=== PATIENT | male | born 1945 | race Caucasian/White ===

== ENCOUNTER 2019-11-14 11:35 | Day surgery (SDC) | payer MEDICARE, OTHER, SELFPAY ==
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
[2019-11-14 12:01] VITALS: BP 131/45; PULSE 91; RESP 16; TEMP 36.8; O2SAT 98; BMI 40.3
[2019-11-14] MEDS: Lactated Ringers 1,000 ML 75 ML IV (12:16)
[2019-11-14 12:26] LABS: Bedside Glucose 112 mg/dL (70-110)
--- NOTE | 2019-11-14 12:45 | COLBX_PTH ---
PATIENT: WILLIAM PLUMMER LOC: EN U#:[id number] AGE/SX: 73/M ROOM: RE11/14/[address]: Dr. Marylu Ferrer MD : 1945 BED: DIS: 11/14/2019 SPEC #: [id number] RECD: 11/14/19 14:53 STATUS: RA REQ #: [id number] HONORIO: 11/14/19 12:[address]: Marylu Ferrer DEPT: SURGICAL PATHOLOGY RECD BY: Serjio Elliott ENTERED: 11/15/19 07:51 SP TYPE: COLON BX OT DR: Dr. Gentry Frias MD Tissues: A - Right colon B - Right colon C - Rectum, NOS Procedures: Surgery Specimen Level IV HEADER OPERATION: Colonoscopy (MAC) PRE-OP DIAGNOSIS: Positive fecal occult blood test TISSUE SUBMITTED: A - Right colon polyp biopsy, B - Distal right colon polyp biopsy, C - Rectal polyp MICROSCOPIC DIAGNOSIS A. Right colon polyp, biopsy: Tubular adenoma. B. Distal right colon polyp, biopsy: Fragment of benign colonic mucosa. See comment. C. Rectal polyp, biopsy: Fecal debris. See comment. AM:santos 11/16/19 COMMENT B. Neither hyperplastic nor adenomatous change is identified. C. Mucosal epithelium is not identified. Clinical correlation is suggested. MICROSCOPIC DESCRIPTION Slides are reviewed. GROSS DESCRIPTION A - Received in fixative is one container labeled with the patient's name and designated right colon polyp biopsy. The specimen consists of one irregular fragment of light desai soft tissue that measures 0.5 x 0.5 x 0.1 cm. The specimen is totally submitted in one cassette. B - Received in fixative is one container labeled with the patient's name and designated distal right colon polyp. The specimen consists of one irregular fragment of light desai soft tissue that measures 0.3 x 0.3 x 0.1 cm. The specimen is totally submitted in one cassette. C - Received in fixative is one container labeled with the patient's name and designated rectal polyp. The specimen consists of multiple irregular fragments of light desai fecal debris that in aggregate measure 2.5 x 0.6 x 0.1 cm. The specimen is totally submitted in one cassette. / AM:santos 11/15/19 TC:5 CPT: 04936 x3
[2019-11-14 13:12] VITALS: BP 131/45; BP 89/74; PULSE 80; RESP 16; TEMP 36.5; O2SAT 97
--- NOTE | 2019-11-14 13:14 | OP.COLON_ITS ---
Patient Name: Patrick Perdomo Procedure Date: 11/14/2019 11:57 AM Date of : 1945 Age: 73 Procedure: Colonoscopy Indications: Heme positive stool Providers: Marylu Ferrer MD Referring MD: Gentry Frias Medicines: See the Anesthesia note for documentation of the administered medications Patient Profile: Refer to note in patient chart for documentation of history and physical. Last Colonoscopy: none. The patient's first colonoscopy is today. Complications: No immediate complications. Procedure: Pre-Anesthesia Assessment: - see anesthesia note After I obtained informed consent, the scope was passed under direct vision. Throughout the procedure, the patient's blood pressure, pulse, and oxygen saturations were monitored continuously. The pediatric colonoscope was introduced through the anus and advanced to the cecum, identified by the appendiceal orifice, IC valve and transillumination. The colonoscopy was performed without difficulty. The patient tolerated the procedure well. The quality of the bowel preparation was poor and poor, there was still retained fecal material. Therefore lavage and aspiration was done to clear the fecal material. This took some time. The deras were cleared adequately. Scope In: 12:33:18 PM Scope Withdrawal Time 0 hours 24 minutes 32 seconds Scope Out: 1:07:27 PM Total Procedure Duration Time 0 hours 34 minutes 9 seconds Findings: The perianal and digital rectal examinations were normal. Pertinent negatives include normal sphincter tone. A 3 to 8 mm polyp was found in the ascending colon. The polyp was sessile. The polyp was removed with a cold biopsy forceps. Resection and retrieval were complete. Verification of patient identification for the specimen was done by the nurse. Estimated blood loss was minimal. One 5 to 10 mm submucosal nodule was found in the ascending colon. Probably a small submucosal lipoma. Biopsies were taken with a cold forceps for histology. Verification of patient identification for the specimen was done by the nurse. Estimated blood loss was minimal. A 3 to 8 mm polyp was found in the rectum. The polyp was sessile. The polyp was removed with a hot snare. Resection and retrieval were complete. Verification of patient identification for the specimen was done by the nurse. Estimated blood loss was minimal. Non-bleeding internal hemorrhoids were found. Impression: - Preparation of the colon was poor. - One 3 to 8 mm polyp in the ascending colon, removed with a cold biopsy forceps. Resected and retrieved. - Submucosal nodule in the ascending colon, probable lipoma. Biopsied. - One 3 to 8 mm polyp in the rectum, removed with a hot snare. Resected and retrieved. - Non-bleeding internal hemorrhoids. Recommendation: - Repeat colonoscopy date to be determined after pending pathology results are reviewed for surveillance based on pathology results. - My office will telephone with pathology results in 1-2 weeks - Continue present medications. Procedure Code(s): --- Professional --- 56268, Colonoscopy, flexible; with removal of tumor(s), polyp(s), or other lesion(s) by snare technique 19319, 59, Colonoscopy, flexible; with biopsy, single or multiple Diagnosis Code(s): --- Professional --- K64.8, Other hemorrhoids D12.2, Benign neoplasm of ascending colon K62.1, Rectal polyp K63.89, Other specified diseases of intestine R19.5, Other fecal abnormalities CPT copyright 2017 [employer]. All rights reserved. The codes documented in this report are preliminary and upon ambulance mechanic review may be revised to meet current compliance requirements. MD Marylu Ang MD 11/14/2019 1:13:44 PM This report has been signed electronically. Number of Addenda: 0 Note Initiated On: 11/14/2019 11:57 AM
--- NOTE | 2019-11-14 13:14 | OP.CCLET_ITS ---
11/14/2019 Gentry Frias Re : Colonoscopy procedure for Patrick Banuelosr Rodriguez This procedure was performed on Thursday, November 14, 2019. My impressions and recommendations are as follows: Impressions : - Preparation of the colon was poor. - One 3 to 8 mm polyp in the ascending colon, removed with a cold biopsy forceps. Resected and retrieved. - Submucosal nodule in the ascending colon, probable lipoma. Biopsied. - One 3 to 8 mm polyp in the rectum, removed with a hot snare. Resected and retrieved. - Non-bleeding internal hemorrhoids. Recommendations : - Repeat colonoscopy date to be determined after pending pathology results are reviewed for surveillance based on pathology results. - My office will telephone with pathology results in 1-2 weeks - Continue present medications. My findings are described in the full procedure note, which is enclosed. If I can be of further assistance, please feel free to contact me at Doctor phone number(s): , Work: . Sincerely, MD Marylu Ang MD 11/14/2019 1:13:44 PM This report has been signed electronically.
[2019-11-14 13:17] VITALS: BP 131/45; BP 93/53; PULSE 80; RESP 16; O2SAT 98
[2019-11-14 13:22] VITALS: BP 131/45; BP 96/53; PULSE 80; RESP 16; O2SAT 97
[2019-11-14 13:27] VITALS: BP 105/52; BP 131/45; PULSE 78; RESP 16; TEMP 36.4; O2SAT 98
[2019-11-14 14:07] VITALS: BP 131/45
== END 2019-11-14 14:08 | disposition home or self-care (01) ==
LOC: EN 11:38 → AC 11:41
PROVIDERS: PCP Family Medicine; Referring Provider Family Medicine; Visit Provider Surgery
PROC: 0DJD8ZZ Inspection of Lower Intestinal Tract, Via Natural or Artificial Opening Endoscopic (ICD-10-PCS; CPT 45378; principal; 2019-11-14 12:40)
DX: D12.2 Benign neoplasm of ascending colon (principal); K62.1 Rectal polyp; K63.89 Other specified diseases of intestine; K64.8 Other hemorrhoids; R19.5 Other fecal abnormalities; I10 Essential (primary) hypertension; E78.00 Pure hypercholesterolemia, unspecified; E11.9 Type 2 diabetes mellitus without complications; H54.8 Legal blindness, as defined in USA; M19.90 Unspecified osteoarthritis, unspecified site; H35.52 Pigmentary retinal dystrophy; E66.01 Morbid (severe) obesity due to excess calories; Z68.41 Body mass index [BMI] 40.0-44.9, adult; Z79.84 Long term (current) use of oral hypoglycemic drugs; Z79.899 Other long term (current) drug therapy; Z87.891 Personal history of nicotine dependence
CPT/HCPCS: 45380; 45385; 82962; 88305; J7120; J2405

== ENCOUNTER 2020-11-06 15:58 | Outpatient (RCR) | payer MEDICARE, OTHER, SELFPAY ==
[2020-11-06] MEDS: COVID-19 VACC, MRNA(PFIZER)/PF 30 MCG/0.3 ML SYRINGE IM (16:36)
[2020-11-27] MEDS: COVID-19 VACC, MRNA(PFIZER)/PF 30 MCG/0.3 ML SYRINGE IM (15:22)
== END 2021-02-05 23:59 ==
LOC: IMMUN 15:58
PROVIDERS: PCP Family Medicine; Visit Provider Family Medicine
DX: Z23 Encounter for immunization (principal)
CPT/HCPCS: 0001A; 0002A; 91300

== ENCOUNTER → 2022-12-17 | Outpatient (CLI) | payer MEDICARE, OTHER, SELFPAY ==
--- NOTE | 2022-12-17 13:06 | ART_ITS ---
Reason For Study: PVD Procedure A bilateral lower extremity continuous wave Doppler with analog waveform analysis,segmental pressures,and ankle brachial indexes without exercise. Left Segmental Pressures Left brachial= 128mmHg. Left posterior tibial artery = 132mmHg. Left dorsalis pedis artery = 129mmHg. Left digit = 64 mmHg. The left posterior tibial artery waveforms are triphasic. The left dorsalis pedis waveforms are triphasic. Right Segmental Pressures Right brachial= 125mmHg. Right posterior tibial artery = 140mmHg. Right dorsalis pedis artery = 137mmHg. Right digit = 62 mmHg. The right posterior tibial artery waveforms are triphasic. The right dorsalis pedis waveforms are triphasic. Indices The right ankle brachial index by the posterior tibial artery is 1.09. The right ankle brachial index by the dorsalis pedis is 1.07. The right digital-brachial index is 0.48. The left ankle brachial index by the posterior tibial artery is 1.03. The left ankle brachial index by the dorsalis pedis is 1.01. The left digital-brachial index is 0.50. VL/Lower Ext Art Exam w/o Exercis Interpretation Summary Triphasic Doppler waveforms are noted at ankle level bilaterally. Pulse-volume recordings appear satisfactory at low thigh, calf, ankle, and digital levels bilaterally. Resting ankle-brachial indices are normal bilaterally. The right digital-brachial index is moderately diminished. The left digital-brachial index is mildly diminished. Arterial flow appears normal at ankle level bilaterally. 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 There is evidence of mild antionette rial occlusive disease at digital level on the left. Ordering Physician: Gentry Frias Referring Physician: MARI FRIAS MD Performed By: Pierce Acosta RVT
== END | disposition home or self-care (01) ==
LOC: CVS 13:03
PROVIDERS: PCP Family Medicine; Referring Provider Family Medicine; Visit Provider Family Medicine
DX: I73.9 Peripheral vascular disease, unspecified (principal)
CPT/HCPCS: 93923

== ENCOUNTER 2023-08-05 22:22 | Observation (INO) | payer MEDICARE, OTHER, SELFPAY ==
[2023-08-05 22:23] VITALS: PULSE 81; RESP 18; TEMP 36.6; O2SAT 100; BMI 35.2
[2023-08-05 22:28] VITALS: BP 125/60
--- NOTE | 2023-08-05 22:35 | EX.ED.DYSGE1 ---
HPI History of Present Illness Chief Complaint: Weakness Informant: patient Onset/Context/Timing Onset: Weeks Context: Gradual Onset Narrative Narrative: Patient presents secondary to weakness and falls. He states he has been having trouble picking his legs up when he walks and just shuffles. About a week and a half ago he fell going into his bathroom landing on his left hip. He was able to get himself up at that time. He states he had a similar episode tonight but was not able to get himself up. He again complains of injuring his left hip. He denies fever or chills. [facility] Medical History (Updated 08/05/23 @ 23:[address] Letty Hudson MD) Diabetes Enlarged prostate High cholesterol Legally blind Home Medications ascorbic acid (vitamin C) 1,000 mg tablet 1,000 mg PO DAILY supplement 11/09/19 [History Last Taken Unknown] cholecalciferol (vitamin D3) 25 mcg (1,000 unit) tablet 1,000 unit PO DAILY supplement 11/09/19 [History Last Taken Unknown] cyanocobalamin (vitamin B-12) 1,000 mcg capsule 1,000 mcg PO DAILY supplement 11/09/19 [History Last Taken Unknown] empagliflozin 10 mg tablet 10 mg PO DAILY diabetes 11/09/19 [History Last Taken Unknown] glipizide 10 mg tablet, extended release 24 hr 10 mg PO DAILY diabetes 11/09/19 [History Last Taken Unknown] hydrochlorothiazide 25 mg tablet 12.5 mg PO DAILY water pill 11/09/19 [History Last Taken Unknown] linagliptin 5 mg tablet 5 mg PO DAILY diabetes 11/09/19 [History Last Taken Unknown] lisinopril 10 mg tablet 10 mg PO DAILY 11/09/19 [History Last Taken 11/14/19 09:30] lovastatin 40 mg tablet 40 mg PO QHS cholesterol 11/09/19 [History Last Taken Unknown] metformin 500 mg tablet 1,000 mg PO BID diabetes 11/09/19 [History Last Taken Unknown] pioglitazone 45 mg tablet 45 mg PO DAILY diabetes 11/09/19 [History Last Taken Unknown] vitamin A 3,000 mcg (10,000 unit) capsule 15,000 unit PO DAILY supplement 11/09/19 [History Last Taken Unknown] Allergy/AdvReac Type Severity Reaction Status Date / Time No Known Allergies Allergy Verified 08/05/23 22:27 Social History Smoking Status: Former smoker ROS ROS ED Constitutional Constitutional ED: Denies chills or fever(s) Eyes Eyes: Reports other Details: Legally blind ENT ENT ED: Denies rhinorrhea or sore throat Cardiovascular Cardiovascular: Denies chest pain or palpitations Respiratory/Chest Respiratory/Chest: Denies cough or dyspnea Gastrointestinal Gastrointestinal: Denies abdominal pain, nausea or vomiting Genitourinary Genitourinary ED: Reports urinary frequency; Denies dysuria Musculoskeletal Musculoskeletal: Reports extremity pain; Denies back pain Integumentary Denies Abrasions or rash Neurologic Neurologic: Reports weakness; Denies headache(s) Psychiatric Psychiatric: Denies anxiety or depression Allergic/Immunologic Allergic/Immunologic ED: Denies lip swelling or urticaria EXAM Physical Exam Const Vital Signs: 08/05/23 22:23 08/05/23 22:28 08/05/23 23:26 Temperature 97.8 F Temperature Source Oral Pulse Rate 81 76 Respiratory Rate 18 18 Blood Pressure 125/60 H 131/57 H Blood Pressure Mean 81 81 Pulse Ox 100 97 Oxygen Delivery Method Room Air Room Air Positive well nourished and well developed General Appearance ED: well developed HEENT Reports moist mucous membranes Chest Wall inspection of chest normal and palpation of chest normal Resp normal respiratory effort and clear to auscultation bilaterally Cardio regular rate and regular rhythm GI non-tender Palpation: soft Extremity Extremity Narrative: Mild tonsil patient the lateral aspect of the left hip. Equal leg lengths noted. Good distal pulses. Elastic knee brace removed from his right leg. This is saturated with urine. No focal bony tenderness of the right knee. Neuro oriented x3 Neuro Narrative: Generalized weakness but no focal neurologic deficits. Moves all 4 extremities. Sensorium / Orientation: alert Skin no rashes or lesions noted MDM MDM MDM Narrative Medical decision making narrative: Patient placed on cardiac sonographer. EKG obtained to evaluate for cardiac arrhythmia/ischemia. Labwork obtained to evaluate for leukocytosis, anemia, and electrolyte derangement. Urinalysis obtained to evaluate for infection/hematuria. X-rays of the left hip and pelvis obtained to evaluate for fracture. History & Record Review Discussion w/independent historian: EMS personnel and Patient Lab Data Attestation: I reviewed the patient's lab results. Labs: Laboratory Results - last 24 hr 08/05/23 23:06 WBC 7.8 RBC 3.71 L Hgb 11.5 L Hct 36.3 L MCV 97.8 H MCH 31.0 MCHC 31.7 L RDW Std Deviation 49.7 H RDW Coeff of [place] 13.8 Plt Count 214 MPV 10.8 Immature Gran % (Auto) 0.600 Neut % (Auto) 76.4 H Lymph % (Auto) 12.7 L [place] % (Auto) 9.0 Eos % (Auto) 0.9 Baso % (Auto) 0.4 Absolute Neuts (auto) 6.0 Absolute Lymphs (auto) 0.99 Nucleated RBC % 0 Sodium 141 Potassium 3.6 Chloride 106 Carbon Dioxide 32.0 Anion Gap 3 L BUN 25 H Creatinine 1.11 Estim Creat Clear Calc 53.76 Est GFR (MDRD) Af Amer 83 Est GFR (MDRD) Non-Af 69 BUN/Creatinine Ratio 22.5 H Glucose 221 H Calcium 8.5 Urine Color Yellow Urine Clarity Clear Urine pH 6.5 Ur Specific [place] 1.010 Urine Protein 15 H Urine Glucose (UA) 1000 H Urine Ketones 5 H Urine Occult Blood Negative Urine Nitrite Negative Urine Bilirubin Negative Urine Urobilinogen Normal Ur Leukocyte Esterase Negative Urine RBC 0 SEEN Urine WBC 0 SEEN Ur Squamous Epith Cells 0 SEEN Urine Bacteria 0 SEEN Urine Mucus 0 SEEN Radiography Diagnostic Testing: Clinical Impression(s) from Imaging Studies Hip/Pelvis X-Ray 08/05/23 23:15 IMPRESSION: No fracture or dislocation. Electronically Signed: Marshall Alvarado DO at 23:33 EST Reading Location ID and State: [facility] / [place] Tel , Service support , EKG Initial EKG: Attestation: I personally reviewed and interpreted this EKG as follows: Interpretation: Sinus Rhythm (Sinus at 70 with no acute ischemia.) Treatment and Re-Evaluation :: CBC was normal white count at 7.8 with a hemoglobin 11.5. Differential reveals 76% neutrophils. Chemistry studies reveal a BUN of 25 with creatinine 1.11. Glucose is slightly elevated at 221. Urinalysis does reveal glucose but no evidence of acute infection. EKG is sinus rhythm with no acute ischemia. Pelvis and left hip x-rays per my interpretation reveal arthritic changes with no evidence of acute fracture. Radiology interpretation reviewed and agrees. On repeat evaluation patient resting comfortably. Test results are discussed with him. I see no definite cause of acute weakness, I do have concern that the patient is having more difficulty ambulating and is now fallen twice in the last 10 days. I do feel he would benefit from observation and work with physical therapy for his safety. Patient is in agreement with this plan. I will speak with the hospitalist. Discharge Plan Triage Chief Complaint: Weakness ED Provider: Letty Hudson Dx/Rx/DC Orders Clinical Impression: Weakness, Fall, Contusion of hip, left Prescriptions: No Action metformin 500 MG tablet 1,000 mg PO BID Patient Comments: take 1 tab with lunch glipizide 10 MG tablet extended release 24hr 10 mg PO DAILY lovastatin 40 MG tablet 40 mg PO QHS pioglitazone 45 MG tablet 45 mg PO DAILY lisinopril 10 MG tablet 10 mg PO DAILY hydrochlorothiazide 25 MG tablet 12.5 mg PO DAILY linagliptin 5 MG tablet 5 mg PO DAILY empagliflozin 10 MG tablet 10 mg PO DAILY ascorbic acid (vitamin C) 1,000 MG tablet 1,000 mg PO DAILY vitamin A 10,000 UNIT capsule 15,000 unit PO DAILY cholecalciferol (vitamin D3) 1,000 UNIT tablet 1,000 unit PO DAILY cyanocobalamin (vitamin B-12) 1,000 MCG capsule 1,000 mcg PO DAILY Primary Care Provider: Gentry Frias Referrals: Gentry Frias MD [Primary Care Provider] - Disposition Disposition: Acute Care Hospital [facility]
[2023-08-05 23:12] LABS: Bacteria 0 SEEN /hpf (None Seen); Mucous, Urine 0 SEEN /hpf (<or=2+); Red Blood Cells-Urine 0 SEEN /hpf (0-5); Squamous Epithelial Cells - UA 0 SEEN /hpf (0-5); White Blood Cells 0 SEEN /hpf (0-5)
[2023-08-05 23:14] LABS: Absolute Lymphocyte Count 0.99 X10^3/uL (0.83-4.51); Basophil# 0.03 X10^3/uL; Basophil% 0.4 % (0-1); Eosinophil# 0.07 X10^3/uL; Eosinophils% 0.9 % (0-5); Hematocrit 36.3 % (40-54); Hemoglobin 11.5 g/dL (13.0-16.5); Lymphocyte # 0.99 X10^3/ul (0.83-4.51); Lymphocyte % 12.7 % (19-41); Mean Corp Hgb Conc 31.7 g/dL (32-36); Mean Corpuscular Volume 97.8 fL (80-94); Mean Platelet Vol. 10.8 fl (6.2-12.0); NRBC Flagged by Analyzer 0 % (0-5); Neutrophil # 5.98 X10^3/uL (2.7-7.7); Neutrophil % 76.4 % (47-70); Platelet Count 214 K/mm3 (150-450); RBC Distribution Width CV 13.8 % (11.6-14.6); RBC Distribution Width SD 49.7 fl (35.1-43.9); Red Blood Count 3.71 M/mm3 (4.6-6.2); White Blood Count 7.8 K/mm3 (4.4-11.0)
--- NOTE | 2023-08-05 23:15 | RAD_ITS ---
INDICATION: injury EXAMINATION/TECHNIQUE: X-RAY - LEFT XR Hip Unilateral with Pelvis when performed; 2-3 Views COMPARISON: None. FINDINGS: SOFT TISSUES: Unremarkable. BONES/JOINTS: No fracture or dislocation. 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 No erosive changes. RAD/HIP, UNI W/ Pelvis 2-3 Views IMPRESSION: No fracture or dislocation. Electronically Signed: Marshall Alvarado DO at 23:33 EST ,
[2023-08-05 23:16] LABS: Color, Urine Yellow (Yellow); Glucose, Dipstick 1000 mg/dl (Normal); Ketone-Dipstick 5 mg/dl (Negative); Leukocyte Esterase-Dipstick Negative /ul (Negative); Nitrite-Dipstick Negative (Negative); Occult Blood-Urine Negative /ul (Negative); Protein-Dipstick 15 mg/dl (Negative); Urine Bilirubin Dipstick Negative (Negative); Urine Clarity Clear (Clear); Urine Urobilinogen Normal (Normal); Urine pH 6.5 (5.0 - 8.0)
[2023-08-05 23:26] VITALS: BP 131/57; PULSE 76; RESP 18; O2SAT 97
[2023-08-05 23:27] LABS: Anion Gap 3 (5-15); BUN 25 mg/dL (7-18); BUN/Creat Ratio 22.5 RATIO (10-20); Calcium,Total 8.5 mg/dL (8.5-10.1); Chloride 106 mmol/L (98-107); Creatinine, Serum 1.11 mg/dL (0.70-1.30); EST Glomerular Filtration Rate 69 mL/min (>60); Est Glom Filt Rate - Afr Amer 83 mL/min (>60); Estimated Creatinine Clearance 53.76 ml/min; Glucose 221 mg/dL (74-106); Potassium 3.6 mmol/L (3.5-5.1); Sodium Level 141 mmol/L (136-145)
[2023-08-06] VITALS (8 sets, daily range): BP systolic 119–149; BP diastolic 55–69; PULSE 68–76; RESP 16–20; TEMP 36.4–36.9; O2SAT 91–97; BMI 35.2
--- NOTE | 2023-08-06 01:02 | HP.PCM.HOS_ITS ---
[facility] - General General Date of Admission: 08/06/23 Date of Service: 08/06/23 Chief Complaint: Fall with left hip pain and progressive functional decline HPI Narrative WILLIAM PLUMMER, is a 77 M with a past medical history essential hypertension, hyperlipidemia, obesity; with a BMI of 35.2 this admission, diabetes mellitus type 2; of unknown control, previous history of tobacco abuse, legally blind, BPH, osteoarthritis and recent increase in falls due to loss of balance with subsequent aggressive functional decline of who presents to [facility] ER complaining of left hip pain and inability to ambulate. Mr. Perla reports his symptoms began approximately a week and a half ago when he noticed he was having trouble picking up his legs when he walks with a new and dysfunctional shuffling gait and generalized weakness causing him to fall while he was trying to go to the bathroom with the patient landing on his left hip. He had significant pain and was not able to get himself up so he was brought to the ER for further evaluation and treatment. He denies associated fever, chills, nausea, vomiting, slurred speech or unilateral weakness. He also denies significant head trauma or loss of consciousness with his falls. In the ER he was diagnosed with generalized weakness with ambulatory dysfunction and frequent falls resulting in progressive functional decline and he was then admitted to the general medical floor under observation status for stay that is expected to be less than 48 hours. [facility] Medical History Diabetes Enlarged prostate High cholesterol Legally blind Home Medications ascorbic acid (vitamin C) 1,000 mg tablet 1,000 mg PO DAILY supplement 11/09/19 [History Last Taken Unknown] cholecalciferol (vitamin D3) 25 mcg (1,000 unit) tablet 1,000 unit PO DAILY supplement 11/09/19 [History Last Taken Unknown] cyanocobalamin (vitamin B-12) 1,000 mcg capsule 1,000 mcg PO DAILY supplement 11/09/19 [History Last Taken Unknown] empagliflozin 10 mg tablet 10 mg PO DAILY diabetes 11/09/19 [History Last Taken Unknown] glipizide 10 mg tablet, extended release 24 hr 10 mg PO DAILY diabetes 11/09/19 [History Last Taken Unknown] hydrochlorothiazide 25 mg tablet 12.5 mg PO DAILY water pill 11/09/19 [History Last Taken Unknown] linagliptin 5 mg tablet 5 mg PO DAILY diabetes 11/09/19 [History Last Taken Unknown] lisinopril 10 mg tablet 10 mg PO DAILY 11/09/19 [History Last Taken 11/14/19 09:30] lovastatin 40 mg tablet 40 mg PO QHS cholesterol 11/09/19 [History Last Taken Unknown] metformin 500 mg tablet 1,000 mg PO BID diabetes 11/09/19 [History Last Taken Unknown] pioglitazone 45 mg tablet 45 mg PO DAILY diabetes 11/09/19 [History Last Taken Unknown] vitamin A 3,000 mcg (10,000 unit) capsule 15,000 unit PO DAILY supplement [History Last Taken Unknown] Allergy/AdvReac Type Severity Reaction Status Date / Time No Known Allergies Allergy Verified 08/05/23 22:27 Social History Smoking Status: Former smoker ROS ROS Narrative Review of systems: General: Patient denies fever or chills. HENT: Denies headache, denies stuffy nose, denies sore throat EYES: Legally blind at baseline. Resp: Denies cough, denies shortness of breath Cardiac: Denies chest pain GI: Denies abdominal pain, denies changes in bowel, had some nausea : Denies changes in urination Extremity: Denies swelling Musculoskeletal: Feels somewhat generally weak and unwell with fall onto his left hip and subsequent inability to ambulate normally Neuro: Denies any numbness/tingling Heme: Denies any bleeding or bruising Skin: Denies rashes Psychiatric: No complaints voiced Endocrine: No polyuria The rest of the 14 point ROS was negative except for positives in HPI. Vital Signs Vital Signs Vital Signs: 08/05/23 22:23 08/05/23 22:28 08/05/23 23:26 Temperature 97.8 F Temperature Source Oral Pulse Rate 81 76 Respiratory Rate 18 18 Blood Pressure 125/60 H 131/57 H Blood Pressure Mean 81 81 Pulse Ox 100 97 Oxygen Delivery Method Room Air Room Air Weight Weight: 224 lb 13.944 oz Body Mass Index (BMI) 35.2 Physical Exam Const alert, oriented x3, no apparent distress and average body habitus General Appearance: cooperative HEENT normocephalic, head/scalp atraumatic, hearing grossly normal bilaterally and moist oral mucous membranes Eyes conjunctivae normal Eyes Narrative: Patient is legally blind. Neck no lymphadenopathy and supple Resp normal respiratory effort, no retractions, no use of accessory muscles and clear to auscultation bilaterally Cardio regular rate and regular rhythm GI normal to inspection, nondistended, normoactive bowel sounds, soft to palpation, non-tender and non-distended Extremity Extremity Narrative: Patient appears to have mild bruising and tenderness over the lateral aspect of the left hip with good pulses and no signs of vascular compromise. There is also no deformity indicative of fracture. Skin Skin Narrative: Patient has no evidence of rash at this time. Neuro oriented x3, CN's II-XII intact bilaterally, moves all extremities and no focal motor deficits Sensorium / Orientation: awake, alert, oriented to person, oriented to place and oriented to time Speech: speech normal Psych affect normal Results Medical Records Data Attestation: I reviewed the patient's medical records Lab / Micro Data Attestation: I reviewed the patient's lab results. 08/05/23 23:06 08/05/23 23:06 Labs: Laboratory Results - last 24 hr 08/05/23 23:06: WBC 7.8, RBC 3.71 L, Hgb 11.5 L, Hct 36.3 L, MCV 97.8 H, MCH 31.0, MCHC 31.7 L, RDW Std Deviation 49.7 H, RDW Coeff of [place] 13.8, Plt Count 214, MPV 10.8, Immature Gran % (Auto) 0.600, Neut % (Auto) 76.4 H, Lymph % (Auto) 12.7 L, [place] % (Auto) 9.0, Eos % (Auto) 0.9, Baso % (Auto) 0.4, Absolute Neuts (auto) 6.0, Absolute Lymphs (auto) 0.99, Nucleated RBC % 0, Sodium 141, Potassium 3.6, Chloride 106, Carbon Dioxide 32.0, Anion Gap 3 L, BUN 25 H, Creatinine 1.11, Estim Creat Clear Calc 53.76, Est GFR (MDRD) Af Amer 83, Est GFR (MDRD) Non-Af 69, BUN/Creatinine Ratio 22.5 H, Glucose 221 H, Calcium 8.5, Urine Color Yellow, Urine Clarity Clear, Urine pH 6.5, Ur Specific [place] 1.010, Urine Protein 15 H, Urine Glucose (UA) 1000 H, Urine Ketones 5 H, Urine Occult Blood Negative, Urine Nitrite Negative, Urine Bilirubin Negative, Urine Urobilinogen Normal, Ur Leukocyte Esterase Negative, Urine RBC 0 SEEN, Urine WBC 0 SEEN, Ur Squamous Epith Cells 0 SEEN, Urine Bacteria 0 SEEN, Urine Mucus 0 SEEN Imagaing Radiology Impression Hip/Pelvis X-Ray 08/05/23 23:15 IMPRESSION: No fracture or dislocation. Electronically Signed: Marshall AlvaradoDO ro at 23:33 EST , Assessment & Plan Assessment/Plan (1) Fall: QUALIFIERS: Encounter type: initial encounter Qualified Code(s): W19.XXXA - Unspecified fall, initial encounter (2) Contusion of hip, left: QUALIFIERS: Encounter type: initial encounter Qualified Code(s): S70.02XA - Contusion of left hip, initial encounter (3) Weakness: PLAN: Plan 1. Mechanical fall at home onto left hip with left hip contusion - Admit to general medical floor under observation status. PT/OT and case management to consult and treat in the a.m. on rounds with help appreciated in advance. Give Tylenol as needed for mild to moderate level 1-5 out of 10 pain or fever. Give oxycodone as needed for severe level 6-10 out of 10 pain. 2. Generalized weakness with ambulatory dysfunction in a patient legally blind at baseline with progressive functional decline exacerbated by #1 - Continue supportive care and monitor for improvement. Patient may very well require ECF placement for subacute rehabilitation. 3. Essential hypertension - Continue home medications as previous plus give as needed IV hydralazine for systolic blood pressure greater than 160 mmHg. 4. Hyperlipidemia - Resume statin and check lipid profile. 5. Diabetes mellitus type 2; of unknown control - ADA diet. Fingerstick blood sugars before every meal and at bedtime plus sliding scale insulin on the lowest intensity. Check hemoglobin A1c to objectively evaluate quality of diabetic control. 6. Obesity; with BMI of 35.2 this admission - Weight loss will be recommended. Check TSH in light of #1 and 2. 7. DVT prophylaxis - Lovenox 40 mg subcu daily plus SCDs. Total time: Approximately 45 minutes. Charges/Coding Visit Charges OBSV E&M: 33417 Observ/hosp same date L1
[2023-08-06 02:23] LABS: CPK Total, Creatine Kinase 79 U/L (39-308)
[2023-08-06 02:30] LABS: Hemoglobin A1c 7.2 % (3.8-5.6)
[2023-08-06] MEDS: 0.9% Normal Saline (1000mL) 1,000 ML 100 ML IV ×2 (08:32→15:57)
[2023-08-06 08:34] LABS: Bedside Glucose 91 mg/dL (74-106)
[2023-08-06] MEDS: Cyanocobalamin 500 MCG Tablet 1000 MCG PO (09:31)
[2023-08-06] MEDS: Empagliflozin 10 MG Tablet PO (09:31)
[2023-08-06] MEDS: Ascorbic Acid 500 MG Tablet 1000 MG PO (09:31)
[2023-08-06] MEDS: Lisinopril 10 MG Tablet PO (09:32)
[2023-08-06] MEDS: Cholecalciferol (VIT D3) 25 MCG TABLET (1,000 UNITS) PO (09:32)
[2023-08-06] MEDS: hydroCHLOROthiazide 12.5mg 12.5 MG PO (09:32)
[2023-08-06] MEDS: Insulin Lispro 100 UNIT/ML INSULN.PEN SC ×2 (12:32→16:57)
[2023-08-06 12:53] LABS: Bedside Glucose 170 mg/dL (74-106)
--- NOTE | 2023-08-06 14:58 | CASEMGMT ---
Social Work SW?to room to meet with patient for initial transition planning/care coordination?assessment.?SW?introduced self and role at [facility].? Pt voices understanding and consents to?assessment.? Pt is A/Ox4 and answers all questions appropriately.?? Care providers, pharmacy, and demographics verified. PCP: Rodriguez Specialists: pt uncertain Preferred Pharmacy: [facility] [place] Insurance: Medicare Prescription Benefit:? yes Living Will/HPOA:?Pt states he has a living will and health care power of employment attorney naming his Henny Ward LNOK: Henny Ward, Juana Rodriguez, step daughter Camryn Lomeli, Friend Living Arrangements: Pt lives in a 3 story home with a ramp entrance. Pt's bedroom is on the second floor, however pt states he has a bed set up on the first floor and a full bathroom with a walk in shower. Pt has been independent with bathing and dressing. He does receive 14 meals from meals on wheels a week and has a medical alert. 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 Transportation:?pt's step daughter Juana Rodriguez or friend Camryn Lomeli assist with transportation. Pt and do not drive DME: ? Walker, cane, rollator, upright walker, walk in shower HHC/SNF: none previously PLAN: Pt denies need for SNF at this time. He feels he can return home with his and is agreeable to home health care. Therapy evaluations are pending. Home vs. SNF pending therapy evaluations. ORLANDO Beckham
[2023-08-06] MEDS: 0.9% Saline Lock 10 ML Syringe IV (15:57)
--- NOTE | 2023-08-06 16:34 | PCM.PN.HOSP ---
Reason for Visit Reason for Visit: Diagnoses Weakness (08/06/23) Contusion of left hip, initial encounter (08/06/23) Unspecified fall, initial encounter (08/06/23) Objective Data Objective Data Vital Signs: Vital Signs Temp Pulse Resp BP Pulse Ox O2 Del Method 97.7 F L 76 18 127/63 H 94 Room Air 08/06/23 15:30 08/06/23 15:30 08/06/23 15:30 08/06/23 15:30 08/06/23 15:30 08/06/23 15:30 Oxygen Delivery Method Room Air Weight: 224 lb 13.944 oz Body Mass Index (BMI) 35.2 Intake & Output: Intake and Output for Last 24 Hours 08/04/23 08/05/23 08/06/23 23:59 23:59 23:59 Intake Total 741.67 / 741.67 Output Total 400 / 400 Balance 341.67 / 341.67 Lab / Micro Data 08/05/23 23:06 08/05/23 23:06 Labs: Laboratory Results - last 24 hr 08/05/23 23:06: WBC 7.8, RBC 3.71 L, Hgb 11.5 L, Hct 36.3 L, MCV 97.8 H, MCH 31.0, MCHC 31.7 L, RDW Std Deviation 49.7 H, RDW Coeff of [place] 13.8, Plt Count 214, MPV 10.8, Immature Gran % (Auto) 0.600, Neut % (Auto) 76.4 H, Lymph % (Auto) 12.7 L, [place] % (Auto) 9.0, Eos % (Auto) 0.9, Baso % (Auto) 0.4, Absolute Neuts (auto) 6.0, Absolute Lymphs (auto) 0.99, Nucleated RBC % 0, Sodium 141, Potassium 3.6, Chloride 106, Carbon Dioxide 32.0, Anion Gap 3 L, BUN 25 H, Creatinine 1.11, Estim Creat Clear Calc 53.76, Est GFR (MDRD) Af Amer 83, Est GFR (MDRD) Non-Af 69, BUN/Creatinine Ratio 22.5 H, Glucose 221 H, Hemoglobin A1c 7.2 H, Calcium 8.5, Total Creatine Kinase 79, Urine Color Yellow, Urine Clarity Clear, Urine pH 6.5, Ur Specific [place] 1.010, Urine Protein 15 H, Urine Glucose (UA) 1000 H, Urine Ketones 5 H, Urine Occult Blood Negative, Urine Nitrite Negative, Urine Bilirubin Negative, Urine Urobilinogen Normal, Ur Leukocyte Esterase Negative, Urine RBC 0 SEEN, Urine WBC 0 SEEN, Ur Squamous Epith Cells 0 SEEN, Urine Bacteria 0 SEEN, Urine Mucus 0 SEEN 08/06/23 08:12: POC Glucose 91 08/06/23 12:30: POC Glucose 170 H Radiography Diagnostic Testing: Radiology Impression Hip/Pelvis X-Ray 08/05/23 23:15 IMPRESSION: No fracture or dislocation. Electronically Signed: Marshall Alvarado, DO at 23:33 EST , Physical Exam Narrative atient appears to have mild bruising and tenderness over the lateral aspect of the left hip with good pulses and no signs of vascular compromise. There is also no deformity indicative of fracture. Assessment & Plan Assessment/Plan (1) Fall: QUALIFIERS: Encounter type: initial encounter Qualified Code(s): W19.XXXA - Unspecified fall, initial encounter (2) Contusion of hip, left: QUALIFIERS: Encounter type: initial encounter Qualified Code(s): S70.02XA - Contusion of left hip, initial encounter (3) Weakness: PLAN: Plan 1. Mechanical fall at home onto left hip with left hip contusion - Admit to general medical floor under observation status. PT/OT and case management to consult and treat in the a.m. on rounds with help appreciated in advance. Give Tylenol as needed for mild to moderate level 1-5 out of 10 pain or fever. Give oxycodone as needed for severe level 6-10 out of 10 pain. 2. Generalized weakness with ambulatory dysfunction in a patient legally blind at baseline with progressive functional decline exacerbated by #1 - Continue supportive care and monitor for improvement. Patient may very well require ECF placement for subacute rehabilitation. 3. Essential hypertension - Continue home medications as previous plus give as needed IV hydralazine for systolic blood pressure greater than 160 mmHg. 4. Hyperlipidemia - Resume statin and check lipid profile. 5. Diabetes mellitus type 2; of unknown control - ADA diet. Fingerstick blood sugars before every meal and at bedtime plus sliding scale insulin on the lowest intensity. Check hemoglobin A1c to objectively evaluate quality of diabetic control. 6. Obesity; with BMI of 35.2 this admission - Weight loss will be recommended. Check TSH in light of #1 and 2. 7. DVT prophylaxis - Lovenox 40 mg subcu daily plus SCDs. Clinical Impression(s) from Imaging Studies Hip/Pelvis X-Ray 08/05/23 23:15 IMPRESSION: No fracture or dislocation. Laboratory Results 08/05/23 23:06: WBC 7.8, RBC 3.71 L, Hgb 11.5 L, Hct 36.3 L, MCV 97.8 H, MCH 31.0, MCHC 31.7 L, RDW Std Deviation 49.7 H, RDW Coeff of [place] 13.8, Plt Count 214, MPV 10.8, Immature Gran % (Auto) 0.600, Neut % (Auto) 76.4 H, Lymph % (Auto) 12.7 L, [place] % (Auto) 9.0, Eos % (Auto) 0.9, Baso % (Auto) 0.4, Absolute Neuts (auto) 6.0, Absolute Lymphs (auto) 0.99, Nucleated RBC % 0, Sodium 141, Potassium 3.6, Chloride 106, Carbon Dioxide 32.0, Anion Gap 3 L, BUN 25 H, Creatinine 1.11, Estim Creat Clear Calc 53.76, Est GFR (MDRD) Af Amer 83, Est GFR (MDRD) Non-Af 69, BUN/Creatinine Ratio 22.5 H, Glucose 221 H, Hemoglobin A1c 7.2 H, Calcium 8.5, Total Creatine Kinase 79, Urine Color Yellow, Urine Clarity Clear, Urine pH 6.5, Ur Specific [place] 1.010, Urine Protein 15 H, Urine Glucose (UA) 1000 H, Urine Ketones 5 H, Urine Occult Blood Negative, Urine Nitrite Negative, Urine Bilirubin Negative, Urine Urobilinogen Normal, Ur Leukocyte Esterase Negative, Urine RBC 0 SEEN, Urine WBC 0 SEEN, Ur Squamous Epith Cells 0 SEEN, Urine Bacteria 0 SEEN, Urine Mucus 0 SEEN 08/06/23 08:12: POC Glucose 91 08/06/23 12:30: POC Glucose 170 H
--- NOTE | 2023-08-06 16:42 | CASEMGMT ---
Met with patient to complete [employer]RI[employer]IANSON form. CH[employer]IAN[employer] form explained to patient who voiced understanding.. Original form placed in pt?s chart and copy provided to?patient. Kavitha Cabrera, Discharge Planning Asst
--- NOTE | 2023-08-06 18:10 | PN.HOSP_ITS ---
Hospitalist Note Patient was admitted early childhood today. H&P, vitals, labs and assessment plan reviewed. Patient admitted with fall with left hip pain and progressive functional decline. Vitals in normal limits. Discussed with the case management director regarding possible need of SNF. PT and OT is ordered.
--- NOTE | 2023-08-06 18:10 | PCM.HOSP.N ---
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 H&P, vitals, labs and assessment plan reviewed. Patient admitted with fall with left hip pain and progressive functional decline. Vitals in normal limits. Discussed with the case management associate regarding possible need of SNF. PT and OT is ordered.
[2023-08-06 18:30] LABS: Bedside Glucose 223 mg/dL (74-106)
[2023-08-06] MEDS: Atorvastatin Calcium 10 MG Tablet PO (21:43)
[2023-08-06 22:03] LABS: Bedside Glucose 150 mg/dL (74-106)
[2023-08-07] MEDS: 0.9% Normal Saline (1000mL) 1,000 ML 100 ML IV ×2 (01:09→11:21)
[2023-08-07] MEDS: Acetaminophen 325 MG Tablet 650 MG PO (01:10)
[2023-08-07 03:17] VITALS: BP 129/63; PULSE 72; RESP 16; TEMP 36.7; O2SAT 94
[2023-08-07 03:30] LABS: Bedside Glucose 124 mg/dL (74-106)
[2023-08-07 05:32] LABS: Absolute Lymphocyte Count 1.51 X10^3/uL (0.83-4.51); Absolute Neutrophil Count 4.2 X10^3/uL (2.0-7.7); Basophil# 0.03 X10^3/uL; Basophil% 0.5 % (0-1); Eosinophil# 0.15 X10^3/uL; Eosinophils% 2.3 % (0-5); Hematocrit 36.9 % (40-54); Hemoglobin 11.6 g/dL (13.0-16.5); Lymphocyte # 1.51 X10^3/ul (0.83-4.51); Mean Corp Hgb Conc 31.4 g/dL (32-36); Mean Corpuscular Hgb 30.5 pg (27.0-32.0); Mean Corpuscular Volume 97.1 fL (80-94); Mean Platelet Vol. 10.9 fl (6.2-12.0); Monocyte# 0.66 X10^3/uL; Monocyte% 10.1 % (0-10); NRBC Flagged by Analyzer 0 % (0-5); Neutrophil # 4.19 X10^3/uL (2.7-7.7); Neutrophil % 63.8 % (47-70); Platelet Count 209 K/mm3 (150-450); RBC Distribution Width CV 13.9 % (11.6-14.6); RBC Distribution Width SD 49.8 fl (35.1-43.9); White Blood Count 6.6 K/mm3 (4.4-11.0)
[2023-08-07 06:00] VITALS: BMI 35.2
[2023-08-07 06:20] LABS: ALB/GLOB Ratio 0.8 RATIO (0.9-2.4); AST(SGOT) 16 U/L (15-37); Alanine Aminotransfer ALT/SGPT 20 U/L (16-61); Albumin, Serum 2.7 g/dL (3.2-5.0); Alkaline Phosphatase 118 U/L (45-117); Anion Gap 5 (5-15); BUN 21 mg/dL (7-18); BUN/Creat Ratio 26.5 RATIO (10-20); Calcium,Total 7.7 mg/dL (8.5-10.1); Chloride 107 mmol/L (98-107); Creatinine, Serum 0.79 mg/dL (0.70-1.30); EST Glomerular Filtration Rate 101 mL/min (>60); Est Glom Filt Rate - Afr Amer 123 mL/min (>60); Globulin 3.2 g/dL (2.2-4.2); Glucose 109 mg/dL (74-106); Phosphorus 3.1 mg/dL (2.5-4.9); Potassium 3.5 mmol/L (3.5-5.1); Protein, Total 5.9 g/dL (6.4-8.2); Sodium Level 141 mmol/L (136-145); Thyroid Stim Hormone (TSH) 1.47 uIU/mL (0.358-3.74)
[2023-08-07 06:43] LABS: Bedside Glucose 117 mg/dL (74-106)
[2023-08-07 10:07] VITALS: BP 110/62; PULSE 87; RESP 16; TEMP 37.2; O2SAT 97
[2023-08-07 10:13] VITALS: O2SAT 98
[2023-08-07] MEDS: hydroCHLOROthiazide 12.5mg 12.5 MG PO (10:38)
[2023-08-07] MEDS: Lisinopril 10 MG Tablet PO (10:38)
[2023-08-07] MEDS: Cyanocobalamin 500 MCG Tablet 1000 MCG PO (10:38)
[2023-08-07] MEDS: Cholecalciferol (VIT D3) 25 MCG TABLET (1,000 UNITS) PO (10:38)
[2023-08-07] MEDS: Ascorbic Acid 500 MG Tablet 1000 MG PO (10:39)
--- NOTE | 2023-08-07 11:00 | PN.HOSP_ITS ---
Reason for Visit Reason for Visit: Diagnoses Weakness (08/06/23) Contusion of left hip, initial encounter (08/06/23) Unspecified fall, initial encounter (08/06/23) Objective Data Objective Data Vital Signs: Vital Signs Temp Pulse Resp BP Pulse Ox O2 Del Method 99.0 F 87 16 110/62 98 Room Air 08/07/23 10:07 08/07/23 10:07 08/07/23 10:07 08/07/23 10:07 08/07/23 10:13 08/07/23 10:13 Oxygen Delivery Method Room Air Weight: 224 lb 13.944 oz Body Mass Index (BMI) 35.2 Intake & Output: Intake and Output for Last 24 Hours 08/05/23 08/06/23 08/07/23 23:59 23:59 23:59 Intake Total 991.67 / 991.67 1170 / 1170 Output Total 1250 / 1250 1500 / 1500 Balance -258.33 / -258.33 -330 / -330 Lab / Micro Data 08/07/23 04:54 08/07/23 04:54 Labs: Laboratory Results - last 24 hr 08/06/23 12:30: POC Glucose 170 H 08/06/23 15:48: POC Glucose 223 H 08/06/23 21:40: POC Glucose 150 H 08/07/23 03:10: POC Glucose 124 H 08/07/23 04:54: WBC 6.6, RBC 3.80 L, Hgb 11.6 L, Hct 36.9 L, MCV 97.1 H, MCH 30.5, MCHC 31.4 L, RDW Std Deviation 49.8 H, RDW Coeff of [place] 13.9, Plt Count 209, MPV 10.9, Immature Gran % (Auto) 0.300, Neut % (Auto) 63.8, Lymph % (Auto) 23.0, [place] % (Auto) 10.1 H, Eos % (Auto) 2.3, Baso % (Auto) 0.5, Absolute Neuts (auto) 4.2, Absolute Lymphs (auto) 1.51, Nucleated RBC % 0, Sodium 141, Potassium 3.5, Chloride 107, Carbon Dioxide 29.0, Anion Gap 5, BUN 21 H, Creatinine 0.79, Estim Creat Clear Calc 57.60, Est GFR (MDRD) Af Amer 123, Est GFR (MDRD) Non-Af 101, BUN/Creatinine Ratio 26.5 H, Glucose 109 H, Calcium 7.7 L , Phosphorus 3.1, Total Bilirubin 0.50, AST 16, ALT 20, Alkaline Phosphatase 118 H, Total Protein 5.9 L, Albumin 2.7 L, Globulin 3.2, Albumin/Globulin Ratio 0.8 L, TSH 1.47 08/07/23 06:12: POC Glucose 117 H Physical Exam Narrative Seen and examined. Patient has acute on recurrent fall. Complain of crackling sound in the knees mainly in the right. Physical exam General: Alert, Oriented x3, Cooperative, morbid obesity BMI 35.3 kg/m? HEENT: Atraumatic, PERRLA, EOMI, Normocephalic Oral: Oral mucosa moist. No Gingival or Mucosal Lesions/ Ulcerations Neck: Supple, No JVD, Negative Carotid Bruits Lungs: Air entry diminished in bilateral lung bases. No crepitation/rhonchi Cardiovascular: Regular rate, Regular Rhythm, Normal S1, Normal S2, systolic murmur right second ICS with radiation to carotid. Abdomen: Bowel Sounds Present, Soft, Non Tender, Non-Distended : No renal angle tenderness. No suprapubic tenderness. Extremities: No edema, Capillary Refill Less than 3 Seconds Skin: No rashes, No breakdown Musculoskeletal: Mild tenderness over left hip pelvic area. ROM restricted. Bone enlargement, crepitus mainly right knee and decreased ROM at knees and hip joints. Neurological: Cranial nerves II-XII grossly intact, DTR 2+/4. No acute focal neurological deficit. Muscle strength 4/5 at knees and hip joints, shuffling gait. Psych/Mental Status: Normal Affect, Appropriate. Assessment & Plan Assessment/Plan (1) Fall: QUALIFIERS: Encounter type: initial encounter Qualified Code(s): W19.XXXA - Unspecified fall, initial encounter (2) Contusion of hip, left: QUALIFIERS: Encounter type: initial encounter Qualified Code(s): S70.02XA - Contusion of left hip, initial encounter (3) Weakness: PLAN: Plan 77-year-old gentleman was admitted with acute last on 08/05 and then 3 weeks ago with history of recurrent fall with severe pain in left hip and progressive functional decline. Patient complaining of left hip pain. He has poor balance with shuffling gait and generalized weakness. 1. Mechanical fall at home onto left hip with left hip contusion - Admit to general medical floor under observation status. Patient requires 2 people assist order physical therapy evaluation. Pain is controlled on Tylenol. Patient wants to go home but seems not realistic idea. CK is normal 79. 2. Generalized weakness with ambulatory dysfunction in a patient legally blind at baseline with progressive functional decline - Continue supportive care and monitor for improvement. 3. Essential hypertension -BP is 110s/60 to normal range. Continue home medications as previous plus give as needed IV hydralazine for systolic blood pressure greater than 180 mmHg. 4. Hyperlipidemia - Resume statin and 5. Diabetes mellitus type 2; [place] shows variable range from 1 50-223. A1c 7.2%. Continue Accu-Cheks before meals and at bedtime and cover with sliding scale. 6. Obesity; with BMI of 35.2 this admission - Weight loss will be recommended. TSH normal. 7. DVT prophylaxis - Lovenox 40 mg subcu daily plus SCDs. Laboratory Results 08/06/23 15:48: POC Glucose 223 H 08/06/23 21:40: POC Glucose 150 H 08/07/23 03:10: POC Glucose 124 H 08/07/23 04:54: WBC 6.6, RBC 3.80 L, Hgb 11.6 L, Hct 36.9 L, MCV 97.1 H, MCH 30.5, MCHC 31.4 L, RDW Std Deviation 49.8 H, RDW Coeff of [place] 13.9, Plt Count 209, MPV 10.9, Immature Gran % (Auto) 0.300, Neut % (Auto) 63.8, Lymph % (Auto) 23.0, [place] % (Auto) 10.1 H, Eos % (Auto) 2.3, Baso % (Auto) 0.5, Absolute Neuts (auto) 4.2, Absolute Lymphs (auto) 1.51, Nucleated RBC % 0, Sodium 141, Potassium 3.5, Chloride 107, Carbon Dioxide 29.0, Anion Gap 5, BUN 21 H, Creatinine 0.79, Estim Creat Clear Calc 57.60, Est GFR (MDRD) Af Amer 123, Est GFR (MDRD) Non-Af 101, BUN/Creatinine Ratio 26.5 H, Glucose 109 H, Calcium 7.7 L , Phosphorus 3.1, Total Bilirubin 0.50, AST 16, ALT 20, Alkaline Phosphatase 118 H, Total Protein 5.9 L, Albumin 2.7 L, Globulin 3.2, Albumin/Globulin Ratio 0.8 L, TSH 1.47 08/07/23 06:12: POC Glucose 117 H 08/07/23 11:24: POC Glucose 169 H Charges/Coding Visit Charges Inpatient E&M: 28916 Subs Hosp L2
--- NOTE | 2023-08-07 11:10 | DCINST_ITS ---
Discharge Instructions Diet Discharge Diet: Low fat / Low cholesterol, 1800 Calorie Control Diet and 2000 mg Sodium Diet Activity Discharge Activity: Return to Normal Activity Weight Bearing Status: Weight bearing as tolerated Dressing / Incision Call your doctor if you observe: Fever of 101 or Higher, Coldness, Increased Pain, Numbness or Tingling, Change in Color, Inability to urinate, Inability to have a bowel movement, Shortness of breath, Dizziness, Fainting spells, Swelling in the ankles, Chest pain, Prolonged hiccupping, Increased palpitations (irregular heartbeat) and Calf discomfort Follow Up Care When: IN 2 WEEKS Test Results: Test results from this visit will be discussed in further detail at your follow- up appointment, if applicable. Discharge Plan Admission Admit Date/Time: 08/06/23 01:22 Primary Reason for Your Visit: Fall with inability to stand or ambulate Attending Provider: Andrei Fuller Primary Care Provider: Gentry Frias Consulting Providers: Rafi Rivero Discharge Orders/Prescriptions Prescriptions: New insulin lispro [Humalog KwikPen Insulin] 100 unit/mL Insulin Pen See Protocol subcut TIDCM Qty: 0 0RF Protocol: 1. Sliding Scale Insulin Low Dosing Condition: 150-224 mg/dl = 1 unit Condition: 225-299 mg/dl = 2 units Condition: 300-374 mg/dl = 3 units Condition: 375-499 mg/dl = 4 units Condition: Greater than 449 call physician Protocol Text: - Use for Total Daily Dose of Insulin 15-27 units - Thin, elderly, renal patients LOW DOSING ALGORITHM acetaminophen 325 mg Tablet 650 mg PO Q6H PRN PRN (Reason: Pain 1-5 Or Fever >100.7) Qty: 0 0RF oxycodone 5 mg Tablet 2.5 - 5 mg PO Q4H PRN PRN (Reason: Pain Score 6-10) Qty: 0 0RF Rx Instructions: 2.5 mg for moderate pain and 5 mg for severe pain respectively. sennosides-docusate sodium [Senna-S] 8.6-50 mg tablet 2 tab-cap PO BID Qty: 30 0RF polyethylene glycol 3350 [Miralax] 17 gram powder in packet 17 g PO DAILY Qty: 30 0RF Continued metformin 500 MG tablet 1,000 mg PO BID Patient Comments: take 1 tab with lunch glipizide 10 MG tablet extended release 24hr 10 mg PO DAILY lovastatin 40 MG tablet 40 mg PO QHS pioglitazone 45 MG tablet 45 mg PO DAILY lisinopril 10 MG tablet 10 mg PO DAILY hydrochlorothiazide 25 MG tablet 12.5 mg PO DAILY linagliptin 5 MG tablet 5 mg PO DAILY empagliflozin 10 MG tablet 10 mg PO DAILY ascorbic acid (vitamin C) 1,000 MG tablet 1,000 mg PO DAILY vitamin A 10,000 UNIT capsule 15,000 unit PO DAILY cholecalciferol (vitamin D3) 1,000 UNIT tablet 1,000 unit PO DAILY cyanocobalamin (vitamin B-12) 1,000 MCG capsule 1,000 mcg PO DAILY Referrals / Follow Up: Gentry Frias MD [Primary Care Provider] - Within 2 Weeks Lukas Gonzalez MD [Med Staff - Active Staff] - Within 1 Month (For generative arthritis.) Disposition Disposition (needs filled in before D/C Order can be placed): Inpatient Rehab Unit/Facility
[2023-08-07] MEDS: Insulin Lispro 100 UNIT/ML INSULN.PEN SC (11:26)
[2023-08-07 11:46] LABS: Bedside Glucose 169 mg/dL (74-106)
[2023-08-07 14:00] VITALS: BP 126/58; PULSE 74; RESP 16; TEMP 37.1; O2SAT 94
[2023-08-07] MEDS: Empagliflozin 10 MG Tablet PO (14:05)
--- NOTE | 2023-08-07 14:44 | DS.PCM_ITS ---
Providers Date of Admission: 08/06/23 Date of Discharge: 08/07/23 Primary Care Physician: Dr. Gentry Frias MD Reason For Visit: MECHANICAL FALL WITH GENERALIZED WEAKNESS Diagnosis Discharge Diagnosis (1) Fall: Status: Acute Code(s): W19.XXXA - Unspecified fall, initial encounter Qualifiers: Encounter type: initial encounter Qualified Code(s): W19.XXXA - Unspecified fall, initial encounter (2) Contusion of hip, left: Status: Acute Code(s): S70.02XA - Contusion of left hip, initial encounter Qualifiers: Encounter type: initial encounter Qualified Code(s): S70.02XA - Contusion of left hip, initial encounter (3) Weakness: Status: Acute Code(s): R53.1 - Weakness Plan 77-year-old gentleman was admitted with acute last on 08/05 and then 3 weeks ago with history of recurrent fall with severe pain in left hip and progressive functional decline. Patient complaining of left hip pain. He has poor balance with shuffling gait and generalized weakness. 1. Mechanical fall at home onto left hip with left hip contusion - Admit to general medical floor under observation status. Patient requires 2 people assist order physical therapy evaluation. Pain is controlled on Tylenol. Patient wants to go home but seems not realistic idea. CK is normal 79. 2. Generalized weakness with ambulatory dysfunction in a patient legally blind at baseline with progressive functional decline - Continue supportive care and monitor for improvement. 3. Essential hypertension -BP is 110s/60 to normal range. Continue home medications as previous plus give as needed IV hydralazine for systolic blood pressure greater than 180 mmHg. 4. Hyperlipidemia - Resume statin and 5. Diabetes mellitus type 2; [place]uc[place] shows variable range from 1 50-223. A1c 7.2%. Continue Accu-Cheks before meals and at bedtime and cover with sliding scale. 6. Obesity; with BMI of 35.2 this admission - Weight loss will be recommended. TSH normal. 7. DVT prophylaxis - Lovenox 40 mg subcu daily plus SCDs. T Senna S2 tablet twice daily and MiraLAX prescribed as patient is on oxycodone for pain. Patient discharged to inpatient rehab. Discharge medication reconciliation done. Discharge follow-up instructions completed. Discharge process discussed with the patient and all questions were answered to patient's satisfaction. Follow with PCP in 1 to 2 weeks Total time spent, exact 35 minutes on discharge meds reconciliation, examination, coordination of care with nurses and ancillary staff, review of imaging and blood test and discussion with the patient on follow-up instructions. Laboratory Results 08/06/23 15:48: POC Glucose 223 H 08/06/23 21:40: POC Glucose 150 H 08/07/23 03:10: POC Glucose 124 H 08/07/23 04:54: WBC 6.6, RBC 3.80 L, Hgb 11.6 L, Hct 36.9 L, MCV 97.1 H, MCH 30.5, MCHC 31.4 L, RDW Std Deviation 49.8 H, RDW Coeff of [place] 13.9, Plt Count 209, MPV 10.9, Immature Gran % (Auto) 0.300, Neut % (Auto) 63.8, Lymph % (Auto) 23.0, [place] % (Auto) 10.1 H, Eos % (Auto) 2.3, Baso % (Auto) 0.5, Absolute Neuts (auto) 4.2, Absolute Lymphs (auto) 1.51, Nucleated RBC % 0, Sodium 141, Potassium 3.5, Chloride 107, Carbon Dioxide 29.0, Anion Gap 5, BUN 21 H, Creatinine 0.79, Estim Creat Clear Calc 57.60, Est GFR (MDRD) Af Amer 123, Est GFR (MDRD) Non-Af 101, BUN/Creatinine Ratio 26.5 H, Glucose 109 H, Calcium 7.7 L , Phosphorus 3.1, Total Bilirubin 0.50, AST 16, ALT 20, Alkaline Phosphatase 118 H, Total Protein 5.9 L, Albumin 2.7 L, Globulin 3.2, Albumin/Globulin Ratio 0.8 L, TSH 1.47 08/07/23 06:12: POC Glucose 117 H 08/07/23 11:24: POC Glucose 169 H Medications at Discharge Home Medications ascorbic acid (vitamin C) 1,000 mg tablet 1,000 mg PO DAILY supplement 11/09/19 cholecalciferol (vitamin D3) 25 mcg (1,000 unit) tablet 1,000 unit PO DAILY supplement 11/09/19 cyanocobalamin (vitamin B-12) 1,000 mcg capsule 1,000 mcg PO DAILY supplement 11/09/19 empagliflozin 10 mg tablet 10 mg PO DAILY diabetes 11/09/19 glipizide 10 mg tablet, extended release 24 hr 10 mg PO DAILY diabetes 11/09/19 hydrochlorothiazide 25 mg tablet 12.5 mg PO DAILY water pill 11/09/19 linagliptin 5 mg tablet 5 mg PO DAILY diabetes 11/09/19 lisinopril 10 mg tablet 10 mg PO DAILY 11/09/19 lovastatin 40 mg tablet 40 mg PO QHS cholesterol 11/09/19 metformin 500 mg tablet 1,000 mg PO BID diabetes 11/09/19 pioglitazone 45 mg tablet 45 mg PO DAILY diabetes 11/09/19 vitamin A 3,000 mcg (10,000 unit) capsule 15,000 unit PO DAILY supplement 11/09/19 acetaminophen 325 mg tablet 650 mg (2 x 325 mg) PO Q6H PRN PRN Pain 1-5 Or Fever >100.7 #0 tabs 08/07/23 insulin lispro 100 unit/mL subcutaneous pen (Humalog KwikPen (U-100) Insulin) See Protocol subcut TIDCM #0 mL 08/07/23 oxycodone 5 mg tablet 2.5 - 5 mg (0.5 - 1 x 5 mg) PO Q4H PRN PRN Pain Score 6-10 #0 tabs 08/07/23 polyethylene glycol 3350 17 gram oral powder packet (Miralax) 17 g PO DAILY #30 ea 08/07/23 sennosides 8.6 mg-docusate sodium 50 mg tablet (Senna-S) 2 tab-cap (2 x 8.6-50 mg) PO BID #30 tabs 08/07/23 Physical Exam Narrative Please see exam finding on the progress note of same date. Weight / BMI Weight Weight: 224 lb 13.944 oz Body Mass Index (BMI) 35.2 ABG / Lab / Microbiology Data 08/07/23 04:54 08/07/23 04:54 Laboratory: Laboratory Results - last 24 hr 08/06/23 15:48: POC Glucose 223 H 08/06/23 21:40: POC Glucose 150 H 08/07/23 03:10: POC Glucose 124 H 08/07/23 04:54: WBC 6.6, RBC 3.80 L, Hgb 11.6 L, Hct 36.9 L, MCV 97.1 H, MCH 30.5, MCHC 31.4 L, RDW Std Deviation 49.8 H, RDW Coeff of [place] 13.9, Plt Count 209, MPV 10.9, Immature Gran % (Auto) 0.300, Neut % (Auto) 63.8, Lymph % (Auto) 23.0, [place] % (Auto) 10.1 H, Eos % (Auto) 2.3, Baso % (Auto) 0.5, Absolute Neuts (auto) 4.2, Absolute Lymphs (auto) 1.51, Nucleated RBC % 0, Sodium 141, Potassium 3.5, Chloride 107, Carbon Dioxide 29.0, Anion Gap 5, BUN 21 H, Creatinine 0.79, Estim Creat Clear Calc 57.60, Est GFR (MDRD) Af Amer 123, Est GFR (MDRD) Non-Af 101, BUN/Creatinine Ratio 26.5 H, Glucose 109 H, Calcium 7.7 L , Phosphorus 3.1, Total Bilirubin 0.50, AST 16, ALT 20, Alkaline Phosphatase 118 H, Total Protein 5.9 L, Albumin 2.7 L, Globulin 3.2, Albumin/Globulin Ratio 0.8 L, TSH 1.47 08/07/23 06:12: POC Glucose 117 H 08/07/23 11:24: POC Glucose 169 H D/C Instructions Discharge Diet: Low fat / Low cholesterol, 1800 Calorie Control Diet and 2000 mg Sodium Diet Weight Bearing Status: Weight bearing as tolerated Call your doctor if you observe: Fever of 101 or Higher, Coldness, Increased Pain, Numbness or Tingling, Change in Color, Inability to urinate, Inability to have a bowel movement, Shortness of breath, Dizziness, Fainting spells, Swelling in the ankles, Chest pain, Prolonged hiccupping, Increased palpitations (irregular heartbeat) and Calf discomfort When: IN 2 WEEKS Meaningful Use Info Meaningful Use Diagnoses (Choose all that apply): None applicable Discharge Plan Admission Admit Date/Time: 08/06/23 01:22 Primary Reason for Your Visit: Fall with inability to stand or ambulate Attending Provider: Andrei Fuller Primary Care Provider: Gentry Frias Consulting Providers: Rafi Rivero Discharge Orders/Prescriptions Prescriptions: New insulin lispro [Humalog KwikPen Insulin] 100 unit/mL Insulin Pen See Protocol subcut TIDCM Qty: 0 0RF Protocol: 1. Sliding Scale Insulin Low Dosing Condition: 150-224 mg/dl = 1 unit Condition: 225-299 mg/dl = 2 units Condition: 300-374 mg/dl = 3 units Condition: 375-499 mg/dl = 4 units Condition: Greater than 449 call physician Protocol Text: - Use for Total Daily Dose of Insulin 15-27 units - Thin, elderly, renal patients LOW DOSING ALGORITHM acetaminophen 325 mg Tablet 650 mg PO Q6H PRN PRN (Reason: Pain 1-5 Or Fever >100.7) Qty: 0 0RF oxycodone 5 mg Tablet 2.5 - 5 mg PO Q4H PRN PRN (Reason: Pain Score 6-10) Qty: 0 0RF Rx Instructions: 2.5 mg for moderate pain and 5 mg for severe pain respectively. sennosides-docusate sodium [Senna-S] 8.6-50 mg tablet 2 tab-cap PO BID Qty: 30 0RF polyethylene glycol 3350 [Miralax] 17 gram powder in packet 17 g PO DAILY Qty: 30 0RF Continued metformin 500 MG tablet 1,000 mg PO BID Patient Comments: take 1 tab with lunch glipizide 10 MG tablet extended release 24hr 10 mg PO DAILY lovastatin 40 MG tablet 40 mg PO QHS pioglitazone 45 MG tablet 45 mg PO DAILY lisinopril 10 MG tablet 10 mg PO DAILY hydrochlorothiazide 25 MG tablet 12.5 mg PO DAILY linagliptin 5 MG tablet 5 mg PO DAILY empagliflozin 10 MG tablet 10 mg PO DAILY ascorbic acid (vitamin C) 1,000 MG tablet 1,000 mg PO DAILY vitamin A 10,000 UNIT capsule 15,000 unit PO DAILY cholecalciferol (vitamin D3) 1,000 UNIT tablet 1,000 unit PO DAILY cyanocobalamin (vitamin B-12) 1,000 MCG capsule 1,000 mcg PO DAILY Referrals / Follow Up: Gentry Frias MD [Primary Care Provider] - Within 2 Weeks Lukas Gonzalez MD [Med Staff - Active Staff] - Within 1 Month (For generative arthritis.) Disposition Disposition (needs filled in before D/C Order can be placed): Inpatient Rehab Unit/Facility Charges/Coding Addendum Addendum: Please cancel the billing charge of the progress note of today. Visit Charges Inpatient E&M: 66869 Disch Hosp >30min
--- NOTE | 2023-08-07 15:00 | CASEMGMT ---
Social Work SW met with pt and introduced self and role of SW. Pt able to recall this SW from visit yesterday. SW spoke with pt regarding discharge plan. Pt is concerned about returning home at this time as he is not moving well. SW spoke with pt regarding option of Inpatient Rehab for short term therapy prior to return home. SW explained rehab unit and therapy he would get. Pt is agreeable to this and requesting referral be sent to [facility] inpatient rehab. Referral to Mary in Inpatient Rehab and pt has been accepted and can admit today. Physician updated and pt is ready for dc. Pt notified of acceptance and discharge and pt is agreeable. Pt declines SW call pt's stating he will notify her once he moves to rehab. Nursing updated. Disposition: [facility] Inpatient Rehab [place] [facility]
== END 2023-08-07 15:51 ==
LOC: ED 23:48 → MS3 08-06 06:24
PROVIDERS: Admitting Provider Internal Medicine; Emergency Provider Emergency Medicine; PCP Family Medicine; Visit Provider Internal Medicine
DX: S70.02XA Contusion of left hip, initial encounter (principal); E11.9 Type 2 diabetes mellitus without complications; R26.0 Ataxic gait; Z79.84 Long term (current) use of oral hypoglycemic drugs; Z87.891 Personal history of nicotine dependence; I10 Essential (primary) hypertension; R53.1 Weakness; E78.00 Pure hypercholesterolemia, unspecified; W19.XXXA Unspecified fall, initial encounter; Z79.899 Other long term (current) drug therapy; E66.9 Obesity, unspecified; Z68.35 Body mass index [BMI] 35.0-35.9, adult; H54.8 Legal blindness, as defined in USA; N40.0 Benign prostatic hyperplasia without lower urinary tract symptoms; M19.90 Unspecified osteoarthritis, unspecified site
CPT/HCPCS: 96360; 96361 ×2; 99285; 36415; 73502; 80048; 80053; 81001; 82550; 82962; 83036; 84100; 84443; 85025; 93005; 94668; 97112; 97162; 97166; 97535; 99221; J7030; A4216; G0378

== ENCOUNTER 2023-08-07 16:00 | Inpatient (IN) | payer MEDICARE, OTHER, SELFPAY ==
[2023-08-07 16:10] VITALS: BP 158/64; PULSE 77; RESP 18; TEMP 36.8; O2SAT 93
[2023-08-07] MEDS: metFORMIN HCl 500 MG Tablet 1000 MG PO (17:07)
[2023-08-07] MEDS: Insulin Lispro 100 UNIT/ML INSULN.PEN SC (17:07)
[2023-08-07 17:35] LABS: Bedside Glucose 196 mg/dL (74-106)
[2023-08-07] MEDS: Menthol/Lanolin/Calamine/Znox 113 GM Tube 1 APPLIC TOPICAL (20:50)
[2023-08-07] MEDS: Nystatin Powder 15gm Bottle 1 APPLIC TOPICAL (20:50)
[2023-08-07] MEDS: Atorvastatin Calcium 10 MG Tablet PO (20:50)
[2023-08-07 21:57] LABS: Bedside Glucose 188 mg/dL (74-106)
[2023-08-07 22:30] VITALS: BP 131/64; PULSE 73; RESP 18; TEMP 36.4; O2SAT 97
[2023-08-08] MEDS: Enoxaparin 40 MG/0.4 ML Syringe SC (05:11)
[2023-08-08] MEDS: Nystatin Powder 15gm Bottle 1 APPLIC TOPICAL ×2 (05:11→20:45)
[2023-08-08] MEDS: Menthol/Lanolin/Calamine/Znox 113 GM Tube 1 APPLIC TOPICAL ×2 (05:12→20:44)
[2023-08-08 05:16] VITALS: BMI 34.0
[2023-08-08 07:36] VITALS: BP 140/47; PULSE 66; RESP 16; TEMP 36.6; O2SAT 99
[2023-08-08 07:42] LABS: Bedside Glucose 118 mg/dL (74-106)
[2023-08-08] MEDS: glipiZIDE XL 5 MG Tablet 10 MG PO (08:21)
[2023-08-08] MEDS: Empagliflozin 10 MG Tablet PO (08:22)
[2023-08-08] MEDS: Cyanocobalamin 500 MCG Tablet 1000 MCG PO (08:22)
[2023-08-08] MEDS: Ascorbic Acid 500 MG Tablet 1000 MG PO (08:22)
[2023-08-08] MEDS: hydroCHLOROthiazide 12.5mg 12.5 MG PO (08:22)
[2023-08-08] MEDS: LINAGLIPTIN 5 MG TABLET PO (08:22)
[2023-08-08] MEDS: metFORMIN HCl 500 MG Tablet 1000 MG PO ×2 (08:22→16:57)
[2023-08-08] MEDS: Pioglitazone Hydrochloride 45 MG Tablet PO (08:22)
[2023-08-08] MEDS: Cholecalciferol (VIT D3) 25 MCG TABLET (1,000 UNITS) PO (08:22)
[2023-08-08] MEDS: Lisinopril 10 MG Tablet PO (08:24)
[2023-08-08 09:04] LABS: Hematocrit 40.5 % (40-54); Mean Corp Hgb Conc 32.1 g/dL (32-36); Mean Corpuscular Hgb 30.5 pg (27.0-32.0); Mean Corpuscular Volume 95.1 fL (80-94); Mean Platelet Vol. 10.8 fl (6.2-12.0); Platelet Count 227 K/mm3 (150-450); RBC Distribution Width CV 13.8 % (11.6-14.6); RBC Distribution Width SD 48.4 fl (35.1-43.9); Red Blood Count 4.26 M/mm3 (4.6-6.2); White Blood Count 7.9 K/mm3 (4.4-11.0)
[2023-08-08 09:33] VITALS: BMI 34.6
[2023-08-08 09:34] LABS: ALB/GLOB Ratio 0.9 RATIO (0.9-2.4); AST(SGOT) 18 U/L (15-37); Alanine Aminotransfer ALT/SGPT 25 U/L (16-61); Albumin, Serum 2.9 g/dL (3.2-5.0); Alkaline Phosphatase 145 U/L (45-117); Anion Gap 6 (5-15); BUN 27 mg/dL (7-18); BUN/Creat Ratio 32.6 RATIO (10-20); Calcium,Total 8.2 mg/dL (8.5-10.1); Chloride 107 mmol/L (98-107); Creatinine, Serum 0.83 mg/dL (0.70-1.30); EST Glomerular Filtration Rate 96 mL/min (>60); Est Glom Filt Rate - Afr Amer 116 mL/min (>60); Globulin 3.2 g/dL (2.2-4.2); Glucose 175 mg/dL (74-106); Magnesium 2.1 mg/dL (1.6-2.6); Phosphorus 3.1 mg/dL (2.5-4.9); Potassium 3.6 mmol/L (3.5-5.1); Protein, Total 6.1 g/dL (6.4-8.2); Sodium Level 139 mmol/L (136-145)
[2023-08-08] MEDS: Insulin Lispro 100 UNIT/ML INSULN.PEN SC ×2 (11:44→16:57)
[2023-08-08 12:02] LABS: Bedside Glucose 168 mg/dL (74-106)
--- NOTE | 2023-08-08 14:21 | HP.PCM.HOS_ITS ---
HPI - General General Date of Admission: 08/07/23 Date of Service: 08/08/23 Chief Complaint: Requires acute rehab for increasing mobility, strength and function. HPI Narrative WILLIAM PLUMMER, is a 77 M was discharged from [facility] after he was admitted with history of recurrent fall, severe pain in left hip with progressive functional decline and cannot stand up or ambulate. Patient not able to take care of himself. Prior to that fall, patient had shuffling gait and generalized weakness. Patient complained of left hip pain, 4-5/10 intensity mainly with putting on weight or trying to stand up but he still requires 2 people assist. Patient is urinating well. Denies dysuria. Patient also has moved bowel. Patient has multiple comorbidities which include patient still hypertension, dyslipidemia, diabetes mellitus type 2 obesity with BMI 34.5 kg/m?. Patient is also legally blind. History of retinitis pigmentosa, reason for getting legally blind. Family history: His father also had retinitis pigmentosa and blindness. [facility] Medical History Diabetes Enlarged prostate High cholesterol Legally blind Home Medications ascorbic acid (vitamin C) 1,000 mg tablet 1,000 mg PO DAILY supplement 11/09/19 [History Last Taken Unknown] cholecalciferol (vitamin D3) 25 mcg (1,000 unit) tablet 1,000 unit PO DAILY supplement 11/09/19 [History Last Taken Unknown] cyanocobalamin (vitamin B-12) 1,000 mcg capsule 1,000 mcg PO DAILY supplement 11/09/19 [History Last Taken Unknown] empagliflozin 10 mg tablet 10 mg PO DAILY diabetes 11/09/19 [History Last Taken Unknown] glipizide 10 mg tablet, extended release 24 hr 10 mg PO DAILY diabetes 11/09/19 [History Last Taken Unknown] hydrochlorothiazide 25 mg tablet 12.5 mg PO DAILY water pill 11/09/19 [History Last Taken Unknown] linagliptin 5 mg tablet 5 mg PO DAILY diabetes 11/09/19 [History Last Taken Un known] lisinopril 10 mg tablet 10 mg PO DAILY bp 11/09/19 [History Last Taken 11/14/19 09:30] lovastatin 40 mg tablet 40 mg PO QHS cholesterol 11/09/19 [History Last Taken Unknown] metformin 500 mg tablet 1,000 mg PO BID diabetes 11/09/19 [History Last Taken Unknown] pioglitazone 45 mg tablet 45 mg PO DAILY diabetes 11/09/19 [History Last Taken Unknown] vitamin A 3,000 mcg (10,000 unit) capsule 15,000 unit PO DAILY supplement 11/09/19 [History Last Taken Unknown] acetaminophen 325 mg tablet 650 mg (2 x 325 mg) PO Q6H PRN PRN Pain 1-5 Or Fever >100.7 #0 tabs 08/07/23 [Rx Last Taken Unknown] insulin lispro 100 unit/mL subcutaneous pen (Humalog KwikPen (U-100) Insulin) See Protocol subcut TIDCM dm #0 mL 08/07/23 [Rx Last Taken Unknown] oxycodone 5 mg tablet 2.5 - 5 mg (0.5 - 1 x 5 mg) PO Q4H PRN PRN Pain Score 6-10 #0 tabs 08/07/23 [Rx Last Taken Unknown] polyethylene glycol 3350 17 gram oral powder packet (Miralax) 17 g PO DAILY constipation #30 ea 08/07/23 [Rx Last Taken Unknown] sennosides 8.6 mg-docusate sodium 50 mg tablet (Senna-S) 2 tab-cap (2 x 8.6-50 mg) PO BID #30 tabs 08/07/23 [Rx Last Taken Unknown] Allergy/AdvReac Type Severity Reaction Status Date / Time No Known Allergies Allergy Verified 08/05/23 22:27 Social History Smoking Status: Former smoker ROS ROS Narrative Constitutional: Reports severe fatigue and weakness. No fever. HEENT: Reports systems reviewed and no addt'l complaints, except as documented Respiratory/Chest: No acute shortness of breath or respiratory distress or wheezing. CVS: Denies chest pain pressure or tightness. Gastrointestinal: Denies coffee ground emesis, hematemesis or vomiting. Denies abdominal pain or melena. Genitourinary: Denies burning urination or new urinary tract symptoms Musculoskeletal: Denies acute joint pain or limited range of motion. No acute injury Neurologic: Denies seizure-like symptoms. No acute strokelike symptoms. Did not hit head or head injury. No LOC. skin: No ulcer. No rash Endocrinology: Reports systems reviewed and no addt'l complaints, except as documented Hematologic/Lymphatic: Reports systems reviewed and no addt'l complaints, except as documented Rest 14 ROS are negative except as mentioned in HPI Vital Signs Vital Signs Vital Signs: 08/07/23 16:10 08/07/23 22:30 08/08/23 07:36 Temperature 98.2 F 97.6 F L 97.9 F Temperature Source Temporal Temporal Temporal Pulse Rate 77 73 66 Respiratory Rate 18 18 16 Blood Pressure 158/64 H 131/64 H 140/47 H Blood Pressure Mean 95 86 78 Blood Pressure Source Monitor Monitor Monitor Blood Pressure Position Semi-Fowlers Semi-Fowlers Supine Blood Pressure Location Left Arm Left Arm Left Arm Pulse Ox 93 97 99 Oxygen Delivery Method Room Air Room Air Room Air Weight Weight: 220 lb 7.396 oz Body Mass Index (BMI) 34.6 Physical Exam Narrative Patient participated well in PT and OT today. Physical exam General: Alert, Oriented x3, Cooperative, morbid obesity BMI 35.3 kg/m? HEENT: Atraumatic, PERRLA, EOMI, Normocephalic Oral: Oral mucosa moist. No Gingival or Mucosal Lesions/ Ulcerations Neck: Supple, No JVD, Negative Carotid Bruits Lungs: Air entry diminished in bilateral lung bases. No crepitation/rhonchi Cardiovascular: Regular rate, Regular Rhythm, Normal S1, Normal S2, systolic murmur right second ICS with radiation to carotid. Abdomen: Bowel Sounds Present, Soft, Non Tender, Non-Distended : No renal angle tenderness. No suprapubic tenderness. Extremities: No edema, Capillary Refill Less than 3 Seconds Skin: No rashes, No breakdown Musculoskeletal: No acute tenderness at hip and pelvic joint. ROM restricted. Bone enlargement, crepitus mainly right knee and decreased ROM at knees and hip joints. Neurological: Cranial nerves II-XII grossly intact, DTR 2+/4. No acute focal neurological deficit. Muscle strength 4/5 at knees and hip joints, shuffling gait. Psych/Mental Status: flat affect Results Lab / Micro Data 08/08/23 08:33 08/08/23 08:33 Labs: Laboratory Results - last 24 hr 08/07/23 17:03: POC Glucose 196 H 08/07/23 20:54: POC Glucose 188 H 08/08/23 07:12: POC Glucose 118 H 08/08/23 08:33: WBC 7.9, RBC 4.26 L, Hgb 13.0, Hct 40.5, MCV 95.1 H, MCH 30.5, MCHC 32.1, RDW Std Deviation 48.4 H, RDW Coeff of [place] 13.8, Plt Count 227, MPV 10.8, Sodium 139, Potassium 3.6, Chloride 107, Carbon Dioxide 26.0, Anion Gap 6, BUN 27 H, Creatinine 0.83, Estim Creat Clear Calc 71.90, Est GFR (MDRD) Af Amer 116, Est GFR (MDRD) Non-Af 96, BUN/Creatinine Ratio 32.6 H, Glucose 175 H, Calcium 8.2 L, Phosphorus 3.1, Magnesium 2.1, Total Bilirubin 0.60, AST 18, ALT 25, Alkaline Phosphatase 145 H, Total Protein 6.1 L, Albumin 2.9 L, Globulin 3.2, Albumin/Globulin Ratio 0.9 08/08/23 11:43: POC Glucose 168 H Assessment & Plan Assessment/Plan (1) Debility: PLAN: Plan 77-year-old gentleman is being admitted in acute rehab after discharge from [facility] for rehab to regain and restore function after your recurrent fall, failure to thrive and decreased ADL. Patient has poor balance with shuffling gait and generalized weakness prior to fall. 1. Mechanical fall at home onto left hip with left hip contusion -PT OT and speech to restore function with goal to independence. CK is normal 79. 2. Generalized weakness with ambulatory dysfunction, failure to thrive in a patient legally blind at baseline with progressive functional decline -continue bowel and bladder care. Senna S and MiraLAX. Continue supportive care and monitor for improvement. 3. Essential hypertension -BP is in acceptable range, 140/47. Continue home medication. 4. Hyperlipidemia - Resume statin 5. Diabetes mellitus type 2; patient on multiple oral hypoglycemic agents including Actos, metformin, linagliptin. [place]uc[place] shows variable range from 118-196. A1c 7.2%. Continue Accu-Cheks before meals and at bedtime and cover with sliding scale. Lantus 5 units subcutaneous daily at dinner added. 6. Obesity; with BMI of 35.2 this admission - Weight loss will be recommended. TSH normal. 7. DVT prophylaxis - Lovenox 40 mg subcu daily plus SCDs. Charges/Coding Visit Charges Inpatient E&M: 85268 Init Hosp L2
[2023-08-08 16:34] LABS: Bedside Glucose 197 mg/dL (74-106)
[2023-08-08] MEDS: Insulin Glargine-YFGN 100 UNIT/ML Pen SC (16:58)
[2023-08-08] MEDS: Atorvastatin Calcium 10 MG Tablet PO (20:44)
[2023-08-08 22:00] VITALS: BP 118/57; PULSE 71; RESP 16; TEMP 36; O2SAT 96
[2023-08-08 22:40] LABS: Bedside Glucose 177 mg/dL (74-106)
[2023-08-09 07:00] VITALS: O2SAT 93
[2023-08-09] MEDS: Enoxaparin 40 MG/0.4 ML Syringe SC (07:03)
[2023-08-09] MEDS: Menthol/Lanolin/Calamine/Znox 113 GM Tube 1 APPLIC TOPICAL ×2 (07:04→20:37)
[2023-08-09] MEDS: Nystatin Powder 15gm Bottle 1 APPLIC TOPICAL (07:05)
[2023-08-09 07:36] LABS: Bedside Glucose 115 mg/dL (74-106)
[2023-08-09] MEDS: metFORMIN HCl 500 MG Tablet 1000 MG PO ×2 (09:20→17:37)
[2023-08-09] MEDS: glipiZIDE XL 5 MG Tablet 10 MG PO (09:20)
[2023-08-09] MEDS: hydroCHLOROthiazide 12.5mg 12.5 MG PO (09:21)
[2023-08-09] MEDS: Cholecalciferol (VIT D3) 25 MCG TABLET (1,000 UNITS) PO (09:21)
[2023-08-09] MEDS: Cyanocobalamin 500 MCG Tablet 1000 MCG PO (09:21)
[2023-08-09] MEDS: Ascorbic Acid 500 MG Tablet 1000 MG PO (09:21)
[2023-08-09] MEDS: Pioglitazone Hydrochloride 45 MG Tablet PO (09:21)
[2023-08-09] MEDS: Lisinopril 10 MG Tablet PO (09:21)
[2023-08-09] MEDS: Empagliflozin 10 MG Tablet PO (09:21)
[2023-08-09 09:36] VITALS: BP 145/65; PULSE 66; RESP 19; TEMP 36.6; O2SAT 96
[2023-08-09] MEDS: LINAGLIPTIN 5 MG TABLET PO (10:56)
[2023-08-09] MEDS: Miconazole Nitrate Cream 1 APPLIC TOPICAL ×2 (10:56→20:37)
[2023-08-09 12:04] LABS: Bedside Glucose 193 mg/dL (74-106)
[2023-08-09] MEDS: Insulin Lispro 100 UNIT/ML INSULN.PEN SC ×2 (12:41→17:38)
[2023-08-09] MEDS: Insulin Glargine-YFGN 100 UNIT/ML Pen SC (17:37)
[2023-08-09 18:00] LABS: Bedside Glucose 160 mg/dL (74-106)
[2023-08-09] MEDS: Atorvastatin Calcium 10 MG Tablet PO (20:38)
[2023-08-09 22:00] VITALS: BP 132/63; PULSE 71; RESP 17; TEMP 36.5; O2SAT 96
[2023-08-09 23:27] LABS: Bedside Glucose 137 mg/dL (74-106)
[2023-08-10 06:00] VITALS: BMI 34.0
[2023-08-10] MEDS: Menthol/Lanolin/Calamine/Znox 113 GM Tube 1 APPLIC TOPICAL ×2 (07:01→20:23)
[2023-08-10] MEDS: Enoxaparin 40 MG/0.4 ML Syringe SC (07:01)
[2023-08-10 07:39] VITALS: BP 115/58; PULSE 63; RESP 16; TEMP 37.1; O2SAT 94
[2023-08-10 07:52] LABS: Bedside Glucose 84 mg/dL (74-106)
[2023-08-10] MEDS: Cyanocobalamin 500 MCG Tablet 1000 MCG PO (09:13)
[2023-08-10] MEDS: Lisinopril 10 MG Tablet PO (09:14)
[2023-08-10] MEDS: LINAGLIPTIN 5 MG TABLET PO (09:14)
[2023-08-10] MEDS: hydroCHLOROthiazide 12.5mg 12.5 MG PO (09:14)
[2023-08-10] MEDS: glipiZIDE XL 5 MG Tablet 10 MG PO (09:14)
[2023-08-10] MEDS: metFORMIN HCl 500 MG Tablet 1000 MG PO ×2 (09:14→16:06)
[2023-08-10] MEDS: Empagliflozin 10 MG Tablet PO (09:14)
[2023-08-10] MEDS: Pioglitazone Hydrochloride 45 MG Tablet PO (09:14)
[2023-08-10] MEDS: Senna/Docusate Sodium 1 Tablet 2 TABLET PO (09:15)
[2023-08-10] MEDS: Ascorbic Acid 500 MG Tablet 1000 MG PO (09:15)
[2023-08-10] MEDS: Cholecalciferol (VIT D3) 25 MCG TABLET (1,000 UNITS) PO (09:15)
[2023-08-10] MEDS: Polyethylene Glycol 3350 17 GM PACKET PO (09:15)
[2023-08-10] MEDS: Miconazole Nitrate Cream 1 APPLIC TOPICAL ×2 (09:18→20:22)
[2023-08-10 10:05] VITALS: O2SAT 97
--- NOTE | 2023-08-10 11:36 | PCM.RU.PYE ---
Admission Information Primary Diagnosis:: Debility - Left hip contusion and generalized weakness Actual Problem List:: Falls, Diabetes, Hyperglycemia and BP, Hypertension Potential Problem List:: UTI, Falls, Skin Integrity and Depression Risk of Complications Infection: Clinical Staff to Monitor for S/S of infection: and S/S of infection include fever, redness, warmth, etc. Urinary Tract Infection: Monitor for frequency, burning, discomfort, or incontinence. and Nursing will obtain urine sample for urinalysis and C&S when ordered. Falls: Patient will be evaluated for Fall Precautions and Patient will be placed on Fall Precautions as indicated per protocol. Skin Breakdown: Nursing will assess skin daily using assessment tool. and Nursing will place on Skin Breakdown Precautions as indicated. Pain: Clinical staff will assess patient's pain level per protocol. and Medications will be given, if needed, and the pain level reassessed. Plan of Care Patient needs Physical Therapy: For a minimum of 1 hour and At least 5 out of 7 days Patient needs Physical Therapy to improve:: Mobility, Strengthening, Transfers, ROM, Gait and Balance Patient needs Occupational Therapy: For a minimum of 1 hour and At least 5 out of 7 days Patient needs Occupational Therapy to improve ADL's incl.: Grooming, Bathing, Dressing, Toileting and Household tasks Patient requires 24/ Rehabilitation Nursing for: Pain Issues, Identifying and preventing risk factors, Monitoring and reporting current medical conditions, Assisting with ambulation, transfer, and all ADL's, Providing safe environment and Medication Management Patient needs Overlock Sleeve Setter/ Case Management for: Discharge Planning, Arranging Home Equipment or Services and Family Interventions Patient needs Dietary and Nutrition Services for: Adequate Nutrition Goals Patient will remain: free from falls and or injury at time of discharge. Patient will perform bed mobility at: MOD I level of assist. Patient will complete transfers from bed to chair at: MOD I level of assist. Patient will ambulate: 50 feet (with stand by 1 assist) Patient will complete lower body dressing at: MOD I level of assist. Patient will complete toileting at: MOD I level of assist. Patient will perform bathing at: MOD I level of assist. Patient will complete grooming at: MOD I level of assist. Patient will complete home management skills at: MOD I level of assist. Patient's skin will: remain intact and free from infection. Patient will receive: adequate nutrition. Discharge Planning Pt Prognosis for Sig. Practical Improv. w/in Reasonable Time: Fair Estimated Length of stay (days): 14 Anticipated D/C Destination: Home with Home Health
[2023-08-10 11:42] LABS: Bedside Glucose 184 mg/dL (74-106)
[2023-08-10] MEDS: Insulin Lispro 100 UNIT/ML INSULN.PEN SC ×2 (12:19→16:07)
[2023-08-10] MEDS: Insulin Glargine-YFGN 100 UNIT/ML Pen SC (16:07)
[2023-08-10 17:06] LABS: Bedside Glucose 190 mg/dL (74-106)
[2023-08-10] MEDS: Atorvastatin Calcium 10 MG Tablet PO (20:24)
[2023-08-10 21:00] VITALS: BP 107/82; PULSE 78; RESP 16; TEMP 36.9; O2SAT 96
[2023-08-10 23:02] LABS: Bedside Glucose 179 mg/dL (74-106)
[2023-08-11] MEDS: Enoxaparin 40 MG/0.4 ML Syringe SC (05:07)
[2023-08-11] MEDS: Menthol/Lanolin/Calamine/Znox 113 GM Tube 1 APPLIC TOPICAL ×2 (05:09→20:30)
[2023-08-11 05:36] LABS: Bedside Glucose 99 mg/dL (74-106)
[2023-08-11 08:01] VITALS: BP 112/50; PULSE 67; RESP 17; TEMP 36.7; O2SAT 96
[2023-08-11] MEDS: Lisinopril 10 MG Tablet PO (08:01)
[2023-08-11] MEDS: Ascorbic Acid 500 MG Tablet 1000 MG PO (08:01)
[2023-08-11] MEDS: Pioglitazone Hydrochloride 45 MG Tablet PO (08:02)
[2023-08-11] MEDS: Empagliflozin 10 MG Tablet PO (08:02)
[2023-08-11] MEDS: Cholecalciferol (VIT D3) 25 MCG TABLET (1,000 UNITS) PO (08:02)
[2023-08-11] MEDS: LINAGLIPTIN 5 MG TABLET PO (08:02)
[2023-08-11] MEDS: glipiZIDE XL 5 MG Tablet 10 MG PO (08:02)
[2023-08-11] MEDS: metFORMIN HCl 500 MG Tablet 1000 MG PO ×2 (08:02→17:00)
[2023-08-11] MEDS: hydroCHLOROthiazide 12.5mg 12.5 MG PO (08:02)
[2023-08-11] MEDS: Polyethylene Glycol 3350 17 GM PACKET PO (08:03)
[2023-08-11] MEDS: Cyanocobalamin 500 MCG Tablet 1000 MCG PO (08:03)
[2023-08-11] MEDS: Miconazole Nitrate Cream 1 APPLIC TOPICAL ×2 (08:07→20:30)
--- NOTE | 2023-08-11 08:19 | EX.PCM.PN.RE ---
Subjective Subjective Patient was admitted for daily rehab following a hospital stay for a fall and hip contusion. No events overnight. The patient reports the noise and some lights have affected his ability to sleep, however, he does note that he slept well last night. He reports some discomfort in his left hip, which is about the same. He rates it 3/10 currently. He reports he wasn't aware that there were PRN pain medications ordered for him. He is eating well and moving his bowels. He has no other questions or concerns today. Objective Data Objective Data Vital Signs: Vital Signs Temp Pulse Resp BP Pulse Ox O2 Del Method 98.0 F 67 17 112/50 L 96 Room Air 08/11/23 08:01 08/11/23 08:01 08/11/23 08:01 08/11/23 08:01 08/11/23 08:01 08/11/23 08:01 Oxygen Delivery Method Room Air Weight: 217 lb 2.485 oz Body Mass Index (BMI) 34.0 Intake & Output: Intake and Output for Last 24 Hours 08/09/23 08/10/23 08/11/23 23:59 23:59 23:59 Intake Total 1300 / 1300 1560 / 1860 400 / 400 Output Total 1450 / 1450 600 / 1100 700 / 700 Balance -150 / -150 960 / 760 -300 / -300 Lab / Micro Data Attestation: I reviewed the patient's lab results. 08/08/23 08:33 08/08/23 08:33 Labs: Laboratory Results - last 24 hr 08/10/23 11:18: POC Glucose 184 H 08/10/23 16:06: POC Glucose 190 H 08/10/23 21:00: POC Glucose 179 H 08/11/23 05:06: POC Glucose 99 Indicators for Scoring Admitted with or Primary Diagnosis of CVA/Stroke: No Hx of CVA/Stroke: No Physical Exam Const alert, oriented x3, no apparent distress and well nourished Constitutional Narrative: Sitting up in the chair General Appearance: cooperative and comfortable; Negative for in distress, ill appearing or diaphoretic Orientation / Consciousness: awake, oriented to person, oriented to place and oriented to time Exam Limitations: Negative for altered mental status HEENT normocephalic and head/scalp atraumatic Head and Scalp: normocephalic and atraumatic Face and Sinus: normal facial exam Eyes General Eye: normal appearance of both eyes Chest inspection of chest normal Chest: symmetrical chest wall rise Resp normal respiratory effort, normal air movement, no use of accessory muscles and clear to auscultation bilaterally Effort and Inspection: able to speak in complete sentences and symmetric chest movement; Negative for respiratory distress or audible wheezes Auscultation: clear to auscultation bilaterally Cardio regular rate, regular rhythm and no murmurs Rate: regular rate Rhythm: regular rhythm Heart Sounds: Negative for murmur GI normal to inspection, nondistended, normoactive bowel sounds, soft to palpation, non-tender and non-distended Auscultation: normoactive bowel sounds Palpation: soft; Negative for tender or guarding Extremity normal to inspection General Extremity: Negative for edema Skin no rashes or lesions noted General Skin Exam: no breakdown Lesions: no lesions Rashes: no rashes Neuro oriented x3 Sensorium / Orientation: awake, alert, oriented to person, oriented to place and oriented to time Speech: speech normal Psych mental status grossly normal, cooperative, affect normal and speech normal Appearance: grossly normal Attitude: calm Assessment & Plan Assessment/Plan (1) Debility: PLAN: Will continue with PT/OT and follow up on findings and recommendations. Continue with PRN pain management, bowel regimen and fall precautions. Patient is currently on lovenox for DVT prophylaxis. Will discontinue with continued ambulation. (2) Contusion of hip, left: QUALIFIERS: Encounter type: initial encounter Qualified Code(s): S70.02XA - Contusion of left hip, initial encounter PLAN: Imaging did not show any fracture or dislocation. Will continue with PT/OT as above as well as pain control. (3) Recurrent falls: PLAN: As above. Will follow up on PT/OT recommendations. (4) Essential hypertension: PLAN: Blood pressure shows good control. Will continue current management and monitor. (5) Type 2 diabetes mellitus: QUALIFIERS: Diabetes mellitus complication status: without complication Diabetes mellitus local intermodal truck driver insulin use: without local intermodal truck driver use Qualified Code(s): E11.9 - Type 2 diabetes mellitus without complications PLAN: Continue home medications, glucose checks, diabetic diet. SSI ordered as needed. Glucose this morning was 99. (6) Legally blind: PLAN: Complicates care. (7) Mixed hyperlipidemia: PLAN: Will continue home statin and monitor. Charges/Coding Visit Charges Inpatient E&M: 48782 Subs Hosp L2
--- NOTE | 2023-08-11 10:55 | CASEMGMT ---
Social work SW spoke w/pt, he has LW but not able to bring in the document. Pt does not have POA for healthcare. CAREN Foss
--- NOTE | 2023-08-11 11:09 | CASEMGMT ---
Social Work SW completed initial assessment w/pt. His goal at discharge is to return home and is open to [facility]. SW will continue to follow. CAREN Fsos
[2023-08-11] MEDS: Insulin Lispro 100 UNIT/ML INSULN.PEN SC (11:45)
[2023-08-11 12:03] LABS: Bedside Glucose 161 mg/dL (74-106)
[2023-08-11 16:53] LABS: Bedside Glucose 144 mg/dL (74-106)
[2023-08-11] MEDS: Insulin Glargine-YFGN 100 UNIT/ML Pen SC (17:00)
[2023-08-11 19:32] VITALS: BP 100/66; PULSE 71; RESP 16; TEMP 36.6; O2SAT 98
[2023-08-11] MEDS: Atorvastatin Calcium 10 MG Tablet PO (20:30)
[2023-08-11 21:22] LABS: Bedside Glucose 204 mg/dL (74-106)
[2023-08-12] MEDS: Menthol/Lanolin/Calamine/Znox 113 GM Tube 1 APPLIC TOPICAL ×2 (04:40→20:49)
[2023-08-12] MEDS: Enoxaparin 40 MG/0.4 ML Syringe SC (04:40)
[2023-08-12 07:15] LABS: Bedside Glucose 78 mg/dL (74-106)
[2023-08-12 07:17] VITALS: BP 124/56; PULSE 71; RESP 16; TEMP 36.3; O2SAT 97
[2023-08-12] MEDS: Lisinopril 10 MG Tablet PO (08:03)
[2023-08-12] MEDS: Ascorbic Acid 500 MG Tablet 1000 MG PO (08:03)
[2023-08-12] MEDS: Cholecalciferol (VIT D3) 25 MCG TABLET (1,000 UNITS) PO (08:03)
[2023-08-12] MEDS: Cyanocobalamin 500 MCG Tablet 1000 MCG PO (08:04)
[2023-08-12] MEDS: Senna/Docusate Sodium 1 Tablet 2 TABLET PO (08:04)
[2023-08-12] MEDS: Pioglitazone Hydrochloride 45 MG Tablet PO (08:04)
[2023-08-12] MEDS: Empagliflozin 10 MG Tablet PO (08:04)
[2023-08-12] MEDS: glipiZIDE XL 5 MG Tablet 10 MG PO (08:04)
[2023-08-12] MEDS: LINAGLIPTIN 5 MG TABLET PO (08:04)
[2023-08-12] MEDS: metFORMIN HCl 500 MG Tablet 1000 MG PO ×2 (08:04→17:18)
[2023-08-12] MEDS: hydroCHLOROthiazide 12.5mg 12.5 MG PO (08:04)
[2023-08-12] MEDS: Miconazole Nitrate Cream 1 APPLIC TOPICAL ×2 (08:07→20:49)
--- NOTE | 2023-08-12 08:30 | EX.PCM.PN.RE ---
Subjective Subjective Patient was admitted for daily rehab following a hospital stay for a fall and hip contusion. No events overnight. He does think he slept better overnight, although still notes he woke up early needing to be repositioned in the bed. He continues to have some aching in his left hip, which he feels is unchanged. He does think his strength and balance is improving some. He is still eating well and moving his bowels. He reports he has been urinating frequently which he attributes to his BPH. He has no questions or concerns at this time. Objective Data Objective Data Vital Signs: Vital Signs Temp Pulse Resp BP Pulse Ox O2 Del Method 97.4 F L 71 16 124/56 H 97 Room Air 08/12/23 07:17 08/12/23 07:17 08/12/23 07:17 08/12/23 07:17 08/12/23 07:17 08/12/23 07:17 Oxygen Delivery Method Room Air Weight: 217 lb 2.485 oz Body Mass Index (BMI) 34.0 Intake & Output: Intake and Output for Last 24 Hours 08/10/23 08/11/23 08/12/23 23:59 23:59 23:59 Intake Total 1560 / 1860 760 / 760 610 / 610 Output Total 600 / 1100 700 / 700 1200 / 1200 Balance 960 / 760 60 / 60 -590 / -590 Lab / Micro Data Attestation: I reviewed the patient's lab results. 08/08/23 08:33 08/08/23 08:33 Labs: Laboratory Results - last 24 hr 08/11/23 11:34: POC Glucose 161 H 08/11/23 16:21: POC Glucose 144 H 08/11/23 20:29: POC Glucose 204 H 08/12/23 04:40: POC Glucose 78 Indicators for Scoring Admitted with or Primary Diagnosis of CVA/Stroke: No Hx of CVA/Stroke: No Physical Exam Const alert, oriented x3, no apparent distress and well nourished Constitutional Narrative: Sitting up at the edge of the bed General Appearance: cooperative and comfortable; Negative for in distress, ill appearing or diaphoretic Orientation / Consciousness: awake, oriented to person, oriented to place and oriented to time Exam Limitations: Negative for altered mental status HEENT normocephalic and head/scalp atraumatic Head and Scalp: normocephalic and atraumatic Face and Sinus: normal facial exam Eyes General Eye: normal appearance of both eyes Chest inspection of chest normal Chest: symmetrical chest wall rise Resp normal respiratory effort, normal air movement, no use of accessory muscles and clear to auscultation bilaterally Effort and Inspection: able to speak in complete sentences and symmetric chest movement; Negative for respiratory distress or audible wheezes Auscultation: clear to auscultation bilaterally Cardio regular rate, regular rhythm and no murmurs Rate: regular rate Rhythm: regular rhythm Heart Sounds: Negative for murmur GI normal to inspection, nondistended, normoactive bowel sounds, soft to palpation, non-tender and non-distended Auscultation: normoactive bowel sounds Palpation: soft; Negative for tender or guarding Extremity normal to inspection Extremity Narrative: No tenderness to palpation over lateral left hip General Extremity: Negative for edema Skin no rashes or lesions noted General Skin Exam: no breakdown Lesions: no lesions Rashes: no rashes Neuro oriented x3 Sensorium / Orientation: awake, alert, oriented to person, oriented to place and oriented to time Speech: speech normal Psych mental status grossly normal, cooperative, affect normal and speech normal Appearance: grossly normal Attitude: calm Assessment & Plan Assessment/Plan (1) Debility: PLAN: Will continue with PT/OT and follow up on findings and recommendations. Continue with PRN pain management, bowel regimen and fall precautions. Patient is currently on lovenox for DVT prophylaxis. Will discontinue with continued ambulation. (2) Contusion of hip, left: QUALIFIERS: Encounter type: initial encounter Qualified Code(s): S70.02XA - Contusion of left hip, initial encounter PLAN: Imaging did not show any fracture or dislocation. Will continue with PT/OT as above as well as pain control. (3) Recurrent falls: PLAN: As above. Will follow up on PT/OT recommendations. (4) Essential hypertension: PLAN: Blood pressure shows good control. Will continue current management and monitor. (5) Type 2 diabetes mellitus: QUALIFIERS: Diabetes mellitus complication status: without complication Diabetes mellitus half-way insulin use: without technician terminal and repeater use Qualified Code(s): E11.9 - Type 2 diabetes mellitus without complications PLAN: Continue home medications, glucose checks, diabetic diet. SSI ordered as needed. Glucose this morning was 78. (6) Legally blind: PLAN: Complicates care. (7) Mixed hyperlipidemia: PLAN: Will continue home statin and monitor. Charges/Coding Visit Charges Inpatient E&M: 12513 Subs Hosp L1
[2023-08-12 11:40] LABS: Bedside Glucose 124 mg/dL (74-106)
--- NOTE | 2023-08-12 15:26 | CHAPLAIN ---
Type of Pastoral Visit _x__ Initial Visit ___ Follow-up Visit ___ On-call Visit ___ General Patient Visit ___ Spiritual Assessment ___ Family Conference ___ Bereavement ___ Rapid Response ___ Code Blue ___ Other (describe below) Pastoral Care Referral From _x__ Patient ___ Family ___ Nurse ___ Physician ___ Solar Fabrication Technician ___ Skein Tier ___ Other (describe below) Sacrament/Intervention _x__ Active listening ___ Anointing ___ Yazidi ___ Bereavement ___ Communion ___ Cinthia exploration ___ _x__ Life review _x__ Prayer ___ Reconciliation ___ Sacrament of Sick _x__ Supportive presence ___ Wedding ___ Other (describe below) Pastoral Comments patient is very welcoming and very talkative; pt gives life review and his perspective on many things; 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
[2023-08-12 16:59] LABS: Bedside Glucose 97 mg/dL (74-106)
[2023-08-12] MEDS: Insulin Glargine-YFGN 100 UNIT/ML Pen SC (17:18)
[2023-08-12 20:00] VITALS: BP 98/43; PULSE 72; RESP 20; TEMP 36.6; O2SAT 95
[2023-08-12] MEDS: Atorvastatin Calcium 10 MG Tablet PO (20:52)
[2023-08-12 22:08] LABS: Bedside Glucose 163 mg/dL (74-106)
[2023-08-13] MEDS: Enoxaparin 40 MG/0.4 ML Syringe SC (05:22)
[2023-08-13] MEDS: Menthol/Lanolin/Calamine/Znox 113 GM Tube 1 APPLIC TOPICAL ×2 (05:23→21:27)
[2023-08-13] MEDS: Acetaminophen 325 MG Tablet 650 MG PO (05:23)
[2023-08-13 07:39] LABS: Bedside Glucose 90 mg/dL (74-106)
[2023-08-13 07:51] VITALS: BP 109/56; PULSE 69; RESP 16; TEMP 36.4; O2SAT 97
--- NOTE | 2023-08-13 08:17 | EX.PCM.PN.RE ---
Subjective Subjective Patient was admitted for daily rehab following a hospital stay for a fall and hip contusion. No events overnight. He was seen today on TEAM rounds. Per therapy, the patient has been able to bath himself and do upper body dressing at set up level. He does require some assistance with lower body dressing, however. He has been using the 3 in 1 commode and able to transfer himself with that. He is contact guard assist when getting out of bed and is able to walk 110 feet with his wheeled walker. He has continued to have trouble with urinary incontinence, which he relates to his BPH. He was on flomax at home, but doesn't want to take it at this time. He is eating well and moving his bowels. He reports he just took ibuprofen for his hip, so it isn't bothering him too badly. He has no questions or concerns at this time. Objective Data Objective Data Vital Signs: Vital Signs Temp Pulse Resp BP Pulse Ox O2 Del Method 97.5 F L 69 16 109/56 L 97 Room Air 08/13/23 07:51 08/13/23 07:51 08/13/23 07:51 08/13/23 07:51 08/13/23 07:51 08/13/23 07:51 Oxygen Delivery Method Room Air Weight: 217 lb 2.485 oz Body Mass Index (BMI) 34.0 Intake & Output: Intake and Output for Last 24 Hours 08/11/23 08/12/23 08/13/23 23:59 23:59 23:59 Intake Total 760 / 760 1120 / 1120 600 / 600 Output Total 700 / 700 1900 / 1900 1450 / 1450 Balance 60 / 60 -780 / -780 -850 / -850 Lab / Micro Data Attestation: I reviewed the patient's lab results. 08/08/23 08:33 08/08/23 08:33 Labs: Laboratory Results - last 24 hr 08/12/23 11:15: POC Glucose 124 H 08/12/23 16:33: POC Glucose 97 08/12/23 21:04: POC Glucose 163 H 08/13/23 06:36: POC Glucose 90 Indicators for Scoring Admitted with or Primary Diagnosis of CVA/Stroke: No Hx of CVA/Stroke: No Physical Exam Const alert, oriented x3, no apparent distress and well nourished Constitutional Narrative: Sitting up in the chair General Appearance: cooperative and comfortable; Negative for in distress, ill appearing or diaphoretic Orientation / Consciousness: awake, oriented to person, oriented to place and oriented to time Exam Limitations: Negative for altered mental status HEENT normocephalic and head/scalp atraumatic Head and Scalp: normocephalic and atraumatic Face and Sinus: normal facial exam Eyes General Eye: normal appearance of both eyes Chest inspection of chest normal Chest: symmetrical chest wall rise Resp normal respiratory effort, normal air movement, no use of accessory muscles and clear to auscultation bilaterally Effort and Inspection: able to speak in complete sentences and symmetric chest movement; Negative for respiratory distress or audible wheezes Auscultation: clear to auscultation bilaterally Cardio regular rate, regular rhythm and no murmurs Rate: regular rate Rhythm: regular rhythm Heart Sounds: Negative for murmur GI normal to inspection, nondistended, normoactive bowel sounds, soft to palpation, non-tender and non-distended Auscultation: normoactive bowel sounds Palpation: soft; Negative for tender or guarding Extremity normal to inspection General Extremity: Negative for edema Skin no rashes or lesions noted General Skin Exam: no breakdown Lesions: no lesions Rashes: no rashes Neuro oriented x3 Sensorium / Orientation: awake, alert, oriented to person, oriented to place and oriented to time Speech: speech normal Psych mental status grossly normal, cooperative, affect normal and speech normal Appearance: grossly normal Attitude: calm Assessment & Plan Assessment/Plan (1) Debility: PLAN: Will continue with PT/OT and follow up on findings and recommendations. Discharge planned for 08/20 with family and [facility]. Continue with PRN pain management, bowel regimen and fall precautions. (2) Contusion of hip, left: QUALIFIERS: Encounter type: initial encounter Qualified Code(s): S70.02XA - Contusion of left hip, initial encounter PLAN: Imaging did not show any fracture or dislocation. Will continue with PT/OT as above as well as pain control. (3) Recurrent falls: PLAN: As above. Will follow up on PT/OT recommendations. (4) Essential hypertension: PLAN: Blood pressure shows good control. Will continue current management and monitor. (5) Type 2 diabetes mellitus: QUALIFIERS: Diabetes mellitus complication status: without complication Diabetes mellitus intermediate frame tender insulin use: without usp use Qualified Code(s): E11.9 - Type 2 diabetes mellitus without complications PLAN: Continue home medications, glucose checks, diabetic diet. SSI ordered as needed. Glucose this morning was 90. (6) Legally blind: PLAN: Complicates care. (7) Mixed hyperlipidemia: PLAN: Will continue home statin and monitor. (8) BPH (benign prostatic hyperplasia): QUALIFIERS: Lower urinary tract symptom presence: symptoms present Lower urinary tract symptom detail: urinary frequency Qualified Code(s): N40.1 - Benign prostatic hyperplasia with lower urinary tract symptoms; R35.0 - Frequency of micturition PLAN: Patient has been having urinary incontinence and frequency which is chronic and unchanged. He will continue with pull ups and monitor. He reports that he was on high dose flomax at home, but doesn't want to take it currently. He feels it didn't help at all. Charges/Coding Visit Charges Inpatient E&M: 25238 Subs Hosp L2
[2023-08-13] MEDS: Pioglitazone Hydrochloride 45 MG Tablet PO (08:33)
[2023-08-13] MEDS: metFORMIN HCl 500 MG Tablet 1000 MG PO ×2 (08:33→18:44)
[2023-08-13] MEDS: Empagliflozin 10 MG Tablet PO (08:33)
[2023-08-13] MEDS: Lisinopril 10 MG Tablet PO (08:33)
[2023-08-13] MEDS: Cyanocobalamin 500 MCG Tablet 1000 MCG PO (08:33)
[2023-08-13] MEDS: glipiZIDE XL 5 MG Tablet 10 MG PO (08:33)
[2023-08-13] MEDS: hydroCHLOROthiazide 12.5mg 12.5 MG PO (08:33)
[2023-08-13] MEDS: LINAGLIPTIN 5 MG TABLET PO (08:33)
[2023-08-13] MEDS: Cholecalciferol (VIT D3) 25 MCG TABLET (1,000 UNITS) PO (08:33)
[2023-08-13] MEDS: Ascorbic Acid 500 MG Tablet 1000 MG PO (08:33)
[2023-08-13] MEDS: Senna/Docusate Sodium 1 Tablet 2 TABLET PO (08:34)
[2023-08-13] MEDS: Miconazole Nitrate Cream 1 APPLIC TOPICAL ×2 (08:35→21:28)
--- NOTE | 2023-08-13 09:17 | CASEMGMT ---
Social Work IDT met with patient and family, Camryn, via conference call for Team meeting. Discussed patient's progress in PT/OT/SN. Educated to Medicare approval of 13 days with DC 08/20. Pt lives home with his friend and Camryn is very supportive as well. However, staff have noted poor hygiene with self and clothing as pt did confirm chronic incontinence. Pt and family goal is for pt to return home. SW to follow for safe DC planning. Camryn stated there is another dtr and grandson that assist pt recently at home. Will continue to follow. Stefanie Richter, PETRA CHICKEN SEXER
[2023-08-13 09:35] VITALS: PULSE 74; RESP 18; O2SAT 96
[2023-08-13 12:01] LABS: Bedside Glucose 172 mg/dL (74-106)
[2023-08-13] MEDS: Insulin Lispro 100 UNIT/ML INSULN.PEN SC (13:35)
[2023-08-13 15:11] LABS: Bedside Glucose 142 mg/dL (74-106)
[2023-08-13 17:55] LABS: Bedside Glucose 59 mg/dL (74-106)
[2023-08-13] MEDS: Insulin Glargine-YFGN 100 UNIT/ML Pen SC (18:45)
[2023-08-13 19:06] LABS: Bedside Glucose 189 mg/dL (74-106)
[2023-08-13 19:54] VITALS: BP 101/50; PULSE 71; RESP 18; TEMP 36.9; O2SAT 98
[2023-08-13] MEDS: Atorvastatin Calcium 10 MG Tablet PO (21:27)
[2023-08-13 23:08] LABS: Bedside Glucose 186 mg/dL (74-106)
[2023-08-14] MEDS: Acetaminophen 325 MG Tablet 650 MG PO (01:31)
--- NOTE | 2023-08-14 06:35 | NURSING ---
Pt sitting up on side of bed, blood sugar checked before ADL is 69, pt denies symptoms, states he does not understand why his blood sugars are so up and down. Given orange juice, renetta crackers with peanut butter before getting in shower. Rechecked at 5 minutes, blood sugar is 122.
[2023-08-14 07:25] LABS: Bedside Glucose 122 mg/dL (74-106)
[2023-08-14 07:25] LABS: Bedside Glucose 69 mg/dL (74-106)
[2023-08-14 07:47] VITALS: BP 107/54; PULSE 75; RESP 16; TEMP 36.6; O2SAT 94
[2023-08-14] MEDS: metFORMIN HCl 500 MG Tablet 1000 MG PO ×2 (08:39→17:07)
[2023-08-14] MEDS: hydroCHLOROthiazide 12.5mg 12.5 MG PO (08:39)
[2023-08-14] MEDS: Lisinopril 10 MG Tablet PO (08:39)
[2023-08-14] MEDS: Cholecalciferol (VIT D3) 25 MCG TABLET (1,000 UNITS) PO (08:39)
[2023-08-14] MEDS: Ascorbic Acid 500 MG Tablet 1000 MG PO (08:39)
[2023-08-14] MEDS: Senna/Docusate Sodium 1 Tablet 2 TABLET PO (08:39)
[2023-08-14] MEDS: Cyanocobalamin 500 MCG Tablet 1000 MCG PO (08:39)
[2023-08-14] MEDS: glipiZIDE XL 5 MG Tablet 10 MG PO (08:39)
[2023-08-14] MEDS: Empagliflozin 10 MG Tablet PO (08:40)
[2023-08-14] MEDS: Pioglitazone Hydrochloride 45 MG Tablet PO (08:40)
[2023-08-14] MEDS: LINAGLIPTIN 5 MG TABLET PO (08:41)
[2023-08-14] MEDS: Menthol/Lanolin/Calamine/Znox 113 GM Tube 1 APPLIC TOPICAL ×2 (08:43→21:53)
[2023-08-14] MEDS: Miconazole Nitrate Cream 1 APPLIC TOPICAL ×2 (08:44→21:53)
[2023-08-14 10:00] VITALS: RESP 14; O2SAT 95
[2023-08-14 11:46] LABS: Bedside Glucose 176 mg/dL (74-106)
[2023-08-14] MEDS: Insulin Lispro 100 UNIT/ML INSULN.PEN SC (12:57)
[2023-08-14] MEDS: Insulin Glargine-YFGN 100 UNIT/ML Pen SC (17:08)
[2023-08-14 17:19] LABS: Bedside Glucose 118 mg/dL (74-106)
[2023-08-14 19:44] VITALS: BP 107/53; PULSE 68; RESP 20; TEMP 36.5; O2SAT 96
[2023-08-14] MEDS: Atorvastatin Calcium 10 MG Tablet PO (21:53)
[2023-08-14 22:31] LABS: Bedside Glucose 112 mg/dL (74-106)
[2023-08-15] MEDS: Acetaminophen 325 MG Tablet 650 MG PO ×2 (06:11→21:19)
[2023-08-15 07:00] VITALS: BP 114/51; PULSE 61; RESP 18; TEMP 36.2; O2SAT 95
[2023-08-15 07:06] LABS: Bedside Glucose 83 mg/dL (74-106)
[2023-08-15] MEDS: glipiZIDE XL 5 MG Tablet 10 MG PO (08:42)
[2023-08-15] MEDS: Lisinopril 10 MG Tablet PO (08:42)
[2023-08-15] MEDS: LINAGLIPTIN 5 MG TABLET PO (08:42)
[2023-08-15] MEDS: Cholecalciferol (VIT D3) 25 MCG TABLET (1,000 UNITS) PO (08:42)
[2023-08-15] MEDS: Ascorbic Acid 500 MG Tablet 1000 MG PO (08:42)
[2023-08-15] MEDS: Cyanocobalamin 500 MCG Tablet 1000 MCG PO (08:43)
[2023-08-15] MEDS: Empagliflozin 10 MG Tablet PO (08:43)
[2023-08-15] MEDS: hydroCHLOROthiazide 12.5mg 12.5 MG PO (08:43)
[2023-08-15] MEDS: Pioglitazone Hydrochloride 45 MG Tablet PO (08:43)
[2023-08-15] MEDS: metFORMIN HCl 500 MG Tablet 1000 MG PO ×2 (08:44→18:05)
[2023-08-15 10:00] VITALS: RESP 12; O2SAT 94
[2023-08-15] MEDS: Miconazole Nitrate Cream 1 APPLIC TOPICAL ×2 (10:22→21:22)
[2023-08-15 11:59] LABS: Bedside Glucose 145 mg/dL (74-106)
[2023-08-15 16:53] LABS: Bedside Glucose 140 mg/dL (74-106)
[2023-08-15] MEDS: Insulin Glargine-YFGN 100 UNIT/ML Pen SC (18:04)
[2023-08-15 20:30] VITALS: BP 120/43; PULSE 69; RESP 12; TEMP 36.5; O2SAT 99
[2023-08-15] MEDS: Atorvastatin Calcium 10 MG Tablet PO (21:19)
[2023-08-15] MEDS: Senna/Docusate Sodium 1 Tablet 2 TABLET PO (21:19)
[2023-08-15] MEDS: Menthol/Lanolin/Calamine/Znox 113 GM Tube 1 APPLIC TOPICAL (21:20)
[2023-08-15 22:06] LABS: Bedside Glucose 165 mg/dL (74-106)
--- NOTE | 2023-08-16 04:33 | NURSING ---
Reviewed and agree with Gladis BENNETT, documentation and assessment charting.
[2023-08-16] MEDS: Menthol/Lanolin/Calamine/Znox 113 GM Tube 1 APPLIC TOPICAL ×2 (04:51→21:32)
[2023-08-16] MEDS: Acetaminophen 325 MG Tablet 650 MG PO (06:54)
[2023-08-16 07:17] LABS: Bedside Glucose 77 mg/dL (74-106)
[2023-08-16 07:22] VITALS: BP 110/49; PULSE 63; RESP 16; TEMP 36.4; O2SAT 97
[2023-08-16] MEDS: metFORMIN HCl 500 MG Tablet 1000 MG PO ×2 (07:53→17:31)
[2023-08-16] MEDS: glipiZIDE XL 5 MG Tablet 10 MG PO (09:58)
[2023-08-16] MEDS: Pioglitazone Hydrochloride 45 MG Tablet PO (09:59)
[2023-08-16] MEDS: Empagliflozin 10 MG Tablet PO (09:59)
[2023-08-16] MEDS: hydroCHLOROthiazide 12.5mg 12.5 MG PO (10:00)
[2023-08-16] MEDS: Miconazole Nitrate Cream 1 APPLIC TOPICAL ×2 (10:01→21:31)
[2023-08-16] MEDS: Cyanocobalamin 500 MCG Tablet 1000 MCG PO (10:01)
[2023-08-16] MEDS: Senna/Docusate Sodium 1 Tablet 2 TABLET PO (10:01)
[2023-08-16] MEDS: LINAGLIPTIN 5 MG TABLET PO (10:01)
[2023-08-16] MEDS: Ascorbic Acid 500 MG Tablet 1000 MG PO (10:02)
[2023-08-16] MEDS: Lisinopril 10 MG Tablet PO (10:02)
[2023-08-16 11:52] LABS: Bedside Glucose 116 mg/dL (74-106)
[2023-08-16 16:50] LABS: Bedside Glucose 130 mg/dL (74-106)
[2023-08-16] MEDS: Insulin Glargine-YFGN 100 UNIT/ML Pen SC (17:30)
[2023-08-16 20:10] VITALS: BP 115/68; PULSE 82; RESP 16; TEMP 36.8; O2SAT 97
[2023-08-16] MEDS: Atorvastatin Calcium 10 MG Tablet PO (21:26)
[2023-08-16 21:29] LABS: Bedside Glucose 131 mg/dL (74-106)
[2023-08-16 22:00] VITALS: PULSE 72; O2SAT 96
[2023-08-17] MEDS: Menthol/Lanolin/Calamine/Znox 113 GM Tube 1 APPLIC TOPICAL ×2 (05:16→21:04)
[2023-08-17 06:00] VITALS: BMI 33.9
[2023-08-17 06:44] LABS: Bedside Glucose 83 mg/dL (74-106)
[2023-08-17] MEDS: Ascorbic Acid 500 MG Tablet 1000 MG PO (08:01)
[2023-08-17] MEDS: LINAGLIPTIN 5 MG TABLET PO (08:01)
[2023-08-17] MEDS: Cyanocobalamin 500 MCG Tablet 1000 MCG PO (08:01)
[2023-08-17] MEDS: hydroCHLOROthiazide 12.5mg 12.5 MG PO (08:01)
[2023-08-17] MEDS: metFORMIN HCl 500 MG Tablet 1000 MG PO ×2 (08:02→17:09)
[2023-08-17] MEDS: Pioglitazone Hydrochloride 45 MG Tablet PO (08:02)
[2023-08-17] MEDS: Empagliflozin 10 MG Tablet PO (08:02)
[2023-08-17] MEDS: glipiZIDE XL 5 MG Tablet 10 MG PO (08:02)
[2023-08-17] MEDS: Lisinopril 10 MG Tablet PO (08:04)
[2023-08-17] MEDS: Miconazole Nitrate Cream 1 APPLIC TOPICAL ×2 (08:05→21:04)
[2023-08-17 08:31] VITALS: BP 107/42; PULSE 66; RESP 16; TEMP 36.6; O2SAT 96
[2023-08-17] MEDS: Cholecalciferol (VIT D3) 25 MCG TABLET (1,000 UNITS) PO (09:00)
--- NOTE | 2023-08-17 11:06 | EX.PCM.PN.RE ---
Subjective Subjective Patient was admitted for daily rehab following a hospital stay for a fall and hip contusion. No events overnight. He has continued to have trouble with urinary incontinence, which he relates to his BPH. He was on flomax at home, but doesn't want to take it at this time. He is eating well and moving his bowels. He reports his hip isn't bothering him much today. He did take tylenol the last two nights which helped. He reports he slept well last night with laying on his right side. He has no questions or concerns at this time. Objective Data Objective Data Vital Signs: Vital Signs Temp Pulse Resp BP Pulse Ox O2 Del Method 97.8 F 66 16 107/42 L 96 Room Air 08/17/23 08:31 08/17/23 08:31 08/17/23 08:31 08/17/23 08:31 08/17/23 08:31 08/17/23 08:31 Oxygen Delivery Method Room Air Weight: 216 lb 11.43 oz Body Mass Index (BMI) 33.9 Intake & Output: Intake and Output for Last 24 Hours 08/15/23 08/16/23 08/17/23 23:59 23:59 23:59 Intake Total 2140 / 2140 1400 / 1500 740 / 740 Output Total 1500 / 1500 1700 / 1700 1100 / 1100 Balance 640 / 640 -300 / -200 -360 / -360 Lab / Micro Data Attestation: I reviewed the patient's lab results. 08/08/23 08:33 08/08/23 08:33 Labs: Laboratory Results - last 24 hr 08/16/23 11:32: POC Glucose 116 H 08/16/23 16:19: POC Glucose 130 H 08/16/23 20:49: POC Glucose 131 H 08/17/23 06:19: POC Glucose 83 Indicators for Scoring Admitted with or Primary Diagnosis of CVA/Stroke: No Hx of CVA/Stroke: No Physical Exam Const alert, oriented x3, no apparent distress and well nourished Constitutional Narrative: Sitting up in the chair General Appearance: cooperative and comfortable; Negative for in distress, ill appearing or diaphoretic Orientation / Consciousness: awake, oriented to person, oriented to place and oriented to time Exam Limitations: Negative for altered mental status HEENT normocephalic and head/scalp atraumatic Head and Scalp: normocephalic and atraumatic Face and Sinus: normal facial exam Eyes General Eye: normal appearance of both eyes Chest inspection of chest normal Chest: symmetrical chest wall rise Resp normal respiratory effort, normal air movement, no use of accessory muscles and clear to auscultation bilaterally Effort and Inspection: able to speak in complete sentences and symmetric chest movement; Negative for respiratory distress or audible wheezes Auscultation: clear to auscultation bilaterally Cardio regular rate, regular rhythm and no murmurs Rate: regular rate Rhythm: regular rhythm Heart Sounds: Negative for murmur GI normal to inspection, nondistended, normoactive bowel sounds, soft to palpation, non-tender and non-distended Auscultation: normoactive bowel sounds Palpation: soft; Negative for tender or guarding Extremity normal to inspection General Extremity: Negative for edema Skin no rashes or lesions noted General Skin Exam: no breakdown Lesions: no lesions Rashes: no rashes Neuro oriented x3 Sensorium / Orientation: awake, alert, oriented to person, oriented to place and oriented to time Speech: speech normal Psych mental status grossly normal, cooperative, affect normal and speech normal Appearance: grossly normal Attitude: calm Assessment & Plan Assessment/Plan (1) Debility: PLAN: Will continue with PT/OT and follow up on findings and recommendations. Discharge planned for 08/20 with family and C. Continue with PRN pain management, bowel regimen and fall precautions. (2) Contusion of hip, left: QUALIFIERS: Encounter type: initial encounter Qualified Code(s): S70.02XA - Contusion of left hip, initial encounter PLAN: Imaging did not show any fracture or dislocation. Will continue with PT/OT as above as well as pain control. (3) Recurrent falls: PLAN: As above. Will follow up on PT/OT recommendations. (4) Essential hypertension: PLAN: Blood pressure shows good control. Will continue current management and monitor. (5) Type 2 diabetes mellitus: QUALIFIERS: Diabetes mellitus watermaster insulin use: without watermaster use Diabetes mellitus complication status: without complication Qualified Code(s): E11.9 - Type 2 diabetes mellitus without complications PLAN: Continue home medications, glucose checks, diabetic diet. SSI ordered as needed. Glucose this morning was 83. (6) Legally blind: PLAN: Complicates care. (7) Mixed hyperlipidemia: PLAN: Will continue home statin and monitor. (8) BPH (benign prostatic hyperplasia): QUALIFIERS: Lower urinary tract symptom presence: symptoms present Lower urinary tract symptom detail: urinary frequency Qualified Code(s): N40.1 - Benign prostatic hyperplasia with lower urinary tract symptoms; R35.0 - Frequency of micturition PLAN: Patient has been having urinary incontinence and frequency which is chronic and unchanged. He will continue with pull ups and monitor. He reports that he was on high dose flomax at home, but doesn't want to take it currently. He feels it didn't help at all. Charges/Coding Visit Charges Inpatient E&M: 39209 Subs Hosp L1
[2023-08-17 11:37] LABS: Bedside Glucose 164 mg/dL (74-106)
[2023-08-17] MEDS: Insulin Lispro 100 UNIT/ML INSULN.PEN SC ×2 (11:58→17:08)
--- NOTE | 2023-08-17 14:12 | CASEMGMT ---
Social Work SW spoke with pt to follow up on DC plans. Pt states he would like to go home, as he needs to assist his . SW offered SNF for short term, but pt adamantly denied, and is agreeable to skilled HHC. SW offered printed list with quality and resource data for skilled HHC agencies but pt denied and agreeable to [facility]. Pt requesting 3-in-1 commode and it be delivered to pts home. Pt requested this worker contact, adopted dtrCamryn for transport and confirmation of DC plans. BENJIE phoned Camryn and she is in agreement to all services. Camryn denies any concerns with pt discharging home. Camryn can transport pt on 08/20. BENJIE phoned referral to [facility] for PT/OT/SN/SW. SW to follow for transition home and ensure home is in livable conditions. BENJIE [place] [facility] [place] [facility] [place]. 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
[2023-08-17 16:42] LABS: Bedside Glucose 150 mg/dL (74-106)
[2023-08-17] MEDS: Insulin Glargine-YFGN 100 UNIT/ML Pen SC (17:09)
[2023-08-17 19:35] VITALS: BP 90/50; PULSE 75; RESP 18; TEMP 36.6; O2SAT 95
[2023-08-17] MEDS: Atorvastatin Calcium 10 MG Tablet PO (21:04)
[2023-08-17 22:46] LABS: Bedside Glucose 134 mg/dL (74-106)
[2023-08-18] MEDS: Menthol/Lanolin/Calamine/Znox 113 GM Tube 1 APPLIC TOPICAL ×2 (05:19→20:22)
[2023-08-18 07:01] LABS: Bedside Glucose 77 mg/dL (74-106)
[2023-08-18] MEDS: metFORMIN HCl 500 MG Tablet 1000 MG PO ×2 (08:05→17:49)
[2023-08-18] MEDS: Empagliflozin 10 MG Tablet PO (08:05)
[2023-08-18] MEDS: glipiZIDE XL 5 MG Tablet 10 MG PO (08:05)
[2023-08-18] MEDS: Cholecalciferol (VIT D3) 25 MCG TABLET (1,000 UNITS) PO (08:05)
[2023-08-18] MEDS: Cyanocobalamin 500 MCG Tablet 1000 MCG PO (08:05)
[2023-08-18] MEDS: LINAGLIPTIN 5 MG TABLET PO (08:05)
[2023-08-18] MEDS: Ascorbic Acid 500 MG Tablet 1000 MG PO (08:05)
[2023-08-18] MEDS: Pioglitazone Hydrochloride 45 MG Tablet PO (08:05)
[2023-08-18] MEDS: Lisinopril 10 MG Tablet PO (08:05)
[2023-08-18] MEDS: hydroCHLOROthiazide 12.5mg 12.5 MG PO (08:05)
[2023-08-18 08:24] VITALS: BP 102/40; PULSE 62; RESP 16; TEMP 36.3; O2SAT 95
[2023-08-18 09:19] VITALS: O2SAT 97
--- NOTE | 2023-08-18 11:44 | EX.PCM.PN.RE ---
Subjective Subjective Patient was admitted for daily rehab following a hospital stay for a fall and hip contusion. No events overnight. He reports his hip is still aching, but not too bad. He didn't take any tylenol last night. He slept fair last night stating he woke up a few times. He is still eating well and moving his bowels. He continues to urinate frequently, but doesn't feel it is changed at all from his baseline. He has no questions or concerns at this time. Objective Data Objective Data Vital Signs: Vital Signs Temp Pulse Resp BP Pulse Ox O2 Del Method 97.4 F L 62 16 102/40 L 97 Room Air 08/18/23 08:24 08/18/23 08:24 08/18/23 08:24 08/18/23 08:24 08/18/23 09:19 08/18/23 09:19 Oxygen Delivery Method Room Air Weight: 216 lb 11.43 oz Body Mass Index (BMI) 33.9 Intake & Output: Intake and Output for Last 24 Hours 08/16/23 08/17/23 08/18/23 23:59 23:59 23:59 Intake Total 1400 / 1500 2360 / 2360 1180 / 1180 Output Total 1700 / 1700 1100 / 1100 1200 / 1200 Balance -300 / -200 1260 / 1260 -20 / -20 Lab / Micro Data Attestation: I reviewed the patient's lab results. 08/08/23 08:33 08/08/23 08:33 Labs: Laboratory Results - last 24 hr 08/17/23 16:05: POC Glucose 150 H 08/17/23 21:11: POC Glucose 134 H 08/18/23 06:30: POC Glucose 77 Indicators for Scoring Admitted with or Primary Diagnosis of CVA/Stroke: No Hx of CVA/Stroke: No Physical Exam Const alert, oriented x3, no apparent distress and well nourished Constitutional Narrative: Sitting up in the chair General Appearance: cooperative and comfortable; Negative for in distress, ill appearing or diaphoretic Orientation / Consciousness: awake, oriented to person, oriented to place and oriented to time Exam Limitations: Negative for altered mental status HEENT normocephalic and head/scalp atraumatic Head and Scalp: normocephalic and atraumatic Face and Sinus: normal facial exam Eyes General Eye: normal appearance of both eyes Chest inspection of chest normal Chest: symmetrical chest wall rise Resp normal respiratory effort, normal air movement, no use of accessory muscles and clear to auscultation bilaterally Effort and Inspection: able to speak in complete sentences and symmetric chest movement; Negative for respiratory distress or audible wheezes Auscultation: clear to auscultation bilaterally Cardio regular rate, regular rhythm and no murmurs Rate: regular rate Rhythm: regular rhythm Heart Sounds: Negative for murmur GI normal to inspection, nondistended, normoactive bowel sounds, soft to palpation, non-tender and non-distended Auscultation: normoactive bowel sounds Palpation: soft; Negative for tender or guarding Extremity normal to inspection General Extremity: Negative for edema Skin no rashes or lesions noted General Skin Exam: no breakdown Lesions: no lesions Rashes: no rashes Neuro oriented x3 Sensorium / Orientation: awake, alert, oriented to person, oriented to place and oriented to time Speech: speech normal Psych mental status grossly normal, cooperative, affect normal and speech normal Appearance: grossly normal Attitude: calm Assessment & Plan Assessment/Plan (1) Debility: PLAN: Will continue with PT/OT and follow up on findings and recommendations. Discharge planned for 08/20 with family and C. Continue with PRN pain management, bowel regimen and fall precautions. (2) Contusion of hip, left: QUALIFIERS: Encounter type: initial encounter Qualified Code(s): S70.02XA - Contusion of left hip, initial encounter PLAN: Imaging did not show any fracture or dislocation. Will continue with PT/OT as above as well as pain control. (3) Recurrent falls: PLAN: As above. Will follow up on PT/OT recommendations. (4) Essential hypertension: PLAN: Blood pressure shows good control. Will continue current management and monitor. (5) Type 2 diabetes mellitus: QUALIFIERS: Diabetes mellitus complication status: without complication Diabetes mellitus medical terminologist insulin use: without care home use Qualified Code(s): E11.9 - Type 2 diabetes mellitus without complications PLAN: Continue home medications, glucose checks, diabetic diet. SSI ordered as needed. Lantus discontinued. Glucose this morning was 77. (6) Legally blind: PLAN: Complicates care. (7) Mixed hyperlipidemia: PLAN: Will continue home statin and monitor. (8) BPH (benign prostatic hyperplasia): QUALIFIERS: Lower urinary tract symptom detail: urinary frequency Lower urinary tract symptom presence: symptoms present Qualified Code(s): N40.1 - Benign prostatic hyperplasia with lower urinary tract symptoms; R35.0 - Frequency of micturition PLAN: Patient has been having urinary incontinence and frequency which is chronic and unchanged. He will continue with pull ups and monitor. He reports that he was on high dose flomax at home, but doesn't want to take it currently. He feels it didn't help at all. Charges/Coding Visit Charges Inpatient E&M: 77750 Subs Hosp L1
[2023-08-18 12:03] LABS: Bedside Glucose 142 mg/dL (74-106)
[2023-08-18 17:23] VITALS: BP 101/53; PULSE 83; RESP 17; TEMP 36.5; O2SAT 95
[2023-08-18 17:30] LABS: Bedside Glucose 132 mg/dL (74-106)
[2023-08-18] MEDS: Acetaminophen 325 MG Tablet 650 MG PO (20:16)
[2023-08-18] MEDS: Miconazole Nitrate Cream 1 APPLIC TOPICAL (20:21)
[2023-08-18] MEDS: Atorvastatin Calcium 10 MG Tablet PO (20:21)
[2023-08-18 20:30] VITALS: BP 101/53; PULSE 83; RESP 17; TEMP 36.5; O2SAT 95
[2023-08-18 22:00] VITALS: PULSE 83; RESP 17; O2SAT 95
[2023-08-18 22:24] LABS: Bedside Glucose 162 mg/dL (74-106)
[2023-08-19] MEDS: Menthol/Lanolin/Calamine/Znox 113 GM Tube 1 APPLIC TOPICAL ×2 (05:13→22:11)
[2023-08-19] MEDS: Acetaminophen 325 MG Tablet 650 MG PO (06:13)
[2023-08-19 07:25] LABS: Bedside Glucose 69 mg/dL (74-106)
[2023-08-19 07:36] LABS: Bedside Glucose 117 mg/dL (74-106)
--- NOTE | 2023-08-19 07:36 | NURSING ---
PT BS THIS A.M. WAS 69. PT PROVIDED MILK AND PEGGY DOONE. PT DENIES SYMPTOMS. RECHECK BS LEVEL WAS 117.
[2023-08-19 07:50] VITALS: BP 125/58; PULSE 61; RESP 16; TEMP 36.2; O2SAT 97
--- NOTE | 2023-08-19 08:56 | EX.DISCHREH ---
Providers Date of Admission: 08/07/23 Date of Discharge: 08/20/23 Primary Care Physician: Dr. Gentry Frias MD Reason For Visit: DEBILITY Diagnosis Discharge Diagnosis (1) Debility: Status: Acute Code(s): R53.81 - Other malaise Plan: Will continue with PT/OT and follow up on findings and recommendations. Discharge planned for 08/20 with family and C. Continue with PRN pain management, bowel regimen and fall precautions. (2) Contusion of hip, left: Status: Inactive Code(s): S70.02XA - Contusion of left hip, initial encounter Qualifiers: Encounter type: initial encounter Qualified Code(s): S70.02XA - Contusion of left hip, initial encounter Plan: Imaging did not show any fracture or dislocation. Will continue with PT/OT as above as well as pain control. (3) Recurrent falls: Status: Acute Code(s): R29.6 - Repeated falls Plan: As above. Will follow up on PT/OT recommendations. (4) Essential hypertension: Status: Acute Code(s): I10 - Essential (primary) hypertension Plan: Blood pressure shows good control. Will continue current management and monitor. (5) Type 2 diabetes mellitus: Status: Acute Code(s): E11.9 - Type 2 diabetes mellitus without complications Qualifiers: Diabetes mellitus nursing home insulin use: without nursing home use Diabetes mellitus complication status: without complication Qualified Code(s): E11.9 - Type 2 diabetes mellitus without complications Plan: Continue home medications, glucose checks, diabetic diet. SSI ordered as needed. Glucose this morning was 117. (6) Legally blind: Status: Acute Code(s): H54.8 - Legal blindness, as defined in [place] Plan: Complicates care. (7) Mixed hyperlipidemia: Status: Acute Code(s): E78.2 - Mixed hyperlipidemia Plan: Will continue home statin and monitor. (8) BPH (benign prostatic hyperplasia): Status: Acute Code(s): N40.0 - Benign prostatic hyperplasia without lower urinary tract symptoms Qualifiers: Lower urinary tract symptom presence: symptoms present Lower urinary tract symptom detail: urinary frequency Qualified Code(s): N40.1 - Benign prostatic hyperplasia with lower urinary tract symptoms; R35.0 - Frequency of micturition Plan: Patient has been having urinary incontinence and frequency which is chronic and unchanged. He will continue with pull ups and monitor. He reports that he was on high dose flomax at home, but doesn't want to take it currently. He feels it didn't help at all. Medications at Discharge Home Medications ascorbic acid (vitamin C) 1,000 mg tablet 1,000 mg PO DAILY supplement 11/09/19 cholecalciferol (vitamin D3) 25 mcg (1,000 unit) tablet 1,000 unit PO DAILY supplement 11/09/19 cyanocobalamin (vitamin B-12) 1,000 mcg capsule 1,000 mcg PO DAILY supplement 11/09/19 empagliflozin 10 mg tablet 10 mg PO DAILY diabetes 11/09/19 glipizide 10 mg tablet, extended release 24 hr 10 mg PO DAILY diabetes 11/09/19 hydrochlorothiazide 25 mg tablet 12.5 mg PO DAILY water pill 11/09/19 linagliptin 5 mg tablet 5 mg PO DAILY diabetes 11/09/19 lisinopril 10 mg tablet 10 mg PO DAILY bp 11/09/19 lovastatin 40 mg tablet 40 mg PO QHS cholesterol 11/09/19 metformin 500 mg tablet 1,000 mg PO BID diabetes 11/09/19 pioglitazone 45 mg tablet 45 mg PO DAILY diabetes 11/09/19 vitamin A 3,000 mcg (10,000 unit) capsule 15,000 unit PO DAILY supplement 11/09/19 acetaminophen 325 mg tablet 650 mg (2 x 325 mg) PO Q6H PRN PRN Pain 1-5 Or Fever >100.7 #0 tabs 08/07/23 Hospital Course Summary of Care Provided Hospital Course: Patient came as a transfer from [facility] for physical and occupational therapy. He presented to the ED on 08/06 with complaints of weakness and recurrent falls, including pain in his left hip. He was admitted for observation. Work up did not show any significant findings. He remained stable. Therapy saw the patient who felt he would benefit from rehab and was transferred to inpatient rehab on 08/07. During his admission at rehab, he worked well with therapy. It was felt he could go home with [facility] and family assistance. In discharge planning, it was felt he would benefit from a 3 in 1 commode. The patient is unable to access the bathroom safely and requires the 3 in 1 commode for home use. Today, the patient reports he is doing well. He continues to eat well, move his bowels and do well with therapy. Tylenol continues to help with his hip pain. He is anxious to get home and has no questions or concerns at this time. Physical Exam Const alert, oriented x3, no apparent distress and well nourished Constitutional Narrative: Standing up, working with therapy General Appearance: cooperative and comfortable; Negative for in distress, ill appearing or diaphoretic Orientation / Consciousness: awake, oriented to person, oriented to place and oriented to time Exam Limitations: Negative for altered mental status HEENT normocephalic and head/scalp atraumatic Head and Scalp: normocephalic and atraumatic Face and Sinus: normal facial exam Eyes General Eye: normal appearance of both eyes Chest inspection of chest normal Chest: symmetrical chest wall rise Resp normal respiratory effort, normal air movement, no use of accessory muscles and clear to auscultation bilaterally Effort and Inspection: able to speak in complete sentences and symmetric chest movement; Negative for respiratory distress or audible wheezes Auscultation: clear to auscultation bilaterally Cardio regular rate, regular rhythm and no murmurs Rate: regular rate Rhythm: regular rhythm Heart Sounds: Negative for murmur GI normal to inspection, nondistended, normoactive bowel sounds, soft to palpation, non-tender and non-distended Auscultation: normoactive bowel sounds Palpation: soft; Negative for tender or guarding Extremity normal to inspection General Extremity: Negative for edema Skin no rashes or lesions noted General Skin Exam: no breakdown Lesions: no lesions Rashes: no rashes Neuro oriented x3 Sensorium / Orientation: awake, alert, oriented to person, oriented to place and oriented to time Speech: speech normal Psych mental status grossly normal, cooperative, affect normal and speech normal Appearance: grossly normal Attitude: calm Weight / BMI Weight Weight: 216 lb 11.43 oz Body Mass Index (BMI) 33.9 ABG / Lab / Microbiology Data Attestation: I reviewed the patient's lab results. 08/08/23 08:33 08/08/23 08:33 Laboratory: Laboratory Results - last 24 hr 08/18/23 11:29: POC Glucose 142 H 08/18/23 16:58: POC Glucose 132 H 08/18/23 20:20: POC Glucose 162 H 08/19/23 06:37: POC Glucose 69 L 08/19/23 07:13: POC Glucose 117 H Indicators for Scoring Admitted with or Primary Diagnosis of CVA/Stroke: No Hx of CVA/Stroke: No D/C Instructions Discharge Diet: Carb Control Diet Discharge Activity: Use Walker and - (Per therapy recommendations) Call your doctor if you observe: Fever of 101 or Higher, Numbness or Tingling, Inability to urinate, Inability to have a bowel movement, Shortness of breath, Dizziness, Fainting spells, Chest pain and Uncontrolled pain Please Follow Up With: Gentry Frias MD When: 09/02 as scheduled Meaningful Use Info Meaningful Use Diagnoses (Choose all that apply): None applicable Discharge Plan Admission Admit Date/Time: 08/07/23 16:00 Primary Reason for Your Visit: Debility - Recurrent falls Attending Provider: Beatrice Burdick Primary Care Provider: Gentry Frias Consulting Providers: Rafi Napoles Discharge Orders/Prescriptions Prescriptions: Continued metformin 500 MG tablet 1,000 mg PO BID Patient Comments: take 1 tab with lunch glipizide 10 MG tablet extended release 24hr 10 mg PO DAILY lovastatin 40 MG tablet 40 mg PO QHS pioglitazone 45 MG tablet 45 mg PO DAILY lisinopril 10 MG tablet 10 mg PO DAILY hydrochlorothiazide 25 MG tablet 12.5 mg PO DAILY linagliptin 5 MG tablet 5 mg PO DAILY empagliflozin 10 MG tablet 10 mg PO DAILY ascorbic acid (vitamin C) 1,000 MG tablet 1,000 mg PO DAILY vitamin A 10,000 UNIT capsule 15,000 unit PO DAILY cholecalciferol (vitamin D3) 1,000 UNIT tablet 1,000 unit PO DAILY cyanocobalamin (vitamin B-12) 1,000 MCG capsule 1,000 mcg PO DAILY acetaminophen 325 mg Tablet 650 mg PO Q6H PRN PRN (Reason: Pain 1-5 Or Fever >100.7) Qty: 0 0RF Discontinued insulin lispro [Humalog KwikPen Insulin] 100 unit/mL Insulin Pen See Protocol subcut TIDCM Qty: 0 0RF Protocol: 1. Sliding Scale Insulin Low Dosing Condition: 150-224 mg/dl = 1 unit Condition: 225-299 mg/dl = 2 units Condition: 300-374 mg/dl = 3 units Condition: 375-499 mg/dl = 4 units Condition: Greater than 449 call physician Protocol Text: - Use for Total Daily Dose of Insulin 15-27 units - Thin, elderly, renal patients LOW DOSING ALGORITHM oxycodone 5 mg Tablet 2.5 - 5 mg PO Q4H PRN PRN (Reason: Pain Score 6-10) Qty: 0 0RF Rx Instructions: 2.5 mg for moderate pain and 5 mg for severe pain respectively. sennosides-docusate sodium [Senna-S] 8.6-50 mg tablet 2 tab-cap PO BID Qty: 30 0RF polyethylene glycol 3350 [Miralax] 17 gram powder in packet 17 g PO DAILY Qty: 30 0RF Referrals / Follow Up: Gentry Frias MD [Primary Care Provider] - 09/02/23 2:20 pm Disposition Disposition (needs filled in before D/C Order can be placed): Home Health Service Charges/Coding Visit Charges Inpatient E&M: 60287 Disch Hosp >30min
[2023-08-19] MEDS: Cholecalciferol (VIT D3) 25 MCG TABLET (1,000 UNITS) PO (09:41)
[2023-08-19] MEDS: metFORMIN HCl 500 MG Tablet 1000 MG PO ×2 (09:41→17:44)
[2023-08-19] MEDS: hydroCHLOROthiazide 12.5mg 12.5 MG PO (09:41)
[2023-08-19] MEDS: Cyanocobalamin 500 MCG Tablet 1000 MCG PO (09:41)
[2023-08-19] MEDS: LINAGLIPTIN 5 MG TABLET PO (09:41)
[2023-08-19] MEDS: glipiZIDE XL 5 MG Tablet 10 MG PO (09:41)
[2023-08-19] MEDS: Empagliflozin 10 MG Tablet PO (09:41)
[2023-08-19] MEDS: Lisinopril 10 MG Tablet PO (09:41)
[2023-08-19] MEDS: Pioglitazone Hydrochloride 45 MG Tablet PO (09:41)
[2023-08-19] MEDS: Ascorbic Acid 500 MG Tablet 1000 MG PO (09:41)
[2023-08-19] MEDS: Insulin Lispro 100 UNIT/ML INSULN.PEN SC (12:19)
[2023-08-19 12:30] LABS: Bedside Glucose 158 mg/dL (74-106)
[2023-08-19 17:36] LABS: Bedside Glucose 133 mg/dL (74-106)
[2023-08-19 19:52] VITALS: BP 99/46; PULSE 63; RESP 12; TEMP 36.4; O2SAT 96
[2023-08-19] MEDS: Miconazole Nitrate Cream 1 APPLIC TOPICAL (22:10)
[2023-08-19] MEDS: Atorvastatin Calcium 10 MG Tablet PO (22:10)
[2023-08-19 23:03] LABS: Bedside Glucose 116 mg/dL (74-106)
[2023-08-20] MEDS: Menthol/Lanolin/Calamine/Znox 113 GM Tube 1 APPLIC TOPICAL (05:40)
[2023-08-20 07:12] LABS: Bedside Glucose 87 mg/dL (74-106)
[2023-08-20] MEDS: Lisinopril 10 MG Tablet PO (08:34)
[2023-08-20] MEDS: LINAGLIPTIN 5 MG TABLET PO (08:34)
[2023-08-20] MEDS: Pioglitazone Hydrochloride 45 MG Tablet PO (08:34)
[2023-08-20] MEDS: glipiZIDE XL 5 MG Tablet 10 MG PO (08:34)
[2023-08-20] MEDS: metFORMIN HCl 500 MG Tablet 1000 MG PO (08:34)
[2023-08-20] MEDS: Cyanocobalamin 500 MCG Tablet 1000 MCG PO (08:34)
[2023-08-20] MEDS: hydroCHLOROthiazide 12.5mg 12.5 MG PO (08:35)
[2023-08-20] MEDS: Cholecalciferol (VIT D3) 25 MCG TABLET (1,000 UNITS) PO (08:35)
[2023-08-20] MEDS: Ascorbic Acid 500 MG Tablet 1000 MG PO (08:35)
[2023-08-20] MEDS: Empagliflozin 10 MG Tablet PO (08:35)
[2023-08-20 10:00] VITALS: BP 100/49; PULSE 69; RESP 17; TEMP 36.9; O2SAT 96
[2023-08-20] MEDS: Insulin Lispro 100 UNIT/ML INSULN.PEN SC (11:21)
[2023-08-20 12:12] LABS: Bedside Glucose 166 mg/dL (74-106)
[2023-08-20 13:46] VITALS: BP 115/60; PULSE 71; RESP 18; TEMP 37; O2SAT 96
== END 2023-08-20 13:49 | disposition home health service (06) | DRG 950 ==
PROVIDERS: Internal Medicine; Admitting Provider Internal Medicine; PCP Family Medicine; Referring Provider Internal Medicine; Visit Provider Internal Medicine
DX: S70.02XD Contusion of left hip, subsequent encounter (principal); R62.7 Adult failure to thrive; E11.9 Type 2 diabetes mellitus without complications; Z79.4 Long term (current) use of insulin; I10 Essential (primary) hypertension; W19.XXXD Unspecified fall, subsequent encounter; E78.2 Mixed hyperlipidemia; E66.9 Obesity, unspecified; Z87.891 Personal history of nicotine dependence; Z79.899 Other long term (current) drug therapy; Z68.35 Body mass index [BMI] 35.0-35.9, adult; R29.6 Repeated falls; H54.8 Legal blindness, as defined in USA; R26.9 Unspecified abnormalities of gait and mobility; Z79.84 Long term (current) use of oral hypoglycemic drugs
CPT/HCPCS: 36415; 73502; 80048; 80053; 81001; 82550; 82962; 83036; 83735; 84100; 84443; 85025; 85027; 93005; 94668; 96360; 96361; 97110; 97112; 97116; 97162; 97166; 97530; 97535; 97802; 99221; 99285; J7030; A4216; G0378

== ENCOUNTER 2023-12-08 07:51 | Inpatient (IN) | payer MEDICARE, OTHER, SELFPAY ==
[2023-12-08] VITALS (25 sets, daily range): BP systolic 109–142; BP diastolic 38–101; PULSE 69–123; RESP 14–31; TEMP 36.1–37.3; O2SAT 88–99; BMI 37.2; BMI 36.6
--- NOTE | 2023-12-08 08:37 | RAD_ITS ---
STUDY: X-RAY - LEFT KNEE REASON FOR EXAM: Male, 77 years old. Injury/Pain TECHNIQUE: 4 view(s) of the knee. COMPARISON: None. FINDINGS: There are tiny hypodensities seen in the distal femur and proximal tibia. This may represent changes secondary to osteoporosis. . Normal proximal tibiofibular articulation. There is moderate degenerative arthrosis of the medial femorotibial compartment with moderate joint space narrowing. Normal lateral femorotibial compartment. There is moderate degenerative arthrosis of the patellofemoral articulation. There are atherosclerotic calcifications. Minimal joint effusion. RAD/Knee 4 or More Views IMPRESSION: Degenerative arthrosis. Electronically Signed: Beau Elizalde MD at 10:23 EDT ,
--- NOTE | 2023-12-08 08:37 | RAD_ITS ---
STUDY: X-RAY - PELVIS AND LEFT HIP REASON FOR EXAM: Male, 77 years old. Left hip pain following a fall. TECHNIQUE: 3 views of the pelvis and hip. COMPARISON: None. FINDINGS: Gas and fecal material seen in the colon. Normal visualized soft tissue structures. Normal bilateral iliac wings, sacroiliac joints and visualized sacrum. Normal bilateral superior and inferior pubic rami. Normal pubic symphysis. Normal bilateral ischial tuberosities. There is a marked degree of joint space narrowing and osteoarthritis of the both hips worse on the left side with the some chondral cystic changes. 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 No acute fracture is seen. RAD/HIP, UNI W/ Pelvis 2-3 Views IMPRESSION: Marked degree of the joint space narrowing and osteoarthritis of both hip joints worse on the left side with subchondral cystic changes worse on the left. 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 No fracture is seen. Electronically Signed: Beau Elizalde MD at 10:22 EDT ,
--- NOTE | 2023-12-08 08:38 | ED.VIS.LOWEX ---
HPI History of Present Illness HPI Narrative: Patient presents with pain in his left hip and left knee that began after a fall yesterday. Patient states he slipped and fell. Patient states he landed on his left side. Patient states he was having difficulty ambulating since the fall. Patient hit the right side of his head but denies any loss of consciousness. Patient states his hip and knee pain are worse with any attempts at weightbearing. Patient states nothing seems to help with it. Patient describes his pain as dull and aching. Patient denies any paresthesias or weakness. Chief Complaint: Lower Extremity Injury Occured/Mechanism Mechanism/Context: Yes fall and Yes same level fall Onset/Context/Timing Onset: Yesterday Context: Sudden Onset Timing: Continuous Quality of Pain: Dull and Aching Location: Left hip, left knee Worsened by: Weightbearing and ambulation Relieved by: Nothing Associated Symptoms Associated Symptoms: Negative for Parasthesia, Weakness or Loss of Funtion PFSH [facility] Medical History Contusion of hip, left Diabetes Enlarged prostate Fall High cholesterol Legally blind Home Medications ascorbic acid (vitamin C) 1,000 mg tablet 1,000 mg PO DAILY supplement 11/09/19 [History Last Taken 12/07/23] cholecalciferol (vitamin D3) 25 mcg (1,000 unit) tablet 1,000 unit PO DAILY supplement 11/09/19 [History Last Taken 12/07/23] cyanocobalamin (vitamin B-12) 1,000 mcg capsule 1,000 mcg PO DAILY supplement 11/09/19 [History Last Taken 12/07/23] empagliflozin 10 mg tablet 10 mg PO DAILY diabetes 11/09/19 [History Last Taken 12/07/23] linagliptin 5 mg tablet 5 mg PO DAILY diabetes 11/09/19 [History Last Taken 12/07/23] lisinopril 10 mg tablet 10 mg PO DAILY bp 11/09/19 [History Last Taken 12/07/23] lovastatin 40 mg tablet 40 mg PO QHS cholesterol 11/09/19 [History Last Taken 12/07/23] metformin 500 mg tablet 1,000 mg PO BID diabetes 11/09/19 [History Last Taken 12/07/23] pioglitazone 45 mg tablet 45 mg PO DAILY diabetes 11/09/19 [History Last Taken 12/07/23] acetaminophen 325 mg tablet 650 mg PO Q6H PRN Pain 1-5 Or Fever >100.7 12/08/23 [History Last Taken 12/07/23] empagliflozin 25 mg tablet (Jardiance) 25 mg PO DAILY 12/08/23 [History Last Taken Unknown] glipizide 5 mg tablet, extended release 24 hr 15 mg PO DAILY 12/08/23 [History Last Taken 12/07/23] hydrochlorothiazide 12.5 mg tablet 12.5 mg PO DAILY 12/08/23 [History Last Taken 12/07/23] metformin 500 mg tablet 500 mg PO LUNCH 12/08/23 [History Last Taken 12/07/23] tamsulosin 0.4 mg capsule 0.8 mg PO QHS 12/08/23 [History Last Taken 12/07/23] Allergy/AdvReac Type Severity Reaction Status Date / Time No Known Allergies Allergy Verified 12/08/23 07:58 Surgical History no surgical history no surgical history Social History Smoking Status: Former smoker ROS ROS ED Constitutional Constitutional ED: Denies chills or fever(s) Eyes Eyes: Denies blurry vision or change in vision ENT ENT ED: Denies rhinorrhea or sore throat Cardiovascular Cardiovascular: Denies chest pain or palpitations Respiratory/Chest Respiratory/Chest: Reports cough; Denies dyspnea Gastrointestinal Gastrointestinal: Reports nausea; Denies vomiting Genitourinary Genitourinary ED: Denies dysuria or hematuria Musculoskeletal Musculoskeletal: Reports back pain; Denies neck pain Integumentary Denies abscess or rash Neurologic Neurologic: Denies headache(s) or weakness Allergic/Immunologic Allergic/Immunologic ED: Denies mouth swelling or urticaria EXAM Physical Exam Const Vital Signs: 12/08/23 07:52 12/08/23 09:06 12/08/23 10:09 Temperature 99.1 F Temperature Source Oral Pulse Rate 99 98 116 H Respiratory Rate 18 28 H 27 H Blood Pressure 122/49 H 127/60 H 135/101 H Blood Pressure Mean 73 82 112 Pulse Ox 96 95 99 Oxygen Delivery Method Room Air Room Air Nasal Cannula Oxygen Flow Rate (L/min) 2 12/08/23 13:00 12/08/23 10:05 12/08/23 10:45 Temperature 98.3 F Temperature Source Oral Pulse Rate 93 123 H 97 Respiratory Rate 20 H 25 H 23 H Blood Pressure 136/64 H 129/55 H Blood Pressure Mean 88 75 Pulse Ox 93 98 95 Oxygen Delivery Method Room Air Oxygen Flow Rate (L/min) 12/08/23 11:00 12/08/23 11:30 12/08/23 12:00 Temperature Temperature Source Pulse Rate 111 H 101 H 94 Respiratory Rate 25 H 24 H 31 H Blood Pressure 109/38 L Blood Pressure Mean 57 Pulse Ox 98 90 89 Oxygen Delivery Method Oxygen Flow Rate (L/min) 12/08/23 12:15 12/08/23 13:00 12/08/23 13:45 Temperature Temperature Source Pulse Rate 102 H 96 89 Respiratory Rate 26 H 24 H 21 H Blood Pressure 133/69 H 136/64 H 141/58 H Blood Pressure Mean 86 83 82 Pulse Ox 95 88 90 Oxygen Delivery Method Oxygen Flow Rate (L/min) 12/08/23 14:00 12/08/23 15:00 Temperature Temperature Source Pulse Rate 96 90 Respiratory Rate 22 H 27 H Blood Pressure Blood Pressure Mean Pulse Ox 96 90 Oxygen Delivery Method Oxygen Flow Rate (L/min) Positive well nourished and well developed General Appearance ED: well developed and NAD HEENT Reports moist mucous membranes HEENT Narrative: There is a superficial curvilinear laceration over the right forehead, approximately 2.5 cm in length. There is no active bleeding noted. There is no gapping of the wound margins. There is no bony crepitance or step-off noted. Neck full ROM and supple Resp normal respiratory effort and clear to auscultation bilaterally Cardio regular rate and regular rhythm GI non-tender and non-distended Palpation: soft Extremity Extremity Narrative: There is tenderness over the left hip and left ankle there is no obvious deformity noted. Range of motion was limited in all motions of the left hip and left knee system secondary to pain. Pedal pulses are equal bilaterally. Sensation was intact to light touch in all digits. Capillary refill was less than 2 seconds in all digits. General Extremety ED: Yes weight-bearing difficulty General Extremity: weight-bearing difficulty Neuro oriented x3, CN's II-XII intact bilaterally, moves all extremities and no sensory deficits noted Sensorium / Orientation: alert Motor Exam: strength 5/5 throughout Psych mental status grossly normal MDM MDM MDM Narrative Medical decision making narrative: Differential diagnosis includes hip fracture, contusion, distal femur and proximal tibia fracture. X-rays of the left knee will be obtained to assess for fracture and dislocation. X-rays of the left hip will be obtained to assess for fracture. While in the emergency department, patient was on a air sampling and monitoring. Patient was noted to have runs of SVT. Because of this, we will assess for cardiac dysrhythmia and cardiac ischemia. EKG will be obtained to assess for cardiac dysrhythmia. CBC will be obtained to assess for leukocytosis and anemia. Basic metabolic profile will be obtained to assess for electrolyte abnormality and renal function. High-sensitivity troponin will be obtained to assess for cardiac ischemia. Lab Data Attestation: I reviewed the patient's lab results. Lab results narrative: CBC was reviewed. There is a mild anemia with a hemoglobin of 9.8 and hematocrit of 30.2. White blood cell count was mildly elevated at 15.3. Platelets were normal. Basic metabolic profile was reviewed. Potassium was low at 2.4. BUN was slightly elevated at 30. Creatinine was normal at 0.85. Glucose was slightly low at 63. High-sensitivity troponin was reviewed and was normal at 42. Labs: Laboratory Results - last 24 hr 12/08/23 09:00 WBC 15.3 H RBC 3.22 L Hgb 9.8 L Hct 30.2 L MCV 93.8 MCH 30.4 MCHC 32.5 RDW Std Deviation 48.9 H RDW Coeff of [place] 14.1 Plt Count 179 MPV 12.0 Immature Gran % (Auto) 1.100 H Neut % (Auto) 85.1 H Lymph % (Auto) 4.3 L [place] % (Auto) 8.7 Eos % (Auto) 0.5 Baso % (Auto) 0.3 Absolute Neuts (auto) 13.1 H Absolute Lymphs (auto) 0.66 L Nucleated RBC % 0 Sodium 135 L Potassium 2.4 L* Chloride 102 Carbon Dioxide 26.0 Anion Gap 7 BUN 30 H Creatinine 0.85 Estim Creat Clear Calc 87.92 Est GFR (MDRD) Af Amer 113 Est GFR (MDRD) Non-Af 93 BUN/Creatinine Ratio 35.4 H Glucose 63 L Calcium 8.0 L Phosphorus 2.8 Magnesium 2.0 Troponin I High Sens 42 Radiography Diagnostic Testing: Clinical Impression(s) from Imaging Studies Hip/Pelvis X-Ray 12/08/23 08:37 IMPRESSION: Marked degree of the joint space narrowing and osteoarthritis of both hip joints worse on the left side with subchondral cystic changes worse on the left. 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 No fracture is seen. Electronically Signed: Beau Elizalde MD at 10:22 EDT , Knee X-Ray 12/08/23 08:37 IMPRESSION: Degenerative arthrosis. Electronically Signed: Beau Elizalde MD at 10:23 EDT , Chest X-Ray 12/08/23 10:10 IMPRESSION: Prominence of the central pulmonary arteries. Electronically Signed: Beau Elizalde MD at 10:26 EDT , X-rays of the left hip were obtained. There are 3 views. On my independent interpretation, there is no acute fracture. There are severe degenerative changes, worse on the left. Radiologist also interpreted the x-rays and agrees. X-rays of the left knee were obtained. There are 4 views. On my independent interpretation, there is no acute fracture or dislocation. There are some degenerative changes noted. Radiologist also interpreted the x-ray and agrees. Portable 1 view chest x-ray was obtained. On my independent interpretation, lung mario are clear. There is some mild prominence of the central pulmonary arteries. There is normal cardiac silhouette. Bony thorax is normal. There is no acute process noted. Radiologist also interpreted the x-ray and agrees. EKG Initial EKG: Attestation: I personally reviewed and interpreted this EKG as follows: Interpretation: Sinus Rhythm (With occasional PVCs and PACs with a rate of 97), No Acute Injury Pattern and RBBB (Incomplete) Comments: EKG was obtained. On my independent interpretation, there is a normal sinus rhythm with occasional PVCs and PACs noted with a rate of 97. [place] interval was normal at 136 ms. QRS interval was normal at 94 ms. QTc interval was normal at 401 ms. [place] was normal. There are no acute ST or T wave changes noted. There is an incomplete right bundle branch block pattern noted. Prior EKG tracings: available for review Prior: Unchanged (08/05/2023) Treatment and Re-Evaluation Narrative: Patient was given oral and IV potassium here. Patient was given a regular diet tray. Patient was advised of his findings. Patient attempted ambulation here in the emergency department. Patient had unsteady gait with severe pain in his left hip and knee. Because of this, I will discuss the case with the hospitalist for admission. He recommended contacting orthopedics to discuss any imaging that he might want prior to consultation. Case will be discussed with Dr. Ro. He recommended obtaining a CT scan of the hip in the emergency department. This was ordered. Patient will be admitted to the hospital after this. Dr. Veronica will follow the patient in the hospital. Discharge Plan Dx/Rx/DC Orders Clinical Impression: Acute pain of left hip, Legally blind, Type 2 diabetes mellitus, Debility, Paroxysmal supraventricular tachycardia, Essential hypertension, Hypokalemia Disposition Disposition: Acute Care [facility]
--- NOTE | 2023-12-08 10:00 | EKG12_ITS ---
Test Reason : Blood Pressure : / mmHG Vent. Rate : 097 BPM Atrial Rate : 097 BPM P-R Int : 136 ms QRS Dur : 094 ms QT Int : 316 ms P-R-T Axes : 042 008 012 degrees QTc Int : 401 ms Sinus rhythm with marked sinus arrhythmia with occasional Premature ventricular complexes Incomplete right bundle branch block Borderline ECG Confirmed by Yasmani Madrid ([id number]), news video editor SIGRID RODRIGUEZ ([id number]) on 12/09/2023 10:32:36 AM Referred By: Confirmed By:Yasmani Madrid
[2023-12-08 10:10] LABS: Absolute Lymphocyte Count 0.66 X10^3/uL (0.83-4.51); Absolute Neutrophil Count 13.1 X10^3/uL (2.0-7.7); Basophil# 0.04 X10^3/uL; Basophil% 0.3 % (0-1); Eosinophil# 0.08 X10^3/uL; Eosinophils% 0.5 % (0-5); Hematocrit 30.2 % (40-54); Hemoglobin 9.8 g/dL (13.0-16.5); Lymphocyte # 0.66 X10^3/ul (0.83-4.51); Lymphocyte % 4.3 % (19-41); Mean Corp Hgb Conc 32.5 g/dL (32-36); Mean Corpuscular Hgb 30.4 pg (27.0-32.0); Mean Corpuscular Volume 93.8 fL (80-94); Monocyte# 1.33 X10^3/uL; Monocyte% 8.7 % (0-10); NRBC Flagged by Analyzer 0 % (0-5); Neutrophil # 13.05 X10^3/uL (2.7-7.7); Neutrophil % 85.1 % (47-70); Platelet Count 179 K/mm3 (150-450); RBC Distribution Width CV 14.1 % (11.6-14.6); RBC Distribution Width SD 48.9 fl (35.1-43.9); Red Blood Count 3.22 M/mm3 (4.6-6.2); White Blood Count 15.3 K/mm3 (4.4-11.0)
--- NOTE | 2023-12-08 10:10 | RAD_ITS ---
STUDY: X-RAY CHEST REASON FOR EXAM: Male, 77 years old. Palpitations TECHNIQUE: Single AP portable view of the chest. COMPARISON: None. FINDINGS: EKG electrodes are seen. There is elevation of the right hemidiaphragm. There is no demonstrated pleural abnormality. Normal size heart. Normal mediastinum and radha. There is prominence of the pulmonary hilar arteries without peripheral pulmonary vascular congestion, suggesting pulmonary hypertension. There is atherosclerotic calcification of the aortic arch with tortuosity. There are degenerative changes of the visualized thoracic spine. Normal visualized ribs, clavicles, and shoulders. There is no demonstrated abnormality of the visualized soft tissue structures of the upper abdomen. RAD/Chest 1 View (Portable) IMPRESSION: Prominence of the central pulmonary arteries. Electronically Signed: Beau Elizalde MD at 10:26 EDT ,
[2023-12-08] MEDS: 0.9% Normal Saline (500mL Bag) 500 ML 1000 ML IV (10:49)
[2023-12-08 12:26] LABS: Anion Gap 7 (5-15); BUN 30 mg/dL (7-18); BUN/Creat Ratio 35.4 RATIO (10-20); Chloride 102 mmol/L (98-107); Creatinine, Serum 0.85 mg/dL (0.70-1.30); EST Glomerular Filtration Rate 93 mL/min (>60); Est Glom Filt Rate - Afr Amer 113 mL/min (>60); Estimated Creatinine Clearance 87.92 ml/min; Glucose 63 mg/dL (74-106); Potassium 2.4 mmol/L (3.5-5.1); Sodium Level 135 mmol/L (136-145); Troponin-I HS 42 pg/mL (3.0-78.0)
[2023-12-08] MEDS: Potassium Chloride 10mEq/100mL 10 MEQ/100 ML IV.SOLN. 100 MEQ IV BOLUS ×2 (12:40→14:34)
[2023-12-08] MEDS: Potassium Chloride Oral Tablet 20 MEQ 40 MEQ PO (12:40)
[2023-12-08 15:21] LABS: Phosphorus 2.8 mg/dL (2.5-4.9)
--- NOTE | 2023-12-08 15:25 | CT_ITS ---
CT LEFT LOWER EXTREMITY WITH 3-D IMAGING CLINICAL INDICATION: Pain TECHNIQUE: Axial CT images of the LEFT lower extremity was performed IV contrast material. Coronal and sagittal reformats were provided. RADIATION DOSAGE (If Supplied By Facility): CTDIvol = ( 39.94 ) mGy, DLP = ( 1116.71 ) mGycm COMPARISON: FINDINGS: Bones: There is severe concentric narrowing of the left hip joint space with acetabular spurring and subchondral cystic changes consistent with severe osteoarthritis.. No evidence for acute fracture or dislocation.. Soft Tissues: The deep soft tissue structures are unremarkable. The superficial soft tissues are unremarkable without evidence of edema, hematoma, or foreign body. CT/Extremity Lower without Contra IMPRESSION: Severe degenerative osteoarthritic changes of the left hip.. No evidence for acute fracture of the left hip or visualized portion of the left hemipelvis Electronically Signed: Marshall Ledezma MD at 16:15 EDT ,
--- NOTE | 2023-12-08 15:44 | PCM.HP.STD ---
HPI - General General Date of Admission: 12/08/23 HPI Narrative WILLIAM PLUMMER, is a 77 M who presentsTo the hospital after mechanical fall at home. States he was on to get up from bed in the slipped and fell on the carpet. This occurred last evening and at the time he did not feel he had any significant pain but he did have to call the fire department to help get him back into bed. And then this morning when he woke up he was having significant pain in his left hip and back. No significant radiation of pain down his leg. He presented to the ER with a slight white count which could be due to reaction from trauma as he said that he has been having somewhat frequent falls over the last couple of months. In the ER he was found to have severe left hip joint space narrowing with concern for avascular necrosis. And they attempted to ambulate him in the ER and he was unable to put any weight on his left leg. At the time he was also found to have potassium of 2.4 which has been replaced but necessitated admission for correction. [facility] Medical History (Updated 12/08/23 @ 17:[address] Tarun Echevarria MD) Contusion of hip, left Diabetes Enlarged prostate Fall High cholesterol Legally blind Home Medications ascorbic acid (vitamin C) 1,000 mg tablet 1,000 mg PO DAILY supplement 11/09/19 [History Last Taken 12/07/23] cholecalciferol (vitamin D3) 25 mcg (1,000 unit) tablet 1,000 unit PO DAILY supplement 11/09/19 [History Last Taken 12/07/23] cyanocobalamin (vitamin B-12) 1,000 mcg capsule 1,000 mcg PO DAILY supplement 11/09/19 [History Last Taken 12/07/23] empagliflozin 10 mg tablet 10 mg PO DAILY diabetes 11/09/19 [History Last Taken 12/07/23] linagliptin 5 mg tablet 5 mg PO DAILY diabetes 11/09/19 [History Last Taken 12/07/23] lisinopril 10 mg tablet 10 mg PO DAILY bp 11/09/19 [History Last Taken 12/07/23] lovastatin 40 mg tablet 40 mg PO QHS cholesterol 11/09/19 [History Last Taken 12/07/23] metformin 500 mg tablet 1,000 mg PO BID diabetes 11/09/19 [History Last Taken 12/07/23] pioglitazone 45 mg tablet 45 mg PO DAILY diabetes 11/09/19 [History Last Taken 12/07/23] acetaminophen 325 mg tablet 650 mg PO Q6H PRN Pain 1-5 Or Fever >100.7 12/08/23 [History Last Taken 12/07/23] empagliflozin 25 mg tablet (Jardiance) 25 mg PO DAILY 12/08/23 [History Last Taken Unknown] glipizide 5 mg tablet, extended release 24 hr 15 mg PO DAILY 12/08/23 [History Last Taken 12/07/23] hydrochlorothiazide 12.5 mg tablet 12.5 mg PO DAILY 12/08/23 [History Last Taken 12/07/23] metformin 500 mg tablet 500 mg PO LUNCH 12/08/23 [History Last Taken 12/07/23] tamsulosin 0.4 mg capsule 0.8 mg PO QHS 12/08/23 [History Last Taken 12/07/23] Allergy/AdvReac Type Severity Reaction Status Date / Time No Known Allergies Allergy Verified 12/08/23 07:58 Family History (Updated 12/08/23 @ 15:[address] Celestine Leon MD) Other Cancer Heart disease Surgical History (Updated 12/08/23 @ 15:[address] Celestine Leon MD) Status post tonsillectomy Surgical History no surgical history Social History Smoking Status: Former smoker ROS Constitutional Constitutional: Reports weakness; Denies chills, fatigue, fever(s) or malaise Eyes Eyes: Denies blurry vision ENT HEENT: Denies headache(s) or nasal discharge Cardiovascular Cardiovascular: Denies chest pain, dyspnea on exertion or syncope Respiratory/Chest Respiratory/Chest: Denies cough, shortness of breath at rest or shortness of breath with exertion Gastrointestinal Gastrointestinal: Denies constipation, diarrhea, nausea or vomiting Genitourinary Genitourinary: Denies dysuria Musculoskeletal Musculoskeletal: Reports joint pain Neurologic Neurologic: Denies focal weakness, numbness or tremor(s) Psychiatric Psychiatric: Denies anxiety or depression Vital Signs Vital Signs Vital Signs: 12/08/23 07:52 12/08/23 09:06 12/08/23 10:09 Temperature 99.1 F Temperature Source Oral Pulse Rate 99 98 116 H Respiratory Rate 18 28 H 27 H Blood Pressure 122/49 H 127/60 H 135/101 H Blood Pressure Mean 73 82 112 Pulse Ox 96 95 99 Oxygen Delivery Method Room Air Room Air Nasal Cannula Oxygen Flow Rate (L/min) 2 12/08/23 13:00 12/08/23 10:05 12/08/23 10:45 Temperature 98.3 F Temperature Source Oral Pulse Rate 93 123 H 97 Respiratory Rate 20 H 25 H 23 H Blood Pressure 136/64 H 129/55 H Blood Pressure Mean 88 75 Pulse Ox 93 98 95 Oxygen Delivery Method Room Air Oxygen Flow Rate (L/min) 12/08/23 11:00 12/08/23 11:30 12/08/23 12:00 Temperature Temperature Source Pulse Rate 111 H 101 H 94 Respiratory Rate 25 H 24 H 31 H Blood Pressure 109/38 L Blood Pressure Mean 57 Pulse Ox 98 90 89 Oxygen Delivery Method Oxygen Flow Rate (L/min) 12/08/23 12:15 12/08/23 13:00 12/08/23 13:45 Temperature Temperature Source Pulse Rate 102 H 96 89 Respiratory Rate 26 H 24 H 21 H Blood Pressure 133/69 H 136/64 H 141/58 H Blood Pressure Mean 86 83 82 Pulse Ox 95 88 90 Oxygen Delivery Method Oxygen Flow Rate (L/min) 12/08/23 14:00 12/08/23 15:00 Temperature Temperature Source Pulse Rate 96 90 Respiratory Rate 22 H 27 H Blood Pressure Blood Pressure Mean Pulse Ox 96 90 Oxygen Delivery Method Oxygen Flow Rate (L/min) Weight Weight: 237 lb 10.533 oz Body Mass Index (BMI) 37.2 Physical Exam Narrative General: Alert, Oriented x3, Cooperative, No apparent distress HEENT: Atraumatic, PERRLA, EOMI, Normocephalic, legally blind Oral: Moist Mucosa Neck: Supple, No JVD Lungs: Diminished, Normal air movement, No rhonchi, No wheeze, No rales Cardiovascular: Regular rate, Regular Rhythm, Normal S1, Normal S2, No murmurs Abdomen: Soft, Non Tender, Non-Distended, No Hepato-splenomegaly Extremities: Trace edema, Capillary Refill Less than 3 Seconds Skin: Significant scrotal redness no obvious signs of crepitus with intertrigo Musculoskeletal: Tenderness to palpation of his left hip Neurological: No focal neurological deficits, Motor Exam 5/5 strength throughout?exam limited by pain, Sensory exam intact to light touch and pain Psych/Mental Status: Normal Affect, Appropriate Results Lab / Micro Data 12/08/23 09:00 12/08/23 09:00 Labs: Laboratory Results - last 24 hr 12/08/23 09:00: WBC 15.3 H, RBC 3.22 L, Hgb 9.8 L, Hct 30.2 L, MCV 93.8, MCH 30.4, MCHC 32.5, RDW Std Deviation 48.9 H, RDW Coeff of [place] 14.1, Plt Count 179, MPV 12.0, Immature Gran % (Auto) 1.100 H, Neut % (Auto) 85.1 H, Lymph % (Auto) 4.3 L, [place] % (Auto) 8.7, Eos % (Auto) 0.5, Baso % (Auto) 0.3, Absolute Neuts (auto) 13.1 H, Absolute Lymphs (auto) 0.66 L, Nucleated RBC % 0, Sodium 135 L, Potassium 2.4 L*, Chloride 102, Carbon Dioxide 26.0, Anion Gap 7, BUN 30 H, Creatinine 0.85, Estim Creat Clear Calc 87.92, Est GFR (MDRD) Af Amer 113, Est GFR (MDRD) Non-Af 93, BUN/Creatinine Ratio 35.4 H, Glucose 63 L, Calcium 8.0 L, Phosphorus 2.8, Magnesium 2.0, Troponin I High Sens 42 Imaging Radiology Impression Hip/Pelvis X-Ray 12/08/23 08:37 IMPRESSION: Marked degree of the joint space narrowing and osteoarthritis of both hip joints worse on the left side with subchondral cystic changes worse on the left. 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 No fracture is seen. Electronically Signed: Beau Elizalde MD at 10:22 EDT , Knee X-Ray 12/08/23 08:37 IMPRESSION: Degenerative arthrosis. Electronically Signed: Beau Elizalde MD at 10:23 EDT , Chest X-Ray 12/08/23 10:10 IMPRESSION: Prominence of the central pulmonary arteries. Electronically Signed: Beau Elizalde MD at 10:26 EDT , Assessment & Plan Assessment/Plan (1) Necrotizing fasciitis: (2) Acute pain of left hip: PLAN: Plan 1. Necrotizing fasciitis of the scrotum and perineum ? This was found on CT scan to evaluate the left hip as patient had was afebrile with only leukocytosis ? There is no sepsis ? There is no complaint of pain in his scrotum and there is no signs of crepitus ? He did receive a dose of cefepime and vancomycin in the ER ? General surgery was consulted and is planning for operative intervention this evening ? Will continue with cefepime and vancomycin and will consult infectious disease 2. Left hip pain after mechanical fall ? She does have significant osteoarthritic changes there is some concern for avascular necrosis however this was not evident on CT scan ? Given the above problems will discontinue the consult orthopedic surgery as his hip issue can be evaluated at a later date 3. Essential HTN/HLD ? Blood pressures are stable ? Will continue his home blood pressure medications and make adjustments as necessary ? Continue with his lovastatin 4. DM2 ? Will hold his home medications ? Will place on sliding scale insulin ? Accu-Cheks ACHS ? Will monitor make adjustments as necessary 5. BPH ? Stable ? Continue with Flomax DVT: SCDs 78 minutes was spent on direct patient care, including documentation as well as chart review and collaboration with colleagues Charges/Coding Visit Charges Inpatient E&M: 99848 Init Hosp L3
[2023-12-08] MEDS: Ondansetron 4 MG/2 ML Vial IV (16:07)
[2023-12-08] MEDS: Morphine 4 MG/ML Syringe IV (16:07)
--- NOTE | 2023-12-08 16:38 | CT_ITS ---
STUDY: CT ABDOMEN AND PELVIS WITH CONTRAST REASON FOR EXAM: Male, 77 years old. scrotal gangrene RADIATION DOSAGE (If Supplied By Facility): CTDIvol = ( 12.81 ) mGy, DLP = ( 1632.51 ) mGycm TECHNIQUE: Transaxial images were obtained from the dome of the diaphragm to the symphysis pubis without oral contrast. IV 100mL Isovue-370 was administered. Sagittal and coronal images were reconstructed. Individualized dose optimization techniques were used for this CT. COMPARISON: None. FINDINGS: There are tiny bilateral effusions with minor atelectasis at the lung bases. The visualized portions of the heart are within normal limits. Normal liver. Normal gallbladder and extrahepatic biliary system. Normal spleen. Normal pancreas. Normal bilateral adrenal glands. Mild bilateral pelvocaliectasis in association with extrarenal pelves but no gross hydronephrosis or ureteral dilatation or calculus. No definite renal mass identified given limited unenhanced nature of study . Normal visualized stomach. Mild nonspecific diffuse ileus. . The appendix is visualized and appears normal. Atherosclerotic change of the aorta without evidence for aneurysm. Normal inferior vena cava. Normal retroperitoneum. Normal urinary bladder. Mild nonspecific enlargement of prostate There are gas bubbles noted within the right perineal soft tissues extending posterior and dorsal to the scrotal sac as well as dissecting anteriorly and cephalad in the right groin anterior and medial to the inguinal canal Small fat-containing right local hernia. Lumbar spine demonstrates degenerative changes CT/Abdomen/Pelvis W IV Cont ONLY IMPRESSION: Phlegmonous changes in the soft tissues dorsal and posterior to the scrotal sac with gas bubbles in the right perineal soft tissues dissecting cephalad anterior and medial to the right inguinal canal.. Cannot exclude possibility of abscess within the soft tissues of the scrotal sac. Sonogram of the scrotum recommended for further evaluation Other findings as above Electronically Signed: Marshall Ledezma MD at 18:03 EDT ,
[2023-12-08] MEDS: Vancomycin HCl 2,000 MG in 0.9% Normal Saline (500mL Bag) 500 ML 250 MG IV (16:41)
[2023-12-08] MEDS: Cefepime HCl 2 GM in 0.9% Normal Saline (100mL MB+) 100 ML IV (17:13)
[2023-12-08 17:23] LABS: Color, Urine Yellow (Yellow); Glucose, Dipstick 1000 mg/dl (Normal); Ketone-Dipstick 50 mg/dl (Negative); Leukocyte Esterase-Dipstick Negative /ul (Negative); Mucous, Urine 0 SEEN /hpf (<or=2+); Nitrite-Dipstick Negative (Negative); Occult Blood-Urine 10 /ul (Negative); Protein-Dipstick 30 mg/dl (Negative); Red Blood Cells-Urine 0 SEEN /hpf (0-5); Squamous Epithelial Cells - UA 0 SEEN /hpf (0-5); Urine Bilirubin Dipstick Negative (Negative); Urine Clarity Clear (Clear); Urine Urobilinogen 1 mg/dl (Normal); White Blood Cells 0 SEEN /hpf (0-5)
[2023-12-08 17:30] LABS: Bacteria 1+ /hpf (None Seen)
--- NOTE | 2023-12-08 17:51 | EX.PCM.CON.S ---
Assessment & Plan Assessment/Plan (1) Necrotizing fasciitis: PLAN: The patient had a CT scan of his left hip which showed some air in the peritoneum. He had a repeat CT scan of the abdomen and pelvis with IV contrast which shows air in the perineum tracking up the right groin to the right pannus. I discussed the CT scan with him. I discussed taking him for incision and drainage. The patient is a diabetic and likely was not feeling the pain due to the diabetes. His white count was elevated. I will plan for incision and drainage of the perineal abscess with likely incision of the right inguinal region and lower pannus and debridement. I will place packing and he will be admitted to medicine as previously expected to be treated for his avascular necrosis as well. The patient was started on antibiotics. I discussed the risks of the surgery such as bleeding, injury to surrounding organs. Patient understands the risks. He also understands there will be extensive packing and dressing changes following surgery. Tarun Echevarria MD Pager: [facility] [address] [place] [address], [address] [place] [address] Office: HPI Consult Data Date of Consult: 12/08/23 HPI Narrative HPI Narrative: WILLIAM PLUMMER, is a 77 M who presents after a fall yesterday. The patient had CT scan which showed possible avascular necrosis of the left femoral head. And he was complaining of left pain as well. CT scan was obtained which showed gas in the perineum. The patient is complaining of some pain in his right groin. He is also having some pain in the scrotum. [facility] Medical History (Updated 12/08/23 @ 17:[address] Tarun Echevarria MD) Contusion of hip, left Diabetes Enlarged prostate Fall High cholesterol Legally blind Home Medications ascorbic acid (vitamin C) 1,000 mg tablet 1,000 mg PO DAILY supplement 11/09/19 [History Last Taken 12/07/23] cholecalciferol (vitamin D3) 25 mcg (1,000 unit) tablet 1,000 unit PO DAILY supplement 11/09/19 [History Last Taken 12/07/23] cyanocobalamin (vitamin B-12) 1,000 mcg capsule 1,000 mcg PO DAILY supplement 11/09/19 [History Last Taken 12/07/23] empagliflozin 10 mg tablet 10 mg PO DAILY diabetes 11/09/19 [History Last Taken 12/07/23] linagliptin 5 mg tablet 5 mg PO DAILY diabetes 11/09/19 [History Last Taken 12/07/23] lisinopril 10 mg tablet 10 mg PO DAILY bp 11/09/19 [History Last Taken 12/07/23] lovastatin 40 mg tablet 40 mg PO QHS cholesterol 11/09/19 [History Last Taken 12/07/23] metformin 500 mg tablet 1,000 mg PO BID diabetes 11/09/19 [History Last Taken 12/07/23] pioglitazone 45 mg tablet 45 mg PO DAILY diabetes 11/09/19 [History Last Taken 12/07/23] acetaminophen 325 mg tablet 650 mg PO Q6H PRN Pain 1-5 Or Fever >100.7 12/08/23 [History Last Taken 12/07/23] empagliflozin 25 mg tablet (Jardiance) 25 mg PO DAILY 12/08/23 [History Last Taken Unknown] glipizide 5 mg tablet, extended release 24 hr 15 mg PO DAILY 12/08/23 [History Last Taken 12/07/23] hydrochlorothiazide 12.5 mg tablet 12.5 mg PO DAILY 12/08/23 [History Last Taken 12/07/23] metformin 500 mg tablet 500 mg PO LUNCH 12/08/23 [History Last Taken 12/07/23] tamsulosin 0.4 mg capsule 0.8 mg PO QHS 12/08/23 [History Last Taken 12/07/23] Allergy/AdvReac Type Severity Reaction Status Date / Time No Known Allergies Allergy Verified 12/08/23 07:58 Family History (Updated 12/08/23 @ 15:[address] Celestine Leon MD) Other Cancer Heart disease Surgical History (Updated 12/08/23 @ 15:[address] Celestine Leon MD) Status post tonsillectomy Surgical History no surgical history Social History Smoking Status: Former smoker ROS Constitutional Constitutional: Denies chills, fatigue, fever(s) or malaise Eyes Eyes: Denies blurry vision ENT HEENT: Denies headache(s) or nasal discharge Cardiovascular Cardiovascular: Denies chest pain, dyspnea on exertion or syncope Respiratory/Chest Respiratory/Chest: Denies cough, shortness of breath at rest or shortness of breath with exertion Gastrointestinal Gastrointestinal: Denies constipation, diarrhea, nausea or vomiting Genitourinary Genitourinary: Denies dysuria Neurologic Neurologic: Denies focal weakness, numbness or tremor(s) Psychiatric Psychiatric: Denies anxiety or depression Physical Exam Const alert and oriented x3 HEENT normocephalic Eyes PERRL Chest inspection of chest normal Resp normal respiratory effort Cardio Rate: regular rate Rhythm: regular rhythm GI soft to palpation and non-tender Lab / Micro Data 12/08/23 09:00 12/08/23 09:00 Labs: Laboratory Results - last 24 hr 12/08/23 09:00: WBC 15.3 H, RBC 3.22 L, Hgb 9.8 L, Hct 30.2 L, MCV 93.8, MCH 30.4, MCHC 32.5, RDW Std Deviation 48.9 H, RDW Coeff of [place] 14.1, Plt Count 179, MPV 12.0, Immature Gran % (Auto) 1.100 H, Neut % (Auto) 85.1 H, Lymph % (Auto) 4.3 L, Lane % (Auto) 8.7, Eos % (Auto) 0.5, Baso % (Auto) 0.3, Absolute Neuts (auto) 13.1 H, Absolute Lymphs (auto) 0.66 L, Nucleated RBC % 0, Sodium 135 L, Potassium 2.4 L*, Chloride 102, Carbon Dioxide 26.0, Anion Gap 7, BUN 30 H, Creatinine 0.85, Estim Creat Clear Calc 87.92, Est GFR (MDRD) Af Amer 113, Est GFR (MDRD) Non-Af 93, BUN/Creatinine Ratio 35.4 H, Glucose 63 L, Calcium 8.0 L, Phosphorus 2.8, Magnesium 2.0, Troponin I High Sens 42 12/08/23 17:18: Urine Color Yellow, Urine Clarity Clear, Urine pH 6.0, Ur Specific [place] 1.020, Urine Protein 30 H, Urine Glucose (UA) 1000 H, Urine Ketones 50 H, Urine Occult Blood 10 H, Urine Nitrite Negative, Urine Bilirubin Negative, Urine Urobilinogen 1 H, Ur Leukocyte Esterase Negative, Urine RBC 0 SEEN, Urine WBC 0 SEEN, Ur Squamous Epith Cells 0 SEEN, Urine Bacteria 1+, Urine Mucus 0 SEEN Imaging Radiology Impression Hip/Pelvis X-Ray 12/08/23 08:37 IMPRESSION: Marked degree of the joint space narrowing and osteoarthritis of both hip joints worse on the left side with subchondral cystic changes worse on the left. 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 No fracture is seen. Electronically Signed: Beau Elizalde MD at 10:22 EDT , Knee X-Ray 12/08/23 08:37 IMPRESSION: Degenerative arthrosis. Electronically Signed: Beau Elizalde MD at 10:23 EDT , Chest X-Ray 12/08/23 10:10 IMPRESSION: Prominence of the central pulmonary arteries. Electronically Signed: Beau Elizalde MD at 10:26 EDT , Lower Extremity CT 12/08/23 15:25 IMPRESSION: Severe degenerative osteoarthritic changes of the left hip.. No evidence for acute fracture of the left hip or visualized portion of the left hemipelvis Electronically Signed: Marshall Ledezma MD at 16:15 EDT , ADDENDUM: 12/08/23 1700 IMPRESSION: undefined
--- NOTE | 2023-12-08 17:56 | ED.RN ---
CALLED AND LEFT A MESSAGE FOR TO CALL BACK AND THAT HER WAS GOING INTO SURGERY
--- NOTE | 2023-12-08 18:10 | ABS_PTH ---
PATIENT: WILLIAM PLUMMER LOC: [facility] U#:[id number] AGE/SX: 77/M ROOM: ICU03 RE12/08/[address]: Dr. Andrei Fuller MD : 1945 BED: 1 DIS: 12/14/2023 SPEC #: [id number] RECD: 12/09/23 11:24 STATUS: RA REBrennan #: [id number] HONORIO: 12/08/23 18:[address]: Tarun Echevarria DEPT: SURGICAL PATHOLOGY RECD BY: Lesly King ENTERED: 12/09/23 12:48 SP TYPE: Abscess OTHR DR: MD Dr. Gentry Gilbert MD Dr. Nicholas F Kotsonis, MD Dr. Prakash Chand, MD Dr. Robert Leininger, MD Dr. Steven Widmer, MD Tissues: Perianal tissue Procedures: Surgery Specimen Level IV Comments: @ Ordering doctor for SUEDILBERTO edited from to @ jeana CRAMER at 12/11/23901 @ Submitting doctor edited from to @ jeana CRAMER at 12/11/23901 HEADER OPERATION: Incision and drainage of perineal and right groin abscess PRE-OP DIAGNOSIS: Necrotizing fasciitis TISSUE SUBMITTED: Perineal abscess MICROSCOPIC DIAGNOSIS Perineal abscess, excision: Acute inflammation and abscess formation. / 12/10/23 MICROSCOPIC DESCRIPTION Slides are reviewed. GROSS DESCRIPTION Received in fixative is one container labeled with the patient's name and designated Perineal abscess. The specimen consists of a piece of skin with underlying tissue measuring 4.5 x 3.5 x 1.5cm. Also present in the container are multiple fragments of grayish yellow soft tissue measuring in aggregate 5.5 x 5.0 x 1.0cm. No mass lesion is identified. Wood Treating Inspector sections are submitted in two cassettes. / 12/09/23 TC:2 CPT: 27560
[2023-12-08 19:35] LABS: Potassium 3.3 mmol/L (3.5-5.1)
--- NOTE | 2023-12-08 19:53 | PCM.OPRPT ---
Report of Operation Date of Procedure: 12/08/23 Pre-Operative Diagnosis: Necrotizing fasciitis of the right groin and perineum Post-Operative Diagnosis: Same Surgery/Procedure Performed:: Incision and drainage of right groin and perineum with debridement and packing Description of Surgical Findings:: Necrotizing fasciitis extending from the right groin down into the perineum. Type of Anesthesia: General/Regional Specimen's removed: Specimens of skin and tissue as well as wound culture Estimated Blood Loss (mL): 20 Description of Procedure: Patient was brought back to the OR and general anesthesia was induced. Mcmahon catheter was placed into the bladder and clear urine return. Next the perineum and right groin were prepped and draped in usual sterile fashion and the scrotum was retracted. Scalpel was used to incise the perineum abscess and the area was cultured. There is open superiorly and toward the right groin and all necrotic tissue was dissected free and removed. Hemostasis was obtained using electrocautery. The infection was followed to the base of the scrotum and all the skin was opened. Some the skin was sent for tissue and culture. The necrotic tissue was resected back to healthy tissue. Next the suction was used to find the tunnel that it was tracking up toward the right groin. A small area in the right groin was then incised and the 2 incisions were connected. There was a lot of underlying tissue with gas and gangrene. Next the area between the 2 incisions was opened completely opening the right inguinal region. The spermatic cord seem to be spared. The area surrounding the inguinal canal was necrotic. Everything was debrided and then the area was packed with Betadine soaked gauze. The area was dressed and the patient was awoken and taken to PACU. Grafts/Implants Used: Betadine soaked Curlex was left in the right groin and perineum as packing Admit VTE Documentation VTE Mechan Device Prophylaxis: SCD's
[2023-12-08 20:30] LABS: Bedside Glucose 63 mg/dL (74-106)
[2023-12-08 22:05] LABS: Bedside Glucose 101 mg/dL (74-106)
--- NOTE | 2023-12-08 22:12 | PCM.RX.CS ---
Consult Antibiotic Management Pharmacy has been consulted to manage selected antibiotic: Vancomycin Type of Intervention Type of Consult: New start Labs Labs: Sodium 135 mmol/L (136-145) L 12/08/23 09:00 Potassium 3.3 mmol/L (3.5-5.1) L 12/08/23 18:45 Chloride 102 mmol/L (98-107) 12/08/23 09:00 Carbon Dioxide 26.0 mmol/L (21.0-32.0) 12/08/23 09:00 Anion Gap 7 (5-15) 12/08/23 09:00 BUN 30 mg/dL (7-18) H 12/08/23 09:00 Creatinine 0.85 mg/dL (0.70-1.30) 12/08/23 09:00 Est GFR (MDRD) Af Amer 113 mL/min (>60) 12/08/23 09:00 Est GFR (MDRD) Non-Af 93 mL/min (>60) 12/08/23 09:00 BUN/Creatinine Ratio 35.4 RATIO (10-20) H 12/08/23 09:00 Glucose 63 mg/dL (74-106) L 12/08/23 09:00 Dosing Weight Weight used for dosin.1 kg Estimated Creatinine Clearance Estimated Creatinine Clearance: 87.9 Goal Trough Goal Trough: 15-20 mcg/mL Pharmacy Plan for Drug Dosing Pharmacy Plan for Drug Dosing: Pharmacy Service will continue to monitor and adjust dosing as required. 2GM X1 AND 1750 Q12H TROUGH PRIOR TO 4TH DOSE Follow-Up Labs Follow-Up Labs: Trough: Vancomycin Date/Time Labs Ordered Labs to be done on [date and time ordered]: 12/09 @ 5259
[2023-12-08] MEDS: Tamsulosin HCl 0.4 MG Capsule 0.8 MG PO (23:08)
[2023-12-08] MEDS: Acetaminophen 325 MG Tablet 650 MG PO (23:08)
[2023-12-08] MEDS: Heparin Injection (Vial) 5,000 UNIT/ML VIAL 5000 UNIT SC (23:08)
[2023-12-08] MEDS: Atorvastatin Calcium 10 MG Tablet PO (23:08)
[2023-12-09] VITALS (11 sets, daily range): BP systolic 114–149; BP diastolic 46–64; PULSE 76–90; RESP 15–18; TEMP 36.8–37.1; O2SAT 92–98
[2023-12-09] MEDS: 0.9% Normal Saline (250mL Bag) 250 ML 15 ML IV ×2 (04:56→14:27)
[2023-12-09] MEDS: Heparin Injection (Vial) 5,000 UNIT/ML VIAL 5000 UNIT SC ×3 (04:56→23:09)
[2023-12-09] MEDS: Vancomycin HCl 1,750 MG in 0.9% Normal Saline (500mL Bag) 500 ML 250 MG IV ×2 (04:57→17:08)
[2023-12-09 07:10] LABS: Absolute Neutrophil Count 10.6 X10^3/uL (2.0-7.7); Basophil# 0.03 X10^3/uL; Basophil% 0.2 % (0-1); Eosinophil# 0.03 X10^3/uL; Eosinophils% 0.2 % (0-5); Hematocrit 29.3 % (40-54); Hemoglobin 9.7 g/dL (13.0-16.5); Lymphocyte % 4.1 % (19-41); Mean Corp Hgb Conc 33.1 g/dL (32-36); Mean Corpuscular Hgb 30.8 pg (27.0-32.0); Mean Platelet Vol. 11.4 fl (6.2-12.0); Monocyte# 0.89 X10^3/uL; Monocyte% 7.3 % (0-10); NRBC Flagged by Analyzer 0 % (0-5); Neutrophil # 10.59 X10^3/uL (2.7-7.7); Neutrophil % 86.9 % (47-70); POSITIVE DIFFERENTIAL YES; Platelet Count 189 K/mm3 (150-450); RBC Distribution Width CV 14.3 % (11.6-14.6); RBC Distribution Width SD 48.8 fl (35.1-43.9); Red Blood Count 3.15 M/mm3 (4.6-6.2); White Blood Count 12.2 K/mm3 (4.4-11.0)
[2023-12-09 07:13] LABS: Bedside Glucose 137 mg/dL (74-106)
[2023-12-09 07:45] LABS: Anion Gap 8 (5-15); BUN 32 mg/dL (7-18); BUN/Creat Ratio 43.4 RATIO (10-20); Calcium,Total 7.5 mg/dL (8.5-10.1); Chloride 104 mmol/L (98-107); Creatinine, Serum 0.74 mg/dL (0.70-1.30); EST Glomerular Filtration Rate 110 mL/min (>60); Est Glom Filt Rate - Afr Amer 133 mL/min (>60); Estimated Creatinine Clearance 92.65 ml/min; Glucose 121 mg/dL (74-106); Phosphorus 2.7 mg/dL (2.5-4.9); Potassium 3.1 mmol/L (3.5-5.1); Sodium Level 134 mmol/L (136-145)
--- NOTE | 2023-12-09 08:47 | PCM.PN.SRG ---
Subjective Subjective The patient does not have any complaints this morning and is tolerating regular diet. Objective Data Objective Data Vital Signs: Vital Signs Temp Pulse Resp BP Pulse Ox O2 Del Method O2 Flow Rate 98.7 F 85 15 114/50 L 97 Room Air 2 12/09/23 04:31 12/09/23 04:31 12/09/23 04:31 12/09/23 04:31 12/09/23 04:31 12/09/23 04:31 12/08/23 20:10 FiO2 2 12/08/23 20:05 Oxygen Flow Rate (L/min) 2 Oxygen Delivery Method Room Air Weight: 233 lb 14.567 oz Body Mass Index (BMI) 36.6 Intake & Output: Intake and Output for Last 24 Hours 12/07/23 12/08/23 12/09/23 23:59 23:59 23:59 Intake Total 2790 / 3190 1435 / 1435 Output Total 325 / 825 500 / 500 Balance 2465 / 2365 935 / 935 Lab / Micro Data 12/09/23 06:24 12/09/23 06:24 Labs: Laboratory Results - last 24 hr 12/08/23 09:00: WBC 15.3 H, RBC 3.22 L, Hgb 9.8 L, Hct 30.2 L, MCV 93.8, MCH 30.4, MCHC 32.5, RDW Std Deviation 48.9 H, RDW Coeff of [place] 14.1, Plt Count 179, MPV 12.0, Immature Gran % (Auto) 1.100 H, Neut % (Auto) 85.1 H, Lymph % (Auto) 4.3 L, [place] % (Auto) 8.7, Eos % (Auto) 0.5, Baso % (Auto) 0.3, Absolute Neuts (auto) 13.1 H, Absolute Lymphs (auto) 0.66 L, Nucleated RBC % 0, Sodium 135 L, Potassium 2.4 L*, Chloride 102, Carbon Dioxide 26.0, Anion Gap 7, BUN 30 H, Creatinine 0.85, Estim Creat Clear Calc 87.92, Est GFR (MDRD) Af Amer 113, Est GFR (MDRD) Non-Af 93, BUN/Creatinine Ratio 35.4 H, Glucose 63 L, Calcium 8.0 L, Phosphorus 2.8, Magnesium 2.0, Troponin I High Sens 42 12/08/23 17:18: Urine Color Yellow, Urine Clarity Clear, Urine pH 6.0, Ur Specific [place] 1.020, Urine Protein 30 H, Urine Glucose (UA) 1000 H, Urine Ketones 50 H, Urine Occult Blood 10 H, Urine Nitrite Negative, Urine Bilirubin Negative, Urine Urobilinogen 1 H, Ur Leukocyte Esterase Negative, Urine RBC 0 SEEN, Urine WBC 0 SEEN, Ur Squamous Epith Cells 0 SEEN, Urine Bacteria 1+, Urine Mucus 0 SEEN 12/08/23 18:45: Potassium 3.3 L 12/08/23 20:11: POC Glucose 63 L 12/08/23 21:48: POC Glucose 101 12/09/23 06:24: WBC 12.2 H, RBC 3.15 L, Hgb 9.7 L, Hct 29.3 L, MCV 93.0, MCH 30.8, MCHC 33.1, RDW Std Deviation 48.8 H, RDW Coeff of [place] 14.3, Plt Count 189, MPV 11.4, Immature Gran % (Auto) 1.300 H, Neut % (Auto) 86.9 H, Lymph % (Auto) 4.1 L, [place] % (Auto) 7.3, Eos % (Auto) 0.2, Baso % (Auto) 0.2, Absolute Neuts (auto) 10.6 H, Absolute Lymphs (auto) 0.50 L, Nucleated RBC % 0, Sodium 134 L, Potassium 3.1 L, Chloride 104, Carbon Dioxide 22.0, Anion Gap 8, BUN 32 H, Creatinine 0.74, Estim Creat Clear Calc 92.65, Est GFR (MDRD) Af Amer 133, Est GFR (MDRD) Non-Af 110, BUN/Creatinine Ratio 43.4 H, Glucose 121 H, Calcium 7.5 L, Phosphorus 2.7, Magnesium 2.0 12/09/23 06:55: POC Glucose 137 H Radiography Diagnostic Testing: Radiology Impression Hip/Pelvis X-Ray 12/08/23 08:37 IMPRESSION: Marked degree of the joint space narrowing and osteoarthritis of both hip joints worse on the left side with subchondral cystic changes worse on the left. 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 No fracture is seen. Electronically Signed: Beau Elizalde MD at 10:22 EDT , Knee X-Ray 12/08/23 08:37 IMPRESSION: Degenerative arthrosis. Electronically Signed: Beau Elizalde MD at 10:23 EDT , Chest X-Ray 12/08/23 10:10 IMPRESSION: Prominence of the central pulmonary arteries. Electronically Signed: Beau Elizalde MD at 10:26 EDT , Lower Extremity CT 12/08/23 15:25 IMPRESSION: Severe degenerative osteoarthritic changes of the left hip.. No evidence for acute fracture of the left hip or visualized portion of the left hemipelvis Electronically Signed: Marshall Ledezma MD at 16:15 EDT , ADDENDUM: 12/08/23 1700 IMPRESSION: undefined Abdomen/Pelvis CT 12/08/23 16:38 IMPRESSION: Phlegmonous changes in the soft tissues dorsal and posterior to the scrotal sac with gas bubbles in the right perineal soft tissues dissecting cephalad anterior and medial to the right inguinal canal.. Cannot exclude possibility of abscess within the soft tissues of the scrotal sac. Sonogram of the scrotum recommended for further evaluation Other findings as above Electronically Signed: Marshall Ledezma MD at 18:03 EDT , Physical Exam Const oriented x3 and no apparent distress Resp normal respiratory effort Cardio regular rate and regular rhythm GI soft to palpation and non-tender Assessment & Plan Assessment/Plan (1) Necrotizing fasciitis: PLAN: The patient had necrotizing fasciitis of the groin and perineum which was debrided last night. There is still a little area of necrosis on the lateral scrotum and there is some necrosis inferiorly near the end of the incision in the rectum. I discussed taking him back for repeat debridement tomorrow. The patient is agreeable. I will remove any other necrotic areas that have demarcated and once he is stable and there is no further necrosis I would recommend the patient be moved to an LTAC for dressing changes and care. Continue Mcmahon for urinary incontinence. Continue until at least after surgery tomorrow. N.p.o. after midnight. Tarun Echevarria MD Pager: [facility] [address] [place] [address], [address] [place] [address] Office:
--- NOTE | 2023-12-09 08:56 | WOUNDNOTE ---
wound photo: right groin/scrotum
--- NOTE | 2023-12-09 09:23 | PN.HOSP_ITS ---
Reason for Visit Reason for Visit: Diagnoses Pain in left hip (12/08/23) Necrotizing fasciitis (12/08/23) Objective Data Objective Data Vital Signs: Vital Signs Temp Pulse Resp BP Pulse Ox O2 Del Method O2 Flow Rate 98.5 F 76 16 132/61 H 92 Room Air 2 12/09/23 08:00 12/09/23 08:00 12/09/23 08:00 12/09/23 08:00 12/09/23 08:00 12/09/23 08:00 12/08/23 20:10 FiO2 2 12/08/23 20:05 Oxygen Flow Rate (L/min) 2 Oxygen Delivery Method Room Air Weight: 233 lb 14.567 oz Body Mass Index (BMI) 36.6 Intake & Output: Intake and Output for Last 24 Hours 12/07/23 12/08/23 12/09/23 23:59 23:59 23:59 Intake Total 2790 / 3190 1435 / 1435 Output Total 325 / 825 500 / 500 Balance 2465 / 2365 935 / 935 Lab / Micro Data 12/09/23 06:24 12/09/23 06:24 Labs: Laboratory Results - last 24 hr 12/08/23 09:00: WBC 15.3 H, RBC 3.22 L, Hgb 9.8 L, Hct 30.2 L, MCV 93.8, MCH 30.4, MCHC 32.5, RDW Std Deviation 48.9 H, RDW Coeff of [place] 14.1, Plt Count 179, MPV 12.0, Immature Gran % (Auto) 1.100 H, Neut % (Auto) 85.1 H, Lymph % (Auto) 4.3 L, [place] % (Auto) 8.7, Eos % (Auto) 0.5, Baso % (Auto) 0.3, Absolute Neuts (auto) 13.1 H, Absolute Lymphs (auto) 0.66 L, Nucleated RBC % 0, Sodium 135 L, Potassium 2.4 L*, Chloride 102, Carbon Dioxide 26.0, Anion Gap 7, BUN 30 H, Creatinine 0.85, Estim Creat Clear Calc 87.92, Est GFR (MDRD) Af Amer 113, Est GFR (MDRD) Non-Af 93, BUN/Creatinine Ratio 35.4 H, Glucose 63 L, Calcium 8.0 L, Phosphorus 2.8, Magnesium 2.0, Troponin I High Sens 42 12/08/23 17:18: Urine Color Yellow, Urine Clarity Clear, Urine pH 6.0, Ur Specific [place] 1.020, Urine Protein 30 H, Urine Glucose (UA) 1000 H, Urine Ketones 50 H, Urine Occult Blood 10 H, Urine Nitrite Negative, Urine Bilirubin Negative, Urine Urobilinogen 1 H, Ur Leukocyte Esterase Negative, Urine RBC 0 SEEN, Urine WBC 0 SEEN, Ur Squamous Epith Cells 0 SEEN, Urine Bacteria 1+, Urine Mucus 0 SEEN 12/08/23 18:45: Potassium 3.3 L 12/08/23 20:11: POC Glucose 63 L 12/08/23 21:48: POC Glucose 101 12/09/23 06:24: WBC 12.2 H, RBC 3.15 L, Hgb 9.7 L, Hct 29.3 L, MCV 93.0, MCH 30.8, MCHC 33.1, RDW Std Deviation 48.8 H, RDW Coeff of [place] 14.3, Plt Count 189, MPV 11.4, Immature Gran % (Auto) 1.300 H, Neut % (Auto) 86.9 H, Lymph % (Auto) 4.1 L, [place] % (Auto) 7.3, Eos % (Auto) 0.2, Baso % (Auto) 0.2, Absolute Neuts (auto) 10.6 H, Absolute Lymphs (auto) 0.50 L, Nucleated RBC % 0, Sodium 134 L, Potassium 3.1 L, Chloride 104, Carbon Dioxide 22.0, Anion Gap 8, BUN 32 H, Creatinine 0.74, Estim Creat Clear Calc 92.65, Est GFR (MDRD) Af Amer 133, Est GFR (MDRD) Non-Af 110, BUN/Creatinine Ratio 43.4 H, Glucose 121 H, Calcium 7.5 L , Phosphorus 2.7, Magnesium 2.0 12/09/23 06:55: POC Glucose 137 H Radiography Diagnostic Testing: Radiology Impression Hip/Pelvis X-Ray 12/08/23 08:37 IMPRESSION: Marked degree of the joint space narrowing and osteoarthritis of both hip joints worse on the left side with subchondral cystic changes worse on the left. 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 No fracture is seen. Electronically Signed: Beau Elizalde MD at 10:22 EDT , Knee X-Ray 12/08/23 08:37 IMPRESSION: Degenerative arthrosis. Electronically Signed: Beau Elizalde MD at 10:23 EDT , Chest X-Ray 12/08/23 10:10 IMPRESSION: Prominence of the central pulmonary arteries. Electronically Signed: Beau Elizalde MD at 10:26 EDT , Lower Extremity CT 12/08/23 15:25 IMPRESSION: Severe degenerative osteoarthritic changes of the left hip.. No evidence for acute fracture of the left hip or visualized portion of the left hemipelvis Electronically Signed: Marshall Ledezma MD at 16:15 EDT Reading Location ID and State: [facility] / [place] Tel [phone], Service support , ADDENDUM: 12/08/23 1700 IMPRESSION: undefined Abdomen/Pelvis CT 12/08/23 16:38 IMPRESSION: Phlegmonous changes in the soft tissues dorsal and posterior to the scrotal sac with gas bubbles in the right perineal soft tissues dissecting cephalad anterior and medial to the right inguinal canal.. Cannot exclude possibility of abscess within the soft tissues of the scrotal sac. Sonogram of the scrotum recommended for further evaluation Other findings as above Electronically Signed: Marshall Ledezma MD at 18:03 EDT , Assessment & Plan Assessment/Plan (1) Necrotizing fasciitis: (2) Acute pain of left hip: PLAN: Plan 1. Necrotizing fasciitis of the scrotum and perineum ? This was found on CT scan to evaluate the left hip as patient had was afebrile with only leukocytosis ? There is no sepsis ? There is no complaint of pain in his scrotum and there is no signs of crepitus ? He did receive a dose of cefepime and vancomycin in the ER ? General surgery was consulted and is planning for operative intervention this evening ? Will continue with cefepime and vancomycin and will consult infectious disease 2. Left hip pain after mechanical fall ? She does have significant osteoarthritic changes ?Severe degenerative osteoarthritic changes of the left hip. No evidence for acute fracture of the left hip or visualized portion of the left hemipelvis 3. Essential HTN/HLD ? Blood pressures are stable ? Will continue his home blood pressure medications and make adjustments as necessary ? Continue with his lovastatin 4. DM2 ? Will hold his home medications ? Will place on sliding scale insulin ? Accu-Cheks ACHS ? Will monitor make adjustments as necessary 5. BPH ? Stable ? Continue with Flomax DVT: SCDs
--- NOTE | 2023-12-09 09:23 | PCM.PN.HOSP ---
Reason for Visit Reason for Visit: Diagnoses Pain in left hip (12/08/23) Necrotizing fasciitis (12/08/23) Objective Data Objective Data Vital Signs: Vital Signs Temp Pulse Resp BP Pulse Ox O2 Del Method O2 Flow Rate 98.5 F 76 16 132/61 H 92 Room Air 2 12/09/23 08:00 12/09/23 08:00 12/09/23 08:00 12/09/23 08:00 12/09/23 08:00 12/09/23 08:00 12/08/23 20:10 FiO2 2 12/08/23 20:05 Oxygen Flow Rate (L/min) 2 Oxygen Delivery Method Room Air Weight: 233 lb 14.567 oz Body Mass Index (BMI) 36.6 Intake & Output: Intake and Output for Last 24 Hours 12/07/23 12/08/23 12/09/23 23:59 23:59 23:59 Intake Total 2790 / 3190 1435 / 1435 Output Total 325 / 825 500 / 500 Balance 2465 / 2365 935 / 935 Lab / Micro Data 12/09/23 06:24 12/09/23 06:24 Labs: Laboratory Results - last 24 hr 12/08/23 09:00: WBC 15.3 H, RBC 3.22 L, Hgb 9.8 L, Hct 30.2 L, MCV 93.8, MCH 30.4, MCHC 32.5, RDW Std Deviation 48.9 H, RDW Coeff of [place] 14.1, Plt Count 179, MPV 12.0, Immature Gran % (Auto) 1.100 H, Neut % (Auto) 85.1 H, Lymph % (Auto) 4.3 L, [place] % (Auto) 8.7, Eos % (Auto) 0.5, Baso % (Auto) 0.3, Absolute Neuts (auto) 13.1 H, Absolute Lymphs (auto) 0.66 L, Nucleated RBC % 0, Sodium 135 L, Potassium 2.4 L*, Chloride 102, Carbon Dioxide 26.0, Anion Gap 7, BUN 30 H, Creatinine 0.85, Estim Creat Clear Calc 87.92, Est GFR (MDRD) Af Amer 113, Est GFR (MDRD) Non-Af 93, BUN/Creatinine Ratio 35.4 H, Glucose 63 L, Calcium 8.0 L, Phosphorus 2.8, Magnesium 2.0, Troponin I High Sens 42 12/08/23 17:18: Urine Color Yellow, Urine Clarity Clear, Urine pH 6.0, Ur Specific [place] 1.020, Urine Protein 30 H, Urine Glucose (UA) 1000 H, Urine Ketones 50 H, Urine Occult Blood 10 H, Urine Nitrite Negative, Urine Bilirubin Negative, Urine Urobilinogen 1 H, Ur Leukocyte Esterase Negative, Urine RBC 0 SEEN, Urine WBC 0 SEEN, Ur Squamous Epith Cells 0 SEEN, Urine Bacteria 1+, Urine Mucus 0 SEEN 12/08/23 18:45: Potassium 3.3 L 12/08/23 20:11: POC Glucose 63 L 12/08/23 21:48: POC Glucose 101 12/09/23 06:24: WBC 12.2 H, RBC 3.15 L, Hgb 9.7 L, Hct 29.3 L, MCV 93.0, MCH 30.8, MCHC 33.1, RDW Std Deviation 48.8 H, RDW Coeff of [place] 14.3, Plt Count 189, MPV 11.4, Immature Gran % (Auto) 1.300 H, Neut % (Auto) 86.9 H, Lymph % (Auto) 4.1 L, [place] % (Auto) 7.3, Eos % (Auto) 0.2, Baso % (Auto) 0.2, Absolute Neuts (auto) 10.6 H, Absolute Lymphs (auto) 0.50 L, Nucleated RBC % 0, Sodium 134 L, Potassium 3.1 L, Chloride 104, Carbon Dioxide 22.0, Anion Gap 8, BUN 32 H, Creatinine 0.74, Estim Creat Clear Calc 92.65, Est GFR (MDRD) Af Amer 133, Est GFR (MDRD) Non-Af 110, BUN/Creatinine Ratio 43.4 H, Glucose 121 H, Calcium 7.5 L, Phosphorus 2.7, Magnesium 2.0 12/09/23 06:55: POC Glucose 137 H Radiography Diagnostic Testing: Radiology Impression Hip/Pelvis X-Ray 12/08/23 08:37 IMPRESSION: Marked degree of the joint space narrowing and osteoarthritis of both hip joints worse on the left side with subchondral cystic changes worse on the left. 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 No fracture is seen. Knee X-Ray 12/08/23 08:37 IMPRESSION: Degenerative arthrosis. Electronically Signed: Beau Elizalde MD at 10:23 EDT , Chest X-Ray 12/08/23 10:10 IMPRESSION: Prominence of the central pulmonary arteries. Electronically Signed: Beau Elizalde MD at 10:26 EDT , Lower Extremity CT 12/08/23 15:25 IMPRESSION: Severe degenerative osteoarthritic changes of the left hip.. No evidence for acute fracture of the left hip or visualized portion of the left hemipelvis Electronically Signed: Marshall Ledezma MD at 16:15 EDT , ADDENDUM: 12/08/23 1700 IMPRESSION: undefined Abdomen/Pelvis CT 12/08/23 16:38 IMPRESSION: Phlegmonous changes in the soft tissues dorsal and posterior to the scrotal sac with gas bubbles in the right perineal soft tissues dissecting cephalad anterior and medial to the right inguinal canal.. Cannot exclude possibility of abscess within the soft tissues of the scrotal sac. Sonogram of the scrotum recommended for further evaluation Other findings as above Electronically Signed: Marshall Ledezma MD at 18:03 EDT , Physical Exam Narrative Seen and examined. Patient is legally blind. Was walking on walker and then fell probably on the right side with abrasion on the right forehead about a day prior to admission. Patient does not have much help at home and is to call fire department to put him back on the bed. On the day of admission he woke up with severe pain in the left hip and back and was found to have leukocytosis, severe left leg pain. 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 Physical exam General: Alert, Oriented x3, Cooperative HEENT: Legally blind. Malignancy light. Atraumatic, PERRLA, EOMI, Normocephalic Oral: Oral mucosa dry. No Gingival or Mucosal Lesions/ Ulcerations Neck: Supple, No JVD, Negative Carotid Bruits Chest wall/Lungs: Air entry diminished in bilateral lung bases. No crepitation/rhonchi Cardiovascular: Regular rate, Regular Rhythm, Normal S1, Normal S2, No M/G/R Abdomen: Bowel Sounds Present, Soft, Non Tender, Non-Distended : Dressing is done. Operative debridement of perineal region. Mcmahon catheter. Penis buried. No dysuria. No renal angle tenderness. No suprapubic tenderness. Extremities: Mild edema, Capillary Refill Less than 3 Seconds Skin: Mild abrasion/bruise on the right side of the forehead. Musculoskeletal: No Tenderness to Palpation of Joints or Extremities. Mild to moderate tenderness over left hip, severe osteoarthritis. ROM severely restricted at left hip and mild restriction at right hip.. Neurological: Cranial nerves II-XII grossly intact, DTR 2+/4. No acute focal neurological deficit. Psych/Mental Status: Flat affect. Assessment & Plan Assessment/Plan (1) Necrotizing fasciitis: (2) Acute pain of left hip: PLAN: Plan This 77-year-old gentleman being admitted after fall with severe pain in the left hip with severe ROM restriction. 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 Necrotizing fasciitis of right groin and perineal region: Patient was taken to the OR and incision and drainage of right groin and perineal with packing. Prior to that, CT lower extremity was done for severe arthritis and was found to have gas within the right groin region extending to the right. No soft tissue therefore CT abdomen was done which showed phlegmonous changes in soft tissue in perineal region posterior to scrotal sac and right inguinal canal. No sepsis. Patient has leukocytosis. Patient was on vancomycin and cefepime. Cefepime changed to IV meropenem for broad coverage of gram-negative and anaerobes. Hypokalemia: IV potassium on replacement. Serum magnesium and phosphorus level in normal range. 2. Left hip pain after mechanical fall due to severe primary osteoarthritis of left: First x-ray and then CT of lower extremity shows severe osteoarthritis with mild joint space narrowing. There was suspicion of avascular necrosis but CT did not show dislocation or fracture. Orthopedic surgeon is further consulted for clinical evaluation to rule out avascular necrosis 3. Essential HTN/HLD ? Blood pressures are stable ? continue his home blood pressure medications and make adjustments as necessary ? Continue with his lovastatin 4. DM2 ? Hold oral hypoglycemic agents. Accu-Chek before meals and at bedtime insulin coverage Humalog sliding scale. ? Continue monitor make adjustments as necessary 5. BPH ? Continue with Flomax DVT: SCDs Charges/Coding Visit Charges Inpatient E&M: 22579 Subs Hosp L2
[2023-12-09] MEDS: Cefepime HCl 1 GM in 0.9% Normal Saline (50mL MB+) 50 ML IV (09:25)
[2023-12-09] MEDS: Potassium Chloride 10mEq/100mL 10 MEQ/100 ML IV.SOLN. 100 MEQ IV BOLUS ×4 (09:36→12:52)
[2023-12-09] MEDS: Lisinopril 10 MG Tablet PO (09:38)
--- NOTE | 2023-12-09 10:03 | NURSING ---
NS flush bag to diluate/KCL rider
--- NOTE | 2023-12-09 10:25 | CASEMGMT ---
RON BURCIAGA Assessment: Face to Face with pt for initial transition planning/care coordination assessment. RON BURCIAGA introduced self and role at [facility], pt voices understanding and consents to assessment. Pt is A&O x4 and answers all questions appropriately at this time. Pt lying in bed in no distress. Pt is legally blind. Care providers, pharmacy, and demographics verified/updated. Admitting Dx: gangrene of scrotum PCP:Rodriguez Specialists:gabo Mcgowan Pharmacy: [facility] [place] [facility] [employer] Pres[employer] Benefit: yes LNOK: Henny Ward, ; Camryn Lomeli, friend Living Arrangements: Pt lives with in a two story home with a ramp to enter. Pt reports typically he is I in ADL's and denies concerns at home. Pt reports falling 3x since July. Transportation: Pt does not drive and has not since July. Pt states his friend or family transports him. DME:BSC, walker, cane, shower chair, HH shower, BGM with sufficient strips and lancets- reads result to him; medic alert HHC/SNF: Pt has had [facility] HHC in the past, denies SNF stays. Pt states he has been made aware that [place]. Pt is agreeable to this. Provided a list of LTACH facilities including quality and resource use data and consistent with the patient?s preferred geographic region, medical needs, and insurance network were provided from the [facility] Guide. Pt agreeable to RN CM reading options to him. Pt has chosen [facility] in [place] as this is the closest. Pt to have OR tomorrow yet. Pt states his has dementia and he feels she is safe at home but there was a missing persons report filed last year as she left the home. Updated SW regarding this. Pt states no further concerns/needs. CM to follow. Advised pt to ask CM if any further question/concerns/needs arise, voices understanding. Pt Goal: LTACH Plan: Will begin LTACH referral Ramona VELASQUEZ CM
--- NOTE | 2023-12-09 11:07 | CASEMGMT ---
TC to Elzbieta Artis regarding LTACH referral, she requests information be sent to [facility] in [facility]. Referral sent at this time.
[2023-12-09] MEDS: Insulin Lispro 100 UNIT/ML INSULN.PEN SC ×3 (11:51→22:18)
[2023-12-09 12:07] LABS: Bedside Glucose 224 mg/dL (74-106)
--- NOTE | 2023-12-09 13:49 | CON.PCM.ID_ITS ---
Assessment & Plan Assessment/Plan (1) Necrotizing fasciitis: PLAN: Taken to OR 12/08/[address] Echevarria. Surg cx pending. On vanc/tyler, will add clinda for anti-toxin effect. Will follow, thank you (2) Legally blind: (3) Type 2 diabetes mellitus: QUALIFIERS: Diabetes mellitus skilled nursing insulin use: without watermelon inspector use Diabetes mellitus complication status: without complication Qualified Code(s): E11.9 - Type 2 diabetes mellitus without complications HPI Consult Data Date of Consult: 12/09/23 HPI Narrative Reason for Consultation: akin's HPI Narrative: WILLIAM PLUMMER, is a 77 M who presented with fall at home. Had been feeling ok prior to that. No fever no abd pain. In ED, CT done, showed akin's gangrene, taken to OR urgently by Dr. Echevarria for I&D 12/07. Feeling ok today. Full ROS performed and neg except as noted above. [facility] Medical History Contusion of hip, left Diabetes Enlarged prostate Fall High cholesterol Legally blind Home Medications ascorbic acid (vitamin C) 1,000 mg tablet 1,000 mg PO DAILY supplement 11/09/19 [History Last Taken 12/07/23] cholecalciferol (vitamin D3) 25 mcg (1,000 unit) tablet 1,000 unit PO DAILY supplement 11/09/19 [History Last Taken 12/07/23] cyanocobalamin (vitamin B-12) 1,000 mcg capsule 1,000 mcg PO DAILY supplement 11/09/19 [History Last Taken 12/07/23] empagliflozin 10 mg tablet 10 mg PO DAILY diabetes 11/09/19 [History Last Taken 12/07/23] linagliptin 5 mg tablet 5 mg PO DAILY diabetes 11/09/19 [History Last Taken 12/07/23] lisinopril 10 mg tablet 10 mg PO DAILY bp 11/09/19 [History Last Taken 12/07/23] lovastatin 40 mg tablet 40 mg PO QHS cholesterol 11/09/19 [History Last Taken 12/07/23] metformin 500 mg tablet 1,000 mg PO BID diabetes 11/09/19 [History Last Taken 12/07/23] pioglitazone 45 mg tablet 45 mg PO DAILY diabetes 11/09/19 [History Last Taken 12/07/23] acetaminophen 325 mg tablet 650 mg PO Q6H PRN Pain 1-5 Or Fever >100.7 12/08/23 [History Last Taken 12/07/23] empagliflozin 25 mg tablet (Jardiance) 25 mg PO DAILY 12/08/23 [History Last Taken Unknown] glipizide 5 mg tablet, extended release 24 hr 15 mg PO DAILY 12/08/23 [History Last Taken 12/07/23] hydrochlorothiazide 12.5 mg tablet 12.5 mg PO DAILY 12/08/23 [History Last Taken 12/07/23] metformin 500 mg tablet 500 mg PO LUNCH 12/08/23 [History Last Taken 12/07/23] tamsulosin 0.4 mg capsule 0.8 mg PO QHS 12/08/23 [History Last Taken 12/07/23] Allergy/AdvReac Type Severity Reaction Status Date / Time No Known Allergies Allergy Verified 12/08/23 07:58 Family History (Updated 12/08/23 @ 15:[address] Celestine Leon MD) Other Cancer Heart disease Surgical History Status post tonsillectomy Surgical History no surgical history Social History Smoking Status: Former smoker Physical Exam Const alert, oriented x3 and no apparent distress General Appearance: cooperative HEENT normocephalic and head/scalp atraumatic Eyes Eyes Narrative: legally blind Neck supple and No nodes Resp normal air movement and clear to auscultation bilaterally Cardio regular rate and regular rhythm GI soft to palpation, non-tender and non-distended Extremity General Extremity: Negative for edema Skin Skin Narrative: groin bandaged Neuro CN's II-XII intact bilaterally Lab / Micro Data Attestation: I reviewed the patient's lab results. 12/09/23 06:24 12/09/23 06:24 Labs: Laboratory Results - last 24 hr 12/08/23 09:00: Phosphorus 2.8, Magnesium 2.0 12/08/23 17:18: Urine Color Yellow, Urine Clarity Clear, Urine pH 6.0, Ur Specific [place] 1.020, Urine Protein 30 H, Urine Glucose (UA) 1000 H, Urine Ketones 50 H, Urine Occult Blood 10 H, Urine Nitrite Negative, Urine Bilirubin Negative, Urine Urobilinogen 1 H, Ur Leukocyte Esterase Negative, Urine RBC 0 SEEN, Urine WBC 0 SEEN, Ur Squamous Epith Cells 0 SEEN, Urine Bacteria 1+, Urine Mucus 0 SEEN 12/08/23 18:45: Potassium 3.3 L 12/08/23 20:11: POC Glucose 63 L 12/08/23 21:48: POC Glucose 101 12/09/23 06:24: WBC 12.2 H, RBC 3.15 L, Hgb 9.7 L, Hct 29.3 L, MCV 93.0, MCH 30.8, MCHC 33.1, RDW Std Deviation 48.8 H, RDW Coeff of [place] 14.3, Plt Count 189, MPV 11.4, Immature Gran % (Auto) 1.300 H, Neut % (Auto) 86.9 H, Lymph % (Auto) 4.1 L, [place] % (Auto) 7.3, Eos % (Auto) 0.2, Baso % (Auto) 0.2, Absolute Neuts (auto) 10.6 H, Absolute Lymphs (auto) 0.50 L, Nucleated RBC % 0, Sodium 134 L, Potassium 3.1 L, Chloride 104, Carbon Dioxide 22.0, Anion Gap 8, BUN 32 H, Creatinine 0.74, Estim Creat Clear Calc 92.65, Est GFR (MDRD) Af Amer 133, Est GFR (MDRD) Non-Af 110, BUN/Creatinine Ratio 43.4 H, Glucose 121 H, Calcium 7.5 L , Phosphorus 2.7, Magnesium 2.0 12/09/23 06:55: POC Glucose 137 H 12/09/23 11:47: POC Glucose 224 H Micro: Microbiology 12/08/23 Unknown Tissue - Aerobic & Anaerobic Swabs Gram Stain - Final 12/08/23 Unknown Tissue - Other Gram Stain - Final Imaging Radiology Impression Lower Extremity CT 12/08/23 15:25 IMPRESSION: Severe degenerative osteoarthritic changes of the left hip.. No evidence for acute fracture of the left hip or visualized portion of the left hemipelvis Electronically Signed: Marshall Ledezma MD at 16:15 EDT , ADDENDUM: 12/08/23 1700 IMPRESSION: undefined Abdomen/Pelvis CT 12/08/23 16:38 IMPRESSION: Phlegmonous changes in the soft tissues dorsal and posterior to the scrotal sac with gas bubbles in the right perineal soft tissues dissecting cephalad anterior and medial to the right inguinal canal.. Cannot exclude possibility of abscess within the soft tissues of the scrotal sac. Sonogram of the scrotum recommended for further evaluation Other findings as above Electronically Signed: Marshall Ledezma MD at 18:03 EDT ,
--- NOTE | 2023-12-09 14:10 | CASEMGMT ---
Social Work Patient's has dementia and during patient's last hospital stay, his left home in a car and became lost. This worker met with patient to discuss the current disposition of at home and to determine any safety concerns. Patient explained what happened previously and stated he currently is not concerned that will take off in car again. He feels was in a different state of mind at that time due to recent loss of a grandson at that time. He also stated she is taking medication for dementia and it has been helpful. stated is living at the house alone while he is in the hospital and she does have access to the car keys. Pt stated he doesn't think she will try to drive as she hasn't for quite awhile. stated 's grandson is visiting 3 times a day to let the dogs out and 's daughter is very involved and checking on her as well. Patient understands he will not be returning home in near future due to medical needs and plans to transfer to LTACH. SW encourage patient to let social service know if he does develop concerns and SW can assist with resources. This worker also telephoned Camryn, an emergency contact listed for patient to discuss any potential safety concerns for pt . Camryn stated she does not have any concerns and stated she has all kinds of family helping out and checking on her. Nelida PERRY
[2023-12-09] MEDS: Meropenem 1 GM in 0.9% Normal Saline (100mL MB+) 100 ML IV ×2 (14:22→23:10)
[2023-12-09] MEDS: Clindamycin 900 MG/50 ML BAG 75 MG IV ×2 (14:25→22:07)
--- NOTE | 2023-12-09 15:42 | CHAPLAIN ---
Type of Pastoral Visit _x__ Initial Visit ___ Follow-up Visit ___ On-call Visit ___ General Patient Visit ___ Spiritual Assessment ___ Family Conference ___ Bereavement ___ Rapid Response ___ Code Blue ___ Other (describe below) Pastoral Care Referral From _x__ Patient ___ Family ___ Nurse ___ Physician ___ Repairer [employer] Furniture ___ Apartment Maintenance Technician ___ Other (describe below) Sacrament/Intervention _x__ Active listening ___ Anointing ___ Mandaeism ___ Bereavement ___ Communion _x__ Cinthia exploration ___ _x__ Life review _x__ Prayer ___ Reconciliation ___ Sacrament of Sick _x__ Supportive presence ___ Wedding ___ Other (describe below) Pastoral Comments patient is welcoming and remembers this patient from a previous admission; pt is very talkative and gives details about his health, recent home situation, spouse, future admission to LTACH, life review, participation of 50 years in [employer] organization; pt welcomes prayer and presence for spiritual care support
--- NOTE | 2023-12-09 16:08 | CASEMGMT ---
Social Work SW met with pt to discuss advance directives.? Pt confirms he has completed a living will and health care POA naming his Henny Ward. Pt does not believe he listed a second person.? Pt notified that documents are not on file at [facility] and SW requested they be brought in for scanning into the EMR. Pt states he cannot bring in at this time but will once he is able to go home and come back to the hospital. ORLANDO Beckham
[2023-12-09 16:26] LABS: Bedside Glucose 347 mg/dL (74-106)
--- NOTE | 2023-12-09 16:35 | NURSING ---
All documentation by student development advisor, Kendall Fernandez, reviewed by economics instructor, Letty BARNEYN, RN.
--- NOTE | 2023-12-09 18:06 | CON.PCM.OR_ITS ---
HPI Consult Data Date of Consult: 12/09/23 HPI Narrative Reason for Consultation: Left hip pain HPI Narrative: WILLIAM PLUMMER, is a 77 M who presents today with left hip pain. Patient states has had multiple falls since last summer. He has pain in his left hip and groin. He presented today yesterday after a fall with left hip pain. 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 He is under the care of surgical team and the medicine team at this time. Patient did have x-ray findings and CT findings consistent with severe osteoarthritis. Patient reports using a walker over the last 6 months increasingly. He is legally blind. He notes his goes camping in the summer and leaves him at home. Currently there are plans to have him return to the operating room tomorrow for further debridement. Orthopedics was consulted for left hip pain possible avascular necrosis. [facility] Medical History Contusion of hip, left Diabetes Enlarged prostate Fall High cholesterol Legally blind Home Medications ascorbic acid (vitamin C) 1,000 mg tablet 1,000 mg PO DAILY supplement 11/09/19 [History Last Taken 12/07/23] cholecalciferol (vitamin D3) 25 mcg (1,000 unit) tablet 1,000 unit PO DAILY supplement 11/09/19 [History Last Taken 12/07/23] cyanocobalamin (vitamin B-12) 1,000 mcg capsule 1,000 mcg PO DAILY supplement 11/09/19 [History Last Taken 12/07/23] empagliflozin 10 mg tablet 10 mg PO DAILY diabetes 11/09/19 [History Last Taken 12/07/23] linagliptin 5 mg tablet 5 mg PO DAILY diabetes 11/09/19 [History Last Taken 12/07/23] lisinopril 10 mg tablet 10 mg PO DAILY bp 11/09/19 [History Last Taken 12/07/23] lovastatin 40 mg tablet 40 mg PO QHS cholesterol 11/09/19 [History Last Taken 12/07/23] metformin 500 mg tablet 1,000 mg PO BID diabetes 11/09/19 [History Last Taken 12/07/23] pioglitazone 45 mg tablet 45 mg PO DAILY diabetes 11/09/19 [History Last Taken 12/07/23] acetaminophen 325 mg tablet 650 mg PO Q6H PRN Pain 1-5 Or Fever >100.7 12/08/23 [History Last Taken 12/07/23] empagliflozin 25 mg tablet (Jardiance) 25 mg PO DAILY 12/08/23 [History Last Taken Unknown] glipizide 5 mg tablet, extended release 24 hr 15 mg PO DAILY 12/08/23 [History Last Taken 12/07/23] hydrochlorothiazide 12.5 mg tablet 12.5 mg PO DAILY 12/08/23 [History Last Taken 12/07/23] metformin 500 mg tablet 500 mg PO LUNCH 12/08/23 [History Last Taken 12/07/23] tamsulosin 0.4 mg capsule 0.8 mg PO QHS 12/08/23 [History Last Taken 12/07/23] Allergy/AdvReac Type Severity Reaction Status Date / Time No Known Allergies Allergy Verified 12/08/23 07:58 Family History Other Cancer Heart disease Surgical History Status post tonsillectomy Surgical History no surgical history Social History Smoking Status: Former smoker ROS ROS Narrative As noted in HPI Vital Signs Vital Signs Vital Signs: 12/08/23 19:51 12/08/23 19:55 12/08/23 20:00 Temperature 97 F L Temperature Source Temporal Pulse Rate 71 74 71 Respiratory Rate 16 16 16 Respiratory Effort Respiratory Depth Respiratory Pattern Normal Blood Pressure 137/56 H 123/75 H 127/52 H Blood Pressure Mean 83 91 77 Blood Pressure Source Manual Monitor Monitor Blood Pressure Position Semi-Fowlers Semi-Fowlers Blood Pressure Location Right Arm Right Arm Right Arm Baseline BP 135/58 135/58 135/58 Pulse Ox 96 96 97 Oxygen Delivery Method Nasal Cannula Nasal Cannula Nasal Cannula Oxygen Flow Rate (L/min) 2 2 2 Fraction of Inspired Oxygen (FIO2) 12/08/23 20:05 12/08/23 20:10 12/08/23 20:15 Temperature Temperature Source Pulse Rate 72 72 72 Respiratory Rate 16 16 16 Respiratory Effort Respiratory Depth Respiratory Pattern Blood Pressure 125/49 H 114/47 L 121/52 H Blood Pressure Mean 74 69 75 Blood Pressure Source Monitor Monitor Monitor Blood Pressure Position Semi-Fowlers Semi-Fowlers Semi-Fowlers Blood Pressure Location Right Arm Right Arm Baseline BP 135/58 135/58 135/58 Pulse Ox 97 97 96 Oxygen Delivery Method Nasal Cannula Nasal Cannula Room Air Oxygen Flow Rate (L/min) 2 Fraction of Inspired Oxygen (FIO2) 2 12/08/23 20:30 12/08/23 21:20 12/08/23 21:14 Temperature 96.9 F L 97.4 F L 97.4 F L Temperature Source Temporal Oral Oral Pulse Rate 69 74 74 Respiratory Rate 16 15 15 Respiratory Effort Respiratory Depth Respiratory Pattern Blood Pressure 121/58 H 134/53 H 134/53 H Blood Pressure Mean 79 80 80 Blood Pressure Source Monitor Monitor Monitor Blood Pressure Position Semi-Fowlers Semi-Fowlers Semi-Fowlers Blood Pressure Location Right Arm Right Arm Right Arm Baseline BP 135/58 Pulse Ox 99 94 94 Oxygen Delivery Method Room Air Room Air Room Air Oxygen Flow Rate (L/min) Fraction of Inspired Oxygen (FIO2) 12/08/23 21:14 12/08/23 23:29 12/09/23 00:00 Temperature 98.6 F 98.6 F Temperature Source Oral Oral Pulse Rate 79 79 Respiratory Rate 15 15 15 Respiratory Effort Normal Non-Labored Respiratory Depth Normal Respiratory Pattern Normal Blood Pressure 126/56 H 126/56 H Blood Pressure Mean 79 79 Blood Pressure Source Monitor Blood Pressure Position Semi-Fowlers Blood Pressure Location Right Arm Baseline BP Pulse Ox 94 95 95 Oxygen Delivery Method Room Air Room Air Room Air Oxygen Flow Rate (L/min) Fraction of Inspired Oxygen (FIO2) 12/09/23 01:29 12/09/23 02:00 12/09/23 04:31 Temperature 98.2 F 98.2 F 98.7 F Temperature Source Oral Oral Oral Pulse Rate 88 88 85 Respiratory Rate 15 15 15 Respiratory Effort Respiratory Depth Respiratory Pattern Blood Pressure 141/55 H 141/55 H 114/50 L Blood Pressure Mean 83 83 71 Blood Pressure Source Monitor Monitor Blood Pressure Position Semi-Fowlers Semi-Fowlers Blood Pressure Location Right Arm Right Arm Baseline BP Pulse Ox 97 97 97 Oxygen Delivery Method Room Air Room Air Room Air Oxygen Flow Rate (L/min) Fraction of Inspired Oxygen (FIO2) 12/09/23 03:14 12/09/23 08:00 12/09/23 08:00 Temperature 98.5 F Temperature Source Oral Pulse Rate 76 76 Respiratory Rate 15 16 16 Respiratory Effort Normal Normal Respiratory Depth Normal Normal Respiratory Pattern Normal Blood Pressure 132/61 H Blood Pressure Mean 84 Blood Pressure Source Monitor Blood Pressure Position Supine Blood Pressure Location Right Arm Baseline BP Pulse Ox 97 92 Oxygen Delivery Method Room Air Room Air Room Air Oxygen Flow Rate (L/min) Fraction of Inspired Oxygen (FIO2) 12/09/23 13:01 12/09/23 13:10 12/09/23 14:31 Temperature 98.5 F Temperature Source Oral Pulse Rate 90 Respiratory Rate 16 Respiratory Effort Respiratory Depth Respiratory Pattern Blood Pressure 138/56 H Blood Pressure Mean 83 Blood Pressure Source Monitor Blood Pressure Position Semi-Fowlers Blood Pressure Location Baseline BP Pulse Ox 96 96 94 Oxygen Delivery Method Room Air Room Air Oxygen Flow Rate (L/min) Fraction of Inspired Oxygen (FIO2) 12/09/23 16:49 Temperature 98.4 F Temperature Source Oral Pulse Rate 84 Respiratory Rate 18 Respiratory Effort Respiratory Depth Respiratory Pattern Blood Pressure 126/46 H Blood Pressure Mean 72 Blood Pressure Source Monitor Blood Pressure Position Semi-Fowlers Blood Pressure Location Right Arm Baseline BP Pulse Ox 94 Oxygen Delivery Method Room Air Oxygen Flow Rate (L/min) Fraction of Inspired Oxygen (FIO2) Weight Weight: 233 lb 14.567 oz Body Mass Index (BMI) 36.6 Physical Exam Const alert and oriented x3 HEENT normocephalic Eyes PERRL Neck supple Resp normal respiratory effort Cardio Cardio Narrative: Regular pulse rate GI GI Narrative: obese Extremity Extremity Narrative: Left lower extremity: Exam is limited secondary to patient's current medical condition. Pain with logroll. Neurovascular intact distally. Morbidly obese. Pannus overlaps leg. Neuro CN's II-XII intact bilaterally and moves all extremities Medical Records Data Attestation: I reviewed the patient's medical records Lab / Micro Data Attestation: I reviewed the patient's lab results. 12/09/23 06:24 12/09/23 06:24 Labs: Laboratory Results - last 24 hr 12/08/23 18:45: Potassium 3.3 L 12/08/23 20:11: POC Glucose 63 L 12/08/23 21:48: POC Glucose 101 12/09/23 06:24: WBC 12.2 H, RBC 3.15 L, Hgb 9.7 L, Hct 29.3 L, MCV 93.0, MCH 30.8, MCHC 33.1, RDW Std Deviation 48.8 H, RDW Coeff of [place] 14.3, Plt Count 189, MPV 11.4, Immature Gran % (Auto) 1.300 H, Neut % (Auto) 86.9 H, Lymph % (Auto) 4.1 L, [place] % (Auto) 7.3, Eos % (Auto) 0.2, Baso % (Auto) 0.2, Absolute Neuts (auto) 10.6 H, Absolute Lymphs (auto) 0.50 L, Nucleated RBC % 0, Sodium 134 L, Potassium 3.1 L, Chloride 104, Carbon Dioxide 22.0, Anion Gap 8, BUN 32 H, Creatinine 0.74, Estim Creat Clear Calc 92.65, Est GFR (MDRD) Af Amer 133, Est GFR (MDRD) Non-Af 110, BUN/Creatinine Ratio 43.4 H, Glucose 121 H, Calcium 7.5 L , Phosphorus 2.7, Magnesium 2.0 12/09/23 06:55: POC Glucose 137 H 12/09/23 11:47: POC Glucose 224 H 12/09/23 16:07: POC Glucose 347 H Micro: Microbiology 12/08/23 Unknown Tissue - Aerobic & Anaerobic Swabs Gram Stain - Final 12/08/23 Unknown Tissue - Other Gram Stain - Final Imaging X-rays and CT scan were reviewed. X-rays questioned avascular process. However I was able to review x-rays from July as well. Patient has severe stage IV osteoarthritis with femoral head erosion and cystic formation of the femoral head however I do not appreciate evidence of avascular process. Avascular porosis is also not appreciated on CT scan. This consistent with severe os teoarthritis. Assessment & Plan Assessment/Plan (1) Unilateral primary osteoarthritis, left hip: (2) Necrotizing fasciitis: (3) Hypokalemia: (4) Paroxysmal supraventricular tachycardia: (5) BPH (benign prostatic hyperplasia): QUALIFIERS: Lower urinary tract symptom presence: symptoms present Lower urinary tract symptom detail: urinary frequency Qualified Code(s): N40.1 - Benign prostatic hyperplasia with lower urinary tract symptoms; R35.0 - Frequency of micturition (6) Mixed hyperlipidemia: (7) Legally blind: (8) Recurrent falls: (9) Type 2 diabetes mellitus: QUALIFIERS: Diabetes mellitus long term care phlebotomist insulin use: without long term care phlebotomist use Diabetes mellitus complication status: without complication Qualified Code(s): E11.9 - Type 2 diabetes mellitus without complications (10) Essential hypertension: (11) Debility: (12) Weakness: (13) Morbid obesity: PLAN: Plan Patient's findings are consistent with chronic left hip osteoarthritis. Patient current medical condition precludes significant orthopedic intervention. I do recommend he continue with therapy to maintain strength and range of motion of the hip is much as possible. Additionally patient will need help with pain control will need to be managed by primary care provider or pain management provider as he is not currently a candidate for surgical intervention. I have concerns patient may never be an appropriate surgical candidate. Ultimately, patient has number of medical issues and need resolve prior to considering further orthopedic intervention. Patient should follow-up with me once his gangrene is resolved we can further discuss appropriateness of surgical intervention and treatment options. Unfortunately, patient is not a candidate for corticosteroid injections or other intra-articular injections due to the cyst I would worry that patient may have further femoral head collapse. The recommendation at this time is oral pain management likely with Tylenol and anti-inflammatories if appropriate consideration for pain management referral. Please contact orthopedics any further questions or concerns. Patient should follow-up as needed once his gangrene and any wound issues are resolved. [facility] Office:
[2023-12-09] MEDS: Acetaminophen 325 MG Tablet 650 MG PO (22:07)
[2023-12-09] MEDS: Tamsulosin HCl 0.4 MG Capsule 0.8 MG PO (22:10)
[2023-12-09] MEDS: Atorvastatin Calcium 10 MG Tablet PO (22:10)
[2023-12-09 22:38] LABS: Bedside Glucose 254 mg/dL (74-106)
[2023-12-09] MEDS: DAKIN'S SOL HALF STRENGTH (=0.25%) 1 APPLIC TOPICAL (23:09)
[2023-12-10] VITALS (12 sets, daily range): BP systolic 125–166; BP diastolic 49–77; PULSE 88–103; RESP 16–18; TEMP 36.6–37.3; O2SAT 92–96; BMI 36.6
[2023-12-10 04:46] LABS: Absolute Lymphocyte Count 0.64 X10^3/uL (0.83-4.51); Absolute Neutrophil Count 10.8 X10^3/uL (2.0-7.7); Basophil# 0.04 X10^3/uL; Basophil% 0.3 % (0-1); Eosinophil# 0.03 X10^3/uL; Eosinophils% 0.2 % (0-5); Hematocrit 29.8 % (40-54); Hemoglobin 9.7 g/dL (13.0-16.5); Lymphocyte # 0.64 X10^3/ul (0.83-4.51); Mean Corp Hgb Conc 32.6 g/dL (32-36); Mean Corpuscular Hgb 30.2 pg (27.0-32.0); Mean Corpuscular Volume 92.8 fL (80-94); Mean Platelet Vol. 10.2 fl (6.2-12.0); Monocyte# 0.97 X10^3/uL; Monocyte% 7.6 % (0-10); NRBC Flagged by Analyzer 0 % (0-5); Neutrophil # 10.78 X10^3/uL (2.7-7.7); Neutrophil % 84.9 % (47-70); Platelet Count 217 K/mm3 (150-450); RBC Distribution Width CV 14.2 % (11.6-14.6); RBC Distribution Width SD 48.7 fl (35.1-43.9); Red Blood Count 3.21 M/mm3 (4.6-6.2); White Blood Count 12.7 K/mm3 (4.4-11.0)
[2023-12-10 05:18] LABS: Anion Gap 5 (5-15); BUN 29 mg/dL (7-18); BUN/Creat Ratio 34.3 RATIO (10-20); Calcium,Total 7.7 mg/dL (8.5-10.1); Chloride 107 mmol/L (98-107); Creatinine, Serum 0.85 mg/dL (0.70-1.30); EST Glomerular Filtration Rate 94 mL/min (>60); Est Glom Filt Rate - Afr Amer 113 mL/min (>60); Glucose 217 mg/dL (74-106); Potassium 3.4 mmol/L (3.5-5.1); Sodium Level 136 mmol/L (136-145)
[2023-12-10 05:21] LABS: Vancomycin, Trough Level 23.9 ug/mL (5.0-15.0)
--- NOTE | 2023-12-10 05:25 | PCM.RX.CS ---
Consult Antibiotic Management Pharmacy has been consulted to manage selected antibiotic: Vancomycin Type of Intervention Type of Consult: Follow-up Labs Labs: Sodium 136 mmol/L (136-145) 12/10/23 04:35 Potassium 3.4 mmol/L (3.5-5.1) L 12/10/23 04:35 Chloride 107 mmol/L (98-107) 12/10/23 04:35 Carbon Dioxide 24.0 mmol/L (21.0-32.0) 12/10/23 04:35 Anion Gap 5 (5-15) 12/10/23 04:35 BUN 29 mg/dL (7-18) H 12/10/23 04:35 Creatinine 0.85 mg/dL (0.70-1.30) 12/10/23 04:35 Est GFR (MDRD) Af Amer 113 mL/min (>60) 12/10/23 04:35 Est GFR (MDRD) Non-Af 94 mL/min (>60) 12/10/23 04:35 BUN/Creatinine Ratio 34.3 RATIO (10-20) H 12/10/23 04:35 Glucose 217 mg/dL (74-106) H 12/10/23 04:35 Vancomycin Trough 23.9 ug/mL (5.0-15.0) H 12/10/23 04:35 Microbiology Microbiology: Microbiology 12/08/23 Unknown Tissue - Aerobic & Anaerobic Swabs Gram Stain - Final 12/08/23 Unknown Tissue - Other Gram Stain - Final Dosing Weight Weight used for dosin.1 kg Estimated Creatinine Clearance Estimated Creatinine Clearance: 87 Goal Trough Goal Trough: 15-20 mcg/mL Pharmacy Plan for Drug Dosing Pharmacy Plan for Drug Dosing: Vancomycin trough level of 23.9, drawn 11.5hrs post-dose, was above the target range of 15-20. Current dosing will be held, and a random vanco level will be drawn in 12 hours to determine further orders. Pharmacy Service will continue to monitor and adjust dosing as required. Follow-Up Labs Follow-Up Labs: Trough: Vancomycin (random) Date/Time Labs Ordered Labs to be done on [date and time ordered]: 12/10/23 @[id number]
[2023-12-10] MEDS: Clindamycin 900 MG/50 ML BAG 75 MG IV ×3 (05:28→20:36)
[2023-12-10] MEDS: Meropenem 1 GM in 0.9% Normal Saline (100mL MB+) 100 ML IV ×3 (05:53→20:37)
[2023-12-10 06:51] LABS: Bedside Glucose 173 mg/dL (74-106)
--- NOTE | 2023-12-10 07:17 | WOUNDNOTE ---
Pt is going to surgery for further debridement this am. will leave dressing in place.
[2023-12-10] MEDS: Lactated Ringers 1,000 ML 15 ML IV (09:14)
--- NOTE | 2023-12-10 11:54 | CASEMGMT ---
Addendum entered by Yareli Lucas 12/10/23 12:35: Received notification from [facility] that the earliest pt could admit would be Thursday. Updated and RN CM to update him as well tomorrow. Original Note: Spoke with surgeon, pt may be medically ready for dc tomorrow pending ID. Message in [facility] sent to [facility] to verify if pt accepted. Updates to be sent as well.
--- NOTE | 2023-12-10 12:48 | PCM.OPRPT ---
Report of Operation Date of Procedure: 12/10/23 Pre-Operative Diagnosis: Necrotizing fasciitis of the right groin and perineum Post-Operative Diagnosis: Necrotizing fasciitis of the right groin and perineum Surgery/Procedure Performed:: Repeat debridement of right groin and perineum Type of Anesthesia: General/Regional Specimen's removed: Segments of necrotic tissue Estimated Blood Loss (mL): 20 Description of Procedure: Patient was brought back to the operating room and general anesthesia was used. Patient was placed in lithotomy position. The old packing was removed and then the right groin and perineal area was prepped and draped with Betadine. Necrotic tissue was removed from all of the areas using electrocautery dissection and sharp dissection. The spermatic cord appeared in good position. There was healthy tissue all the way down to the testicle. The testicle appeared healthy. Some of the lateral scrotum was resected where the skin was necrotic. The area was then pulse lavaged with copious irrigation. Irrisept was also then instilled over the area. The area was inspected and hemostasis was obtained using electrocautery. There was no further necrotic tissue or purulence that we could identify. The area was repacked with Betadine soaked Curlex and the patient was awoken and taken to PACU in stable condition. Admit VTE Documentation VTE Mechan Device Prophylaxis: SCD's
[2023-12-10] MEDS: Acetaminophen 325 MG Tablet 650 MG PO ×2 (12:50→20:36)
[2023-12-10 13:00] LABS: Bedside Glucose 152 mg/dL (74-106)
--- NOTE | 2023-12-10 13:00 | PN.HOSP_ITS ---
Reason for Visit Reason for Visit: Diagnoses Type 2 diabetes mellitus without complications (12/08/23) Morbid (severe) obesity due to excess calories (12/08/23) Mixed hyperlipidemia (12/08/23) Hypokalemia (12/08/23) Legal blindness, as defined in [place] (12/08/23) Essential (primary) hypertension (12/08/23) Supraventricular tachycardia, unspecified (12/08/23) Unilateral primary osteoarthritis, left hip (12/08/23) Pain in left hip (12/08/23) Necrotizing fasciitis (12/08/23) Benign prostatic hyperplasia with lower urinary tract symptoms (12/08/23) Repeated falls (12/08/23) Frequency of micturition (12/08/23) Weakness (12/08/23) Other malaise (12/08/23) Objective Data Objective Data Vital Signs: Vital Signs Temp Pulse Resp BP Pulse Ox O2 Del Method O2 Flow Rate 98.6 F 90 18 166/77 H 92 Room Air 2 12/10/23 11:52 12/10/23 11:52 12/10/23 11:52 12/10/23 11:52 12/10/23 11:52 12/10/23 11:52 12/08/23 20:10 FiO2 2 12/08/23 20:05 Oxygen Flow Rate (L/min) 2 Oxygen Delivery Method Room Air Weight: 233 lb 14.567 oz Body Mass Index (BMI) 36.6 Intake & Output: Intake and Output for Last 24 Hours 12/08/23 12/09/23 12/10/23 23:59 23:59 23:59 Intake Total 2790 / 3190 2917.50 / 2917.50 568.75 / 568.75 Output Total 325 / 825 2200 / 2200 1100 / 1100 Balance 2465 / 2365 717.50 / 717.50 -531.25 / -531.25 Lab / Micro Data 12/10/23 04:35 12/10/23 04:35 Labs: Laboratory Results - last 24 hr 12/09/23 16:07: POC Glucose 347 H 12/09/23 22:17: POC Glucose 254 H 12/10/23 04:35: WBC 12.7 H, RBC 3.21 L, Hgb 9.7 L, Hct 29.8 L, MCV 92.8, MCH 30.2, MCHC 32.6, RDW Std Deviation 48.7 H, RDW Coeff of [place] 14.2, Plt Count 217, MPV 10.2, Immature Gran % (Auto) 2.000 H, Neut % (Auto) 84.9 H, Lymph % (Auto) 5.0 L, [place] % (Auto) 7.6, Eos % (Auto) 0.2, Baso % (Auto) 0.3, Absolute Neuts (auto) 10.8 H, Absolute Lymphs (auto) 0.64 L, Nucleated RBC % 0, Sodium 136, Potassium 3.4 L, Chloride 107, Carbon Dioxide 24.0, Anion Gap 5, BUN 29 H, Creatinine 0.85, Estim Creat Clear Calc 87.20, Est GFR (MDRD) Af Amer 113, Est GFR (MDRD) Non-Af 94, BUN/Creatinine Ratio 34.3 H, Glucose 217 H, Calcium 7.7 L, Vancomycin Trough 23.9 H 12/10/23 05:32: POC Glucose 173 H Micro: Microbiology 12/08/23 Unknown Tissue - Aerobic & Anaerobic Swabs Gram Stain - Final 12/08/23 Unknown Tissue - Aerobic & Anaerobic Swabs Wound Culture - Preliminary Mixed Gram Positive Organisms 12/08/23 Unknown Tissue - Other Gram Stain - Final 12/08/23 Unknown Tissue - Other Wound Culture - Preliminary Mixed Gram Positive Organisms Physical Exam Narrative Seen and examined. Patient is legally blind. Patient was taken for staged debridement of necrotizing fasciitis today. No fever. Physical exam General: Alert, Oriented x3, Cooperative HEENT: Legally blind. Only light perception. Atraumatic, PERRLA, EOMI, No rmocephalic Oral: Oral mucosa dry. No Gingival or Mucosal Lesions/ Ulcerations Neck: Supple, No JVD, Negative Carotid Bruits Chest wall/Lungs: Air entry diminished in bilateral lung bases. No crepi tation/rhonchi Cardiovascular: Regular rate, Regular Rhythm, Normal S1, Normal S2, No M/G/R Abdomen: Bowel Sounds Present, Soft, Non Tender, Non-Distended : Dressing is done. Operative debridement of perineal region. Mcmahon catheter. Penis buried. No dysuria. No renal angle tenderness. No suprapubic tenderness. Extremities: Mild edema, Capillary Refill Less than 3 Seconds Skin: Mild abrasion/bruise on the right side of the forehead. Musculoskeletal: No Tenderness to Palpation of Joints or Extremities. Mild to moderate tenderness over left hip, severe osteoarthritis. ROM severely restri cted at left hip and mild restriction at right hip.. Neurological: Cranial nerves II-XII grossly intact, DTR 2+/4. No acute focal neurological deficit. Psych/Mental Status: Flat affect. Assessment & Plan Assessment/Plan (1) Necrotizing fasciitis: (2) Acute pain of left hip: PLAN: Plan This 77-year-old gentleman being admitted after fall with severe pain in the left hip with severe ROM restriction. 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 Necrotizing fasciitis of right groin and perineal region: Patient was taken to the OR and incision and drainage of right groin and perineal with packing. Prior to that, CT lower extremity was done for severe arthritis and was found to have gas within the right groin region extending to the right. No soft tissue therefore CT abdomen was done which showed phlegmonous changes in soft tissue in perineal region posterior to scrotal sac and right inguinal canal. No sepsis. Patient has leukocytosis. Patient was on vancomycin and cefepime. Cefepime changed to IV meropenem for broad coverage of gram-negative and anaerobes. 12/09: Patient was evaluated by ID. On IV meropenem, vancomycin and clindamycin. Patient was taken for staged debridement today. Patient had severe pain after surgery but it is controlled. Does not want morphine or Dilaudid. Tylenol 1 g every 8 hourly. Anticipate plan for LTAC. Hypokalemia: IV potassium on replacement. Serum magnesium and phosphorus level in normal range. 12/09: Mild hypokalemia, potassium getting replaced 2. Left hip pain after mechanical fall due to severe primary osteoarthritis of left: First x-ray and then CT of lower extremity shows severe osteoarthritis with mild joint space narrowing. There was suspicion of avascular necrosis but CT did not show dislocation or fracture. Orthopedic surgeon is further consulted for clinical evaluation to rule out avascular necrosis 12/09: Patient was evaluated by orthopedic surgeon Dr. Ro and had discussion. For now conservative management with pain control and physical therapy. Follow-up in the office after necrotizing fasciitis taken care of for further discussion regarding surgical management. 3. Essential HTN/HLD ? Blood pressures are stable ? continue his home blood pressure medications and make adjustments as necessary ? Continue with his lovastatin 4. DM2 ? Hold oral hypoglycemic agents. Accu-Chek before meals and at bedtime insulin coverage Humalog sliding scale. ? Continue monitor make adjustments as necessary 5. BPH ? Continue with Flomax DVT: SCDs Charges/Coding Visit Charges Inpatient E&M: 42018 Subs Hosp L2
[2023-12-10 13:08] LABS: Hemoglobin A1c 6.9 % (3.8-5.6)
[2023-12-10] MEDS: Potassium Chloride Oral Tablet 20 MEQ 40 MEQ PO (14:01)
[2023-12-10] MEDS: Insulin Lispro 100 UNIT/ML INSULN.PEN SC ×3 (14:06→20:48)
[2023-12-10] MEDS: Ondansetron 4 MG/2 ML Vial IV ×2 (14:08→23:46)
[2023-12-10] MEDS: Heparin Injection (Vial) 5,000 UNIT/ML VIAL 5000 UNIT SC ×2 (14:08→20:37)
[2023-12-10] MEDS: 0.9% Saline Lock 10 ML Syringe IV (14:08)
--- NOTE | 2023-12-10 14:17 | PN.HOSP_ITS ---
Reason for Visit Reason for Visit: Diagnoses Type 2 diabetes mellitus without complications (12/08/23) Morbid (severe) obesity due to excess calories (12/08/23) Mixed hyperlipidemia (12/08/23) Hypokalemia (12/08/23) Legal blindness, as defined in [place] (12/08/23) Essential (primary) hypertension (12/08/23) Supraventricular tachycardia, unspecified (12/08/23) Unilateral primary osteoarthritis, left hip (12/08/23) Pain in left hip (12/08/23) Necrotizing fasciitis (12/08/23) Benign prostatic hyperplasia with lower urinary tract symptoms (12/08/23) Repeated falls (12/08/23) Frequency of micturition (12/08/23) Weakness (12/08/23) Other malaise (12/08/23) Objective Data Objective Data Vital Signs: Vital Signs Temp Pulse Resp BP Pulse Ox O2 Del Method O2 Flow Rate 97.8 F 103 H 18 149/49 H 94 Room Air 2 12/10/23 13:54 12/10/23 13:54 12/10/23 13:54 12/10/23 13:54 12/10/23 13:54 12/10/23 13:54 12/08/23 20:10 FiO2 2 12/08/23 20:05 Oxygen Flow Rate (L/min) 2 Oxygen Delivery Method Room Air Weight: 233 lb 14.567 oz Body Mass Index (BMI) 36.6 Intake & Output: Intake and Output for Last 24 Hours 12/08/23 12/09/23 12/10/23 23:59 23:59 23:59 Intake Total 2790 / 3190 2917.50 / 2917.50 568.75 / 568.75 Output Total 325 / 825 2200 / 2200 1300 / 1300 Balance 2465 / 2365 717.50 / 717.50 -731.25 / -731.25 Lab / Micro Data 12/10/23 04:35 12/10/23 04:35 Labs: Laboratory Results - last 24 hr 12/09/23 16:07: POC Glucose 347 H 12/09/23 22:17: POC Glucose 254 H 12/10/23 04:35: WBC 12.7 H, RBC 3.21 L, Hgb 9.7 L, Hct 29.8 L, MCV 92.8, MCH 30.2, MCHC 32.6, RDW Std Deviation 48.7 H, RDW Coeff of [place] 14.2, Plt Count 217, MPV 10.2, Immature Gran % (Auto) 2.000 H, Neut % (Auto) 84.9 H, Lymph % (Auto) 5.0 L, [place] % (Auto) 7.6, Eos % (Auto) 0.2, Baso % (Auto) 0.3, Absolute Neuts (auto) 10.8 H, Absolute Lymphs (auto) 0.64 L, Nucleated RBC % 0, Sodium 136, Potassium 3.4 L, Chloride 107, Carbon Dioxide 24.0, Anion Gap 5, BUN 29 H, Creatinine 0.85, Estim Creat Clear Calc 87.20, Est GFR (MDRD) Af Amer 113, Est GFR (MDRD) Non-Af 94, BUN/Creatinine Ratio 34.3 H, Glucose 217 H, Hemoglobin A1c 6.9 H, Calcium 7.7 L, Vancomycin Trough 23.9 H 12/10/23 05:32: POC Glucose 173 H 12/10/23 12:41: POC Glucose 152 H Micro: Microbiology 12/08/23 Unknown Tissue - Aerobic & Anaerobic Swabs Gram Stain - Final 12/08/23 Unknown Tissue - Aerobic & Anaerobic Swabs Wound Culture - Preliminary Mixed Gram Positive Organisms 12/08/23 Unknown Tissue - Other Gram Stain - Final 12/08/23 Unknown Tissue - Other Wound Culture - Preliminary Mixed Gram Positive Organisms Physical Exam Narrative Seen and examined. Patient is legally blind. Patient was taken for staged debridement of necrotizing fasciitis today. No fever. Physical exam General: Alert, Oriented x3, Cooperative HEENT: Legally blind. Only light perception. Atraumatic, PERRLA, EOMI, Normocephalic Oral: Oral mucosa dry. No Gingival or Mucosal Lesions/ Ulcerations Neck: Supple, No JVD, Negative Carotid Bruits Chest wall/Lungs: Air entry diminished in bilateral lung bases. No crepitation/rhonchi Cardiovascular: Regular rate, Regular Rhythm, Normal S1, Normal S2, No M/G/R Abdomen: Bowel Sounds Present, Soft, Non Tender, Non-Distended : Dressing is done. Operative debridement of perineal region. Mcmahon catheter. Penis buried. No dysuria. No renal angle tenderness. No suprapubic tenderness. Extremities: Mild edema, Capillary Refill Less than 3 Seconds Skin: Mild abrasion/bruise on the right side of the forehead. Musculoskeletal: No Tenderness to Palpation of Joints or Extremities. Mild to moderate tenderness over left hip, severe osteoarthritis. ROM severely restricted at left hip and mild restriction at right hip.. Neurological: Cranial nerves II-XII grossly intact, DTR 2+/4. No acute focal neurological deficit. Psych/Mental Status: Flat affect. Assessment & Plan Assessment/Plan (1) Necrotizing fasciitis: (2) Acute pain of left hip: PLAN: Plan This 77-year-old gentleman being admitted after fall with severe pain in the left hip with severe ROM restriction. 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 Necrotizing fasciitis of right groin and perineal region: Patient was taken to the OR and incision and drainage of right groin and perineal with packing. Prior to that, CT lower extremity was done for severe arthritis and was found to have gas within the right groin region extending to the right. No soft tissue therefore CT abdomen was done which showed phlegmonous changes in soft tissue in perineal region posterior to scrotal sac and right inguinal canal. No sepsis. Patient has leukocytosis. Patient was on vancomycin and cefepime. Cefepime changed to IV meropenem for broad coverage of gram-negative and anaerobes. 12/09: Patient was evaluated by ID. On IV meropenem, vancomycin and clindamycin. Patient was taken for staged debridement today. Patient had severe pain after surgery but it is controlled. Does not want morphine or Dilaudid. Tylenol 1 g every [address] Echevarria. Anticipate plan for LTAC. 2. Hypokalemia: IV potassium on replacement. Serum magnesium and phosphorus lev el in normal range. 12/09: Mild hypokalemia, potassium getting replaced 3. Left hip pain after mechanical fall due to severe primary osteoarthritis of left: First x-ray and then CT of lower extremity shows severe osteoarthritis with mild joint space narrowing. There was suspicion of avascular necrosis but CT did not show dislocation or fracture. Orthopedic surgeon is further consulted for clinical evaluation to rule out avascular necrosis 12/09: Patient was evaluated by orthopedic surgeon Dr. Ro and had discussion. For now conservative management with pain control and physical therapy. Follow-up in the office after necrotizing fasciitis taken care of for further discussion regarding surgical management. 4. Essential HTN/HLD ? Blood pressures are stable ? continue his home blood pressure medications and make adjustments as necessary ? Continue with his lovastatin 5. DM2 ? Hold oral hypoglycemic agents. Accu-Chek before meals and at bedtime insulin coverage Humalog sliding scale. ? Continue monitor make adjustments as necessary 6. BPH Continue with Flomax DVT: SCDs Charges/Coding Visit Charges Inpatient E&M: 79972 Subs Hosp L2
[2023-12-10] MEDS: 0.9% Normal Saline (250mL Bag) 250 ML 15 ML IV (15:08)
[2023-12-10 16:28] LABS: Bedside Glucose 240 mg/dL (74-106)
[2023-12-10 17:25] LABS: Vancomycin, Random Level 17.3 ug/mL (0.0-15.0)
--- NOTE | 2023-12-10 17:33 | PCM.RX.CS ---
Consult Antibiotic Management Pharmacy has been consulted to manage selected antibiotic: Vancomycin Type of Intervention Type of Consult: Follow-up Suspected Infection Suspected Infection: Skin/Soft tissue Prior Doses of Antibiotics Prior Doses of Antibiotics Received/Current Regimen: Vancomycin 1750 mg IV last given 12/08 @ 1708 Labs Labs: Sodium 136 mmol/L (136-145) 12/10/23 04:35 Potassium 3.4 mmol/L (3.5-5.1) L 12/10/23 04:35 Chloride 107 mmol/L (98-107) 12/10/23 04:35 Carbon Dioxide 24.0 mmol/L (21.0-32.0) 12/10/23 04:35 Anion Gap 5 (5-15) 12/10/23 04:35 BUN 29 mg/dL (7-18) H 12/10/23 04:35 Creatinine 0.85 mg/dL (0.70-1.30) 12/10/23 04:35 Est GFR (MDRD) Af Amer 113 mL/min (>60) 12/10/23 04:35 Est GFR (MDRD) Non-Af 94 mL/min (>60) 12/10/23 04:35 BUN/Creatinine Ratio 34.3 RATIO (10-20) H 12/10/23 04:35 Glucose 217 mg/dL (74-106) H 12/10/23 04:35 Vancomycin Trough 23.9 ug/mL (5.0-15.0) H 12/10/23 04:35 Random Vancomycin 17.3 ug/mL (0.0-15.0) H 12/10/23 16:45 Microbiology Microbiology: Microbiology 12/08/23 Unknown Tissue - Aerobic & Anaerobic Swabs Gram Stain - Final 12/08/23 Unknown Tissue - Aerobic & Anaerobic Swabs Wound Culture - Preliminary Mixed Gram Positive Organisms 12/08/23 Unknown Tissue - Other Gram Stain - Final 12/08/23 Unknown Tissue - Other Wound Culture - Preliminary Mixed Gram Positive Organisms Dosing Weight Weight used for dosin kg Estimated Creatinine Clearance Estimated Creatinine Clearance: 87 Goal Trough Goal Trough: 15-20 mcg/mL Pharmacy Plan for Drug Dosing Pharmacy Plan for Drug Dosing: Vancomycin random level = 17.3, will resume dosing with 1250 mg Q12H Pharmacy Service will continue to monitor and adjust dosing as required. Follow-Up Labs Follow-Up Labs: Trough: Vancomycin Date/Time Labs Ordered Labs to be done on [date and time ordered]: 12/12/23 @ 0332
[2023-12-10] MEDS: Vancomycin HCl 1,250 MG in 0.9% Normal Saline (250mL Bag) 250 ML 167 MG IV (18:09)
[2023-12-10] MEDS: Tamsulosin HCl 0.4 MG Capsule 0.8 MG PO (20:36)
[2023-12-10] MEDS: Atorvastatin Calcium 10 MG Tablet PO (20:37)
[2023-12-10] MEDS: DAKIN'S SOL HALF STRENGTH (=0.25%) 1 APPLIC TOPICAL (20:37)
[2023-12-10 21:07] LABS: Bedside Glucose 338 mg/dL (74-106)
[2023-12-11] VITALS (8 sets, daily range): BP systolic 126–162; BP diastolic 50–65; PULSE 94–120; RESP 16–20; TEMP 36.9–37.7; O2SAT 92–98
[2023-12-11] MEDS: Clindamycin 900 MG/50 ML BAG 75 MG IV ×3 (05:28→22:14)
[2023-12-11] MEDS: Heparin Injection (Vial) 5,000 UNIT/ML VIAL 5000 UNIT SC ×3 (05:56→22:17)
[2023-12-11] MEDS: Meropenem 1 GM in 0.9% Normal Saline (100mL MB+) 100 ML IV ×2 (05:57→14:22)
[2023-12-11] MEDS: Insulin Lispro 100 UNIT/ML INSULN.PEN SC ×4 (05:58→22:31)
[2023-12-11] MEDS: Vancomycin HCl 1,250 MG in 0.9% Normal Saline (250mL Bag) 250 ML 167 MG IV ×2 (06:01→18:20)
[2023-12-11 06:21] LABS: Bedside Glucose 213 mg/dL (74-106)
--- NOTE | 2023-12-11 07:18 | PN.SURG_ITS ---
Subjective Subjective No issues overnight Objective Data Objective Data Vital Signs: Vital Signs Temp Pulse Resp BP Pulse Ox O2 Del Method O2 Flow Rate 98.5 F 100 18 147/57 H 95 Room Air 2 12/11/23 03:49 12/11/23 03:49 12/11/23 03:49 12/11/23 03:49 12/11/23 07:04 12/11/23 07:04 12/08/23 20:10 FiO2 2 12/08/23 20:05 Oxygen Flow Rate (L/min) 2 Oxygen Delivery Method Room Air Weight: 233 lb 14.567 oz Body Mass Index (BMI) 36.6 Intake & Output: Intake and Output for Last 24 Hours 12/09/23 12/10/23 12/11/23 23:59 23:59 23:59 Intake Total 2917.50 / 2917.50 1063.75 / 1063.75 170 / 170 Output Total 2200 / 2200 1650 / 2450 1450 / 1450 Balance 717.50 / 717.50 -586.25 / -1386.25 -1280 / -1280 Lab / Micro Data 12/10/23 04:35 12/10/23 04:35 Labs: Laboratory Results - last 24 hr 12/10/23 04:35: Hemoglobin A1c 6.9 H 12/10/23 12:41: POC Glucose 152 H 12/10/23 15:57: POC Glucose 240 H 12/10/23 16:45: Random Vancomycin 17.3 H 12/10/23 20:48: POC Glucose 338 H 12/11/23 05:55: POC Glucose 213 H Micro: Microbiology 12/08/23 Unknown Tissue - Aerobic & Anaerobic Swabs Gram Stain - Final 12/08/23 Unknown Tissue - Aerobic & Anaerobic Swabs Wound Culture - Preliminary Mixed Gram Positive Organisms 12/08/23 Unknown Tissue - Other Gram Stain - Final 12/08/23 Unknown Tissue - Other Wound Culture - Preliminary Mixed Gram Positive Organisms Physical Exam Const oriented x3 and no apparent distress Resp normal respiratory effort GI soft to palpation and non-tender Assessment & Plan Assessment/Plan (1) Necrotizing fasciitis: PLAN: The patient was taken back yesterday for repeat debridement and the rest of the necrotic tissue was removed. The area was lavaged and irrigated and packed. Packing will continue today with Dakin solution. The patient should be ready for transfer to [facility] when bed is available. Antibiotics per ID. Regular diet. Tarun Echevarria MD Pager: [facility] [address] [place] [address], [address] [place] [address] Office:
[2023-12-11 07:56] LABS: Hematocrit 28.7 % (40-54); Hemoglobin 9.5 g/dL (13.0-16.5); Mean Corp Hgb Conc 33.1 g/dL (32-36); Mean Corpuscular Hgb 30.5 pg (27.0-32.0); Mean Corpuscular Volume 92.3 fL (80-94); Mean Platelet Vol. 10.7 fl (6.2-12.0); POSITIVE COUNT YES; POSITIVE MORPHOLOGY YES; Platelet Count 228 K/mm3 (150-450); RBC Distribution Width CV 14.4 % (11.6-14.6); RBC Distribution Width SD 48.7 fl (35.1-43.9); Red Blood Count 3.11 M/mm3 (4.6-6.2); White Blood Count 13.1 K/mm3 (4.4-11.0)
[2023-12-11 08:29] LABS: Anion Gap 6 (5-15); BUN 26 mg/dL (7-18); Calcium,Total 7.3 mg/dL (8.5-10.1); Chloride 105 mmol/L (98-107); EST Glomerular Filtration Rate 116 mL/min (>60); Est Glom Filt Rate - Afr Amer 141 mL/min (>60); Estimated Creatinine Clearance 92.65 ml/min; Glucose 222 mg/dL (74-106); Potassium 3.6 mmol/L (3.5-5.1); Sodium Level 133 mmol/L (136-145)
[2023-12-11 08:38] LABS: Differential Indicated MANUAL DIFF
[2023-12-11] MEDS: DAKIN'S SOL HALF STRENGTH (=0.25%) 1 APPLIC TOPICAL ×2 (08:47→22:32)
--- NOTE | 2023-12-11 09:00 | WOUNDNOTE ---
wound photo: right groin/perineum
[2023-12-11] MEDS: Potassium Chloride Oral Tablet 20 MEQ 40 MEQ PO (09:16)
[2023-12-11 09:26] LABS: Lymphocyte 3 % (19-41); Monocyte 4 % (0-10); Myelocyte 1 % (0-0); Neutrophil-Band 1 % (0-5); Neutrophil-Segmented 91 % (47-70); Platelet Estimate ADEQUATE (ADEQ); Red Cell Morphology NORM C+C NORMAL (NORM C&C); Total Cells Counted 100 (MANUAL DIFF)
[2023-12-11 09:28] LABS: Absolute Lymphocyte Count 0.39 X10^3/uL (0.83-4.51); Absolute Neutrophil Count 12.1 X10^3/uL (2.0-7.7)
[2023-12-11 11:26] LABS: Bedside Glucose 204 mg/dL (74-106)
[2023-12-11] MEDS: Lisinopril 10 MG Tablet PO (11:38)
--- NOTE | 2023-12-11 13:35 | PCM.PN.HOSP ---
Reason for Visit Reason for Visit: Diagnoses Type 2 diabetes mellitus without complications (12/08/23) Morbid (severe) obesity due to excess calories (12/08/23) Mixed hyperlipidemia (12/08/23) Hypokalemia (12/08/23) Legal blindness, as defined in [place] (12/08/23) Essential (primary) hypertension (12/08/23) Supraventricular tachycardia, unspecified (12/08/23) Unilateral primary osteoarthritis, left hip (12/08/23) Pain in left hip (12/08/23) Necrotizing fasciitis (12/08/23) Benign prostatic hyperplasia with lower urinary tract symptoms (12/08/23) Repeated falls (12/08/23) Frequency of micturition (12/08/23) Weakness (12/08/23) Other malaise (12/08/23) Objective Data Objective Data Vital Signs: Vital Signs Temp Pulse Resp BP Pulse Ox O2 Del Method O2 Flow Rate 98.9 F 120 H 20 H 149/52 H 93 Room Air 2 12/11/23 12:08 12/11/23 12:08 12/11/23 12:08 12/11/23 12:08 12/11/23 12:08 12/11/23 12:08 12/08/23 20:10 FiO2 2 12/08/23 20:05 Oxygen Flow Rate (L/min) 2 Oxygen Delivery Method Room Air Weight: 233 lb 14.567 oz Body Mass Index (BMI) 36.6 Intake & Output: Intake and Output for Last 24 Hours 12/09/23 12/10/23 12/11/23 23:59 23:59 23:59 Intake Total 2917.50 / 2917.50 1063.75 / 1063.75 445 / 445 Output Total 2200 / 2200 1650 / 2450 1450 / 1450 Balance 717.50 / 717.50 -586.25 / -1386.25 -1005 / -1005 Lab / Micro Data 12/11/23 06:20 12/11/23 06:20 Labs: Laboratory Results - last 24 hr 12/10/23 15:57: POC Glucose 240 H 12/10/23 16:45: Random Vancomycin 17.3 H 12/10/23 20:48: POC Glucose 338 H 12/11/23 05:55: POC Glucose 213 H 12/11/23 06:20: WBC 13.1 H, RBC 3.11 L, Hgb 9.5 L, Hct 28.7 L, MCV 92.3, MCH 30.5, MCHC 33.1, RDW Std Deviation 48.7 H, RDW Coeff of [place] 14.4, Plt Count 228, MPV 10.7, Neut % (Auto) Not Reportable, Absolute Neuts (auto) 12.1 H, Absolute Lymphs (auto) 0.39 L, Total Counted 100, Neutrophils % (Manual) 91 H, Band Neutrophils % 1, Lymphocytes % (Manual) 3 L, Monocytes % (Manual) 4, Myelocytes % 1 H, Diff Path Review December, Platelet Estimate ADEQUATE, RBC Morphology NORM C+C, Sodium 133 L, Potassium 3.6, Chloride 105, Carbon Dioxide 22.0, Anion Gap 6, BUN 26 H, Creatinine 0.70, Estim Creat Clear Calc 92.65, Est GFR (MDRD) Af Amer 141, Est GFR (MDRD) Non-Af 116, BUN/Creatinine Ratio 37.0 H, Glucose 222 H, Calcium 7.3 L 12/11/23 11:06: POC Glucose 204 H Micro: Microbiology 12/08/23 Unknown Tissue - Aerobic & Anaerobic Swabs Gram Stain - Final 12/08/23 Unknown Tissue - Aerobic & Anaerobic Swabs Wound Culture - Preliminary Coag Negative Staph Coag Negative Staph#2 Gram positive organism 12/08/23 Unknown Tissue - Aerobic & Anaerobic Swabs Anaerobic Culture - Preliminary Checking for anaerobes, further studies to follow. 12/08/23 Unknown Tissue - Other Gram Stain - Final 12/08/23 Unknown Tissue - Other Wound Culture - Preliminary Coag Negative Staph Coag Negative Staph#2 Gram positive edilson Coag Negative Staph#3 12/08/23 Unknown Tissue - Other Anaerobic Culture - Preliminary Checking for anaerobes, further studies to follow. Physical Exam Narrative Seen and examined. Patient is legally blind. Patient was taken for staged debridement of necrotizing fasciitis on to continue to give days on 12/08 and 12/09. Patient having , loose bowel movement 2 times. Physical exam General: Alert, Oriented x3, Cooperative HEENT: Legally blind. Only light perception. Atraumatic, PERRLA, EOMI, Normocephalic Oral: Oral mucosa dry. No Gingival or Mucosal Lesions/ Ulcerations Neck: Supple, No JVD, Negative Carotid Bruits Chest wall/Lungs: Air entry diminished in bilateral lung bases. No crepitation/rhonchi Cardiovascular: Regular rate, Regular Rhythm, Normal S1, Normal S2, No M/G/R Abdomen: Bowel Sounds Present, Soft, Non Tender, Non-Distended. No palpable mass : Dressing is done. Operative debridement of perineal region. Mcmahon catheter. Penis buried. No dysuria. No renal angle tenderness. No suprapubic tenderness. Extremities: Mild edema, Capillary Refill Less than 3 Seconds Skin: Mild abrasion/bruise on the right side of the forehead. Musculoskeletal: No Tenderness to Palpation of Joints or Extremities. Mild to moderate tenderness over left hip, severe osteoarthritis. ROM severely restricted at left hip and mild restriction at right hip.. Neurological: Cranial nerves II-XII grossly intact, DTR 2+/4. No acute focal neurological deficit. Psych/Mental Status: Flat affect. Assessment & Plan Assessment/Plan (1) Necrotizing fasciitis: (2) Acute pain of left hip: PLAN: Plan This 77-year-old gentleman being admitted after fall with severe pain in the left hip with severe ROM restriction. 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 Necrotizing fasciitis of right groin and perineal region: Patient was taken to the OR and incision and drainage of right groin and perineal with packing. Prior to that, CT lower extremity was done for severe arthritis and was found to have gas within the right groin region extending to the right. No soft tissue therefore CT abdomen was done which showed phlegmonous changes in soft tissue in perineal region posterior to scrotal sac and right inguinal canal. No sepsis. Patient has leukocytosis. Patient was on vancomycin and cefepime. Cefepime changed to IV meropenem for broad coverage of gram-negative and anaerobes. 12/09: Patient was evaluated by ID. On IV meropenem, vancomycin and clindamycin. Patient was taken for staged debridement today. Patient had severe pain after surgery but it is controlled. Does not want morphine or Dilaudid. Tylenol 1 g every [address] Echevarria. Anticipate plan for LTAC. 12/10: Dressing was changed. Recommended daily dressing with Dakin's. Prelim culture shows [employer], gram-positive organism. Discussed with the protective services case worker and plan for LTAC. 2. Hypokalemia: IV potassium on replacement. Serum magnesium and phosphorus level in normal range. 12/09: Mild hypokalemia, potassium getting replaced 12/10: Mild hypokalemia, potassium replaced. 3. Left hip pain after mechanical fall due to severe primary osteoarthritis of left: First x-ray and then CT of lower extremity shows severe osteoarthritis with mild joint space narrowing. There was suspicion of avascular necrosis but CT did not show dislocation or fracture. Orthopedic surgeon is further consulted for clinical evaluation to rule out avascular necrosis 12/09: Patient was evaluated by orthopedic surgeon Dr. Ro and had discussion. For now conservative management with pain control and physical therapy. Follow-up in the office after necrotizing fasciitis taken care of for further discussion regarding surgical management. 4. Essential HTN/HLD ? Blood pressures are stable ? continue his home blood pressure medications and make adjustments as necessary ? Continue with his lovastatin 5. DM2 ? Hold oral hypoglycemic agents. Accu-Chek before meals and at bedtime insulin coverage Humalog sliding scale. ? Continue monitor make adjustments as necessary 6. BPH Continue with Flomax DVT: SCDs Charges/Coding Visit Charges Inpatient E&M: 63885 Subs Hosp L2
--- NOTE | 2023-12-11 13:48 | PCM.PN.ID ---
Physical Exam Narrative N/v this afternoon, mild pain. No fever. Const alert and no apparent distress Resp normal air movement and clear to auscultation bilaterally Cardio regular rate and regular rhythm GI soft to palpation, non-tender and non-distended Skin Skin Narrative: groin bandaged ID ID: Route of nutrition/ use of supplements: [] Nutritional Intake: [] IV Site: [] Mcmahon Catheter: [] Assessment & Plan Assessment/Plan (1) Necrotizing fasciitis: PLAN: Taken to OR 12/08/[address] Echevarria. Surg cx with CoNS x3 and gram pos so far. On vanc/tyler/clinda. Taken back to OR 12/09 for further I&D. 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
[2023-12-11] MEDS: Ondansetron 4 MG/2 ML Vial IV (13:50)
[2023-12-11] MEDS: Lactobacillis Acidophilus 1 CAP PO ×2 (14:35→22:14)
--- NOTE | 2023-12-11 16:05 | NURSING ---
Fawn is A&Ox3. Patient was plesant with intermittent sarcasm. Patinent unable to be involved in plan of care. HARSH obtained vitals, emptied Mcmahon, assisted with wound dressing. Marimaredd had a rough day due to nausea and diarrhea. Walt PAL
--- NOTE | 2023-12-11 16:56 | CASEMGMT ---
RON BURCIAGA NOTE: Updated clinicals and bed code day # 2 sent to [facility] via [facility]. RON BURCIAGA spoke w/Elzbieta @ [facility]. She was made aware pt may be medically ready for discharge to LTACH this weekend. She states they may have a bed available this weekend and she will either call RON BURCIAGA, [facility], on Sat or [facility] unit if one does become available. CM to send bed code day # 3 (from 12/10) to [facility] via [facility] on Thursday. RON BURCIAGA to room. Introduced self and role. Pt resting in bed. He is aware of possible discharge to [facility] over the weekend. Questions answered. He voices understanding and denies having further questions. Plan: Discharge to [facility], pending bed availability and when pt medically ready. Green sheet placed on chart w/instructions. Pt would like his notified when he discharges. Elsa BARNEYN RON BURCIAGA
[2023-12-11 17:16] LABS: Bedside Glucose 294 mg/dL (74-106)
--- NOTE | 2023-12-11 17:54 | NURSING ---
This engineering instructor approves and cosigns all documentation from dean for student affairs Lizzie Rich
--- NOTE | 2023-12-11 17:56 | NURSING ---
This Rn nursing home admissions director approves and cosigns all nursing students documentation from Lizzie Rich
[2023-12-11] MEDS: Tamsulosin HCl 0.4 MG Capsule 0.8 MG PO (22:14)
[2023-12-11] MEDS: Atorvastatin Calcium 10 MG Tablet PO (22:14)
[2023-12-11 23:03] LABS: Bedside Glucose 270 mg/dL (74-106)
[2023-12-12] VITALS (15 sets, daily range): BP systolic 109–153; BP diastolic 52–80; PULSE 90–105; RESP 15–20; TEMP 36.6–37.2; O2SAT 88–100; BMI 36.6
[2023-12-12] MEDS: Meropenem 1 GM in 0.9% Normal Saline (100mL MB+) 100 ML IV ×4 (00:19→23:21)
[2023-12-12 05:51] LABS: Hematocrit 25.8 % (40-54); Hemoglobin 8.5 g/dL (13.0-16.5); Mean Corp Hgb Conc 32.9 g/dL (32-36); Mean Corpuscular Hgb 29.9 pg (27.0-32.0); Mean Corpuscular Volume 90.8 fL (80-94); Mean Platelet Vol. 10.1 fl (6.2-12.0); POSITIVE COUNT YES; POSITIVE MORPHOLOGY YES; Platelet Count 224 K/mm3 (150-450); RBC Distribution Width CV 14.5 % (11.6-14.6); RBC Distribution Width SD 47.8 fl (35.1-43.9); Red Blood Count 2.84 M/mm3 (4.6-6.2); White Blood Count 15.6 K/mm3 (4.4-11.0)
[2023-12-12 05:55] LABS: Differential Indicated MANUAL DIFF
[2023-12-12 06:13] LABS: Vancomycin, Trough Level 19.6 ug/mL (5.0-15.0)
--- NOTE | 2023-12-12 06:24 | PCM.RX.CS ---
Consult Antibiotic Management Pharmacy has been consulted to manage selected antibiotic: Vancomycin Type of Intervention Type of Consult: Follow-up Labs Labs: Vancomycin Trough 19.6 ug/mL (5.0-15.0) H 12/12/23 05:35 Random Vancomycin 17.3 ug/mL (0.0-15.0) H 12/10/23 16:45 Microbiology Microbiology: Microbiology 12/11/23 15:25 Stool Clostridioides difficile (PCR) - Final 12/08/23 Unknown Tissue - Aerobic & Anaerobic Swabs Gram Stain - Final 12/08/23 Unknown Tissue - Aerobic & Anaerobic Swabs Wound Culture - Preliminary Coag Negative Staph Coag Negative Staph#2 Gram positive organism 12/08/23 Unknown Tissue - Aerobic & Anaerobic Swabs Anaerobic Culture - Preliminary Checking for anaerobes, further studies to follow. 12/08/23 Unknown Tissue - Other Gram Stain - Final 12/08/23 Unknown Tissue - Other Wound Culture - Preliminary Coag Negative Staph Coag Negative Staph#2 Gram positive edilson Coag Negative Staph#3 12/08/23 Unknown Tissue - Other Anaerobic Culture - Preliminary Checking for anaerobes, further studies to follow. Dosing Weight Weight used for dosin kg Estimated Creatinine Clearance Estimated Creatinine Clearance: 87 Goal Trough Goal Trough: 15-20 mcg/mL Pharmacy Plan for Drug Dosing Pharmacy Plan for Drug Dosing: Vancomycin trough level of 19.6, drawn 11hrs post-dose, was within the target range of 15-20. Will continue dosing at 1250mg q12h, and will re-draw a trough level in two days. Pharmacy Service will continue to monitor and adjust dosing as required. Follow-Up Labs Follow-Up Labs: Trough: Vancomycin Date/Time Labs Ordered Labs to be done on [date and time ordered]: 12/14/23 @2737
[2023-12-12 06:27] LABS: Anion Gap 5 (5-15); BUN 24 mg/dL (7-18); BUN/Creat Ratio 32.9 RATIO (10-20); Chloride 104 mmol/L (98-107); Creatinine, Serum 0.73 mg/dL (0.70-1.30); EST Glomerular Filtration Rate 111 mL/min (>60); Est Glom Filt Rate - Afr Amer 135 mL/min (>60); Estimated Creatinine Clearance 92.65 ml/min; Glucose 200 mg/dL (74-106); Potassium 3.8 mmol/L (3.5-5.1); Sodium Level 132 mmol/L (136-145)
[2023-12-12 06:46] LABS: Neutrophil-Segmented 72 % (47-70); Total Cells Counted 100 (MANUAL DIFF)
[2023-12-12] MEDS: Clindamycin 900 MG/50 ML BAG 75 MG IV ×3 (06:46→23:21)
[2023-12-12 06:47] LABS: Differential Comment SCANNED; Lymphocyte 4 % (19-41); Monocyte 1 % (0-10); Myelocyte 2 % (0-0); Neutrophil-Band 20 % (0-5); Promyelocyte 1 % (0-0)
[2023-12-12 06:48] LABS: Absolute Neutrophil Count 14.3 X10^3/uL (2.0-7.7); Toxic Granulation 2+
[2023-12-12 06:49] LABS: Absolute Lymphocyte Count 0.62 X10^3/uL (0.83-4.51)
[2023-12-12] MEDS: Vancomycin HCl 1,250 MG in 0.9% Normal Saline (250mL Bag) 250 ML 167 MG IV ×2 (06:49→17:41)
[2023-12-12] MEDS: Lactobacillis Acidophilus 1 CAP PO ×3 (06:52→23:21)
[2023-12-12] MEDS: Heparin Injection (Vial) 5,000 UNIT/ML VIAL 5000 UNIT SC ×2 (07:02→23:22)
[2023-12-12] MEDS: Insulin Lispro 100 UNIT/ML INSULN.PEN SC ×2 (07:08→16:27)
--- NOTE | 2023-12-12 07:08 | CT_ITS ---
STUDY: CT ABDOMEN AND PELVIS WITH CONTRAST REASON FOR EXAM: Male, 77 years old. right groin necrotizing fasciitis RADIATION DOSAGE (If Supplied By Facility): CTDIvol = ( 19.44 ) mGy, DLP = ( 1946.64 ) mGycm TECHNIQUE: Transaxial images were obtained from the dome of the diaphragm to the symphysis pubis without oral contrast. IV 100mL Isovue-370 was administered. Sagittal and coronal images were reconstructed. Individualized dose optimization techniques were used for this CT. COMPARISON: 12/08/2023 FINDINGS: Small bilateral pleural effusions with bibasilar atelectasis. Small pericardial effusion. Normal liver. The gallbladder is contracted. Normal spleen. There is diffuse atrophy of the pancreas. Normal bilateral adrenal glands. Normal right kidney. Normal left kidney. Normal visualized stomach. Normal small intestine. Normal colon. There is non-visualization of the appendix. There is diffuse atherosclerotic calcification of the abdominal aorta, without a demonstrated aneurysm. Normal inferior vena cava. Normal retroperitoneum. Mcmahon catheter in the collapsed bladder. Again seen is fluid in the scrotum with gas within the base of the scrotum consistent with Hien''s gangrene. Postsurgical changes of the extending into the right inguinal area with a packed wound and decreased gas. No loculated fluid collection to suggest abscess. Edema of the subcutaneous fat of the abdominal wall consistent with anasarca. There are diffuse degenerative changes of the visualized lumbar spine. CT/Abdomen/Pelvis W IV Cont ONLY IMPRESSION: 1. 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 Some gas extends along the right spermatic cord towards the inferior anterior abdominal wall but has improved when compared with the prior study. Volume overload with small bilateral pleural effusions, small pericardial effusion, and anasarca. Mcmahon catheter. Electronically Signed: Shashi Estrada MD at 9:48 EDT ,
[2023-12-12 07:27] LABS: Bedside Glucose 208 mg/dL (74-106)
--- NOTE | 2023-12-12 08:01 | NURSING ---
@ approx 0740, pt to CT via bed after IVs' flushed and sl per Dr lal ok to pause antb running
[2023-12-12] MEDS: DAKIN'S SOL HALF STRENGTH (=0.25%) 1 APPLIC TOPICAL ×2 (08:28→23:35)
[2023-12-12] MEDS: Loperamide 2 MG Capsule PO (08:28)
--- NOTE | 2023-12-12 09:41 | PCM.PN.SRG ---
Subjective Subjective The patient was having copious diarrhea overnight. Unsure if this is due to the antibiotics. He denies abdominal pain. Objective Data Objective Data Vital Signs: Vital Signs Temp Pulse Resp BP Pulse Ox O2 Del Method O2 Flow Rate 98.9 F 90 18 144/55 H 97 Room Air 2 12/12/23 07:30 12/12/23 07:30 12/12/23 07:30 12/12/23 07:30 12/12/23 07:30 12/12/23 07:30 12/08/23 20:10 FiO2 2 12/08/23 20:05 Oxygen Flow Rate (L/min) 2 Oxygen Delivery Method Room Air Weight: 233 lb 14.567 oz Body Mass Index (BMI) 36.6 Intake & Output: Intake and Output for Last 24 Hours 12/10/23 12/11/23 12/12/23 23:59 23:59 23:59 Intake Total 1063.75 / 1063.75 2060 / 2160 220 / 220 Output Total 1650 / 2450 3550 / 4000 450 / 450 Balance -586.25 / -1386.25 -1490 / -1840 -230 / -230 Lab / Micro Data 12/12/23 05:35 12/12/23 05:35 Labs: Laboratory Results - last 24 hr 12/11/23 11:06: POC Glucose 204 H 12/11/23 16:54: POC Glucose 294 H 12/11/23 22:28: POC Glucose 270 H 12/12/23 05:35: WBC 15.6 H, RBC 2.84 L, Hgb 8.5 L, Hct 25.8 L, MCV 90.8, MCH 29.9, MCHC 32.9, RDW Std Deviation 47.8 H, RDW Coeff of Asia 14.5, Plt Count 224, MPV 10.1, Neut % (Auto) Not Reportable, Absolute Neuts (auto) 14.3 H, Absolute Lymphs (auto) 0.62 L, Total Counted 100, Neutrophils % (Manual) 72 H, Band Neutrophils % 20 H, Lymphocytes % (Manual) 4 L, Monocytes % (Manual) 1, Myelocytes % 2 H, Promyelocytes % 1 H, Differential Comment SCANNED, Diff Path Review May foll, Toxic Granulation 2+, Sodium 132 L, Potassium 3.8, Chloride 104, Carbon Dioxide 23.0, Anion Gap 5, BUN 24 H, Creatinine 0.73, Estim Creat Clear Calc 92.65, Est GFR (MDRD) Af Amer 135, Est GFR (MDRD) Non-Af 111, BUN/Creatinine Ratio 32.9 H, Glucose 200 H, Calcium 7.0 L, Vancomycin Trough 19.6 H 12/12/23 07:07: POC Glucose 208 H Micro: Microbiology 12/08/23 Unknown Tissue - Aerobic & Anaerobic Swabs Gram Stain - Final 12/08/23 Unknown Tissue - Aerobic & Anaerobic Swabs Wound Culture - Preliminary Staphylococcus lugdunensis Staphylococcus epidermidis Aerococcus urinae Nadia neuii 12/08/23 Unknown Tissue - Aerobic & Anaerobic Swabs Anaerobic Culture - Preliminary Checking for anaerobes, further studies to follow. 12/08/23 Unknown Tissue - Other Gram Stain - Final 12/08/23 Unknown Tissue - Other Wound Culture - Final Staphylococcus epidermidis#2 Staphylococcus lugdunensis Corynebacterium species Staphylococcus epidermidis 12/08/23 Unknown Tissue - Other Anaerobic Culture - Preliminary Checking for anaerobes, further studies to follow. 12/11/23 15:25 Stool Clostridioides difficile (PCR) - Final Physical Exam Const oriented x3 and no apparent distress Resp normal respiratory effort GI soft to palpation and non-tender Assessment & Plan Assessment/Plan (1) Necrotizing fasciitis: PLAN: The patient's white count elevated slightly today. After seeing that I ordered a repeat CT scan and there seems to be an undrained fluid collection superiorly in the area of the inguinal canal. I will bring him back to surgery this morning and I will drain that area superiorly and I will do a dressing change and wash everything out and I am going to also place a fecal management system for his diarrhea to manage his drainage so that does not saturate the dressing. I discussed this with him and I discussed the risks of bleeding and infection and the patient agrees to proceed. I am hoping once we drain this fluid collection his white count will come down he can go to LTAC early this week. Tarun Echevarria MD Pager: [facility] [address] [place] [address], [address] [place] [phone] Office:
--- NOTE | 2023-12-12 10:49 | CASEMGMT ---
Pt no longer DC ready today. Pt going to OR today. Rev codes sent to LTACH and LTACH notified pt is not DC ready today. Aurora Alfaro MSN, RN, CCM
--- NOTE | 2023-12-12 11:02 | PN.HOSP_ITS ---
Reason for Visit Reason for Visit: Diagnoses Type 2 diabetes mellitus without complications (12/08/23) Morbid (severe) obesity due to excess calories (12/08/23) Mixed hyperlipidemia (12/08/23) Hypokalemia (12/08/23) Legal blindness, as defined in [place] (12/08/23) Essential (primary) hypertension (12/08/23) Supraventricular tachycardia, unspecified (12/08/23) Unilateral primary osteoarthritis, left hip (12/08/23) Pain in left hip (12/08/23) Necrotizing fasciitis (12/08/23) Benign prostatic hyperplasia with lower urinary tract symptoms (12/08/23) Repeated falls (12/08/23) Frequency of micturition (12/08/23) Weakness (12/08/23) Other malaise (12/08/23) Objective Data Objective Data Vital Signs: Vital Signs Temp Pulse Resp BP Pulse Ox O2 Del Method O2 Flow Rate 98.8 F 90 18 153/75 H 95 Room Air 2 12/12/23 10:29 12/12/23 10:34 12/12/23 10:29 12/12/23 10:29 12/12/23 10:29 12/12/23 10:29 12/08/23 20:10 FiO2 2 12/08/23 20:05 Oxygen Flow Rate (L/min) 2 Oxygen Delivery Method Room Air Weight: 233 lb 14.567 oz Body Mass Index (BMI) 36.6 Intake & Output: Intake and Output for Last 24 Hours 12/10/23 12/11/23 12/12/23 23:59 23:59 23:59 Intake Total 1063.75 / 1063.75 2060 / 2160 270 / 270 Output Total 1650 / 2450 3550 / 4000 450 / 450 Balance -586.25 / -1386.25 -1490 / -1840 -180 / -180 Lab / Micro Data 12/12/23 05:35 12/12/23 05:35 Labs: Laboratory Results - last 24 hr 12/11/23 11:06: POC Glucose 204 H 12/11/23 16:54: POC Glucose 294 H 12/11/23 22:28: POC Glucose 270 H 12/12/23 05:35: WBC 15.6 H, RBC 2.84 L, Hgb 8.5 L, Hct 25.8 L, MCV 90.8, MCH 29.9, MCHC 32.9, RDW Std Deviation 47.8 H, RDW Coeff of [place] 14.5, Plt Count 224, MPV 10.1, Neut % (Auto) Not Reportable, Absolute Neuts (auto) 14.3 H, Absolute Lymphs (auto) 0.62 L, Total Counted 100, Neutrophils % (Manual) 72 H, Band Neutrophils % 20 H, Lymphocytes % (Manual) 4 L, Monocytes % (Manual) 1, Myelocytes % 2 H, Promyelocytes % 1 H, Differential Comment SCANNED, Diff Path Review December foll, Toxic Granulation 2+, Sodium 132 L, Potassium 3.8, Chloride 104, Carbon Dioxide 23.0, Anion Gap 5, BUN 24 H, Creatinine 0.73, Estim Creat Clear Calc 92.65, Est GFR (MDRD) Af Amer 135, Est GFR (MDRD) Non-Af 111, BUN/Creatinine Ratio 32.9 H, Glucose 200 H, Calcium 7.0 L, Vancomycin Trough 19.6 H 12/12/23 07:07: POC Glucose 208 H Micro: Microbiology 12/08/23 Unknown Tissue - Aerobic & Anaerobic Swabs Gram Stain - Final 12/08/23 Unknown Tissue - Aerobic & Anaerobic Swabs Wound Culture - Preliminary Staphylococcus lugdunensis Staphylococcus epidermidis Aerococcus urinae Nadia bunch 12/08/23 Unknown Tissue - Aerobic & Anaerobic Swabs Anaerobic Culture - Preliminary Checking for anaerobes, further studies to follow. 12/08/23 Unknown Tissue - Other Gram Stain - Final 12/08/23 Unknown Tissue - Other Wound Culture - Final Staphylococcus epidermidis#2 Staphylococcus lugdunensis Corynebacterium species Staphylococcus epidermidis 12/08/23 Unknown Tissue - Other Anaerobic Culture - Preliminary Checking for anaerobes, further studies to follow. 12/11/23 15:25 Stool Clostridioides difficile (PCR) - Final Radiography Diagnostic Testing: Radiology Impression Abdomen/Pelvis CT 12/12/23 07:08 IMPRESSION: 1. 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 Some gas extends along the right spermatic cord towards the inferior anterior abdominal wall but has improved when compared with the prior study. Volume overload with small bilateral pleural effusions, small pericardial effusion, and anasarca. Mcmahon catheter. Electronically Signed: Shashi Estrada MD at 9:48 EDT , Physical Exam Narrative Seen and examined. Patient is legally blind. Patient was taken for staged debridement of necrotizing fasciitis on 12/08 and 12/09. Patient has leukocytosis and repeat CT shows some air and and started on suspected collection/abscess therefore taken for surgery today Physical exam General: Alert, Oriented x3, Cooperative HEENT: Legally blind. Only light perception. Atraumatic, PERRLA, EOMI, Normocephalic Oral: Oral mucosa dry. No Gingival or Mucosal Lesions/ Ulcerations Neck: Supple, No JVD, Negative Carotid Bruits Chest wall/Lungs: Air entry diminished in bilateral lung bases. No crepitation/rhonchi Cardiovascular: Regular rate, Regular Rhythm, Normal S1, Normal S2, No M/G/R Abdomen: Bowel Sounds Present, Soft, Non Tender, Non-Distended. No palpable mass : Open debridement. Tenderness present in perineal region. Mcmahon catheter. Penis buried. No dysuria. No renal angle tenderness. No suprapubic tenderness. Extremities: Mild edema, Capillary Refill Less than 3 Seconds Skin: Mild abrasion/bruise on the right side of the forehead. Musculoskeletal: No Tenderness to Palpation of Joints or Extremities. Mild to moderate tenderness over left hip, severe osteoarthritis. ROM severely restricted at left hip and mild restriction at right hip.. Neurological: Cranial nerves II-XII grossly intact, DTR 2+/4. No acute focal neurological deficit. Psych/Mental Status: Flat affect. Assessment & Plan Assessment/Plan (1) Necrotizing fasciitis: (2) Acute pain of left hip: PLAN: Plan This 77-year-old gentleman being admitted after fall with severe pain in the left hip with severe ROM restriction. 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 Necrotizing fasciitis of right groin and perineal region: Patient was taken to the OR and incision and drainage of right groin and perineal with packing. Prior to that, CT lower extremity was done for severe arthritis and was found to have gas within the right groin region extending to the right. No soft tissue therefore CT abdomen was done which showed phlegmonous changes in soft tissue in perineal region posterior to scrotal sac and right inguinal canal. No sepsis. Patient has leukocytosis. Patient was on vancomycin and cefepime. Cefepime changed to IV meropenem for broad coverage of gram-negative and anaerobes. 12/09: Patient was evaluated by ID. On IV meropenem, vancomycin and clindamycin. Patient was taken for staged debridement today. Patient had severe pain after surgery but it is controlled. Does not want morphine or Dilaudid. Tylenol 1 g every [address] Echevarria. Anticipate plan for LTAC. 12/10: Dressing was changed. Recommended daily dressing with Dakin's. Prelim culture shows LOCOMOTIVE OPERATOR, gram-positive organism. Discussed with the adult protective caseworker and plan for LTAC. 12/11: Leukocytosis worsening. No fever. CT abdomen was done which shows some gas extension along the right spermatic cord towards inferior anterior abdominal wall has not improved compared to the previous study. Postsurgical changes foreign years gangrene of his scrotum and right inguinal area. Patient is being taken for surgery today. 2. Hypokalemia: IV potassium on replacement. Serum magnesium and phosphorus level in normal range. 12/09: Mild hypokalemia, potassium getting replaced 12/10: Mild hypokalemia, potassium replaced. 3. Left hip pain after mechanical fall due to severe primary osteoarthritis of left: First x-ray and then CT of lower extremity shows severe osteoarthritis with mild joint space narrowing. There was suspicion of avascular necrosis but CT did not show dislocation or fracture. Orthopedic surgeon is further consulted for clinical evaluation to rule out avascular necrosis 12/09: Patient was evaluated by orthopedic surgeon Dr. Ro and had discussion. For now conservative management with pain control and physical therapy. Follow-up in the office after necrotizing fasciitis taken care of for further discussion regarding surgical management. Chronic hyponatremia: Serum sodium 136 decreased to 132. Serum potassium normal. BUNs/creatinine normal, estimated creatinine clearance 92 mill per minute. 4. Essential HTN/HLD ? Blood pressures are stable ? continue his home blood pressure medications and make adjustments as necessary ? Continue with his lovastatin 5. DM2 ? Hold oral hypoglycemic agents. Accu-Chek before meals and at bedtime insulin coverage Humalog sliding scale. ? Continue monitor make adjustments as necessary 6. BPH Continue with Flomax DVT: SCDs Charges/Coding Visit Charges Inpatient E&M: 76872 Subs Hosp L2
[2023-12-12 11:03] LABS: Bedside Glucose 186 mg/dL (74-106)
--- NOTE | 2023-12-12 12:10 | OP.PCM_ITS ---
Report of Operation Date of Procedure: 12/12/23 Pre-Operative Diagnosis: Necrotizing fasciitis of the right groin, undrained fl uid collection Post-Operative Diagnosis: Same Surgery/Procedure Performed:: Incision and debridement of right inguinal region 2. Placement of fecal management system Type of Anesthesia: General/Regional Estimated Blood Loss (mL): 5 Description of Procedure: Patient was brought back to the operating room and moved to the operating table. General anesthesia was induced. FMS tube was lubricated and then placed into the rectum with digital palpation by myself. It was then inflated with 45 cc of air. The right groin and perineal area were prepped and draped in usual sterile fashion. The area superior to the inguinal canal was inspected. There was nothing in the inguinal canal that I can tell, there was purulence anterior to the inguinal ligament. This area was opened and there was a purulent fluid collection in this area. It was irrigated and suctioned dry. There was not any necrosis to resect. The inguinal ligament was left intact. Next the area was irrigated and then the wound was packed with Betadine soaked Kerlix and ABDs and dressings were applied. Patient was awoken and taken back to PACU in stable condition and tolerated the procedure well. Grafts/Implants Used: Betadine soaked Curlex in the right groin Admit VTE Documentation VTE Mechan Device Prophylaxis: SCD's
[2023-12-12 12:36] LABS: Bedside Glucose 195 mg/dL (74-106)
[2023-12-12] MEDS: Lisinopril 10 MG Tablet PO (13:04)
[2023-12-12] MEDS: Juven (unflavored) Packet 1 PACKET PO (16:27)
[2023-12-12 16:46] LABS: Bedside Glucose 207 mg/dL (74-106)
[2023-12-12] MEDS: Tamsulosin HCl 0.4 MG Capsule 0.8 MG PO (23:21)
[2023-12-12] MEDS: Atorvastatin Calcium 10 MG Tablet PO (23:22)
[2023-12-12] MEDS: 0.9% Saline Lock 10 ML Syringe IV (23:22)
[2023-12-12] MEDS: Acetaminophen 325 MG Tablet 650 MG PO (23:26)
[2023-12-12] MEDS: oxyCODONE 5 MG Tablet PO (23:34)
[2023-12-13] VITALS (52 sets, daily range): BP systolic 77–162; BP diastolic 46–122; PULSE 86–109; RESP 14–35; TEMP 36.3–37.2; O2SAT 86–100
[2023-12-13] MEDS: Insulin Lispro 100 UNIT/ML INSULN.PEN SC ×5 (00:23→21:07)
[2023-12-13 00:51] LABS: Bedside Glucose 237 mg/dL (74-106)
[2023-12-13] MEDS: 0.9% Normal Saline (500mL Bag) 500 ML 999 ML IV (04:22)
[2023-12-13 04:48] LABS: Allen Test Positive; Base Excess -4 mmol/L (-2 to +2); Blood Gas Specimen Type ART; Mode Not entered; O2 Delivery Device Cannula; PO2 80 mmHG (75-100); SITE R Radial; SO2 96 % (95-99); Total Carbon Dioxide 21 mmol/L; pCO2 29.8 mmHg (35-45); pH 7.44 (7.35-7.45)
[2023-12-13] MEDS: 0.9% Saline Lock 10 ML Syringe IV ×5 (05:18→18:15)
[2023-12-13] MEDS: Lactobacillis Acidophilus 1 CAP PO (05:18)
[2023-12-13] MEDS: Heparin Injection (Vial) 5,000 UNIT/ML VIAL 5000 UNIT SC (05:19)
[2023-12-13] MEDS: Acetaminophen 325 MG Tablet 650 MG PO (05:19)
[2023-12-13] MEDS: Clindamycin 900 MG/50 ML BAG 75 MG IV ×3 (05:26→20:56)
[2023-12-13] MEDS: Meropenem 1 GM in 0.9% Normal Saline (100mL MB+) 100 ML IV ×3 (05:28→20:55)
[2023-12-13] MEDS: Magnesium Sulfate 1 GM in Dextrose 5%-Water (100mL Bag) 100 ML IV (05:37)
[2023-12-13] MEDS: 0.9% Normal Saline (250mL Bag) 250 ML 15 ML IV (05:47)
[2023-12-13 06:12] LABS: Hematocrit 17.1 % (40-54); Mean Corp Hgb Conc 32.7 g/dL (32-36); Mean Corpuscular Hgb 29.9 pg (27.0-32.0); Mean Corpuscular Volume 91.4 fL (80-94); Mean Platelet Vol. 10.3 fl (6.2-12.0); POSITIVE COUNT YES; POSITIVE MORPHOLOGY YES; Platelet Count 160 K/mm3 (150-450); RBC Distribution Width CV 14.6 % (11.6-14.6); RBC Distribution Width SD 48.6 fl (35.1-43.9); Red Blood Count 1.87 M/mm3 (4.6-6.2)
[2023-12-13 06:18] LABS: Differential Indicated MANUAL DIFF; Hemoglobin 5.6 g/dL (13.0-16.5)
--- NOTE | 2023-12-13 06:39 | CT_ITS ---
EXAM: CT ABDOMEN AND PELVIS WITHOUT INTRAVENOUS CONTRAST CLINICAL INDICATION: anemia TECHNIQUE: Helically acquired images were obtained of the abdomen and pelvis without intravenous contrast. This CT exam was performed using one or more of the following dose reduction techniques: automated exposure control, adjustment of the mA and/or kV according to patient size, and/or use of iterative reconstruction technique. COMPARISON: CT Abdomen Pelvis dated 12/12/2023 and 12/08/2023 FINDINGS: LOWER THORAX: Persistent small bilateral pleural effusions with compression atelectasis of the lower lobes. Normal heart size. Small pericardial effusion. ABDOMEN: LIVER: Normal. Homogeneous. GALLBLADDER AND BILE DUCTS: Gallbladder has a normal appearance. PANCREAS: Scattered calcifications within the somewhat atrophic pancreas again noted. Previously noted pancreatic duct is not as apparent on this exam likely related to the lack of IV contrast. No focal cystic mass. SPLEEN: Normal. Normal size without focal cystic or solid mass. ADRENALS: Normal. No nodules. KIDNEYS AND URETERS: Normal. No hydronephrosis. STOMACH AND BOWEL: Persistent gas and fluid distention of the large and small bowel. PELVIS: APPENDIX: Surgical clips at the base of the cecum consistent with appendectomy. BLADDER: Mcmahon catheter in place within a decompressed urinary bladder. REPRODUCTIVE: Normal-appearing prostate gland. ABDOMEN and PELVIS: INTRAPERITONEAL SPACE: Normal. No ascites or other fluid collection. No free air. BONES/JOINTS: No suspicious lytic or blastic abnormality. 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 No residual abscess or soft tissue gas is present. Increasing edema of the subcutaneous tissues. Small bilateral fat-containing inguinal hernias.. VASCULATURE: Normal. Abdominal aorta is non-dilated. LYMPH NODES: Normal. No enlarged lymph nodes. TUBES, LINES AND DEVICES: Interval placement of a rectal tube. CT/Abdomen/Pelvis without Cont IMPRESSION: 1. Persistent large and small bowel ileus. 2. Increasing edema of the subcutaneous tissues. 3. Stable surgically treated soft tissue infection of the right side of the scrotum and perineum. Electronically Signed: Fernie Albarado MD at 8:45 EDT Reading Location ID and State: [facility] / [place] Tel , Service support ,
--- NOTE | 2023-12-13 06:40 | PCM.PN.BLA ---
Progress Note Pt anemic this morning. Discussed with RN. no blood on the dressing to explain the anemia. Pt has not had increasing pain but he does not feel this area well. I will order a CT to evaluate for a retroperitoneal hematoma that he may not feel. Surgery yesterday had minimal blood loss, also doesnt account for the change. Will order without contrast as he had IV contrast yesterday. RN discussing transfusion with primary team.
[2023-12-13 06:52] LABS: ALB/GLOB Ratio 0.6 RATIO (0.9-2.4); AST(SGOT) 41 U/L (15-37); Alanine Aminotransfer ALT/SGPT 53 U/L (16-61); Albumin, Serum 1.3 g/dL (3.2-5.0); Alkaline Phosphatase 201 U/L (45-117); Anion Gap 5 (5-15); BUN 35 mg/dL (7-18); BUN/Creat Ratio 54.2 RATIO (10-20); Calcium,Total 6.3 mg/dL (8.5-10.1); Chloride 102 mmol/L (98-107); Creatinine, Serum 0.65 mg/dL (0.70-1.30); EST Glomerular Filtration Rate 128 mL/min (>60); Est Glom Filt Rate - Afr Amer 155 mL/min (>60); Estimated Creatinine Clearance 92.65 ml/min; Globulin 2.3 g/dL (2.2-4.2); Glucose 234 mg/dL (74-106); Magnesium 1.8 mg/dL (1.6-2.6); Phosphorus 2.5 mg/dL (2.5-4.9); Potassium 4.3 mmol/L (3.5-5.1); Protein, Total 3.6 g/dL (6.4-8.2); Sodium Level 130 mmol/L (136-145)
[2023-12-13 06:56] LABS: Lactic Acid 0.8 mmol/L (0.4-1.9)
[2023-12-13] MEDS: Vancomycin HCl 1,250 MG in 0.9% Normal Saline (250mL Bag) 250 ML 167 MG IV ×2 (07:08→18:46)
[2023-12-13 07:19] LABS: Differential Comment SCANNED; Lymphocyte 6 % (19-41); Metamyelocyte 1 % (0-1); Monocyte 2 % (0-10); Myelocyte 2 % (0-0); Neutrophil-Band 34 % (0-5); Neutrophil-Segmented 55 % (47-70); Total Cells Counted 100 (MANUAL DIFF)
[2023-12-13 07:20] LABS: Absolute Neutrophil Count 13.4 X10^3/uL (2.0-7.7)
--- NOTE | 2023-12-13 07:56 | PCM.PN.SRG ---
Subjective Subjective The patient reports some increasing pain in his left hip. No other issues overnight subjectively. Objective Data Objective Data Vital Signs: Vital Signs Temp Pulse Resp BP Pulse Ox O2 Del Method O2 Flow Rate 98.2 F 101 H 20 H 121/51 H 95 Nasal Cannula 2 12/13/23 05:01 12/13/23 05:01 12/13/23 05:01 12/13/23 05:01 12/13/23 05:01 12/13/23 05:01 12/13/23 05:01 FiO2 2 12/08/23 20:05 Oxygen Flow Rate (L/min) 2 Oxygen Delivery Method Nasal Cannula Weight: 233 lb 14.567 oz Body Mass Index (BMI) 36.6 Intake & Output: Intake and Output for Last 24 Hours 12/11/23 12/12/23 12/13/23 23:59 23:59 23:59 Intake Total 2060 / 2160 2254 / 2254 720 / 720 Output Total 3550 / 4000 1650 / 1650 Balance -1490 / -1840 604 / 604 720 / 720 Lab / Micro Data 12/13/23 05:15 12/13/23 06:05 Labs: Laboratory Results - last 24 hr 12/12/23 10:45: POC Glucose 186 H 12/12/23 12:19: POC Glucose 195 H 12/12/23 16:25: POC Glucose 207 H 12/13/23 00:17: POC Glucose 237 H 12/13/23 05:15: WBC 15.0 H, RBC 1.87 L, Hgb 5.6 L*, Hct 17.1 L, MCV 91.4, MCH 29.9, MCHC 32.7, RDW Std Deviation 48.6 H, RDW Coeff of [place] 14.6, Plt Count 160, MPV 10.3, Neut % (Auto) Not Reportable, Absolute Neuts (auto) 13.4 H, Absolute Lymphs (auto) 0.90, Total Counted 100, Neutrophils % (Manual) 55, Band Neutrophils % 34 H, Lymphocytes % (Manual) 6 L, Monocytes % (Manual) 2, Metamyelocytes % 1, Myelocytes % 2 H, Differential Comment SCANNED, Diff Path Review May foll, Sodium Cancelled, Potassium Cancelled, Chloride Cancelled, Carbon Dioxide Cancelled, Anion Gap Cancelled, BUN Cancelled, Creatinine Cancelled, Estim Creat Clear Calc Cancelled, Est GFR (MDRD) Af Amer Cancelled, Est GFR (MDRD) Non-Af Cancelled, BUN/Creatinine Ratio Cancelled, Glucose Cancelled, Lactic Acid Cancelled, Calcium Cancelled, Phosphorus Cancelled 12/13/23 05:15: Phosphorus Cancelled, Magnesium Cancelled, Total Bilirubin Cancelled, AST Cancelled, ALT Cancelled, Alkaline Phosphatase Cancelled, Total Protein Cancelled, Albumin Cancelled, Globulin Cancelled, Albumin/Globulin Ratio Cancelled 12/13/23 06:05: Sodium 130 L, Potassium 4.3, Chloride 102, Carbon Dioxide 23.0, Anion Gap 5, BUN 35 H, Creatinine 0.65 L, Estim Creat Clear Calc 92.65, Est GFR (MDRD) Af Amer 155, Est GFR (MDRD) Non-Af 128, BUN/Creatinine Ratio 54.2 H, Glucose 234 H, Lactic Acid 0.8, Calcium 6.3 L*, Phosphorus 2.5, Magnesium 1.8, Total Bilirubin 0.30, AST 41 H, ALT 53, Alkaline Phosphatase 201 H, Total Protein 3.6 L, Albumin 1.3 L, Globulin 2.3, Albumin/Globulin Ratio 0.6 L Micro: Microbiology 12/08/23 Unknown Tissue - Aerobic & Anaerobic Swabs Gram Stain - Final 12/08/23 Unknown Tissue - Aerobic & Anaerobic Swabs Wound Culture - Preliminary Staphylococcus lugdunensis Staphylococcus epidermidis Aerococcus urinae Yonigregkathi jolieii 12/08/23 Unknown Tissue - Aerobic & Anaerobic Swabs Anaerobic Culture - Preliminary Checking for anaerobes, further studies to follow. 12/08/23 Unknown Tissue - Other Gram Stain - Final 12/08/23 Unknown Tissue - Other Wound Culture - Final Staphylococcus epidermidis#2 Staphylococcus lugdunensis Corynebacterium species Staphylococcus epidermidis 12/08/23 Unknown Tissue - Other Anaerobic Culture - Preliminary Checking for anaerobes, further studies to follow. 12/11/23 15:25 Stool Clostridioides difficile (PCR) - Final ABG Data ABG results: ABG 12/13/23 04:44 Specimen Type ART Sample Site R Radial pH 7.44 Bicarbonate Actual 20.0 L Total CO2 21 Base Excess -4 L O2 Saturation 96 O2 % 2.0 ABG pCO2 29.8 L ABG pO2 80 Stew Test Positive O2 Delivery Device Cannula Vent Mode Not entered Radiography Diagnostic Testing: Radiology Impression Abdomen/Pelvis CT 12/12/23 07:08 IMPRESSION: 1. 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 Some gas extends along the right spermatic cord towards the inferior anterior abdominal wall but has improved when compared with the prior study. Volume overload with small bilateral pleural effusions, small pericardial effusion, and anasarca. Mcmahon catheter. Electronically Signed: Shashi Estrada MD at 9:48 EDT , Physical Exam Const oriented x3 and no apparent distress Resp normal respiratory effort GI soft to palpation and non-tender Assessment & Plan Assessment/Plan (1) Necrotizing fasciitis: PLAN: The patient has necrotizing fasciitis I took him yesterday for a last debridement and washout with packing. Overnight the patient had some hypotension and tachycardia. Morning labs show elevated white count and significant anemia. I sent him for a stat CT scan of his abdomen pelvis and there are no fluid collections that I can appreciate that would look like hematoma or signs of appreciable blood loss. Sepsis may be to blame for the sudden anemia. I will order 2 units of packed red blood cells for transfusion. Continue packing changes and antibiotics. Tarun Echevarria MD Pager: [facility] [address] [place] [address], [address] [place] [address] Office:
[2023-12-13 08:47] LABS: Hematocrit 15.8 % (40-54); POSITIVE COUNT YES
[2023-12-13 08:53] LABS: Hemoglobin 5.3 g/dL (13.0-16.5)
--- NOTE | 2023-12-13 09:03 | NURSING ---
This nurse called and gave a report letting her know that has been moved to ICU and his hgb was 5.6 and would be given 2u PRBC. I gave the room number that the patient would be in.
[2023-12-13] MEDS: Calcium Gluconate IV 2 GM in 0.9% Normal Saline (100mL Bag) 100 ML IV (09:31)
[2023-12-13] MEDS: Morphine 2 MG/ML Syringe IV (09:54)
[2023-12-13] MEDS: DAKIN'S SOL HALF STRENGTH (=0.25%) 1 APPLIC TOPICAL (10:25)
[2023-12-13] MEDS: Juven (unflavored) Packet 1 PACKET PO (10:25)
[2023-12-13] MEDS: oxyCODONE 5 MG Tablet PO (11:58)
--- NOTE | 2023-12-13 12:54 | PN.HOSP_ITS ---
Reason for Visit Reason for Visit: Diagnoses Type 2 diabetes mellitus without complications (12/08/23) Morbid (severe) obesity due to excess calories (12/08/23) Mixed hyperlipidemia (12/08/23) Hypokalemia (12/08/23) Legal blindness, as defined in [place] (12/08/23) Essential (primary) hypertension (12/08/23) Supraventricular tachycardia, unspecified (12/08/23) Unilateral primary osteoarthritis, left hip (12/08/23) Pain in left hip (12/08/23) Necrotizing fasciitis (12/08/23) Benign prostatic hyperplasia with lower urinary tract symptoms (12/08/23) Repeated falls (12/08/23) Frequency of micturition (12/08/23) Weakness (12/08/23) Other malaise (12/08/23) Objective Data Objective Data Vital Signs: Vital Signs Temp Pulse Resp BP Pulse Ox O2 Del Method O2 Flow Rate 97.6 F L 92 23 H 109/48 L 99 Room Air 2 12/13/23 09:45 12/13/23 10:30 12/13/23 10:30 12/13/23 10:30 12/13/23 10:30 12/13/23 10:30 12/13/23 10:26 FiO2 95 12/13/23 10:26 Oxygen Flow Rate (L/min) 2 Oxygen Delivery Method Room Air Weight: 233 lb 14.567 oz Body Mass Index (BMI) 36.6 Intake & Output: Intake and Output for Last 24 Hours 12/11/23 12/12/23 12/13/23 23:59 23:59 23:59 Intake Total 2060 / 2160 2254 / 2254 1567 / 1567 Output Total 3550 / 4000 1650 / 1650 380 / 380 Balance -1490 / -1840 604 / 604 1187 / 1187 Lab / Micro Data 12/13/23 08:40 12/13/23 06:05 Labs: Laboratory Results - last 24 hr 12/12/23 16:25: POC Glucose 207 H 12/13/23 00:17: POC Glucose 237 H 12/13/23 05:15: WBC 15.0 H, RBC 1.87 L, Hgb 5.6 L*, Hct 17.1 L, MCV 91.4, MCH 29.9, MCHC 32.7, RDW Std Deviation 48.6 H, RDW Coeff of [place] 14.6, Plt Count 160, MPV 10.3, Neut % (Auto) Not Reportable, Absolute Neuts (auto) 13.4 H, Absolute Lymphs (auto) 0.90, Total Counted 100, Neutrophils % (Manual) 55, Band Neutrophils % 34 H, Lymphocytes % (Manual) 6 L, Monocytes % (Manual) 2, [place] myelocytes % 1, Myelocytes % 2 H, Differential Comment SCANNED, Diff Path Review December foll, Sodium Cancelled, Potassium Cancelled, Chloride Cancelled, Carbon Dioxide Cancelled, Anion Gap Cancelled, BUN Cancelled, Creatinine Cancelled, Estim Creat Clear Calc Cancelled, Est GFR (MDRD) Af Amer Cancelled, Est GFR (MDRD) Non-Af Cancelled, BUN/Creatinine Ratio Cancelled, Glucose Cancelled, Lactic Acid Cancelled, Calcium Cancelled, Phosphorus Cancelled 12/13/23 05:15: Phosphorus Cancelled, Magnesium Cancelled, Total Bilirubin Cancelled, AST Cancelled, ALT Cancelled, Alkaline Phosphatase Cancelled, Total Protein Cancelled, Albumin Cancelled, Globulin Cancelled, Albumin/Globulin Ratio Cancelled 12/13/23 06:05: Sodium 130 L, Potassium 4.3, Chloride 102, Carbon Dioxide 23.0, Anion Gap 5, BUN 35 H, Creatinine 0.65 L, Estim Creat Clear Calc 92.65, Est GFR (MDRD) Af Amer 155, Est GFR (MDRD) Non-Af 128, BUN/Creatinine Ratio 54.2 H, Glucose 234 H, Lactic Acid 0.8, Calcium 6.3 L*, Phosphorus 2.5, Magnesium 1.8, Total Bilirubin 0.30, AST 41 H, ALT 53, Alkaline Phosphatase 201 H, Total Protein 3.6 L, Albumin 1.3 L, Globulin 2.3, Albumin/Globulin Ratio 0.6 L 12/13/23 07:55: Blood Type O NEGATIVE, Antibody Screen NEGATIVE, Crossmatch See Detail 12/13/23 07:55: Crossmatch See Detail 12/13/23 08:40: Hgb 5.3 L*, Hct 15.8 L Micro: Microbiology 12/08/23 Unknown Tissue - Aerobic & Anaerobic Swabs Gram Stain - Final 12/08/23 Unknown Tissue - Aerobic & Anaerobic Swabs Wound Culture - Final Staphylococcus lugdunensis Staphylococcus epidermidis Aerococcus urinae Nadia bunch 12/08/23 Unknown Tissue - Aerobic & Anaerobic Swabs Anaerobic Culture - Preliminary Checking for anaerobes, further studies to follow. 12/08/23 Unknown Tissue - Other Gram Stain - Final 12/08/23 Unknown Tissue - Other Wound Culture - Final Staphylococcus epidermidis#2 Staphylococcus lugdunensis Corynebacterium species Staphylococcus epidermidis 12/08/23 Unknown Tissue - Other Anaerobic Culture - Preliminary Checking for anaerobes, further studies to follow. 12/11/23 15:25 Stool Clostridioides difficile (PCR) - Final ABG Data ABG results: ABG 12/13/23 04:44 Specimen Type ART Sample Site R Radial pH 7.44 Bicarbonate Actual 20.0 L Total CO2 21 Base Excess -4 L O2 Saturation 96 O2 % 2.0 ABG pCO2 29.8 L ABG pO2 80 Stew Test Positive O2 Delivery Device Cannula Vent Mode Not entered Radiography Diagnostic Testing: Radiology Impression Abdomen/Pelvis CT 12/13/23 06:39 IMPRESSION: 1. Persistent large and small bowel ileus. 2. Increasing edema of the subcutaneous tissues. 3. Stable surgically treated soft tissue infection of the right side of the scrotum and perineum. Electronically Signed: Fernie Albarado MD at 8:45 EDT , Physical Exam Narrative Seen and examined. Patient is legally blind. Patient was taken for staged debridement of n ecrotizing fasciitis on 12/08 and 12/09 and 12/11. 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 Patient also has severe anemia hemoglobin 4.6 and hypocalcemia severe. Patient transferred to ICU. CT abdomen was ordered. No retroperitoneal hematoma. GI bleed. Physical exam General: Alert, Oriented x3, Cooperative HEENT: Legally blind. Only light perception. Atraumatic, PERRLA, EOMI, Normocephalic Oral: Oral mucosa dry. No Gingival or Mucosal Lesions/ Ulcerations Neck: Supple, No JVD, Negative Carotid Bruits Chest wall/Lungs: Air entry diminished in bilateral lung bases. No crepitation/rhonchi Cardiovascular: Regular rate, Regular Rhythm, Normal S1, Normal S2, No M/G/R Abdomen: Bowel Sounds sluggish, rectal tube present. Ileus. Black stool/ melena. Soft, Non Tender, Non-Distended. No palpable mass : Open debridement. Tenderness present in perineal region. Mcmahon catheter. Penis buried. No dysuria. No renal angle tenderness. No suprapubic tenderness. Extremities: Mild edema, Capillary Refill Less than 3 Seconds Skin: Mild abrasion/bruise on the right side of the forehead. Musculoskeletal: No Tenderness to Palpation of Joints or Extremities. Mild to moderate tenderness over left hip, severe osteoarthritis. ROM severely rest ricted at left hip and mild restriction at right hip.. Neurological: Cranial nerves II-XII grossly intact, DTR 2+/4. No acute focal neurological deficit. Psych/Mental Status: Flat affect. Assessment & Plan Assessment/Plan (1) Necrotizing fasciitis: (2) Acute pain of left hip: PLAN: Plan This 77-year-old gentleman being admitted after fall with severe pain in the left hip with severe ROM restriction. 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 Necrotizing fasciitis of right groin and perineal region: Patient was taken to the OR and incision and drainage of right groin and perineal with packing. Prior to that, CT lower extremity was done for severe arthritis and was found to have gas within the right groin region extending to the right. No soft tissue therefore CT abdomen was done which showed phlegmonous changes in soft tissue in perineal region posterior to scrotal sac and right inguinal canal. No sepsis. Patient has leukocytosis. Patient was on vancomycin and cefepime. Cefepime changed to IV meropenem for broad coverage of gram-negative and anaerobes. 12/09: Patient was evaluated by ID. On IV meropenem, vancomycin and clindamycin. Patient was taken for staged debridement today. Patient had severe pain after surgery but it is controlled. Does not want morphine or Dilaudid. Tylenol 1 g every [address] Echevarria. Anticipate plan for LTAC. 12/10: Dressing was changed. Recommended daily dressing with Dakin's. 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 Discussed with the case briefer and plan for LTAC. 12/11: Leukocytosis worsening. No fever. CT abdomen was done which shows some gas extension along the right spermatic cord towards inferior anterior abdominal wall has not improved compared to the previous study. Postsurgical changes foreign years gangrene of his scrotum and right inguinal area. Patient is being taken for surgery today. 12/12: Patient had low blood pressure and sinus tachycardia but blood pressure systolic 120 but patient looks worse than yesterday with severe anemia and hypocalcemia. Drop in platelet count from 224,000 260,000. Patient transferred to ICU. [facility] Nurse consulted and called.Patient has leukocytosis, bands 34% and immature granulocytes 2% ABG 7.44/30/80 on 2 L of oxygen. Overall clinic ally patient seems getting worse although does not meet the criteria for sepsis yet with normal lactic acid. Patient had repeat CT with IV contrast to look for the source of bleeding. No retroperitoneal hematoma but persistent large and small bowel ileus with increasing edema of subcutaneous tissue and surgical changes of peritoneal and right side of scrotal and inguinal region. 3. Stable surgically treated soft tissue infection of the right side of the scrotum and perineum. 2. Severe anemia most likely from upper GI bleed: Patient had drop in H&H and platelet count. Hemoglobin dropped to 5.3 g%. Patient had black stool/melena as per nursing staff. PPI every 12 hourly. Surgery on board. 2 units of PRBC transfusion ongoing. Lasix 20 mg IV in between. Hypokalemia: IV potassium on replacement. Serum magnesium and phosphorus level in normal range. 12/09: Mild hypokalemia, potassium getting replaced 12/10: Mild hypokalemia, potassium replaced. 12/12: Hypokalemia is corrected. But severe hypocalcemia: Calcium replacement ordered. 3. Left hip pain after mechanical fall due to severe primary osteoarthritis of left: First x-ray and then CT of lower extremity shows severe osteoarthritis with mild joint space narrowing. There was suspicion of avascular necrosis but CT did not show dislocation or fracture. Orthopedic surgeon is further consulted for clinical evaluation to rule out avascular necrosis 12/09: Patient was evaluated by orthopedic surgeon Dr. Ro and had discussion. For now conservative management with pain control and physical therapy. Follow-up in the office after necrotizing fasciitis taken care of for further discussion regarding surgical management. Chronic hyponatremia: Serum sodium 136 decreased to 132. Serum potassium normal. BUNs/creatinine normal, estimated creatinine clearance 92 mill per minute. 12/12: Persistent hyponatremia. Sodium is still low 130. 4. Essential HTN/HLD ? Blood pressures are stable ? continue his home blood pressure medications and make adjustments as necessary ? Continue with his lovastatin 5. DM2 ? Hold oral hypoglycemic agents. Accu-Chek before meals and at bedtime insulin coverage Humalog sliding scale. ? Continue monitor make adjustments as necessary 6. BPH Continue with Flomax DVT: SCDs Clinical Impression(s) from Imaging Studies Hip/Pelvis X-Ray 12/08/23 08:37 IMPRESSION: Marked degree of the joint space narrowing and osteoarthritis of both hip joints worse on the left side with subchondral cystic changes worse on the left. 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 No fracture is seen. Electronically Signed: Beau Elizalde MD at 10:22 EDT , Knee X-Ray 12/08/23 08:37 IMPRESSION: Degenerative arthrosis. Electronically Signed: Beau Elizalde MD at 10:23 EDT , Chest X-Ray 12/08/23 10:10 IMPRESSION: Prominence of the central pulmonary arteries. Electronically Signed: Beau Elizalde MD at 10:26 EDT , Lower Extremity CT 12/08/23 15:25 IMPRESSION: Severe degenerative osteoarthritic changes of the left hip.. No evidence for acute fracture of the left hip or visualized portion of the left hemipelvis Electronically Signed: Marshall Ledezma MD at 16:15 EDT Reading Location ID and State: [facility] / [place] Tel , Service support , ADDENDUM: 12/08/23 1700 IMPRESSION: undefined Abdomen/Pelvis CT 12/08/23 16:38 IMPRESSION: Phlegmonous changes in the soft tissues dorsal and posterior to the scrotal sac with gas bubbles in the right perineal soft tissues dissecting cephalad anterior and medial to the right inguinal canal.. Cannot exclude possibility of abscess within the soft tissues of the scrotal sac. Sonogram of the scrotum recommended for further evaluation Other findings as above Electronically Signed: Marshall Ledezma MD at 18:03 EDT , Abdomen/Pelvis CT 12/12/23 07:08 IMPRESSION: 1. 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 Some gas extends along the right spermatic cord towards the inferior anterior abdominal wall but has improved when compared with the prior study. Volume overload with small bilateral pleural effusions, small pericardial effusion, and anasarca. Mcmahon catheter. Abdomen/Pelvis CT 12/13/23 06:39 IMPRESSION: 1. Persistent large and small bowel ileus. 2. Increasing edema of the subcutaneous tissues. 3. Stable surgically treated soft tissue infection of the right side of the scrotum and perineum. Electronically Signed: Fernie Albarado MD at 8:45 EDT , Charges/Coding Addendum Addendum: Total time of the visit including total time spent in counseling or coordination of care, (more than 50% of the total time, spent in obtaining medical information from nurses and other ancillary care providers,explaining to the patient about labs, imaging, diagnosis and management of active complex medical conditions), discussion with the surgeon and pyrometer temperature regulator and nursing staff, review of labs and imaging is 50 minutes. Visit Charges Inpatient E&M: [id number] [place] [id number]
[2023-12-13 12:57] LABS: Bedside Glucose 200 mg/dL (74-106)
--- NOTE | 2023-12-13 13:27 | PCMCONS.TICU ---
HPI Consult Data Date of Consult: 12/13/23 HPI Narrative HPI Narrative: WILLIAM PLUMMER, is a 77 M who [facility] Medical History Contusion of hip, left Diabetes Enlarged prostate Fall High cholesterol Legally blind Home Medications ascorbic acid (vitamin C) 1,000 mg tablet 1,000 mg PO DAILY supplement 11/09/19 [History Last Taken 12/07/23] cholecalciferol (vitamin D3) 25 mcg (1,000 unit) tablet 1,000 unit PO DAILY supplement 11/09/19 [History Last Taken 12/07/23] cyanocobalamin (vitamin B-12) 1,000 mcg capsule 1,000 mcg PO DAILY supplement 11/09/19 [History Last Taken 12/07/23] empagliflozin 10 mg tablet 10 mg PO DAILY diabetes 11/09/19 [History Last Taken 12/07/23] linagliptin 5 mg tablet 5 mg PO DAILY diabetes 11/09/19 [History Last Taken 12/07/23] lisinopril 10 mg tablet 10 mg PO DAILY bp 11/09/19 [History Last Taken 12/07/23] lovastatin 40 mg tablet 40 mg PO QHS cholesterol 11/09/19 [History Last Taken 12/07/23] metformin 500 mg tablet 1,000 mg PO BID diabetes 11/09/19 [History Last Taken 12/07/23] pioglitazone 45 mg tablet 45 mg PO DAILY diabetes 11/09/19 [History Last Taken 12/07/23] acetaminophen 325 mg tablet 650 mg PO Q6H PRN Pain 1-5 Or Fever >100.7 12/08/23 [History Last Taken 12/07/23] empagliflozin 25 mg tablet (Jardiance) 25 mg PO DAILY 12/08/23 [History Last Taken Unknown] glipizide 5 mg tablet, extended release 24 hr 15 mg PO DAILY 12/08/23 [History Last Taken 12/07/23] hydrochlorothiazide 12.5 mg tablet 12.5 mg PO DAILY 12/08/23 [History Last Taken 12/07/23] metformin 500 mg tablet 500 mg PO LUNCH 12/08/23 [History Last Taken 12/07/23] tamsulosin 0.4 mg capsule 0.8 mg PO QHS 12/08/23 [History Last Taken 12/07/23] Allergy/AdvReac Type Severity Reaction Status Date / Time No Known Allergies Allergy Verified 12/08/23 07:58 Family History Other Cancer Heart disease Surgical History Status post tonsillectomy Surgical History no surgical history Social History Smoking Status: Former smoker Objective Data Objective Data Vital Signs: Vital Signs Last response Temperature 36.4 C L 12/13/23 09:45 Temperature Source Temporal 12/13/23 09:45 Pulse Rate 92 12/13/23 10:30 Pulse Strength Normal (2+) 12/12/23 22:00 Respiratory Rate 23 H 12/13/23 10:30 Respiratory Effort Normal 12/13/23 12:00 Respiratory Depth Shallow 12/13/23 12:00 Respiratory Pattern Tachypnea 12/13/23 12:00 Blood Pressure 109/48 L 12/13/23 10:30 Blood Pressure Mean 68 12/13/23 10:30 Blood Pressure Source Monitor 12/13/23 10:30 Blood Pressure Position Semi-Fowlers 12/13/23 10:30 Blood Pressure Location Right Arm 12/13/23 10:30 Baseline BP 135/58 12/12/23 12:25 Pulse Ox 99 12/13/23 10:30 Oxygen Delivery Method Room Air 12/13/23 12:00 Oxygen Flow Rate (L/min) 2 12/13/23 10:26 Fraction of Inspired Oxygen (FIO2) 95 12/13/23 10:26 I&O: I&O Last 24 Hours 12/12/23 12/13/23 12/13/23 23:59 11:59 23:59 Intake Total 1589 / 2254 822 / 1897 1075 / 1897 Output Total 1200 / 1650 255 / 380 125 / 380 Balance 389 / 604 567 / 1517 950 / 1517 I&O: Total Stay 12/08/23 07:51 thru 12/13/23 13:16 Intake Total 41040.25 Output Total 9755 Balance 3227.25 Current Meds Ordered / Administered: Current meds ordered / Administered Generic Name Dose Route Start Last Admin Trade Name Freq PRN Reason Stop Dose Admin Acetaminophen 650 mg 12/08/23 21:15 12/13/23 05:19 Acetaminophen 325 Mg Tablet PO 650 mg Q6H PRN Administration Pain 1-5 Or Fever >100.7 Atorvastatin Calcium 10 mg 12/08/23 22:00 12/12/23 23:22 Atorvastatin Calcium 10 Mg Tablet PO 10 mg QHS JAD Administration Dextrose 0 gm 12/08/23 21:15 Dextrose 50%-Water 25 Gm/50 Ml Disp.Syrin IV X1 PRN HYPOGLYCEMIA Protocol Furosemide 20 mg 12/13/23 13:30 Furosemide 20 Mg/2 Ml Vial IV 12/13/23 13:31 X1 ONE Protocol Glucagon 1 mg 12/08/23 21:15 Glucagon 1 Mg/Ml Syringe IM X1 PRN HYPOGLYCEMIA Heparin Sodium (Porcine) 5,000 unit 12/08/23 22:00 12/13/23 05:19 Heparin Injection (Vial) 5,000 Unit/Ml Vial SC 5,000 unit Q8 JAD Administration Vancomycin IV-PHARMACY TO DOSE 500 mls @ 250 mls/hr 12/08/23 21:15 12/09/23 07:28 1 each/ Sodium Chloride IV Infused X1 PRN Infusion Rx to Dose Protocol Sodium Chloride 250 mls @ 15 mls/hr 12/08/23 21:16 12/13/23 05:47 IV 15 mls/hr .[id number] PRN Administration Additional IVPB Infusion Sodium Chloride 250 mls @ 15 mls/hr 12/08/23 21:16 IV .[id number] PRN Saline Flush Meropenem 1 gm/ Sodium 120 mls @ 33 mls/hr 12/09/23 12:30 12/13/23 12:01 Chloride IV Infused Q8 JAD Infusion Clindamycin Phosphate 900 mg in 50 mls @ 75 mls/hr 12/09/23 14:00 12/13/23 06:07 Cleocin IV Infused Q8 JAD Infusion Vancomycin HCl 1,250 mg/ 275 mls @ 167 mls/hr 12/10/23 18:00 12/13/23 12:01 Sodium Chloride IV Infused Q12H JAD Infusion Sodium Chloride 500 mls @ 999 mls/hr 12/13/23 04:31 12/13/23 05:49 IV Infused Q30M PRN Infusion ivf Pantoprazole Sodium 40 mg/ 110 mls @ 330 mls/hr 12/13/23 12:55 Sodium Chloride IV Q12 [facility] Insulin Human Lispro 0 unit 12/08/23 21:15 12/13/23 11:59 Insulin Lispro 100 Unit/Ml Insuln.Pen SC 2 units ACHS JAD Administration Protocol L-Arginine/L-Glutamine/Calcium HMB 1 packet 12/11/23 17:00 12/13/23 10:25 Bimal (Unflavored) Packet PO 1 packet BIDCM [facility] Administration Lisinopril 10 mg 12/09/23 10:00 12/13/23 09:31 Lisinopril 10 Mg Tablet PO Not Given DAILY [facility] Protocol Loperamide HCl 2 mg 12/11/23 19:18 12/12/23 08:28 Loperamide 2 Mg Capsule PO 2 mg Q4H PRN PRN Administration DIARRHEA/LOOSE STOOLS Metoclopramide HCl 5 mg 12/11/23 13:46 Metoclopramide 10 Mg/2 Ml Vial IV Q6H PRN PRN NAUSEA/VOMITING Morphine Sulfate 2 - 4 mg 12/08/23 21:15 12/13/23 09:54 Morphine 2 Mg/Ml Syringe IV 4 mg Q2H PRN PRN Administration Pain Score 4-10 Ondansetron HCl 4 mg 12/11/23 13:47 Ondansetron 4 Mg/2 Ml Vial IV Q6H PRN PRN NAUSEA/VOMITING Oxycodone HCl 2.5 - 5 mg 12/08/23 21:15 12/13/23 11:58 Oxycodone 5 Mg Tablet PO 5 mg Q4H PRN PRN Administration Pain Score 4-10 Sodium Chloride 10 - 40 ml 12/08/23 21:16 12/13/23 10:25 0.9% Saline Lock 10 Ml Syringe IV 10 ml UD PRN Administration SALINE FLUSH Sodium Hypochlorite 1 applic 12/09/23 10:00 12/13/23 10:25 Dakin's Ramila Half Strength (=0.25%) TOPICAL 1 applic BID [facility] Administration Protocol Tamsulosin HCl 0.8 mg 12/08/23 22:00 12/12/23 23:21 Tamsulosin Hcl 0.4 Mg Capsule PO 0.8 mg QHS JAD Administration Vancomycin Protocol 1 lab 12/14/23 03:30 Vancomycin Trough/Random Due MC 12/14/23 07:30 DAILY [facility] Lab / Micro Data 12/13/23 15:55 12/13/23 06:05 Labs: Laboratory Results - last 24 hr 12/12/23 16:25: POC Glucose 207 H 12/13/23 00:17: POC Glucose 237 H 12/13/23 05:15: WBC 15.0 H, RBC 1.87 L, Hgb 5.6 L*, Hct 17.1 L, MCV 91.4, MCH 29.9, MCHC 32.7, RDW Std Deviation 48.6 H, RDW Coeff of [place] 14.6, Plt Count 160, MPV 10.3, Neut % (Auto) Not Reportable, Absolute Neuts (auto) 13.4 H, Absolute Lymphs (auto) 0.90, Total Counted 100, Neutrophils % (Manual) 55, Band Neutrophils % 34 H, Lymphocytes % (Manual) 6 L, Monocytes % (Manual) 2, Metamyelocytes % 1, Myelocytes % 2 H, Differential Comment SCANNED, Diff Path Review December, Sodium Cancelled, Potassium Cancelled, Chloride Cancelled, Carbon Dioxide Cancelled, Anion Gap Cancelled, BUN Cancelled, Creatinine Cancelled, Estim Creat Clear Calc Cancelled, Est GFR (MDRD) Af Amer Cancelled, Est GFR (MDRD) Non-Af Cancelled, BUN/Creatinine Ratio Cancelled, Glucose Cancelled, Lactic Acid Cancelled, Calcium Cancelled, Phosphorus Cancelled 12/13/23 05:15: Phosphorus Cancelled, Magnesium Cancelled, Total Bilirubin Cancelled, AST Cancelled, ALT Cancelled, Alkaline Phosphatase Cancelled, Total Protein Cancelled, Albumin Cancelled, Globulin Cancelled, Albumin/Globulin Ratio Cancelled 12/13/23 06:05: Sodium 130 L, Potassium 4.3, Chloride 102, Carbon Dioxide 23.0, Anion Gap 5, BUN 35 H, Creatinine 0.65 L, Estim Creat Clear Calc 92.65, Est GFR (MDRD) Af Amer 155, Est GFR (MDRD) Non-Af 128, BUN/Creatinine Ratio 54.2 H, Glucose 234 H, Lactic Acid 0.8, Calcium 6.3 L*, Phosphorus 2.5, Magnesium 1.8, Total Bilirubin 0.30, AST 41 H, ALT 53, Alkaline Phosphatase 201 H, Total Protein 3.6 L, Albumin 1.3 L, Globulin 2.3, Albumin/Globulin Ratio 0.6 L 12/13/23 07:55: Blood Type O NEGATIVE, Antibody Screen NEGATIVE, Crossmatch See Detail 12/13/23 07:55: Crossmatch See Detail 12/13/23 08:40: Hgb 5.3 L*, Hct 15.8 L 12/13/23 11:50: POC Glucose 200 H Micro: Microbiology 12/08/23 Unknown Tissue - Aerobic & Anaerobic Swabs Gram Stain - Final 12/08/23 Unknown Tissue - Aerobic & Anaerobic Swabs Wound Culture - Final Staphylococcus lugdunensis Staphylococcus epidermidis Aerococcus urinae Nadia neuii 12/08/23 Unknown Tissue - Aerobic & Anaerobic Swabs Anaerobic Culture - Preliminary Checking for anaerobes, further studies to follow. ABG Data ABG results: ABG 12/13/23 04:44 Specimen Type ART Sample Site R Radial pH 7.44 Bicarbonate Actual 20.0 L Total CO2 21 Base Excess -4 L O2 Saturation 96 O2 % 2.0 ABG pCO2 29.8 L ABG pO2 80 Stew Test Positive O2 Delivery Device Cannula Vent Mode Not entered Imaging Radiology Impression Abdomen/Pelvis CT 12/13/23 06:39 IMPRESSION: 1. Persistent large and small bowel ileus. 2. Increasing edema of the subcutaneous tissues. 3. Stable surgically treated soft tissue infection of the right side of the scrotum and perineum. Electronically Signed: Fernie Albarado MD at 8:45 EDT , Assessment and Plan . Assessment and plan: 77 yo diabetic and obese former smoker admitted 12/08/23 after a fall at home. In the ED, he was unable to bear weight and subsequently was admitted for further evaluation and treatment. No obvious bony injuries noted. However, pelvic CT did reveal e/o a gas-forming ST infection involving the inguinal and perineal areas. He has required multiple trips to the OR for operative debridement of necrotic and grossly infected tissue, most recently on 12/12/23. He has received multiple anti-bacterials as well. On 12/13/23, noted marginal BP as well as significant anemia. At that point, no gross bleeding noted. He was transferred to the ICU and RBC transfusion initiated. After ICU arrival, he has developed multiple episodes of dark bloody stool, HR is currently 105, BP 91/64. RBC and saline are infusing. Lab significant for HGB 5 g/dL, normal PLT, LA 0.8, Albumin 1.3 Surgery is evaluating the patient for urgent endoscopy. PHYSICAL EXAM GEN NAD, appears ill VS as above HEENT pale conjunctiva NECK obese COR RRR CHEST CTA ABD obese, soft EXT pitting edema SKIN w/d SAIGE NF ASSESSMENT 1. Acute GI bleeding 2. Hypotension / shock 3. Extensive necrotizing ST infection of perineum, requiring operative debridement 4. Severe hypoalbuminemia 5. DM / Obesity 6. Former tobacco use 7. Hyponatremia / hypervolemia TREATMENT PLAN -volume expansion w/ albumin -blood products -PPI -hold all A/C and anti-HTN -possible endoscopy today -prognosis very guarded Critical Care Time: 60 min The entirety of this encounter was done via Telemedicine
[2023-12-13] MEDS: Pantoprazole Sodium 40 MG in 0.9% Normal Saline (100mL MB+) 100 ML 330 MG IV ×2 (14:20→20:55)
[2023-12-13] MEDS: Furosemide 20 MG/2 ML VIAL IV (14:21)
--- NOTE | 2023-12-13 14:56 | PCM.PN.SRG ---
Subjective Subjective Called to bedside as the patient had a large liquid bowel movement containing about 500 cc of dark red blood clots. Pt does not report any pain Objective Data Objective Data Vital Signs: Vital Signs Temp Pulse Resp BP Pulse Ox O2 Del Method O2 Flow Rate 97.6 F L 92 23 H 109/48 L 99 Room Air 2 12/13/23 09:45 12/13/23 10:30 12/13/23 10:30 12/13/23 10:30 12/13/23 10:30 12/13/23 12:00 12/13/23 10:26 FiO2 95 12/13/23 10:26 Oxygen Flow Rate (L/min) 2 Oxygen Delivery Method Room Air Weight: 233 lb 14.567 oz Body Mass Index (BMI) 36.6 Intake & Output: Intake and Output for Last 24 Hours 12/11/23 12/12/23 12/13/23 23:59 23:59 23:59 Intake Total 2060 / 2160 2254 / 2254 1897 / 1897 Output Total 3550 / 4000 1650 / 1650 380 / 380 Balance -1490 / -1840 604 / 604 1517 / 1517 Lab / Micro Data 12/13/23 08:40 12/13/23 06:05 Labs: Laboratory Results - last 24 hr 12/12/23 16:25: POC Glucose 207 H 12/13/23 00:17: POC Glucose 237 H 12/13/23 05:15: WBC 15.0 H, RBC 1.87 L, Hgb 5.6 L*, Hct 17.1 L, MCV 91.4, MCH 29.9, MCHC 32.7, RDW Std Deviation 48.6 H, RDW Coeff of [place] 14.6, Plt Count 160, MPV 10.3, Neut % (Auto) Not Reportable, Absolute Neuts (auto) 13.4 H, Absolute Lymphs (auto) 0.90, Total Counted 100, Neutrophils % (Manual) 55, Band Neutrophils % 34 H, Lymphocytes % (Manual) 6 L, Monocytes % (Manual) 2, Metamyelocytes % 1, Myelocytes % 2 H, Differential Comment SCANNED, Diff Path Review May foll, Sodium Cancelled, Potassium Cancelled, Chloride Cancelled, Carbon Dioxide Cancelled, Anion Gap Cancelled, BUN Cancelled, Creatinine Cancelled, Estim Creat Clear Calc Cancelled, Est GFR (MDRD) Af Amer Cancelled, Est GFR (MDRD) Non-Af Cancelled, BUN/Creatinine Ratio Cancelled, Glucose Cancelled, Lactic Acid Cancelled, Calcium Cancelled, Phosphorus Cancelled 12/13/23 05:15: Phosphorus Cancelled, Magnesium Cancelled, Total Bilirubin Cancelled, AST Cancelled, ALT Cancelled, Alkaline Phosphatase Cancelled, Total Protein Cancelled, Albumin Cancelled, Globulin Cancelled, Albumin/Globulin Ratio Cancelled 12/13/23 06:05: Sodium 130 L, Potassium 4.3, Chloride 102, Carbon Dioxide 23.0, Anion Gap 5, BUN 35 H, Creatinine 0.65 L, Estim Creat Clear Calc 92.65, Est GFR (MDRD) Af Amer 155, Est GFR (MDRD) Non-Af 128, BUN/Creatinine Ratio 54.2 H, Glucose 234 H, Lactic Acid 0.8, Calcium 6.3 L*, Phosphorus 2.5, Magnesium 1.8, Total Bilirubin 0.30, AST 41 H, ALT 53, Alkaline Phosphatase 201 H, Total Protein 3.6 L, Albumin 1.3 L, Globulin 2.3, Albumin/Globulin Ratio 0.6 L 12/13/23 07:55: Blood Type O NEGATIVE, Antibody Screen NEGATIVE, Crossmatch See Detail 12/13/23 07:55: Crossmatch See Detail 12/13/23 08:40: Hgb 5.3 L*, Hct 15.8 L 12/13/23 11:50: POC Glucose 200 H Micro: Microbiology 12/13/23 12:45 Stool Stool Occult Blood (RAÚL) - Final Occult Blood Positive 12/08/23 Unknown Tissue - Aerobic & Anaerobic Swabs Gram Stain - Final 12/08/23 Unknown Tissue - Aerobic & Anaerobic Swabs Wound Culture - Final Staphylococcus lugdunensis Staphylococcus epidermidis Aerococcus urinae [place]on[place]ia neuii 12/08/23 Unknown Tissue - Aerobic & Anaerobic Swabs Anaerobic Culture - Preliminary Checking for anaerobes, further studies to follow. 12/08/23 Unknown Tissue - Other Gram Stain - Final 12/08/23 Unknown Tissue - Other Wound Culture - Final Staphylococcus epidermidis#2 Staphylococcus lugdunensis Corynebacterium species Staphylococcus epidermidis 12/08/23 Unknown Tissue - Other Anaerobic Culture - Preliminary Checking for anaerobes, further studies to follow. 12/11/23 15:25 Stool Clostridioides difficile (PCR) - Final ABG Data ABG results: ABG 12/13/23 04:44 Specimen Type ART Sample Site R Radial pH 7.44 Bicarbonate Actual 20.0 L Total CO2 21 Base Excess -4 L O2 Saturation 96 O2 % 2.0 ABG pCO2 29.8 L ABG pO2 80 Stew Test Positive O2 Delivery Device Cannula Vent Mode Not entered Radiography Diagnostic Testing: Radiology Impression Abdomen/Pelvis CT 12/13/23 06:39 IMPRESSION: 1. Persistent large and small bowel ileus. 2. Increasing edema of the subcutaneous tissues. 3. Stable surgically treated soft tissue infection of the right side of the scrotum and perineum. Electronically Signed: Fernie Albarado MD at 8:45 EDT , Physical Exam Const oriented x3 and no apparent distress Resp normal respiratory effort GI soft to palpation and non-tender Assessment & Plan Assessment/Plan (1) Necrotizing fasciitis: PLAN: Pt was anemic this morning and CT did not show any hematoma and there was minimal blood loss from yesterdays surgery. He has now had a large gelatinous bowel movement with dark red blood that was backed up behind the FMS system. The FMS has been removed. He has not had another BM yet. Pt is almost done with his second unit of blood. Repeat Hb will be checked in 1 hour. If he has ongoing bleeding or if the repeat check does not show adequate response then he might need more emergent endoscopy. Otherwise I will keep him to clear liquid diet and plan for double scope tomorrow to evaluate. I would like to avoid prep if possible as the wound is very close to his anus. Biggest concern would be ischemia of the colon. BP is currently stable and the patient is not tachycardic. Continue ICU monitoring
[2023-12-13] MEDS: Albumin Human 25% (100 mL) 25 GM/100 ML BAG IV (15:00)
[2023-12-13] MEDS: Ondansetron 4 MG/2 ML Vial IV (15:55)
[2023-12-13 16:04] LABS: Hematocrit 20.6 % (40-54); Hemoglobin 7.1 g/dL (13.0-16.5)
--- NOTE | 2023-12-13 17:12 | PN_ITS ---
Progress Note Patient had another gelatinous bloody bowel movement and he did vomit some brown liquid as well. The patient did respond appropriately to transfusion his hemoglobin is now 7.1. Given the fact that his bleeding seems to be ongoing I discussed performing an EGD to evaluate for upper GI bleed as this blood is very dark. More importantly I would like to perform unprepped flexible sigmoidoscopy to evaluate the rectum for ischemia. If there is any ischemia of the rectal tissue I would likely transfer him to tertiary center for APR. I discussed EGD and colonoscopy with the patient in detail. I also discussed the possibility that he would have to be intubated for the procedure or intubated after the procedure depending on how it went. The patient understands and is agreeable. I discussed EGD and colonoscopy and possible biopsies as well as cauterization or attempt to stop bleeding. I explained endoscopy in detail to the patient. I explained the risks including but not limited to stroke or heart attack with anesthesia, perforation of the GI tract, bleeding, infection. I explained that any of these could necessitate further emergency surgery. The patient understands and all questions were answered sufficiently. The patient wishes to proceed with procedure. Tarun Echevarria MD Pager: [facility] [address] [place] [address], [address] [place] [address] Office:
[2023-12-13 17:35] LABS: Bedside Glucose 228 mg/dL (74-106)
[2023-12-13] MEDS: Lidocaine Jelly 2% 20 ML Syringe (URO-JET) 1 APPLIC TOPICAL (17:48)
--- NOTE | 2023-12-13 18:08 | NURSING ---
education re chronic illness deferred till acute illness resolving
--- NOTE | 2023-12-13 18:35 | OP.CCLET_ITS ---
12/14/2023 Gentyr Frias Re : Upper GI endoscopy procedure for Patrick Flynn Dear Rodriguez This procedure was performed on Wednesday, December 13, 2023. My impressions and recommendations are as follows: Impressions : - Esophagitis with no bleeding. - Normal stomach. - Normal examined duodenum. - No specimens collected. Recommendations : - [facility]. - Continue present medications. My findings are described in the full procedure note, which is enclosed. If I can be of further assistance, please feel free to contact me at Doctor phone number(s): , Work: . Sincerely, Tarun Echevarria MD 12/13/2023 6:34:31 PM This report has been signed electronically.
--- NOTE | 2023-12-13 18:35 | OP.EGD_ITS ---
Patient Name: Patrick Flynn Procedure Date: 12/13/2023 5:36 PM Date of : 1945 Age: 77 Procedure: Upper GI endoscopy Indications: Hematochezia Providers: Tarun Echevarria MD Medicines: Propofol per Anesthesia Patient Profile: This is a 77 year old male. Refer to note in patient chart for documentation of history and physical. Complications: No immediate complications. Estimated blood loss: Minimal. Procedure: Pre-Anesthesia Assessment: - Prior to the procedure, a History and Physical was performed, and patient medications and allergies were reviewed. The patient's tolerance of previous anesthesia was also reviewed. The risks and benefits of the procedure and the sedation options and risks were discussed with the patient. All questions were answered, and informed consent was obtained. Prior Anticoagulants: The patient has taken no anticoagulant or antiplatelet agents. After reviewing the risks and benefits, the patient was deemed in satisfactory condition to undergo the procedure. After obtaining informed consent, the endoscope was passed under direct vision. Throughout the procedure, the patient's blood pressure, pulse, and oxygen saturations were monitored continuously. The Endoscope was introduced through the mouth, and advanced to the third part of duodenum. The upper GI endoscopy was performed with moderate difficulty due to presence of food. The patient tolerated the procedure fairly well. Scope In: 5:40:57 PM Scope Out: 6:06:10 PM Total Procedure Duration Time 0 hours 25 minutes 13 seconds Findings: Esophagitis with no bleeding was found in the lower third of the esophagus. The stomach was normal. The examined duodenum was normal. Impression: - Esophagitis with no bleeding. - Normal stomach. - Normal examined duodenum. - No specimens collected. Recommendation: - Return [facility] to [facility] for [facility] care. - Continue present medications. Procedure Code(s): --- Professional --- 85942, Esophagogastroduodenoscopy, flexible, transoral; diagnostic, including collection of specimen(s) by brushing or washing, when performed (separate procedure) Diagnosis Code(s): --- Professional --- K20.90, Esophagitis, unspecified without bleeding K92.1, Melena (includes Hematochezia) CPT copyright 2021 [employer]. All rights reserved. The codes documented in this report are preliminary and upon hearing aid repairer review may be revised to meet current compliance requirements. Tarun Echevarria MD 12/13/2023 6:34:31 PM This report has been signed electronically. Number of Addenda: 0 Note Initiated On: 12/13/2023 5:36 PM
--- NOTE | 2023-12-13 18:37 | PCM.PN.BLA ---
Progress Note I attempted EGD and colonoscopy. On EGD there was a lot of fluid and food in his stomach. NG was connected to suction and flushed multiple times and the liquid is able to be removed. I was not able to see a source of bleeding or old blood in the stomach or duodenum. On colonoscopy the patient had copious amounts of black tarry stool in the rectal vault all the way up the descending colon. I was not able to advance any further than that but it seems that the bleeding is coming from somewhere in the right side of the colon. There is no source of bleeding identified in the descending colon and sigmoid or rectum. The rectum and sigmoid area were irrigated and the wall of the rectum appears pink and viable with no signs of ischemia. Given the fact that I cannot find his GI bleed and he is severely bleeding and he is having complications of the necrotizing fasciitis and we do not have plastic coverage here and I do not have an it administrative assistant this week to help me if he has any rectal issues I would like to transfer the patient to tertiary center for ongoing care and elevation of acuity of care. Tarun Echevarria MD Pager: [facility] [address] [place] [address], [address] [place] [address] Office:
--- NOTE | 2023-12-13 19:13 | OP.COLON_ITS ---
Patient Name: Patrick Flynn Procedure Date: 12/13/2023 6:43 PM Date of : 1945 Age: 77 Procedure: Colonoscopy Indications: Hematochezia Providers: Tarun Echevarria MD Medicines: Propofol per Anesthesia Patient Profile: Last Colonoscopy: several years ago. This is a 77 year old male. Refer to note in patient chart for documentation of history and physical. Complications: No immediate complications. Procedure: Pre-Anesthesia Assessment: - Prior to the procedure, a History and Physical was performed, and patient medications and allergies were reviewed. The patient's tolerance of previous anesthesia was also reviewed. The risks and benefits of the procedure and the sedation options and risks were discussed with the patient. All questions were answered, and informed consent was obtained. Prior Anticoagulants: The patient has taken no anticoagulant or antiplatelet agents. After reviewing the risks and benefits, the patient was deemed in satisfactory condition to undergo the procedure. After I obtained informed consent, the scope was passed under direct vision. Throughout the procedure, the patient's blood pressure, pulse, and oxygen saturations were monitored continuously. The colonoscopy was performed with difficulty due to poor endoscopic visualization. The patient tolerated the procedure well. No bowel preparation was given prior to the procedure. The was introduced through the anus and advanced to the descending colon. Scope In: 5:40:53 PM Scope Out: 6:18:16 PM Total Procedure Duration Time 0 hours 37 minutes 23 seconds Findings: Clotted blood was found in the descending colon, and sigmoid and rectum. Unable to get past the descending colon due to contents. no source of bleeding on the left side of the colon. Rectum and sigmoid were irrigated and the mucosa appeared healthy with no sign of ischemia. Impression: - Blood in the descending colon. - No specimens collected. Recommendation: - Transfer patient to another hospital. - No recommendation at this time regarding repeat colonoscopy. - Continue present medications. Procedure Code(s): --- Professional --- 45798, 53, Colonoscopy, flexible; diagnostic, including collection of specimen(s) by brushing or washing, when performed (separate procedure) Diagnosis Code(s): --- Professional --- K92.2, Gastrointestinal hemorrhage, unspecified K92.1, Melena (includes Hematochezia) CPT copyright 2021 [employer]. All rights reserved. The codes documented in this report are preliminary and upon washhouse hand review may be revised to meet current compliance requirements. Tarun Echevarria MD 12/13/2023 7:12:59 PM This report has been signed electronically. Number of Addenda: 0 Note Initiated On: 12/13/2023 6:43 PM
--- NOTE | 2023-12-13 19:13 | OP.CCLET_ITS ---
12/14/2023 Gentry Frias Re : Colonoscopy procedure for Patrick Flynn Dear Rodriguez This procedure was performed on Wednesday, December 13, 2023. My impressions and recommendations are as follows: Impressions : - Blood in the descending colon. - No specimens collected. Recommendations : - Transfer patient to another hospital. - No recommendation at this time regarding repeat colonoscopy. - Continue present medications. My findings are described in the full procedure note, which is enclosed. If I can be of further assistance, please feel free to contact me at Doctor phone number(s): , Work: . Sincerely, Traun Echevarria MD 12/13/2023 7:12:59 PM This report has been signed electronically.
[2023-12-13 21:03] LABS: Hemoglobin 5.7 g/dL (13.0-16.5)
[2023-12-13 21:39] LABS: Bedside Glucose 209 mg/dL (74-106)
[2023-12-13 21:39] LABS: Absolute Lymphocyte Count 0.84 X10^3/uL (0.83-4.51); Absolute Neutrophil Count 12.3 X10^3/uL (2.0-7.7); Basophil# 0.01 X10^3/uL; Basophil% 0.1 % (0-1); Eosinophil# 0.04 X10^3/uL; Eosinophils% 0.3 % (0-5); Hematocrit 16.3 % (40-54); Lymphocyte # 0.84 X10^3/ul (0.83-4.51); Lymphocyte % 5.7 % (19-41); Mean Corpuscular Hgb 30.6 pg (27.0-32.0); Mean Corpuscular Volume 87.6 fL (80-94); Mean Platelet Vol. 10.4 fl (6.2-12.0); Monocyte# 1.01 X10^3/uL; Monocyte% 6.9 % (0-10); NRBC Flagged by Analyzer 0.3 % (0-5); Neutrophil # 12.31 X10^3/uL (2.7-7.7); Neutrophil % 83.5 % (47-70); Platelet Count 111 K/mm3 (150-450); RBC Distribution Width CV 14.7 % (11.6-14.6); RBC Distribution Width SD 46.6 fl (35.1-43.9); Red Blood Count 1.86 M/mm3 (4.6-6.2); White Blood Count 14.7 K/mm3 (4.4-11.0)
[2023-12-13 22:18] LABS: D-Dimer Quantitative (DVT/PE) 3.86 FEU/ug/m (0.27-0.49)
[2023-12-13 22:31] LABS: International Normalized Ratio 1.8
[2023-12-13 22:32] LABS: Partial Thromboplast Time 39.5 Seconds (24.1-36.2)
[2023-12-13 22:42] LABS: Fibrinogen 226 mg/dl (203-444)
--- NOTE | 2023-12-13 23:30 | NURSING ---
[facility] ground transport here, pt and belongings moved to stretcher; cont infusions of PRBC x1 and FFP, cont Merrem infusion.
--- NOTE | 2023-12-14 07:43 | PCM.DC.SUM ---
Providers Date of Admission: 12/08/23 Date of Discharge: 12/14/23 Primary Care Physician: Dr. Gentry Frias MD Consultations 12/08/23 19:19 Consult: Infectious Disease Routine Consulting Provider: Michael Lee Reason for Consult: nec fasc EMERGENT Consult: No Notified: Yes Date Notified: 12/09/23 Time Notified: 05:26 Method of Notification: Answering Service 12/08/23 21:15 Consult: General Surgery Routine Consulting Provider: Tarun Echevarria Reason for Consult: Nec fasc EMERGENT Consult: No MD Notified: Yes Date Notified: 12/08/23 Time Notified: 19:16 Method of Notification: Verbal Consult: Onc/Wound/plate colorer Routine Comment: Reason for Consult:: necrotizing fasciitis 12/09/23 09:21 Consult: Orthopedics Routine Consulting Provider: Antonio Ro Reason for Consult: avasacular necrosis of left hpi EMERGENT Consult: No MD Notified: Yes Date Notified: 12/08/23 Time Notified: 18:21 Method of Notification: ED Physician Initiated 12/09/23 11:58 Consult: Infectious Disease Routine Consulting Provider: Michael Lee 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 EMERGENT Consult: No Notified: Yes Date Notified: 12/09/23 Time Notified: 11:59 Method of Notification: Text 12/13/23 10:29 Consult: Outdoor [employer] Equipment Mechanic / Pulmonary Medicine Routine Consulting Provider: Intensivists/Pulmonary Med Reason for Consult: suspicion of sepsis, Nec fascitis EMERGENT Consult: No Notified: Yes Date Notified: 12/13/23 Time Notified: 10:30 Method of Notification: Text 12/13/23 15:09 Consult: Gastroenterology Routine Consulting Provider: [facility] Reason for Consult: upper gi bleed EMERGENT Consult: No Notified: Yes Date Notified: 12/13/23 Time Notified: 15:09 Method of Notification: Verbal Reason For Visit: GANGRENE OF SCROTUM Diagnosis Discharge Diagnosis (1) Necrotizing fasciitis: Status: Acute Code(s): M72.6 - Necrotizing fasciitis Plan This 77-year-old gentleman being admitted after fall with severe pain in the left hip with severe ROM restriction. 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 Necrotizing fasciitis of right groin and perineal region: Patient was taken to the OR and incision and drainage of right groin and perineal with packing. Prior to that, CT lower extremity was done for severe arthritis and was found to have gas within the right groin region extending to the right. No soft tissue therefore CT abdomen was done which showed phlegmonous changes in soft tissue in perineal region posterior to scrotal sac and right inguinal canal. No sepsis. Patient has leukocytosis. Patient was on vancomycin and cefepime. Cefepime changed to IV meropenem for broad coverage of gram-negative and anaerobes. 12/09: Patient was evaluated by ID. On IV meropenem, vancomycin and clindamycin. Patient was taken for staged debridement today. Patient had severe pain after surgery but it is controlled. Does not want morphine or Dilaudid. Tylenol 1 g every [address] Echevarria. Anticipate plan for LTAC. 12/10: Dressing was changed. Recommended daily dressing with Dakin's. Prelim culture shows UNDERLINER, gram-positive organism. Discussed with the director case management and plan for LTAC. 12/11: Leukocytosis worsening. No fever. CT abdomen was done which shows some gas extension along the right spermatic cord towards inferior anterior abdominal wall has not improved compared to the previous study. Postsurgical changes foreign years gangrene of his scrotum and right inguinal area. Patient is being taken for surgery today. 12/12: Patient had low blood pressure and sinus tachycardia but blood pressure systolic 120 but patient looks worse than yesterday with severe anemia and hypocalcemia. Drop in platelet count from 224,000 260,000. Patient transferred to ICU. Outdoor Power Equipment Mechanic consulted and called.Patient has leukocytosis, bands 34% and immature granulocytes 2% ABG 7.44/30/80 on 2 L of oxygen. Overall clinically patient seems getting worse although does not meet the criteria for sepsis yet with normal lactic acid. Patient had repeat CT with IV contrast to look for the source of bleeding. No retroperitoneal hematoma but persistent large and small bowel ileus with increasing edema of subcutaneous tissue and surgical changes of peritoneal and right side of scrotal and inguinal region. The patient was again seen and evaluated in afternoon. Had 2 units of PRBC transfusion and hemoglobin went up to 7.1/20 from 5.3. But later on about 8 PM hemoglobin had dropped to 5.7. Around 10 AM and noon, the nurse notified that patient having dark blood/melena. The patient was taken for EGD and sigmoidoscopy. EGD 12/13/2023 Impression: - Esophagitis with no bleeding. - Normal stomach. - Normal examined duodenum. - No specimens collected. Recommendation: - [facility] for [facility] care. - Continue present medications. Sigmoidoscopy/left side of colon Impression: - Blood in the descending colon. - No specimens collected. Recommendation: - Transfer patient to another hospital. - No recommendation at this time regarding repeat colonoscopy. - Continue present medications. Surgeon Dr. Echevarria notified me that he sees all the blood in the pouring out into descending colon probably coming from right side. Exact etiology unclear but possible from ischemic or infection of inner lining of colon. He initiated the transfer process and patient was transferred to [facility] for urgency of the condition. 2. Severe anemia most likely from upper GI bleed: Patient had drop in H&H and platelet count. Hemoglobin dropped to 5.3 g%. Patient had black stool/melena as per nursing staff. PPI every 12 hourly. Surgery on board. 2 units of PRBC transfusion ongoing. Lasix 20 mg IV in between. Hypokalemia: IV potassium on replacement. Serum magnesium and phosphorus level in normal range. 12/09: Mild hypokalemia, potassium getting replaced 12/10: Mild hypokalemia, potassium replaced. 12/12: Hypokalemia is corrected. But severe hypocalcemia: Calcium replacement ordered. 3. Left hip pain after mechanical fall due to severe primary osteoarthritis of left: First x-ray and then CT of lower extremity shows severe osteoarthritis with mild joint space narrowing. There was suspicion of avascular necrosis but CT did not show dislocation or fracture. Orthopedic surgeon is further consulted for clinical evaluation to rule out avascular necrosis 12/09: Patient was evaluated by orthopedic surgeon Dr. Ro and had discussion. For now conservative management with pain control and physical therapy. Follow-up in the office after necrotizing fasciitis taken care of for further discussion regarding surgical management. Chronic hyponatremia: Serum sodium 136 decreased to 132. Serum potassium normal. BUNs/creatinine normal, estimated creatinine clearance 92 mill per minute. 12/12: Persistent hyponatremia. Sodium is still low 130. 4. Essential HTN/HLD ? Blood pressures are stable ? continue his home blood pressure medications and make adjustments as necessary ? Continue with his lovastatin 5. DM2 ? Hold oral hypoglycemic agents. Accu-Chek before meals and at bedtime insulin coverage Humalog sliding scale. ? Continue monitor make adjustments as necessary 6. BPH Continue with Flomax DVT: SCDs Clinical Impression(s) from Imaging Studies Hip/Pelvis X-Ray 12/08/23 08:37 IMPRESSION: Marked degree of the joint space narrowing and osteoarthritis of both hip joints worse on the left side with subchondral cystic changes worse on the left. 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 No fracture is seen. Electronically Signed: Beau Elizalde MD at 10:22 EDT , Knee X-Ray 12/08/23 08:37 IMPRESSION: Degenerative arthrosis. Electronically Signed: Beau Elizalde MD at 10:23 EDT , Chest X-Ray 12/08/23 10:10 IMPRESSION: Prominence of the central pulmonary arteries. Electronically Signed: Beau Elizalde MD at 10:26 EDT , Lower Extremity CT 12/08/23 15:25 IMPRESSION: Severe degenerative osteoarthritic changes of the left hip.. No evidence for acute fracture of the left hip or visualized portion of the left hemipelvis Electronically Signed: Marshall Ledezma MD at 16:15 EDT , ADDENDUM: 12/08/23 1700 IMPRESSION: undefined Abdomen/Pelvis CT 12/08/23 16:38 IMPRESSION: Phlegmonous changes in the soft tissues dorsal and posterior to the scrotal sac with gas bubbles in the right perineal soft tissues dissecting cephalad anterior and medial to the right inguinal canal.. Cannot exclude possibility of abscess within the soft tissues of the scrotal sac. Sonogram of the scrotum recommended for further evaluation Other findings as above Electronically Signed: Marshall Ledezma MD at 18:03 EDT , Abdomen/Pelvis CT 12/12/23 07:08 IMPRESSION: 1. 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 Some gas extends along the right spermatic cord towards the inferior anterior abdominal wall but has improved when compared with the prior study. Volume overload with small bilateral pleural effusions, small pericardial effusion, and anasarca. Mcmahon catheter. Abdomen/Pelvis CT 12/13/23 06:39 IMPRESSION: 1. Persistent large and small bowel ileus. 2. Increasing edema of the subcutaneous tissues. 3. Stable surgically treated soft tissue infection of the right side of the scrotum and perineum. Electronically Signed: Fernie Albarado MD at 8:45 EDT , Medications at Discharge Home Medications ascorbic acid (vitamin C) 1,000 mg tablet 1,000 mg PO DAILY supplement 11/09/19 cholecalciferol (vitamin D3) 25 mcg (1,000 unit) tablet 1,000 unit PO DAILY supplement 11/09/19 cyanocobalamin (vitamin B-12) 1,000 mcg capsule 1,000 mcg PO DAILY supplement 11/09/19 empagliflozin 10 mg tablet 10 mg PO DAILY diabetes 11/09/19 linagliptin 5 mg tablet 5 mg PO DAILY diabetes 11/09/19 lisinopril 10 mg tablet 10 mg PO DAILY bp 11/09/19 lovastatin 40 mg tablet 40 mg PO QHS cholesterol 11/09/19 metformin 500 mg tablet 1,000 mg PO BID diabetes 11/09/19 pioglitazone 45 mg tablet 45 mg PO DAILY diabetes 11/09/19 acetaminophen 325 mg tablet 650 mg PO Q6H PRN Pain 1-5 Or Fever >100.7 12/08/23 empagliflozin 25 mg tablet (Jardiance) 25 mg PO DAILY 12/08/23 glipizide 5 mg tablet, extended release 24 hr 15 mg PO DAILY 12/08/23 hydrochlorothiazide 12.5 mg tablet 12.5 mg PO DAILY 12/08/23 metformin 500 mg tablet 500 mg PO LUNCH 12/08/23 tamsulosin 0.4 mg capsule 0.8 mg PO QHS 12/08/23 Physical Exam Narrative Patient was seen and examined in the morning. He was again seen around the afternoon. Rectal tube shows dark-colored stool positive for blood. Rest of the physical findings already in progress note on the same day. Weight / BMI Weight Weight: 233 lb 14.567 oz Body Mass Index (BMI) 36.6 ABG / Lab / Microbiology Data 12/13/23 20:40 12/13/23 06:05 Laboratory: Laboratory Results - last 24 hr 12/13/23 07:35: Crossmatch See Detail 12/13/23 07:35: Crossmatch See Detail 12/13/23 07:55: Blood Type O NEGATIVE, Antibody Screen NEGATIVE, Crossmatch See Detail 12/13/23 07:55: Crossmatch See Detail 12/13/23 08:40: Hgb 5.3 L*, Hct 15.8 L 12/13/23 11:50: POC Glucose 200 H 12/13/23 15:55: Hgb 7.1 L, Hct 20.6 L 12/13/23 16:02: POC Glucose 228 H 12/13/23 20:40: WBC 14.7 H, RBC 1.86 L, Hgb 5.7 L*, Hct 16.3 L, MCV 87.6, MCH 30.6, MCHC 35.0 D, RDW Std Deviation 46.6 H, RDW Coeff of [place] 14.7 H, Plt Count 111 L, MPV 10.4, Immature Gran % (Auto) 3.500 H, Neut % (Auto) 83.5 H, Lymph % (Auto) 5.7 L, [place] % (Auto) 6.9, Eos % (Auto) 0.3, Baso % (Auto) 0.1, Absolute Neuts (auto) 12.3 H, Absolute Lymphs (auto) 0.84, Nucleated RBC % 0.3 12/13/23 21:07: POC Glucose 209 H 12/13/23 21:35: PT 21.0 H, INR 1.8, APTT 39.5 H, Fibrinogen 226, D-Dimer Quant (PE/DVT) 3.86 H* Microbiology: Microbiology 12/08/23 Unknown Tissue - Other Gram Stain - Final 12/08/23 Unknown Tissue - Other Wound Culture - Final Staphylococcus epidermidis#2 Staphylococcus lugdunensis Corynebacterium species Staphylococcus epidermidis 12/08/23 Unknown Tissue - Other Anaerobic Culture - Preliminary Gram negative edilson Gram negative edilson#2 12/08/23 Unknown Tissue - Aerobic & Anaerobic Swabs Gram Stain - Final 12/08/23 Unknown Tissue - Aerobic & Anaerobic Swabs Wound Culture - Final Staphylococcus lugdunensis Staphylococcus epidermidis Aerococcus urinae Yonikia neuii 12/08/23 Unknown Tissue - Aerobic & Anaerobic Swabs Anaerobic Culture - Preliminary Gram negative edilson Gram negative edilson#2 12/13/23 12:45 Stool Stool Occult Blood (RAÚL) - Final Occult Blood Positive 12/11/23 15:25 Stool Clostridioides difficile (PCR) - Final Radiography Diagnostic Testing: Radiology Impression Abdomen/Pelvis CT 12/13/23 06:39 IMPRESSION: 1. Persistent large and small bowel ileus. 2. Increasing edema of the subcutaneous tissues. 3. Stable surgically treated soft tissue infection of the right side of the scrotum and perineum. Electronically Signed: Fernie Albarado MD at 8:45 EDT , Meaningful Use Info Meaningful Use Diagnoses (Choose all that apply): None applicable Discharge Plan Admission Admit Date/Time: 12/08/23 15:39 Primary Reason for Your Visit: Necrotizing fasciitis of perineal and right inguinal region. GI bleed Attending Provider: Andrei Fuller Primary Care Provider: Gentry Frias Consulting Providers: Michael Lee; Celestine Leon; Tarun Echevarria; Antonio Ro; Juan Antonio Phelan; Arun Foreman; Yosi Hart; Angel Levy; Jaden Anne; Samanta Arreola; Rafael Felton; Maribel Henao; Hai Grimm; Rogelio Victoria; Tyler Paz; Vinny Woodruff; Miguel A Smith; Giorgio Carranza Discharge Orders/Prescriptions Prescriptions: No Action metformin 500 MG tablet 1,000 mg PO BID Patient Comments: PT TAKES 2 500MG TABS IN AM AND PM, AND 1 500MG TAB AT NOON lovastatin 40 MG tablet 40 mg PO QHS pioglitazone 45 MG tablet 45 mg PO DAILY lisinopril 10 MG tablet 10 mg PO DAILY linagliptin 5 MG tablet 5 mg PO DAILY empagliflozin 10 MG tablet 10 mg PO DAILY ascorbic acid (vitamin C) 1,000 MG tablet 1,000 mg PO DAILY cholecalciferol (vitamin D3) 1,000 UNIT tablet 1,000 unit PO DAILY cyanocobalamin (vitamin B-12) 1,000 MCG capsule 1,000 mcg PO DAILY glipizide 5 mg tablet extended release 24hr 15 mg PO DAILY tamsulosin 0.4 mg capsule 0.8 mg PO QHS hydrochlorothiazide 12.5 mg tablet 12.5 mg PO DAILY Jardiance 25 mg tablet 25 mg PO DAILY metformin 500 mg tablet 500 mg PO LUNCH Patient Comments: PT TAKES 2 500MG TABS IN AM AND PM, AND 1 500MG TAB AT NOON acetaminophen 325 mg Tablet 650 mg PO Q6H PRN (Reason: Pain 1-5 Or Fever >100.7) Referrals / Follow Up: Gentry Frias MD [Primary Care Provider] - Disposition Disposition (needs filled in before D/C Order can be placed): Acute Care Hospital Charges/Coding Visit Charges Inpatient E&M: 83663 Disch Hosp >30min
--- NOTE | 2023-12-14 11:04 | CASEMGMT ---
Updated via [facility] that pt was trf'd to [facility] main campus over the weekend and requested referral to be cancelled.
[2023-12-14 13:43] LABS: Pathologist Review Reviewed
[2023-12-14 13:45] LABS: Pathologist Review Reviewed
[2023-12-14 13:46] LABS: Pathologist Review Reviewed
[2023-12-14 13:48] LABS: Pathologist Review Reviewed
[2023-12-14 13:50] LABS: Pathologist Review Reviewed
== END 2023-12-14 00:05 | disposition short-term general hospital (02) | DRG 463 ==
LOC: ED 14:52 → MS3 16:39 → ED 17:36 → MS3 17:51 → ICU 12-13 08:36
PROVIDERS: Anesthesiology; Emergency Medicine; Family Medicine; Internal Medicine; Admitting Provider Surgery; Emergency Provider Student in an Organized Health Care Education/Training Program; PCP Family Medicine; Visit Provider Internal Medicine
PROC: 0JBB0ZZ Excision of Perineum Subcutaneous Tissue and Fascia, Open Approach (ICD-10-PCS; principal; 2023-12-08 18:00)
PROC: 0Y950ZZ Drainage of Right Inguinal Region, Open Approach (ICD-10-PCS; principal; 2023-12-12 11:30)
PROC: 0DJD8ZZ Inspection of Lower Intestinal Tract, Via Natural or Artificial Opening Endoscopic (ICD-10-PCS; CPT 45378; principal; 2023-12-13 17:00)
DX: M72.6 Necrotizing fasciitis (principal); A48.0 Gas gangrene; D62 Acute posthemorrhagic anemia; E87.1 Hypo-osmolality and hyponatremia; M90.552 Osteonecrosis in diseases classified elsewhere, left thigh; L02.215 Cutaneous abscess of perineum; I47.19 Other supraventricular tachycardia; K92.1 Melena; E88.09 Other disorders of plasma-protein metabolism, not elsewhere classified; E83.51 Hypocalcemia; E11.9 Type 2 diabetes mellitus without complications; E66.01 Morbid (severe) obesity due to excess calories; N49.3 Fournier gangrene; I10 Essential (primary) hypertension; K20.90 Esophagitis, unspecified without bleeding; E78.2 Mixed hyperlipidemia; E87.6 Hypokalemia; M16.12 Unilateral primary osteoarthritis, left hip; W18.31XA Fall on same level due to stepping on an object, initial encounter; B95.7 Other staphylococcus as the cause of diseases classified elsewhere; H54.8 Legal blindness, as defined in USA; N40.0 Benign prostatic hyperplasia without lower urinary tract symptoms; R29.6 Repeated falls; Z68.36 Body mass index [BMI] 36.0-36.9, adult; Z79.84 Long term (current) use of oral hypoglycemic drugs; Z79.899 Other long term (current) drug therapy; Z87.891 Personal history of nicotine dependence
CPT/HCPCS: 36415; 36569; 36600; 71045; 73502; 73564; 73700; 74176; 74177; 80048; 80053; 80202; 81001; 82274; 82803; 82962; 83036; 83605; 83735; 84100; 84132; 84484; 85014; 85018; 85025; 85379; 85384; 85610; 85730; 86644; 86850; 86900; 86901; 86920; 86922; 87070; 87075; 87077; 87186; 87205; 87493; 88305; 93005; 97162; 97166; 97530; 97535; 99285; A4648; J2185; J7030; J7040; J7050; J7120; P9016; P9017; P9040; P9047; Q9967; A4216; J0612; J1940; J2405

== ENCOUNTER 2024-02-18 09:00 | Outpatient (RCR) | payer MEDICARE, OTHER, SELFPAY ==
[2024-02-04 09:16] VITALS: BP 94/50; PULSE 85; RESP 18; TEMP 36.7; BMI 33.8
--- NOTE | 2024-02-04 12:28 | HP.PCM_ITS ---
History of Present Illness Date of Service: 02/04/24 Chief Complaint: Nonhealing surgical wound. Coccyx ulcer. History of Wound: Mr. Flynn is a 78-year-old with very extensive past medical history who was referred to the wound center due to nonhealing surgical wound and a decubitus ulcer. Presented to the hospital in November following a fall and left hip pain. During workup, he was noted to have gas extending in the right groin area and subsequently diagnosed with necrotizing fasciitis. Had staged surgical debridement for this. Hospital stay however was complicated by hypotension and GI bleed for which he was transferred to the [facility]. Following his stay at the [facility], he was discharged to [facility] and then most recently [facility]. He was not aware that he had a decubitus ulcer. He states that he has had consistent dressing changes at his facility. He believes that his dressing changes have been with Dakin's. History of diabetes mellitus type 2, follows up with his PCP Dr. Desean Frias at the [facility] and to his knowledge, his last A1c was 7.4. His appetite is fair. [facility] Medical History (Updated 02/04/24 @ 12:[address] Jonathan Waldrop MD) Decubitus ulcer of coccygeal region, stage 3 Non-healing surgical wound of right groin Unilateral primary osteoarthritis, left hip Contusion of hip, left Fall High cholesterol Enlarged prostate Diabetes Legally blind Home Medications ?Medication ?Instructions ?Recorded ?Last Taken ?Type ascorbic acid (vitamin C) 1,000 mg 1,000 mg PO DAILY supplement 11/09/19 12/07/23 History tablet cholecalciferol (vitamin D3) 25 1,000 unit PO DAILY supplement 11/09/19 12/07/23 History mcg (1,000 unit) tablet cyanocobalamin (vitamin B-12) 1,000 mcg PO DAILY supplement 11/09/19 12/07/23 History 1,000 mcg capsule empagliflozin 10 mg tablet 10 mg PO DAILY diabetes 11/09/19 12/07/23 History linagliptin 5 mg tablet 5 mg PO DAILY diabetes 11/09/19 12/07/23 History lisinopril 10 mg tablet 10 mg PO DAILY bp 11/09/19 12/07/23 History lovastatin 40 mg tablet 40 mg PO QHS cholesterol 11/09/19 12/07/23 History metformin 500 mg tablet 1,000 mg PO BID diabetes 11/09/19 12/07/23 History pioglitazone 45 mg tablet 45 mg PO DAILY diabetes 11/09/19 12/07/23 History acetaminophen 325 mg tablet 650 mg PO Q6H PRN Pain 1-5 Or 12/08/23 12/07/23 History Fever >100.7 empagliflozin 25 mg tablet 25 mg PO DAILY 12/08/23 Unknown History (Jardiance) glipizide 5 mg tablet, extended 15 mg PO DAILY 12/08/23 12/07/23 History release 24 hr hydrochlorothiazide 12.5 mg tablet 12.5 mg PO DAILY 12/08/23 12/07/23 History metformin 500 mg tablet 500 mg PO LUNCH 12/08/23 12/07/23 History tamsulosin 0.4 mg capsule 0.8 mg PO QHS 12/08/23 12/07/23 History Allergy/AdvReac Type Severity Reaction Status Date / Time No Known Allergies Allergy Verified 12/08/23 07:58 Family History Other Cancer Heart disease Surgical History Status post tonsillectomy Social History Smoking Status: Former smoker ROS Constitutional Constitutional: Denies body ache(s), chills, difficulty sleeping, excessive sweating, fever(s) or headache(s) Eyes Eyes: Reports blindness; Denies bloody eye, burning, discharge from eye(s) or foreign body ENT HEENT: Denies abnormal hearing, bleeding gums, change in voice, epistaxis or foreign body in nose Cardiovascular Cardiovascular: Denies abdominal bloating, abdominal pain, chest pain at rest, cold extremities, cyanosis or diaphoresis Respiratory/Chest Respiratory/Chest: Denies chest congestion, chest tightness, difficulty clearing secretions, dry cough, hemoptysis, hoarseness or inability to speak Gastrointestinal Gastrointestinal: Denies abdominal pain, belching, bloating, chewing difficulty or cramping Genitourinary Genitourinary: Denies abdominal discomfort, anuria, burning urination, flank pain, hematuria or itching Musculoskeletal Musculoskeletal: Denies atrophy, muscle cramps, muscle spasms, tingling or tremors Integumentary Integumentary: Reports skin ulcer; Denies change in pigmentation, furuncle, hirsutism, jaundice or pruritus Neurologic Neurologic: Denies behavior changes, burning sensations, confusion, convulsions, disequilibrium or dizziness Psychiatric Psychiatric: Denies behavioral changes, confusion, irritability, memory loss, panic attacks or tactile hallucinations Endocrine Endocrinology: Denies cold intolerance, deepening of the voice, excessive sweating, heat intolerance or increase in ring/shoe/hat size Hematologic/Lymphatic Hematologic/Lymphatic: Denies easy bleeding or easy bruising Allergic/Immunologic Allergic/Immunologic: Denies itchy eyes, lip swelling, rhinitis, throat swelling, tongue swelling, eczemia or wheezing Vital Signs Vital Signs Vital Signs: 02/04/24 09:16 Temperature 98.1 F Temperature Source Temporal Pulse Rate 85 Respiratory Rate 18 Blood Pressure 94/50 L Blood Pressure Mean 64 Blood Pressure Source Manual Blood Pressure Position Semi-Fowlers Blood Pressure Location Right Arm Oxygen Delivery Method Nasal Cannula Oxygen Flow Rate (L/min) 2 Weight Weight: 216 lb Body Mass Index (BMI) 33.8 Physical Exam Const alert, oriented x3 and no apparent distress General Appearance: cooperative and comfortable HEENT normocephalic and head/scalp atraumatic Head and Scalp: normal to inspection Neck full ROM General: normal visual inspection Resp normal respiratory effort and normal air movement Effort and Inspection: able to speak in complete sentences Cardio regular rate, regular rhythm, S1 normal heart sound and S2 normal heart sound GI soft to palpation and non-tender Skin Wounds: wounds noted bed beefy red and with slough, margins well defined, no odor, open and surrounding erythema Neuro oriented x3 and CN's II-XII intact bilaterally Psych mental status grossly normal, thought process normal, cooperative and affect normal Debridement Note Debridement Note Wound debrided: Right Groin/Scrotal (superior) Type of Debridement: Excisional debridement Anesthesia Used: 4% Lidocaine Solution Depth: Down to and including healthy tissue and in the subcutaneous layer Percentage of wound debrided: 100 Instrument Used: 7mm curette Tissue Removed: Slough and devitalized tissue Severity: Fat Layer Exposed Amount of bleeding with debridement: Mild Bleeding Controlled with: Pressure Patient tolerated procedure: Patient tolerated procedure well Post-Debridement Measurements and Additional Note: Post-Debridement Measurements/Treatment WC - Nurse 1 - General Ulcer Assessment Start: 02/04/24 09:15 Freq: Status: Active Protocol: [email or web address] Activity Type Activity Date Activity User E-sign Co-sign Detail Recorded Client Recorded Date Recorded By Document 02/04/24 09:16 KW wound center 02/04/24 09:40 KW 02/04/24 09:16 WC - Today's Visit Information Type of service Initial Visit Arrival Mode Stretcher Transfer Assistance Stretcher Patient Identification Verified (Name & Yes ) Finger Stick Blood Sugar(mg/dl) (if 153 indicated): Blood Sugar Stated by Patient Height and Weight Height 5 ft 7 in Weight 216 lb Weight in Pounds 216.0 lbs Weight Measurement Method Estimated by Patient Body Mass Index (BMI) 33.8 BMI Classification Obese BSA - [place] 2.09 Vital Signs Temperature (97.8 F-99.1 F) 98.1 F Temperature Source Temporal Pulse Rate (60-100) 85 Pulse Location Monitor Respiratory Rate (12-18) 18 Respiratory rate source Observation Oxygen Delivery Method Nasal Cannula O2 L/MIN 2 Blood Pressure (90/60-120/80) 94/50 L Blood Pressure Mean 64 Source Manual Position Semi-Fowlers Blood Pressure Location Right Arm History Since Last Visit- (Skip if this is Patient's initial visit) Left Footwear Slipper Right Footwear Slipper Pain Scale: 0-10 Numeric Is Patient Pain Free? No LT HIP -Description Aching -Intensity 4 -Alleviating Factors/Interventions Turning/ Repositioning Communication Assessment Preferred language Bruneian Able to Read Yes Able to Write Yes Right Hearing Abillity Normal Left Hearing Abillity Normal Visual Assistive Devices Legally Blind Teaching Assessment Preferences Verbal,Written, Demonstration Barriers to Learning None Readiness To Learn Excellent Willingness to Engage in Self Management High Activies Readiness to Engage in Self Management High Activities Anxiety Level Calm Cooperation Cooperative Perception Coherent Interest in Health Problem Asks Questions Education Importance Acknowledges Need Does Patient Smoke tobacco or other Yes substances Is Patient Diabetic Yes Functional Assessment Recent Decline in Ability to Perform Ambulation, Bathing,Lower Body Dressing, Toileting, Transferring, Upper Body Dressing Culture/Hoahaoism/Supplier Quality Engineer Cultural/Hoahaoism Needs that may affect No Treatment Plan Would you allow our hospital sock knitting machine operator to No meet you for the purpose of spiritual/ emotional support? Supplier Quality Engineer to contact place of taoist No - Nurse 2 - General Ulcer CM Notes Start: 02/04/24 09:15 Freq: Status: Active Protocol: Activity Type Activity Date Activity User E-sign Co-sign Detail Recorded Client Recorded Date Recorded By Document 02/04/24 10:00 [facility] 02/04/24 10:19 02/04/24 10:00 Wound Center Nurse 2 #3 Coccyx -Time 10:15 -Correct Patient Yes -Correct Side, Site, Position Yes -Correct Procedure Yes -Procedure Performed Yes -Type of Procedure Debridement -Clinical Debridement Subcutaneous -Tissue Removed Subcutaneous -Post Debridement (cm) - Length 3.5 -Post Debridement (cm) - Width 0.6 -Post Debridement (cm) - Depth 0.1 -Total Square (Post) (cm) 2.10 -Area of Debridement (cm) - Length 3.5 -Area of Debridement (cm) - Width 0.6 -Total Square (Area) (cm) 2.10 -Tunneling No -Undermining/Tunneling No -Circular Undermining No -Wound/Ulcer Outcome Not Healed -Ulcer Cleansing Rinsed/ Irrigated with Saline -Foul Odor after Cleansing No -Bioengineered Tissue No -Bleeding Controlled with Pressure -Treatment Response Procedure Tolerated Well -Debridement - Subq, 1st 20sq cm Yes -Debridement, SubQ, ea addt'l 20sq cm 5 or part thereof #2 Right Groin Inferior -Time 10:13 -Correct Patient Yes -Correct Side, Site, Position Yes -Correct Procedure Yes -Procedure Performed Yes -Type of Procedure Debridement -Clinical Debridement Subcutaneous -Tissue Removed Subcutaneous -Post Debridement (cm) - Length 0.4 -Post Debridement (cm) - Width 4.0 -Post Debridement (cm) - Depth 1.4 -Total Square (Post) (cm) 1.60 -Area of Debridement (cm) - Length 0.4 -Area of Debridement (cm) - Width 4.0 -Total Square (Area) (cm) 1.60 -Tunneling No -Undermining/Tunneling No -Circular Undermining No -Wound/Ulcer Outcome Not Healed -Ulcer Cleansing Rinsed/ Irrigated with Saline -Foul Odor after Cleansing No -Bleeding Controlled with Pressure -Treatment Response Procedure Tolerated Well -Debridement - Subq, 1st 20sq cm No #1 Right Groin Superior -Time 10:01 -Correct Patient Yes -Correct Side, Site, Position Yes -Correct Procedure Yes -Procedure Performed Yes -Type of Procedure Debridement -Clinical Debridement Subcutaneous -Tissue Removed Subcutaneous -Post Debridement (cm) - Length 7.0 -Post Debridement (cm) - Width 14 -Post Debridement (cm) - Depth 0.1 -Total Square (Post) (cm) 98.0 -Area of Debridement (cm) - Length 7.0 -Area of Debridement (cm) - Width 14 -Total Square (Area) (cm) 98.0 -Tunneling No -Undermining/Tunneling No -Circular Undermining No -Wound/Ulcer Outcome Not Healed -Foul Odor after Cleansing No -Bleeding Controlled with Pressure -Treatment Response Procedure Tolerated Well -Debridement - Subq, 1st 20sq cm No Pain Scale: 0-10 Numeric Is Patient Pain Free? Yes - Nurse 3 - General Ulcer D/C NN Start: 02/04/24 09:15 Freq: Status: Active Protocol: Activity Type Activity Date Activity User E-sign Co-sign Detail Recorded Client Recorded Date Recorded By Document 02/04/24 10:59 wound center 02/04/24 10:59 02/04/24 10:59 Wound Care Center Nurse 3 #3 Coccyx -Primary Dressing Applied Aquacel Extra -Primary Dressing Covered/Secured with Dry Gauze -Aquacel Extra 1 #2 Right Groin Inferior -Primary Dressing Covered/Secured with Dry Gauze #1 Right Groin Superior -Primary Dressing Covered/Secured with Dry Gauze, Secured with Tape Pain Scale: 0-10 Numeric Is Patient Pain Free? Yes Additional Wound Wound debrided: Right groin Type of Debridement: Excisional debridement Anesthesia Used: 4% Lidocaine Solution Depth: Down to and including healthy tissue and in the subcutaneous layer Percentage of wound debrided: 100 Instrument Used: 3mm curette Tissue Removed: Slough and devitalized tissue Severity: Fat Layer Exposed Amount of bleeding with debridement: Mild Bleeding Controlled with: Pressure Patient tolerated procedure: Patient tolerated procedure well Additional Wound Wound debrided: Coccyx Type of Debridement: Excisional debridement Anesthesia Used: 4% Lidocaine Solution Depth: Down to and including healthy tissue and in the subcutaneous layer Percentage of wound debrided: 100 Instrument Used: 5mm curette Tissue Removed: Slough and devitalized tissue Severity: Fat Layer Exposed Amount of bleeding with debridement: Mild Bleeding Controlled with: Pressure Patient tolerated procedure: Patient tolerated procedure well Charges/Coding Visit Charges Office Visits / Consults: [id number] OV L4 Est 30min Procedures Integumentary [id number]: [id number] Alla subq tissue 20 sq cm/< Add On Codes: 53328 Alla subq tissue add-on (x5 Additional Sq Cm debrided, please refer to clinical note.) Assessment/Plan Assessment/Plan (1) Non-healing surgical wound of right groin: CODE(S): T81.89XA - Other complications of procedures, not elsewhere classified, initial encounter (2) Decubitus ulcer of coccygeal region, stage 3: CODE(S): L89.153 - Pressure ulcer of sacral region, stage 3 (3) Necrotizing fasciitis: CODE(S): M72.6 - Necrotizing fasciitis (4) Type 2 diabetes mellitus: CODE(S): E11.9 - Type 2 diabetes mellitus without complications QUALIFIERS: Diabetes mellitus complication status: without complication Diabetes mellitus keno terminal operator insulin use: without long-term use Qualified Code(s): E11.9 - Type 2 diabetes mellitus without complications (5) Debility: CODE(S): R53.81 - Other malaise (6) Legally blind: CODE(S): H54.8 - Legal blindness, as defined in [place] PLAN: Plan Debridement done as documented above, procedure was well-tolerated. This is a very complex patient. Some of his past medical history as detailed above. Recent labs reviewed, hemoglobin at 9.4, A1c of 5.4 and albumin level less than 2. Significant debility, largely bedbound. Oxygen dependent. He states that there were conversations about possible graft/flap closure however, at this time I do not think he is a good candidate given his medical state/condition. Hopefully, we can optimize his nutrition and improve his functional status to a stage where he can be considered for surgery. I anticipate a prolonged wound healing process. Continue Dakin's however soak for 30 minutes and then apply Aquacel extra to all ulcers. Cover with gauze and ABD. Change twice daily or more depending on drainage. Reposition often/at least every 2 hours. Bimal twice daily. Continue optimal diabetes control. Due to debility and concerns with transportation and bringing him here each week, will follow-up in 2 weeks. His questions were answered and he was advised to let us know if he has any further questions or concerns. This note was generated with [employer]ue[employer] software. It may contain incorrect words, spelling, and punctuation that were not noted in checking the note before signing.
[2024-02-18 08:47] VITALS: BP 137/52; PULSE 86; RESP 18; TEMP 35.9; BMI 33.8
--- NOTE | 2024-02-18 10:29 | PCM.WC.PN ---
History of Present Illness Date of Service: 02/18/24 Chief Complaint: Nonhealing surgical wound. Coccyx ulcer. History of Wound: Mr. Flynn is a 78-year-old with very extensive past medical history who was referred to the wound center due to nonhealing surgical wound and a decubitus ulcer. Presented to the hospital in November following a fall and left hip pain. During workup, he was noted to have gas extending in the right groin area and subsequently diagnosed with necrotizing fasciitis. Had staged surgical debridement for this. Hospital stay however was complicated by hypotension and GI bleed for which he was transferred to the [facility]. Following his stay at the [facility], he was discharged to [facility] and then most recently [facility]. He was not aware that he had a decubitus ulcer. He states that he has had consistent dressing changes at his facility. He believes that his dressing changes have been with Dakin's. History of diabetes mellitus type 2, follows up with his PCP Dr. Desean Frias at the [facility] and to his knowledge, his last A1c was 7.4. His appetite is fair. Progress of Wound: No acute concerns reported at this time. There has been some improvements in his wound/ulcer. He is also not on oxygen at this time, he has been improving in other aspects as well. Objective Data Objective Data Vital Signs: Vital Signs Temp Pulse Resp BP O2 Del Method O2 Flow Rate 96.7 F L 86 18 137/52 H Room Air 2 02/18/24 08:47 02/18/24 08:47 02/18/24 08:47 02/18/24 08:47 02/18/24 08:47 02/04/24 09:16 Oxygen Flow Rate (L/min) 2 Oxygen Delivery Method Room Air Weight: 216 lb Body Mass Index (BMI) 33.8 Charges/Coding Procedures Integumentary 111xxx-113xx: 98107 Alla subq tissue 20 sq cm/< Add On Codes: 15220 Alla subq tissue add-on (x3. Additional square centimeter debrided, please refer to clinical note) Physical Exam Const alert, oriented x3 and no apparent distress General Appearance: cooperative and comfortable HEENT normocephalic and head/scalp atraumatic Head and Scalp: normal to inspection Neck full ROM General: normal visual inspection Resp normal respiratory effort Effort and Inspection: able to speak in complete sentences Skin Wounds: wounds noted bed granulating well and with slough, margins well defined, no odor, open and surrounding erythema Neuro oriented x3 and CN's II-XII intact bilaterally Psych mental status grossly normal, thought process normal, cooperative and affect normal Debridement Note Debridement Note Wound debrided: Right groin(Superior ) Type of Debridement: Excisional debridement Anesthesia Used: 4% Lidocaine Solution Depth: Down to and including healthy tissue and in the subcutaneous layer Percentage of wound debrided: 100 Instrument Used: 7mm curette Tissue Removed: Slough and devitalized tissue Severity: Fat Layer Exposed Amount of bleeding with debridement: Mild Bleeding Controlled with: Pressure Patient tolerated procedure: Patient tolerated procedure well Post-Debridement Measurements and Additional Note: Post-Debridement Measurements/Treatment - Nurse 1 - General Ulcer Assessment Start: 02/04/24 09:15 Freq: Status: Active Protocol: [email or web address] Activity Type Activity Date Activity User E-sign Co-sign Detail Recorded Client Recorded Date Recorded By Document 02/04/24 09:16 KW wound center 02/04/24 09:40 KW Document 02/18/24 08:47 KW ; 02/18/24 09:04 KW 02/04/24 02/18/24 09:16 08:47 - Today's Visit Information Type of service Initial Visit Follow-up Visit (Physician/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 ) Arrival Mode Stretcher Stretcher Transfer Assistance Stretcher Patient Identification Verified (Name & Yes Yes ) Finger Stick Blood Sugar(mg/dl) (if 153 indicated): Blood Sugar Stated by Patient Height and Weight Height 5 ft 7 in Weight 216 lb Weight in Pounds 216.0 lbs Weight Measurement Method Estimated by Patient Body Mass Index (BMI) 33.8 33.8 BMI Classification Obese Obese BSA - [place] 2.09 Vital Signs Temperature (97.8 F-99.1 F) 98.1 F 96.7 F L Temperature Source Temporal Temporal Pulse Rate (60-100) 85 86 Pulse Location Monitor Monitor Respiratory Rate (12-18) 18 18 Respiratory rate source Observation Observation Oxygen Delivery Method Nasal Cannula Room Air O2 L/MIN (L/min) 2 Blood Pressure (90/60-120/80) 94/50 L 137/52 H Blood Pressure Mean (mm Hg) 64 80 Source Manual Monitor Position Semi-Fowlers Semi-Fowlers Blood Pressure Location Right Arm Left Arm History Since Last Visit- (Skip if this is Patient's initial visit) Have you changed medications since your No last visit? Any new allergies or adverse reactions No Had a fall/change in ADL's that may No increase risk of falls Signs or symptoms of abuse and/or No neglect since last visit Have you been in the hospital since your No last visit? Has dressing in place as prescribed Yes Has compression in place as prescribed N/A Has offloadiing in place as prescribed N/A Experienced any changes in pain level or No management Left Footwear Slipper No Footwear Right Footwear Slipper No Footwear Pain Scale: 0-10 Numeric Is Patient Pain Free? No Yes LT HIP -Description Aching -Intensity 4 -Alleviating Factors/Interventions Turning/ Repositioning Communication Assessment Preferred language Lao Able to Read Yes Able to Write Yes Right Hearing Abillity Normal Left Hearing Abillity Normal Visual Assistive Devices Legally Blind Teaching Assessment Preferences Verbal,Written, Demonstration Barriers to Learning None Readiness To Learn Excellent Willingness to Engage in Self Management High Activies Readiness to Engage in Self Management High Activities Anxiety Level Calm Cooperation Cooperative Perception Coherent Interest in Health Problem Asks Questions Education Importance Acknowledges Need Does Patient Smoke tobacco or other Yes substances Is Patient Diabetic Yes Functional Assessment Recent Decline in Ability to Perform Ambulation, Bathing,Lower Body Dressing, Toileting, Transferring, Upper Body Dressing Culture/Sikhism/Heating Plant Superintendent Cultural/Sikhism Needs that may affect No Treatment Plan Would you allow our hospital commercial director to No meet you for the purpose of spiritual/ emotional support? Heating Plant Superintendent to contact place of shinto No WC - Nurse 1 - General Ulcer Measurement Start: 02/04/24 09:15 Freq: Status: Active Protocol: Activity Type Activity Date Activity User E-sign Co-sign Detail Recorded Client Recorded Date Recorded By Document 02/18/24 08:47 KW ; 02/18/24 09:04 KW 02/18/24 08:47 Wound Center Nurse 1 #3 Coccyx -Current Size (cm) - Length 0.9 -Current Size (cm) - Width 0.3 -Current Size (cm) - Depth 0.1 -Total Square Cm 0.27 -Exudate Amt Small -Exudate Type Serosanguineous -Wound Margin Distinct, Outline Attached -Granulation Amt Large (67-100%) -Granulation Quality Red -Texture (Elizabeth-wound Skin Appearance) Assessed -Moisture (Elizabeth-wound Skin Appearance) Assessed -Color (Elizabeth-wound Skin Appearance) Assessed -Temperature (Elizabeth-wound Skin No Abnormality Appearance) (Pt Warm) -Tenderness on Palpation (Elizabeth-wound No Skin Appearance) -Ulcer Cleansing Soap and Water -Foul Odor after Cleansing No -Anesthetic Used 4% Lidocaine Solution #2 Right Groin Inferior -Current Size (cm) - Length 4 -Current Size (cm) - Width 13 -Current Size (cm) - Depth 0.1 -Total Square Cm 52 -Exudate Amt Large -Exudate Type Serosanguineous -Wound Margin Distinct, Outline Attached -Granulation Amt Large (67-100%) -Granulation Quality Red -Necrosis Amt Small (1-33%) -Necrotic Tissue Type Adherent Slough -Texture (Elizabeth-wound Skin Appearance) Assessed -Moisture (Elizabeth-wound Skin Appearance) Assessed -Color (Elizabeth-wound Skin Appearance) Assessed -Temperature (Elizabeth-wound Skin No Abnormality Appearance) (Pt Warm) -Tenderness on Palpation (Elizabeth-wound No Skin Appearance) -Ulcer Cleansing Soap and Water -Foul Odor after Cleansing No -Anesthetic Used 4% Lidocaine Solution - Nurse 2 - General Ulcer CM Notes Start: 02/04/24 09:15 Freq: Status: Active Protocol: Activity Type Activity Date Activity User E-sign Co-sign Detail Recorded Client Recorded Date Recorded By Document 02/04/24 10:00 [facility] 02/04/24 10:19 Document 02/18/24 09:33 [facility] 02/18/24 09:45 02/04/24 02/18/24 10:00 09:33 Wound Center Nurse 2 #3 Coccyx -Time 10:15 09:33 -Correct Patient Yes Yes -Correct Side, Site, Position Yes Yes -Correct Procedure Yes Yes -Procedure Performed Yes Yes -Type of Procedure Debridement Debridement -Clinical Debridement Subcutaneous Subcutaneous -Tissue Removed Subcutaneous Subcutaneous -Post Debridement (cm) - Length 3.5 1.0 -Post Debridement (cm) - Width 0.6 0.4 -Post Debridement (cm) - Depth 0.1 0.1 -Total Square (Post) (cm) 2.10 0.40 -Area of Debridement (cm) - Length 3.5 1.0 -Area of Debridement (cm) - Width 0.6 0.4 -Total Square (Area) (cm) 2.10 0.40 -Tunneling No No -Undermining/Tunneling No No -Circular Undermining No No -Wound/Ulcer Outcome Not Healed Not Healed -Ulcer Cleansing Rinsed/ Rinsed/ Irrigated with Irrigated with Saline Saline -Foul Odor after Cleansing No No -Bioengineered Tissue No No -Bleeding Controlled with Pressure Pressure -Treatment Response Procedure Procedure Tolerated Well Tolerated Well -Debridement - Subq, 1st 20sq cm Yes No -Debridement, SubQ, ea addt'l 20sq cm 5 or part thereof #2 Right Groin Inferior -Time 10:13 09:33 -Correct Patient Yes Yes -Correct Side, Site, Position Yes Yes -Correct Procedure Yes Yes -Procedure Performed Yes Yes -Type of Procedure Debridement Debridement -Clinical Debridement Subcutaneous Subcutaneous -Tissue Removed Subcutaneous Subcutaneous -Post Debridement (cm) - Length 0.4 0.1 -Post Debridement (cm) - Width 4.0 1.5 -Post Debridement (cm) - Depth 1.4 1.0 -Total Square (Post) (cm) 1.60 0.15 -Area of Debridement (cm) - Length 0.4 0.1 -Area of Debridement (cm) - Width 4.0 1.5 -Total Square (Area) (cm) 1.60 0.15 -Tunneling No No -Undermining/Tunneling No No -Circular Undermining No No -Wound/Ulcer Outcome Not Healed Not Healed -Ulcer Cleansing Rinsed/ Rinsed/ Irrigated with Irrigated with Saline Saline -Foul Odor after Cleansing No No -Bioengineered Tissue No -Bleeding Controlled with Pressure Pressure -Treatment Response Procedure Procedure Tolerated Well Tolerated Well -Debridement - Subq, 1st 20sq cm No No #1 Right Groin Superior -Time 10:01 09:33 -Correct Patient Yes Yes -Correct Side, Site, Position Yes Yes -Correct Procedure Yes Yes -Procedure Performed Yes Yes -Type of Procedure Debridement Debridement -Clinical Debridement Subcutaneous Subcutaneous -Tissue Removed Subcutaneous Subcutaneous -Post Debridement (cm) - Length 7.0 5.2 -Post Debridement (cm) - Width 14 12.5 -Post Debridement (cm) - Depth 0.1 0.1 -Total Square (Post) (cm) 98.0 65.00 -Area of Debridement (cm) - Length 7.0 5.2 -Area of Debridement (cm) - Width 14 12.5 -Total Square (Area) (cm) 98.0 65.00 -Tunneling No No -Undermining/Tunneling No No -Circular Undermining No No -Wound/Ulcer Outcome Not Healed Not Healed -Ulcer Cleansing Rinsed/ Irrigated with Saline -Foul Odor after Cleansing No No -Bioengineered Tissue No -Bleeding Controlled with Pressure Pressure -Treatment Response Procedure Procedure Tolerated Well Tolerated Well -Debridement - Subq, 1st 20sq cm No Yes -Debridement, SubQ, ea addt'l 20sq cm 3 or part thereof Pain Scale: 0-10 Numeric Is Patient Pain Free? Yes Yes - Nurse 3 - General Ulcer D/C NN Start: 02/04/24 09:15 Freq: Status: Active Protocol: Activity Type Activity Date Activity User E-sign Co-sign Detail Recorded Client Recorded Date Recorded By Document 02/04/24 10:59 wound center 02/04/24 10:59 Document 02/18/24 09:41 GM 02/18/24 09:55 02/04/24 02/18/24 10:59 09:41 Wound Care Center Nurse 3 #3 Coccyx -Ulcer Cleansing Not Cleansed -Primary Dressing Applied Aquacel Extra -Other Dressing used part of aquacel from groin piece -Primary Dressing Covered/Secured with Dry Gauze Dry Gauze, Secured with Tape -Aquacel Extra 1 #2 Right Groin Inferior -Ulcer Cleansing Not Cleansed -Foul Odor after Cleansing No -Primary Dressing Applied Aquacel Extra -Primary Dressing Covered/Secured with Dry Gauze Dry Gauze, Secured with Tape,Other -Other Covering abd -Aquacel Extra 1 #1 Right Groin Superior -Primary Dressing Covered/Secured with Dry Gauze, Secured with Tape Pain Scale: 0-10 Numeric Is Patient Pain Free? Yes Yes - Visit Discharge Discharge Condition Stable Ambulatory Status Stretcher Transportation alf ambulance Clinical Summary of Care Provided Yes Additional Wound Wound debrided: Coccyx Type of Debridement: Excisional debridement Anesthesia Used: 4% Lidocaine Solution Depth: Down to and including healthy tissue and in the subcutaneous layer Percentage of wound debrided: 100 Instrument Used: 3mm curette Tissue Removed: Slough and devitalized tissue Severity: Fat Layer Exposed Amount of bleeding with debridement: Mild Bleeding Controlled with: Pressure Patient tolerated procedure: Patient tolerated procedure well Additional Wound Wound debrided: Right Groin ( Inferior ) Type of Debridement: Excisional debridement Anesthesia Used: 4% Lidocaine Solution Depth: Down to and including healthy tissue and in the subcutaneous layer Percentage of wound debrided: 100 Instrument Used: 3mm curette Tissue Removed: Slough and devitalized tissue Severity: Fat Layer Exposed Amount of bleeding with debridement: Mild Bleeding Controlled with: Pressure Patient tolerated procedure: Patient tolerated procedure well Assessment/Plan Assessment/Plan (1) Non-healing surgical wound of right groin: CODE(S): T81.89XA - Other complications of procedures, not elsewhere classified, initial encounter (2) Decubitus ulcer of coccygeal region, stage 3: CODE(S): L89.153 - Pressure ulcer of sacral region, stage 3 (3) Necrotizing fasciitis: CODE(S): M72.6 - Necrotizing fasciitis (4) Type 2 diabetes mellitus: CODE(S): E11.9 - Type 2 diabetes mellitus without complications QUALIFIERS: Diabetes mellitus complication status: without complication Diabetes mellitus technician terminal and repeater insulin use: without technician terminal and repeater use Qualified Code(s): E11.9 - Type 2 diabetes mellitus without complications (5) Debility: CODE(S): R53.81 - Other malaise (6) Legally blind: CODE(S): H54.8 - Legal blindness, as defined in [place] PLAN: Plan Debridement done as documented above, procedure was well-tolerated. No acute concerns reported at this time. Despite his complexities, he seems to be making progress. Now off oxygen except at night. Some improvement in his wounds/ulcers as well. Continue Dakin's soak for 30 minutes and then apply Aquacel extra to all ulcers. Cover with gauze and ABD. Change twice daily or more depending on drainage. Reposition often/at least every 2 hours. Bimal twice daily. Continue optimal diabetes control. Follow-up in 3 weeks due to the holiday. His questions were answered and he was advised to let us know if he has any further questions or concerns. This note was generated with [employer] software. It may contain incorrect words, spelling, and punctuation that were not noted in checking the note before signing.
== END 2024-02-28 23:59 | disposition home or self-care (01) ==
LOC: WC 09:00
PROVIDERS: PCP Internal Medicine; Referring Provider Internal Medicine; Visit Provider Internal Medicine
DX: L89.153 Pressure ulcer of sacral region, stage 3 (principal); M72.6 Necrotizing fasciitis; E11.9 Type 2 diabetes mellitus without complications; R53.81 Other malaise; N40.0 Benign prostatic hyperplasia without lower urinary tract symptoms; H54.8 Legal blindness, as defined in USA; Z87.891 Personal history of nicotine dependence; E78.00 Pure hypercholesterolemia, unspecified; Z79.84 Long term (current) use of oral hypoglycemic drugs; Z79.899 Other long term (current) drug therapy
CPT/HCPCS: 11042; 11045; 99213; 99214; G0463

== ENCOUNTER → 2024-03-15 | Outpatient (CLI) | payer MEDICARE, OTHER, SELFPAY ==
--- NOTE | 2024-03-15 09:10 | CT_ITS ---
STUDY: CT ABDOMEN AND PELVIS WITH CONTRAST REASON FOR EXAM: Male, 78 years old. Right Groin Wound. Surgical wound breakdown. Possible foreign body. RADIATION DOSAGE (If Supplied By Facility): CTDIvol = ( 15.93 ) mGy, DLP = ( 1650.33 ) mGycm TECHNIQUE: Transaxial images were obtained from the dome of the diaphragm to the symphysis pubis without oral contrast. IV 100mL Isovue-370 was administered. Sagittal and coronal images were reconstructed. Individualized dose optimization techniques were used for this CT. COMPARISON: Comparison is made with prior study dated December 13, 2023. FINDINGS: Mild degree of increased linear markings at the right lung base suggestive of atelectasis and/or scarring. Coronary artery calcification. There is decreased attenuation of the liver consistent with steatosis. Normal gallbladder and extrahepatic biliary system. Normal spleen. Normal pancreas. Normal bilateral adrenal glands. Mild degree of bilateral hydronephrosis and proximal hydroureter. Normal visualized stomach. Normal small intestine. Large amount of fecal material is seen in the colon. The appendix is visualized and appears normal. There is diffuse atherosclerotic calcification of the abdominal aorta, without a demonstrated aneurysm. A filter is seen within the inferior vena cava. It does not have a normal appearance. Vascular consultation is recommended. Normal retroperitoneum. Diffuse bladder wall thickening. A Mcmahon catheter is seen within the urinary bladder. Surgical clips are seen in the right inguinal region most likely secondary to prior hernia repair. There is evidence of a small right scrotal hydrocele. Increased markings are seen in the scrotal region suggestive of possible inflammation. No radiopaque foreign body is seen. There are diffuse degenerative changes of the visualized lumbar spine. Osteoarthritis of both hip joints. CT/Abdomen/Pelvis W IV Cont ONLY IMPRESSION: Findings suggestive of a right scrotal hydrocele and inflammation in the scrotum. No radiopaque foreign body is seen. Diffuse bladder wall thickening. A Mcmahon catheter seen within the. Bilateral hydronephrosis and proximal right hydroureter. Abnormal appearance of the inferior vena cava filter. Vascular consultation recommended. Electronically Signed: Beau Elizalde MD at 9:53 EDT ,
== END | disposition home or self-care (01) ==
LOC: US 08:53 → CT 08:56
PROVIDERS: PCP Internal Medicine; Referring Provider Internal Medicine; Visit Provider Internal Medicine
DX: L98.499 Non-pressure chronic ulcer of skin of other sites with unspecified severity (principal)
CPT/HCPCS: 74177; Q9967

== ENCOUNTER 2024-03-17 09:15 | Outpatient (RCR) | payer MEDICARE, OTHER, SELFPAY ==
[2024-02-29 00:29] VITALS: BP 137/52; PULSE 86; RESP 18; TEMP 35.9; BMI 33.8
[2024-03-10 08:59] VITALS: BP 120/50; PULSE 100; RESP 18; TEMP 36.3; BMI 33.8
--- NOTE | 2024-03-10 09:42 | PN.PCM_ITS ---
History of Present Illness Date of Service: 03/10/24 Chief Complaint: Nonhealing surgical wound. Coccyx ulcer. History of Wound: Mr. Flynn is a 78-year-old with very extensive past medical history who was referred to the wound center due to nonhealing surgical wound and a decubitus ulcer. Presented to the hospital in November following a fall and left hip pain. During workup, he was noted to have gas extending in the right groin area and subsequently diagnosed with necrotizing fasciitis. Had staged surgical debridement for this. Hospital stay however was complicated by hypotension and GI bleed for which he was transferred to the [facility]. Following his stay at the [facility], he was discharged to [facility] and then most recently [facility]. He was not aware that he had a decubitus ulcer. He states that he has had consistent dressing changes at his facility. He believes that his dressing changes have been with Dakin's. History of diabetes mellitus type 2, follows up with his PCP Dr. Desean Frias at the [facility] and to his knowledge, his last A1c was 7.4. His appetite is fair. Progress of Wound: He has no acute concerns at this time. Right groin nonhealing surgical wound with some improvement however, inferior area with foreign body noted today. He denies increased pain. No reported concerns from his nursing/facility staff. Decubitus/coccygeal ulcer with worsening. Increased areas of ulceration in the gluteal cleft. He states that his dressing changes have not been done consistently. Objective Data Objective Data Vital Signs: Vital Signs Temp Pulse Resp BP O2 Del Method O2 Flow Rate 97.3 F L 100 18 120/50 L Room Air 2 03/10/24 08:59 03/10/24 08:59 03/10/24 08:59 03/10/24 08:59 03/10/24 08:59 02/29/24 00:29 Oxygen Flow Rate (L/min) 2 Oxygen Delivery Method Room Air Weight: 216 lb Body Mass Index (BMI) 33.8 Charges/Coding Procedures Integumentary 111xxx-113xx: 90063 Alla subq tissue 20 sq cm/< Add On Codes: 03376 Alla subq tissue add-on (x2. Additional square centimeter debrided, please refer to clinical note.) Physical Exam Const alert, oriented x3 and no apparent distress General Appearance: cooperative and comfortable HEENT normocephalic and head/scalp atraumatic Head and Scalp: normal to inspection Neck full ROM General: normal visual inspection Resp normal respiratory effort Effort and Inspection: able to speak in complete sentences Skin Wounds: wounds noted bed granulating well and with slough, margins well defined, no odor and open Neuro oriented x3 and CN's II-XII intact bilaterally Psych mental status grossly normal, thought process normal, cooperative and affect normal Debridement Note Debridement Note Wound debrided: Right Groin Type of Debridement: Excisional debridement Anesthesia Used: 4% Lidocaine Solution Depth: Down to and including healthy tissue and in the subcutaneous layer Percentage of wound debrided: 100 Instrument Used: 5mm curette Tissue Removed: Slough and devitalized tissue Severity: Fat Layer Exposed Amount of bleeding with debridement: Mild Bleeding Controlled with: Pressure Patient tolerated procedure: Patient tolerated procedure well Post-Debridement Measurements and Additional Note: Post-Debridement Measurements/Treatment WC - Nurse 1 - General Ulcer Assessment Start: 03/10/24 08:58 Freq: Status: Active Protocol: PABLO Activity Type Activity Date Activity User E-sign Co-sign Detail Recorded Client Recorded Date Recorded By Document 03/10/24 08:59 KW ; 03/10/24 09:10 KW 03/10/24 08:59 WC - Today's Visit Information Type of service Follow-up Visit (Physician/[facility] ) Arrival Mode Stretcher Patient Identification Verified (Name & Yes ) Height and Weight Body Mass Index (BMI) 33.8 BMI Classification Obese Vital Signs Temperature (97.8 F-99.1 F) 97.3 F L Temperature Source Temporal Pulse Rate (60-100) 100 Pulse Location Monitor Respiratory Rate (12-18) 18 Respiratory rate source Observation Oxygen Delivery Method Room Air Blood Pressure (90/60-120/80) 120/50 L Blood Pressure Mean (mm Hg) 73 Source Monitor Position Semi-Fowlers Blood Pressure Location Right Arm History Since Last Visit- (Skip if this is Patient's initial visit) Have you changed medications since your No last visit? Any new allergies or adverse reactions No Had a fall/change in ADL's that may No increase risk of falls Signs or symptoms of abuse and/or No neglect since last visit Have you been in the hospital since your No last visit? Has dressing in place as prescribed Yes Has compression in place as prescribed N/A Has offloadiing in place as prescribed N/A Experienced any changes in pain level or No management Left Footwear Regular Shoe Right Footwear Regular Shoe Pain Scale: 0-10 Numeric Is Patient Pain Free? Yes NATHAN - Nurse 1 - General Ulcer Measurement Start: 03/10/24 08:58 Freq: Status: Active Protocol: Activity Type Activity Date Activity User E-sign Co-sign Detail Recorded Client Recorded Date Recorded By Document 03/10/24 08:59 KW ; 03/10/24 09:10 KW 03/10/24 08:59 Wound Center Nurse 1 #4 RT GROIN -Current Size (cm) - Length 15.5 -Current Size (cm) - Width 4 -Current Size (cm) - Depth 0.1 -Total Square Cm 62.0 -Epithelialization Small 1-33% -Exudate Amt Large -Exudate Type Serosanguineous -Wound Margin Distinct, Outline Attached -Granulation Amt Large (67-100%) -Granulation Quality Red -Texture (Elizabeth-wound Skin Appearance) Assessed -Moisture (Elizabeth-wound Skin Appearance) Assessed -Color (Elizabeth-wound Skin Appearance) Assessed -Temperature (Elizabeth-wound Skin No Abnormality Appearance) (Pt Warm) -Tenderness on Palpation (Elizabeth-wound No Skin Appearance) -Ulcer Cleansing Soap and Water -Foul Odor after Cleansing No -Anesthetic Used 4% Lidocaine Solution #3 Coccyx cluster -Current Size (cm) - Length 4 -Current Size (cm) - Width 0.5 -Current Size (cm) - Depth 0.2 -Total Square Cm 2.0 -Epithelialization Small 1-33% -Exudate Amt Small -Exudate Type Serosanguineous -Wound Margin Distinct, Outline Attached -Granulation Amt Large (67-100%) -Granulation Quality Red -Texture (Elizabeth-wound Skin Appearance) Assessed -Moisture (Elizabeth-wound Skin Appearance) Assessed -Color (Elizabeth-wound Skin Appearance) Assessed -Temperature (Elizabeth-wound Skin No Abnormality Appearance) (Pt Warm) -Tenderness on Palpation (Elizabeth-wound No Skin Appearance) -Ulcer Cleansing Soap and Water -Foul Odor after Cleansing No -Anesthetic Used 4% Lidocaine Solution NATHAN - Nurse 2 - General Ulcer CM Notes Start: 03/10/24 08:58 Freq: Status: Active Protocol: Activity Type Activity Date Activity User E-sign Co-sign Detail Recorded Client Recorded Date Recorded By Document 03/10/24 09:21 [facility] 03/10/24 09:40 GM 03/10/24 09:21 Wound Center Nurse 2 #4 RT GROIN -Time 09:21 -Correct Patient Yes -Correct Side, Site, Position Yes -Correct Procedure Yes -Procedure Performed Yes -Type of Procedure Debridement -Clinical Debridement Subcutaneous -Tissue Removed Subcutaneous -Post Debridement (cm) - Length 4.5 -Post Debridement (cm) - Width 10.0 -Post Debridement (cm) - Depth 0.1 -Total Square (Post) (cm) 45.00 -Area of Debridement (cm) - Length 4.5 -Area of Debridement (cm) - Width 10.0 -Total Square (Area) (cm) 45.00 -Tunneling No -Undermining/Tunneling No -Circular Undermining No -Wound/Ulcer Outcome Not Healed -Ulcer Cleansing Rinsed/ Irrigated with Saline -Foul Odor after Cleansing No -Bioengineered Tissue No -Bleeding Controlled with Pressure -Treatment Response Procedure Tolerated Well -Debridement - Subq, 1st 20sq cm Yes -Debridement, SubQ, ea addt'l 20sq cm 2 or part thereof #3 Coccyx cluster -Time 09:21 -Correct Patient Yes -Correct Side, Site, Position Yes -Correct Procedure Yes -Procedure Performed Yes -Type of Procedure Debridement -Clinical Debridement Subcutaneous -Tissue Removed Subcutaneous -Post Debridement (cm) - Length 4.0 -Post Debridement (cm) - Width 0.4 -Post Debridement (cm) - Depth 0.1 -Total Square (Post) (cm) 1.60 -Area of Debridement (cm) - Length 4.0 -Area of Debridement (cm) - Width 0.4 -Total Square (Area) (cm) 1.60 -Tunneling No -Undermining/Tunneling No -Circular Undermining No -Wound/Ulcer Outcome Not Healed -Ulcer Cleansing Rinsed/ Irrigated with Saline -Foul Odor after Cleansing No -Bioengineered Tissue No -Bleeding Controlled with Pressure -Treatment Response Procedure Tolerated Well -Debridement - Subq, 1st 20sq cm No Pain Scale: 0-10 Numeric Is Patient Pain Free? Yes Additional Wound Wound debrided: Coccygeal/Gluteal cleft Anesthesia Used: 4% Lidocaine Solution Depth: Down to and including healthy tissue and in the subcutaneous layer Percentage of wound debrided: 100 Instrument Used: 3mm curette Tissue Removed: Slough and devitalized tissue Severity: Fat Layer Exposed Amount of bleeding with debridement: Mild Bleeding Controlled with: Pressure Patient tolerated procedure: Patient tolerated procedure well Assessment/Plan Assessment/Plan (1) Non-healing surgical wound of right groin: CODE(S): T81.89XA - Other complications of procedures, not elsewhere classified, initial encounter (2) Decubitus ulcer of coccygeal region, stage 3: CODE(S): L89.153 - Pressure ulcer of sacral region, stage 3 (3) Necrotizing fasciitis: CODE(S): M72.6 - Necrotizing fasciitis (4) Type 2 diabetes mellitus: CODE(S): E11.9 - Type 2 diabetes mellitus without complications QUALIFIERS: Diabetes mellitus long filler cigar roller machine insulin use: without [place] [facility] use Diabetes mellitus complication status: without complication Qualified Code(s): E11.9 - Type 2 diabetes mellitus without complications (5) Debility: CODE(S): R53.81 - Other malaise (6) Legally blind: CODE(S): H54.8 - Legal blindness, as defined in [place] PLAN: Plan Debridement done as documented above, procedure was well-tolerated. Right groin ulcer/wound continues to show good improvement however, foreign body/object noted protruding from the inguinal area. Ultrasound ordered. Worsening of the coccygeal area with surrounding skin breakdown. As above, he states that his dressing changes have not been done as recommended. Switch to Promogran to coccygeal ulcers. Aquaphor or zinc oxide to surrounding skin/breakdown. Continue 30 minutes Dakin's soak to the right groin area and then Aquacel extra. Cover both areas with ABD/foam dressing. Change twice daily or more depending on drainage. Reposition often/at least every 2 hours. Bimal twice daily. Continue optimal diabetes control. Follow-up in 1 week. His questions were answered and he was advised to let us know if he has any further questions or concerns. This note was generated with [employer] software. It may contain incorrect words, spelling, and punctuation that were not noted in checking the note before signing.
[2024-03-17 09:18] VITALS: BP 97/56; PULSE 91; RESP 20; TEMP 35.9; BMI 33.8
--- NOTE | 2024-03-17 10:08 | PN.PCM_ITS ---
History of Present Illness Date of Service: 03/17/24 Chief Complaint: Nonhealing surgical wound. Coccyx ulcer. History of Wound: Mr. Flynn is a 78-year-old with very extensive past medical history who was referred to the wound center due to nonhealing surgical wound and a decubitus ulcer. Presented to the hospital in November following a fall and left hip pain. During workup, he was noted to have gas extending in the right groin area and subsequently diagnosed with necrotizing fasciitis. Had staged surgical debridement for this. Hospital stay however was complicated by hypotension and GI bleed for which he was transferred to the [facility]. Following his stay at the [facility], he was discharged to [facility] and then most recently [facility]. He was not aware that he had a decubitus ulcer. He states that he has had consistent dressing changes at his facility. He believes that his dressing changes have been with Dakin's. History of diabetes mellitus type 2, follows up with his PCP Dr. Desean Frias at the [facility] and to his knowledge, his last A1c was 7.4. His appetite is fair. Progress of Wound: No acute concerns reported at this time. Had a CAT scan due to right groin area concerns. Decubitus ulcer is improving. Objective Data Objective Data Vital Signs: Vital Signs Temp Pulse Resp BP O2 Del Method O2 Flow Rate 96.6 F L 91 20 H 97/56 L Room Air 2 03/17/24 09:18 03/17/24 09:18 03/17/24 09:18 03/17/24 09:18 03/10/24 08:59 02/29/24 00:29 Oxygen Flow Rate (L/min) 2 Oxygen Delivery Method Room Air Weight: 216 lb Body Mass Index (BMI) 33.8 Charges/Coding Procedures Integumentary 111xxx-113xx: 49821 Alla subq tissue 20 sq cm/< Add On Codes: 31011 Alla subq tissue add-on (x2. Additional square centimeter debrided, please refer to clinical note.) Physical Exam Const alert, oriented x3 and no apparent distress General Appearance: cooperative and comfortable HEENT normocephalic and head/scalp atraumatic Head and Scalp: normal to inspection Neck full ROM General: normal visual inspection Resp normal respiratory effort Effort and Inspection: able to speak in complete sentences Skin Wounds: wounds noted bed granulating well and with slough, margins well defined, no odor and open Neuro oriented x3 and CN's II-XII intact bilaterally Psych mental status grossly normal, thought process normal, cooperative and affect normal Debridement Note Debridement Note Wound debrided: Right groin Type of Debridement: Excisional debridement Anesthesia Used: 4% Lidocaine Solution Depth: Down to and including healthy tissue and in the subcutaneous layer Percentage of wound debrided: 100 Instrument Used: 7mm curette Tissue Removed: Slough and devitalized tissue Severity: Fat Layer Exposed Amount of bleeding with debridement: Mild Bleeding Controlled with: Pressure Patient tolerated procedure: Patient tolerated procedure well Post-Debridement Measurements and Additional Note: Post-Debridement Measurements/Treatment - Nurse 1 - General Ulcer Assessment Start: 03/10/24 08:58 Freq: Status: Active Protocol: PABLO Activity Type Activity Date Activity User E-sign Co-sign Detail Recorded Client Recorded Date Recorded By Document 03/10/24 08:59 KW ; 03/10/24 09:10 KW Document 03/17/24 09:18 DL [id number] 03/17/24 09:34 DL 03/10/24 03/17/24 08:59 09:18 - Today's Visit Information Type of service Follow-up Visit Follow-up Visit (Physician/INCIDENT RESPONSE ANALYST (Physician/INCIDENT RESPONSE ANALYST ) ) Arrival Mode Stretcher Stretcher Transfer Assistance None Patient Identification Verified (Name & Yes Yes ) Patient Requires Transmission-Based No Precautions Height and Weight Body Mass Index (BMI) 33.8 33.8 BMI Classification Obese Obese Vital Signs Temperature (97.8 F-99.1 F) 97.3 F L 96.6 F L Temperature Source Temporal Temporal Pulse Rate (60-100) 100 91 Pulse Location Monitor Monitor Respiratory Rate (12-18) 18 20 H Respiratory rate source Observation Observation Oxygen Delivery Method Room Air Blood Pressure (90/60-120/80) 120/50 L 97/56 L Blood Pressure Mean (mm Hg) 73 69 Source Monitor Monitor Position Semi-Fowlers Blood Pressure Location Right Arm History Since Last Visit- (Skip if this is Patient's initial visit) Have you changed medications since your No No last visit? Any new allergies or adverse reactions No No Had a fall/change in ADL's that may No No increase risk of falls Signs or symptoms of abuse and/or No No neglect since last visit Have you been in the hospital since your No No last visit? Has dressing in place as prescribed Yes Yes Has compression in place as prescribed N/A N/A Has offloadiing in place as prescribed N/A Yes Experienced any changes in pain level or No No management Left Footwear Regular Shoe Right Footwear Regular Shoe Pain Scale: 0-10 Numeric Is Patient Pain Free? Yes Yes WC - Nurse 1 - General Ulcer Measurement Start: 03/10/24 08:58 Freq: Status: Active Protocol: Activity Type Activity Date Activity User E-sign Co-sign Detail Recorded Client Recorded Date Recorded By Document 03/10/24 08:59 KW ; 03/10/24 09:10 KW Document 03/17/24 09:18 DL [id number] 03/17/24 09:34 DL 03/10/24 03/17/24 08:59 09:18 Wound Center Nurse 1 #4 RT GROIN -Current Size (cm) - Length 15.5 3.9 -Current Size (cm) - Width 4 14 -Current Size (cm) - Depth 0.1 0.1 -Total Square Cm 62.0 54.6 -Epithelialization Small 1-33% -Exudate Amt Large Medium -Exudate Type Serosanguineous Serosanguineous -Wound Margin Distinct, Distinct, Outline Outline Attached Attached -Granulation Amt Large (67-100%) Large (67-100%) -Granulation Quality Red Red -Necrosis Amt None Present (0 %) -Structure Exposed N/A -Texture (Elizabeth-wound Skin Appearance) Assessed Scarring -Moisture (Elizabeth-wound Skin Appearance) Assessed No Abnormality -Color (Elizabeth-wound Skin Appearance) Assessed No Abnormality -Temperature (Elizabeth-wound Skin No Abnormality No Abnormality Appearance) (Pt Warm) (Pt Warm) -Tenderness on Palpation (Elizabeth-wound No No Skin Appearance) -Ulcer Cleansing Soap and Water Soap and Water -Foul Odor after Cleansing No No -Anesthetic Used 4% Lidocaine 4% Lidocaine Solution Solution #3 Coccyx cluster -Current Size (cm) - Length 4 3 -Current Size (cm) - Width 0.5 0.3 -Current Size (cm) - Depth 0.2 0.2 -Total Square Cm 2.0 0.9 -Epithelialization Small 1-33% -Exudate Amt Small None Present -Exudate Type Serosanguineous Serosanguineous -Wound Margin Distinct, Distinct, Outline Outline Attached Attached -Granulation Amt Large (67-100%) Large (67-100%) -Granulation Quality Red [place] -Necrosis Amt None Present (0 %) -Structure Exposed N/A -Texture (Elizabeth-wound Skin Appearance) Assessed Scarring -Moisture (Elizabeth-wound Skin Appearance) Assessed No Abnormality -Color (Elizabeth-wound Skin Appearance) Assessed No Abnormality -Temperature (Elizabeth-wound Skin No Abnormality No Abnormality Appearance) (Pt Warm) (Pt Warm) -Tenderness on Palpation (Elizabeth-wound No No Skin Appearance) -Ulcer Cleansing Soap and Water Soap and Water -Foul Odor after Cleansing No No -Anesthetic Used 4% Lidocaine 4% Lidocaine Solution Solution - Nurse 2 - General Ulcer CM Notes Start: 03/10/24 08:58 Freq: Status: Active Protocol: Activity Type Activity Date Activity User E-sign Co-sign Detail Recorded Client Recorded Date Recorded By Document 03/10/24 09:21 [facility] 03/10/24 09:40 Document 03/17/24 09:42 [facility] 03/17/24 09:54 03/10/24 03/17/24 09:21 09:42 Wound Center Nurse 2 #4 RT GROIN -Time 09:21 09:42 -Correct Patient Yes Yes -Correct Side, Site, Position Yes Yes -Correct Procedure Yes Yes -Procedure Performed Yes Yes -Type of Procedure Debridement Debridement -Clinical Debridement Subcutaneous Subcutaneous -Tissue Removed Subcutaneous Subcutaneous -Post Debridement (cm) - Length 4.5 3.8 -Post Debridement (cm) - Width 10.0 12 -Post Debridement (cm) - Depth 0.1 0.1 -Total Square (Post) (cm) 45.00 45.6 -Area of Debridement (cm) - Length 4.5 3.8 -Area of Debridement (cm) - Width 10.0 12.0 -Total Square (Area) (cm) 45.00 45.60 -Tunneling No No -Undermining/Tunneling No No -Circular Undermining No No -Wound/Ulcer Outcome Not Healed Not Healed -Ulcer Cleansing Rinsed/ Rinsed/ Irrigated with Irrigated with Saline Saline -Foul Odor after Cleansing No No -Bioengineered Tissue No -Bleeding Controlled with Pressure -Treatment Response Procedure Tolerated Well -Debridement - Subq, 1st 20sq cm Yes Yes -Debridement, SubQ, ea addt'l 20sq cm 2 2 or part thereof #3 Coccyx cluster -Time 09:21 09:42 -Correct Patient Yes Yes -Correct Side, Site, Position Yes Yes -Correct Procedure Yes Yes -Procedure Performed Yes Yes -Type of Procedure Debridement Debridement -Clinical Debridement Subcutaneous Subcutaneous -Tissue Removed Subcutaneous Subcutaneous -Post Debridement (cm) - Length 4.0 3.0 -Post Debridement (cm) - Width 0.4 0.3 -Post Debridement (cm) - Depth 0.1 0.1 -Total Square (Post) (cm) 1.60 0.90 -Area of Debridement (cm) - Length 4.0 3.0 -Area of Debridement (cm) - Width 0.4 0.3 -Total Square (Area) (cm) 1.60 0.90 -Tunneling No No -Undermining/Tunneling No No -Circular Undermining No No -Wound/Ulcer Outcome Not Healed Not Healed -Ulcer Cleansing Rinsed/ Rinsed/ Irrigated with Irrigated with Saline Saline -Foul Odor after Cleansing No No -Bioengineered Tissue No No -Bleeding Controlled with Pressure Pressure -Treatment Response Procedure Procedure Tolerated Well Tolerated Well -Debridement - Subq, 1st 20sq cm No Yes Pain Scale: 0-10 Numeric Is Patient Pain Free? Yes Yes - Nurse 3 - General Ulcer D/C NN Start: 03/10/24 08:58 Freq: Status: Active Protocol: Activity Type Activity Date Activity User E-sign Co-sign Detail Recorded Client Recorded Date Recorded By Document 03/10/24 09:41 [facility] 03/10/24 09:42 03/10/24 09:41 Wound Care Center Nurse 3 #4 RT GROIN -Ulcer Cleansing Not Cleansed -Foul Odor after Cleansing No -Primary Dressing Applied Aquacel Extra -Primary Dressing Covered/Secured with Secured with Tape,Other -Other Covering abd -Aquacel Extra 1 #3 Coccyx cluster -Ulcer Cleansing Not Cleansed -Foul Odor after Cleansing No -Primary Dressing Applied Mepilex Border, Promogran -Mepilex Border 1 -Promogran 1 Pain Scale: 0-10 Numeric Is Patient Pain Free? Yes - Visit Discharge Discharge Condition Stable Ambulatory Status Stretcher Transportation nsg home Clinical Summary of Care Provided Yes Additional Wound Wound debrided: Coccygeal Type of Debridement: Excisional debridement Anesthesia Used: 4% Lidocaine Solution Depth: Down to and including healthy tissue and in the subcutaneous layer Percentage of wound debrided: 100 Instrument Used: 3mm curette Tissue Removed: Slough and devitalized tissue Severity: Fat Layer Exposed Amount of bleeding with debridement: Mild Bleeding Controlled with: Pressure Patient tolerated procedure: Patient tolerated procedure well Assessment/Plan Assessment/Plan (1) Non-healing surgical wound of right groin: CODE(S): T81.89XA - Other complications of procedures, not elsewhere classified, initial encounter (2) Decubitus ulcer of coccygeal region, stage 3: CODE(S): L89.153 - Pressure ulcer of sacral region, stage 3 (3) Necrotizing fasciitis: CODE(S): M72.6 - Necrotizing fasciitis (4) Type 2 diabetes mellitus: CODE(S): E11.9 - Type 2 diabetes mellitus without complications QUALIFIERS: Diabetes mellitus terminal make up operator insulin use: without terminal make up operator use Diabetes mellitus complication status: without complication Qualified Code(s): E11.9 - Type 2 diabetes mellitus without complications (5) Debility: CODE(S): R53.81 - Other malaise (6) Legally blind: CODE(S): H54.8 - Legal blindness, as defined in [place] PLAN: Plan Debridement done as documented above, procedure was well-tolerated. CT reviewed. No acute concerns identified however, surgical clips identified in the right inguinal area, this is the likely protrusion. Consider follow-up with general surgery in a couple weeks following significant improvement in wound. If however, there is breakdown in that area, will have him see general surgery sooner. Report faxed over to his primary care physician and nursing facility for follow-up on other nonacute concerns. Decubitus ulcer with some improvement compared to last week. Continue Promogran, Adaptic and foam dressing. Continue Aquaphor or zinc oxide to surrounding skin/breakdown. Continue 30 minutes Dakin's soak to the right groin area and then Aquacel extra. Cover both areas with ABD/foam dressing. Change twice daily or more depending on drainage. Reposition often/at least every 2 hours. Bimal twice daily. Continue optimal diabetes control. Follow-up in 1 week. His questions were answered and he was advised to let us know if he has any further questions or concerns. This note was generated with [employer] software. It may contain incorrect words, spelling, and punctuation that were not noted in checking the note before signing.
== END 2024-03-30 23:59 | disposition home or self-care (01) ==
LOC: WC 09:15
PROVIDERS: PCP Internal Medicine; Referring Provider Internal Medicine; Visit Provider Internal Medicine
DX: L89.153 Pressure ulcer of sacral region, stage 3 (principal); M72.6 Necrotizing fasciitis; E11.9 Type 2 diabetes mellitus without complications; R53.81 Other malaise; H54.8 Legal blindness, as defined in USA; Z87.891 Personal history of nicotine dependence
CPT/HCPCS: 11042; 11045

== ENCOUNTER 2024-03-23 09:38 | Inpatient (IN) | payer MEDICARE, OTHER, SELFPAY ==
[2024-03-23] VITALS (12 sets, daily range): BP systolic 78–158; BP diastolic 40–86; PULSE 71–100; RESP 15–25; TEMP 36.2–36.7; O2SAT 96–100; BMI 33.6; BMI 34.0
--- NOTE | 2024-03-23 09:51 | CT_ITS ---
STUDY: CT BRAIN WITHOUT CONTRAST REASON FOR EXAM: Male, 78 years old. Altered mental status. RADIATION DOSAGE (If Supplied By Facility): CTDIvol = ( 44.99 ) mGy, DLP = ( 863.60 ) mGycm TECHNIQUE: Transaxial CT imaging of the brain was performed without administration of intravenous contrast material. Individualized dose optimization techniques were used for this CT. COMPARISON: No relevant priors. FINDINGS: Normal soft tissue structures. Normal calvarium. There is mild cerebral atrophy with widening of the extra-axial spaces and ventricular dilatation. There are areas of decreased attenuation within the white matter tracts of the supratentorial brain, consistent with microvascular disease changes. Normal basal ganglia and thalami. Normal brainstem. Normal cerebellum. There is no intracranial hemorrhage. There are no findings of an acute ischemic infarction. Atherosclerotic calcification of the vertebral arteries and cavernous portions of the internal carotid arteries bilaterally. Normal visualized paranasal sinuses. Nasal septal deviation towards the right side of the midline. CT/Brain/Head without Contrast IMPRESSION: Chronic involutional changes of the brain. Electronically Signed: Beau Elizalde MD at 10:26 EDT ,
--- NOTE | 2024-03-23 09:51 | RAD_ITS ---
STUDY: X-RAY CHEST REASON FOR EXAM: Male, 78 years old. Syncope TECHNIQUE: Single AP portable view of the chest. COMPARISON: Comparison is made with prior study dated December 08, 2023. FINDINGS: EKG electrodes are seen. Elevation of the right hemidiaphragm. Minimal increased linear markings at the right lung base suggestive of right basilar atelectasis. There is no demonstrated pleural abnormality. Normal size heart. Normal mediastinum and radha. Normal visualized pulmonary arteries. There is atherosclerotic calcification of the aortic arch with tortuosity. Normal visualized thoracic spine. Normal visualized ribs, clavicles, and shoulders. There is no demonstrated abnormality of the visualized soft tissue structures of the upper abdomen. RAD/Chest 1 View (Portable) IMPRESSION: Elevation of the right hemidiaphragm with findings suggestive of mild linear atelectasis at the right lung base. Electronically Signed: Beau Elizalde MD at 11:02 EDT ,
--- NOTE | 2024-03-23 09:52 | EKG12_ITS ---
Test Reason : UNRESPONSIVE Blood Pressure : / mmHG Vent. Rate : 104 BPM Atrial Rate : 174 BPM P-R Int : 168 ms QRS Dur : 092 ms QT Int : 322 ms P-R-T Axes : 034 013 023 degrees QTc Int : 423 ms Sinus tachycardia with Blocked Premature atrial complexes Otherwise normal ECG Confirmed by LEONARDO CASTILLO, DENNISE ([id number]), editor book LADI PALMA ([id number]) on 03/29/2024 1:35:51 PM Referred By: Confirmed By:CHARIS PATTERSON MD
--- NOTE | 2024-03-23 09:58 | EX.ED.DYSGE1 ---
HPI History of Present Illness Chief Complaint: Alt LOC Informant: patient and EMS Narrative Narrative: 78-year-old male presenting to the emergency room following a reported unresponsive episode. Patient is reportedly out sick alf facility. It is reported that around 0900 hrs. he was up ambulating with physical therapy. Nursing there stated that the patient was checked on after therapy was found to be diaphoretic and unresponsive. EMS was called. Prehospital EKG shows a supraventricular tachycardia with a rate of 129. Upon arriving here in the emergency department the patient is awake talking. He believes he is at the alf facility in his room. He notes pain in the buttock which she states he has been having due to a chronic wound. Patient does not recall any unresponsive episode. He denies any chest pain shortness of breath. The patient has a previous medical history of diabetes hypertension was treated recently for necrotizing fasciitis. Patient was noted to have intermittent runs of supraventricular tachycardia on prior ED evaluation. [facility] Medical History Decubitus ulcer of coccygeal region, stage 3 Non-healing surgical wound of right groin Unilateral primary osteoarthritis, left hip Contusion of hip, left Fall High cholesterol Enlarged prostate Diabetes Legally blind Home Medications ?Medication ?Instructions ?Recorded ?Last Taken ?Type ascorbic acid (vitamin C) 1,000 mg 1,000 mg PO DAILY supplement 11/09/19 12/07/23 History tablet lisinopril 10 mg tablet 10 mg PO DAILY bp 11/09/19 12/07/23 History acetaminophen 325 mg tablet 650 mg PO Q4H PRN Pain 1-5 Or 12/08/23 12/07/23 History Fever >100.7 tamsulosin 0.4 mg capsule 0.4 mg PO BID 12/08/23 12/07/23 History acetaminophen 650 mg rectal 650 mg ND Q4H PRN pain 03/23/24 Unknown History suppository aluminum-magnesium hydroxide 200 30 ml PO Q4H PRN GI DISTRESS 03/23/24 Unknown History mg-200 mg/5 mL oral suspension atorvastatin 40 mg tablet 40 mg PO QHS CHOLESTEROL 03/23/24 Unknown History bisacodyl 10 mg rectal suppository 10 mg ND DAILY PRN constipation 03/23/24 Unknown History buspirone 5 mg tablet 5 mg PO BID 03/23/24 Unknown History cyclobenzaprine 10 mg tablet 10 mg PO Q8H PRN muscle spasm 03/23/24 Unknown History famotidine 20 mg tablet 20 mg PO BID 03/23/24 Unknown History finasteride 5 mg tablet 5 mg PO DAILY 03/23/24 Unknown History guaifenesin 100 mg/5 mL oral 200 mg PO Q4H PRN congestion 03/23/24 Unknown History liquid (Adult Tussin Chest Congestion) insulin glargine 100 unit/mL (3 10 unit subcut DAILY 03/23/24 Unknown History mL) subcutaneous pen (Lantus Solostar U-100 Insulin) insulin lispro 100 unit/mL 1 sliding scale dose subcut 4X/DAY 03/23/24 Unknown History subcutaneous pen (Humalog KwikPen (U-100) Insulin) melatonin 5 mg tablet 5 mg PO QHS 03/23/24 Unknown History meloxicam 15 mg tablet 15 mg PO QHS PAIN 03/23/24 Unknown History menthol 0.44 %-zinc oxide 20.6 % 1 applic topical DAILY 03/23/24 Unknown History topical ointment (Calmoseptine) simethicone 80 mg chewable tablet 80 mg PO BID 03/23/24 Unknown History sodium phosphates 19 gram-7 118 ml ND DAILY PRN constipation 03/23/24 Unknown History gram/118 mL enema (Enema) trazodone 50 mg tablet 25 mg PO QHS 03/23/24 Unknown History Allergy/AdvReac Type Severity Reaction Status Date / Time No Known Allergies Allergy Verified 12/08/23 07:58 Family History Other Cancer Heart disease Surgical History Status post tonsillectomy Social History Smoking Status: Former smoker ROS ROS ED ROS Narrative Unresponsive episode with diaphoresis Constitutional Constitutional ED: Denies chills or weight loss Eyes Eyes: Denies change in vision or diplopia ENT ENT ED: Denies ear pain, rhinorrhea or sore throat Cardiovascular Cardiovascular: Reports other; Denies chest pain, orthopnea, palpitations or racing heartbeat Respiratory/Chest Respiratory/Chest: Denies cough, dyspnea or orthopnea Gastrointestinal Gastrointestinal: Denies abdominal pain, diarrhea, nausea or vomiting Genitourinary Genitourinary ED: Denies dysuria, hematuria or urinary frequency Musculoskeletal Musculoskeletal: Reports back pain and other Details: Left hip pain ; Denies arthralgias or myalgias Integumentary Denies abscess or rash Neurologic Neurologic: Denies headache(s) or weakness Psychiatric Psychiatric: Denies anxiety, depression, suicidal ideation or suicidal thoughts Endocrine Endocrinology: Denies polydipsia, polyphagia or polyuria Allergic/Immunologic Allergic/Immunologic ED: Denies mouth swelling, tongue swelling or urticaria EXAM Physical Exam Const Vital Signs: 03/23/24 09:39 03/23/24 09:46 03/23/24 10:46 Temperature 97.8 F 97.8 F 97.4 F L Temperature Source Temporal Temporal Oral Pulse Rate 100 87 89 Respiratory Rate 16 24 H 17 Blood Pressure 158/86 H 158/86 H 99/50 L Blood Pressure Mean 110 110 66 Pulse Ox 96 98 100 Oxygen Delivery Method Room Air Room Air Room Air 03/23/24 11:00 03/23/24 11:31 03/23/24 12:00 Temperature 97.1 F L 97.2 F L Temperature Source Oral Temporal Pulse Rate 84 77 Respiratory Rate 15 19 H Blood Pressure 78/44 L 89/40 L 97/48 L Blood Pressure Mean 55 56 64 Pulse Ox 99 99 Oxygen Delivery Method Room Air Room Air Positive well nourished, well developed and obese General Appearance ED: well developed and pallor Nutritional Appearance: obese HEENT Reports normocephalic, head/scalp atraumatic and moist mucous membranes Eyes PERRL and EOMs intact bilaterally Neck no lymphadenopathy, supple and no JVD Resp normal respiratory effort and clear to auscultation bilaterally Cardio regular rate, regular rhythm and no murmurs GI normal to inspection, nondistended, normoactive bowel sounds and non-tender Palpation: soft Back/Spine no CVA tenderness and normal ROM Extremity normal to inspection General Extremety ED: Negative for edema General Extremity: Negative for edema Neuro CN's II-XII intact bilaterally Sensorium / Orientation: alert and orientation impaired Motor Exam: strength 5/5 throughout Psych mental status grossly normal Mood & Affect: Negative for depressed or tearful Skin no rashes or lesions noted Skin Narrative: Sacral decubitus ulcer dressing in place. General Skin Exam: pallor MDM MDM MDM Narrative Medical decision making narrative: Differential diagnosis includes cardiac dysrhythmia sepsis dehydration from electrolyte abnormalities stroke intracranial hemorrhage acute coronary syndrome aortic catastrophe pneumonia UTI White count 9 with hemoglobin of 8.8 which appears chronic for the patient platelet count of 4 2. Coags are normal. Creatinine is elevated off his baseline of 2.45 with a BUN of 63. Slight elevations in transaminases with an AST of 38 ALT of 75 alkaline phosphatase 506 lipase is negative. Urinalysis with that is a chronic indwelling Mcmahon catheter 50-100 white blood cells 2+ bacteria and leukocyte Estrace positive nitrate negative. My independent interpretation of the chest x-ray is no acute process. CT the brain was obtained which demonstrates no acute process. CT of the abdomen pelvis without IV contrast was obtained due to the patient's creatinine. This demonstrated bilateral hydronephrosis/hydroureter. EKG is a sinus rhythm with PACs. He had no SVT on the monitor. Patient developed some hypotension and received IV fluids and his blood pressure is improved. He has not had any further unresponsive episodes. At this point the patient will be admitted to the hospital. History & Record Review Discussion w/independent historian: EMS personnel, Patient and Other (SNF) Lab Data Attestation: I reviewed the patient's lab results. Labs: Laboratory Results - last 24 hr 03/23/24 03/23/24 10:00 11:20 WBC 9.0 RBC 3.01 L Hgb 8.8 L Hct 27.4 L MCV 91.0 MCH 29.2 MCHC 32.1 RDW Std Deviation 48.3 H RDW Coeff of [place] 14.6 Plt Count 402 MPV 8.9 Immature Gran % (Auto) 1.100 H Neut % (Auto) 71.8 H Lymph % (Auto) 10.3 L [place] % (Auto) 12.3 H Eos % (Auto) 3.7 Baso % (Auto) 0.8 Absolute Neuts (auto) 6.5 Absolute Lymphs (auto) 0.93 Nucleated RBC % 0 PT 13.8 INR 1.1 APTT 34.2 Sodium 136 Potassium 4.5 Chloride 101 Carbon Dioxide 28.0 Anion Gap 7 BUN 63 H Creatinine 2.45 H Estim Creat Clear Calc 28.52 Est GFR (MDRD) Af Amer 33 L Est GFR (MDRD) Non-Af 27 L BUN/Creatinine Ratio 25.7 H Glucose 221 H Calcium 8.0 L Total Bilirubin 0.30 Direct Bilirubin 0.20 AST 38 H ALT 75 H Alkaline Phosphatase 506 H Troponin I High Sens 31 Total Protein 6.1 L Albumin 1.8 L Globulin 4.3 H Lipase < 10 L Urine Color Yellow Urine Clarity Turbid Urine pH 7.0 Ur Specific [place] 1.010 Urine Protein 100 H Urine Glucose (UA) Normal Urine Ketones Negative Urine Occult Blood 250 H Urine Nitrite Negative Urine Bilirubin Negative Urine Urobilinogen Normal Ur Leukocyte Esterase 500 H Urine RBC 0-5 SEEN Urine WBC 50-100 SEEN Ur Squamous Epith Cells 0 SEEN Urine Bacteria 2+ Urine Mucus 0 SEEN Radiography Diagnostic Testing: Clinical Impression(s) from Imaging Studies Brain CT 03/23/24 09:51 IMPRESSION: Chronic involutional changes of the brain. Electronically Signed: Beau Elizalde MD at 10:26 EDT , Chest X-Ray 03/23/24 09:51 IMPRESSION: Elevation of the right hemidiaphragm with findings suggestive of mild linear atelectasis at the right lung base. Electronically Signed: Beau Elizalde MD at 11:02 EDT , Abdomen/Pelvis CT 03/23/24 10:50 IMPRESSION: Stable mild linear atelectasis and/or scarring at the right lung base. Mild bilateral hydronephrosis and hydroureter down to the urinary bladder where there is evidence of a thickened urinary bladder wall. A Mcmahon catheter is seen within the bladder. Mild residual changes seen in the right groin and right scrotal region. Electronically Signed: Beau Elizalde MD at 11:46 EDT , EKG Initial EKG: Attestation: I personally reviewed and interpreted this EKG as follows: Comments: Sinus tachycardia with PACs. Ventricular rate of 104 bpm Management Discussion w/another healthcare provider: Hospitalist Discharge Plan Dx/Rx/DC Orders Clinical Impression: Unresponsive episode, SVT (supraventricular tachycardia), CRISTY (acute kidney injury), Acute hypotension, UTI (urinary tract infection) Disposition Disposition: Acute Care Hospital [facility] Discharge Date/Time: 03/23/24 13:45
[2024-03-23 10:09] LABS: Absolute Lymphocyte Count 0.93 X10^3/uL (0.83-4.51); Absolute Neutrophil Count 6.5 X10^3/uL (2.0-7.7); Basophil# 0.07 X10^3/uL; Basophil% 0.8 % (0-1); Eosinophil# 0.33 X10^3/uL; Eosinophils% 3.7 % (0-5); Hematocrit 27.4 % (40-54); Hemoglobin 8.8 g/dL (13.0-16.5); Lymphocyte # 0.93 X10^3/ul (0.83-4.51); Lymphocyte % 10.3 % (19-41); Mean Corp Hgb Conc 32.1 g/dL (32-36); Mean Corpuscular Hgb 29.2 pg (27.0-32.0); Mean Platelet Vol. 8.9 fl (6.2-12.0); Monocyte# 1.11 X10^3/uL; Monocyte% 12.3 % (0-10); NRBC Flagged by Analyzer 0 % (0-5); Neutrophil # 6.49 X10^3/uL (2.7-7.7); Neutrophil % 71.8 % (47-70); Platelet Count 402 K/mm3 (150-450); RBC Distribution Width CV 14.6 % (11.6-14.6); RBC Distribution Width SD 48.3 fl (35.1-43.9); Red Blood Count 3.01 M/mm3 (4.6-6.2)
[2024-03-23 10:19] LABS: International Normalized Ratio 1.1; Prothrombin Time (Protime)PT. 13.8 SECONDS (11.7-14.9)
[2024-03-23 10:20] LABS: Partial Thromboplast Time 34.2 Seconds (24.1-36.2)
--- NOTE | 2024-03-23 10:30 | ED.RN ---
DR. KAM NOTIFIED OF LOW BP.
[2024-03-23] MEDS: 0.9% Normal Saline (1000mL) 1,000 ML 999 ML IV ×2 (10:31→10:50)
[2024-03-23 10:42] LABS: AST(SGOT) 38 U/L (15-37); Alanine Aminotransfer ALT/SGPT 75 U/L (16-61); Albumin, Serum 1.8 g/dL (3.2-5.0); Alkaline Phosphatase 506 U/L (45-117); Anion Gap 7 (5-15); BUN 63 mg/dL (7-18); BUN/Creat Ratio 25.7 RATIO (10-20); Chloride 101 mmol/L (98-107); Creatinine, Serum 2.45 mg/dL (0.70-1.30); EST Glomerular Filtration Rate 27 mL/min (>60); Est Glom Filt Rate - Afr Amer 33 mL/min (>60); Estimated Creatinine Clearance 28.52 ml/min; Globulin 4.3 g/dL (2.2-4.2); Glucose 221 mg/dL (74-106); Lipase < 10 U/L (13-75); Potassium 4.5 mmol/L (3.5-5.1); Protein, Total 6.1 g/dL (6.4-8.2); Sodium Level 136 mmol/L (136-145); Troponin-I HS 31 pg/mL (3.0-78.0)
--- NOTE | 2024-03-23 10:50 | CT_ITS ---
STUDY: CT ABDOMEN AND PELVIS WITHOUT CONTRAST REASON FOR EXAM: Male, 78 years old. Hypotension renal failure RADIATION DOSAGE (If Supplied By Facility): CTDIvol = ( 21.23 ) mGy, DLP = ( 1384.68 ) mGycm TECHNIQUE: Transaxial images were obtained from the dome of the diaphragm to the symphysis pubis without oral contrast, and without intravenous contrast. Sagittal and coronal images were reconstructed. Individualized dose optimization techniques were used for this CT. COMPARISON: Comparison is made with prior study dated March 15, 2024. FINDINGS: Increased markings at the right lung base suggests a mild degree of linear atelectasis. Coronary artery calcification. Cardiomegaly. Minimal pericardial thickening. Normal liver. Small gallstones and/or sludge are seen in the dependent portion of the gallbladder lumen. Normal spleen. Normal pancreas. Normal bilateral adrenal glands. Mild degree of right hydronephrosis and right hydroureter down to the ureterovesical junction. Mild degree of left hydronephrosis and left hydroureter down to the ureterovesical junction. Normal visualized stomach. Normal small intestine. Moderate amount of fecal material is seen in the colon. The appendix is visualized and appears normal. There is scattered atherosclerotic calcification of the abdominal aorta and its major visceral branches, without a demonstrated aneurysm. There is an IVC filter in place. Normal retroperitoneum. Diffuse bladder wall thickening although the bladder is not completely distended with urine. A Mcmahon catheter seen within it. Focal thickening is seen along the base of the bladder on the right side. There is a small umbilical hernia containing fat. The inflammatory changes in the right groin and right scrotal region have improved. Mild residual changes persist. Normal osseous structures. CT/Abdomen/Pelvis without Cont IMPRESSION: Stable mild linear atelectasis and/or scarring at the right lung base. Mild bilateral hydronephrosis and hydroureter down to the urinary bladder where there is evidence of a thickened urinary bladder wall. A Mcmahon catheter is seen within the bladder. Mild residual changes seen in the right groin and right scrotal region. Electronically Signed: Beau Elizalde MD at 11:46 EDT ,
[2024-03-23 11:28] LABS: Mucous, Urine 0 SEEN /hpf (<or=2+); Squamous Epithelial Cells - UA 0 SEEN /hpf (0-5)
[2024-03-23 11:31] LABS: Color, Urine Yellow (Yellow); Glucose, Dipstick Normal (Normal); Ketone-Dipstick Negative (Negative); Leukocyte Esterase-Dipstick 500 /ul (Negative); Nitrite-Dipstick Negative (Negative); Occult Blood-Urine 250 /ul (Negative); Protein-Dipstick 100 mg/dl (Negative); Urine Bilirubin Dipstick Negative (Negative); Urine Clarity Turbid (Clear); Urine Urobilinogen Normal (Normal)
[2024-03-23 11:40] LABS: Bacteria 2+ /hpf (None Seen); White Blood Cells 50-100 SEEN /hpf (0-5)
[2024-03-23 11:41] LABS: Red Blood Cells-Urine 0-5 SEEN /hpf (0-5)
[2024-03-23] MEDS: Ciprofloxacin 400 MG/200 ML BAG 200 MG IV (11:54)
--- NOTE | 2024-03-23 13:05 | PCM.HP.STD ---
HPI - General General Date of Admission: 03/23/24 Date of Service: 03/23/24 Chief Complaint: Altered mental status HPI Narrative WILLIAM PLUMMER, is a 78 M currently resident at an extended care facility who was brought to the emergency department after he was found to be barely responsive and diaphoretic. EMS squad was called patient was found to be tachycardic rhythm was noted to be SVT with heart rate around 130s. Patient had apparently returned to his baseline at the time he arrived in the ED. In the emergency department he did experience episodes of hypotension resuscitated with IV fluids. Subsequent workup did reveal presence of acute kidney injury as well as cystitis. Decision was made to admit patient for subsequent management. [facility] Medical History Decubitus ulcer of coccygeal region, stage 3 Non-healing surgical wound of right groin Unilateral primary osteoarthritis, left hip Contusion of hip, left Fall High cholesterol Enlarged prostate Diabetes Legally blind Home Medications ?Medication ?Instructions ?Recorded ?Last Taken ?Type ascorbic acid (vitamin C) 1,000 mg 1,000 mg PO DAILY supplement 11/09/19 12/07/23 History tablet lisinopril 10 mg tablet 10 mg PO DAILY bp 11/09/19 12/07/23 History acetaminophen 325 mg tablet 650 mg PO Q4H PRN Pain 1-5 Or 12/08/23 12/07/23 History Fever >100.7 tamsulosin 0.4 mg capsule 0.4 mg PO BID 12/08/23 12/07/23 History acetaminophen 650 mg rectal 650 mg SD Q4H PRN pain 03/23/24 Unknown History suppository aluminum-magnesium hydroxide 200 30 ml PO Q4H PRN GI DISTRESS 03/23/24 Unknown History mg-200 mg/5 mL oral suspension atorvastatin 40 mg tablet 40 mg PO QHS CHOLESTEROL 03/23/24 Unknown History bisacodyl 10 mg rectal suppository 10 mg SD DAILY PRN constipation 03/23/24 Unknown History buspirone 5 mg tablet 5 mg PO BID 03/23/24 Unknown History cyclobenzaprine 10 mg tablet 10 mg PO Q8H PRN muscle spasm 03/23/24 Unknown History famotidine 20 mg tablet 20 mg PO BID 03/23/24 Unknown History finasteride 5 mg tablet 5 mg PO DAILY 03/23/24 Unknown History guaifenesin 100 mg/5 mL oral 200 mg PO Q4H PRN congestion 03/23/24 Unknown History liquid (Adult Tussin Chest Congestion) insulin glargine 100 unit/mL (3 10 unit subcut DAILY 03/23/24 Unknown History mL) subcutaneous pen (Lantus Solostar U-100 Insulin) insulin lispro 100 unit/mL 1 sliding scale dose subcut 4X/DAY 03/23/24 Unknown History subcutaneous pen (Humalog KwikPen (U-100) Insulin) melatonin 5 mg tablet 5 mg PO QHS 03/23/24 Unknown History meloxicam 15 mg tablet 15 mg PO QHS PAIN 03/23/24 Unknown History menthol 0.44 %-zinc oxide 20.6 % 1 applic topical DAILY 03/23/24 Unknown History topical ointment (Calmoseptine) simethicone 80 mg chewable tablet 80 mg PO BID 03/23/24 Unknown History sodium phosphates 19 gram-7 118 ml SD DAILY PRN constipation 03/23/24 Unknown History gram/118 mL enema (Enema) trazodone 50 mg tablet 25 mg PO QHS 03/23/24 Unknown History Allergy/AdvReac Type Severity Reaction Status Date / Time No Known Allergies Allergy Verified 12/08/23 07:58 Family History Other Cancer Heart disease Surgical History Status post tonsillectomy Social History Smoking Status: Former smoker ROS ROS Narrative GENERAL: denies fever, chills, night sweats, weight loss, anorexia HEENT: denies headache, sinus congestion, or drainage, dysphagia RESPIRATORY: denies cough, sputum production, shortness of breath, dyspnea on exertion CARDIAC: denies chest pain, palpitations, orthopnea, PND GASTROINTESTINAL: denies abdominal pain, nausea, vomiting, melena, GENITOURINARY: denies dysuria, urgency, frequency, heamaturia EXTREMITY: denies swelling MUSCULOSKELETAL: denies current joint pain or tenderness NEUROLOGIC: denies focal numbness, weakness, tingling HEMATOLOGIC: denies easy bruising and/or hemorrhage INTEGUMENT: denies rashes PSYCHIATRIC: denies suicidal or homicidal ideation Vital Signs Vital Signs Vital Signs: 03/23/24 09:39 03/23/24 09:46 03/23/24 10:46 Temperature 97.8 F 97.8 F 97.4 F L Temperature Source Temporal Temporal Oral Pulse Rate 100 87 89 Respiratory Rate 16 24 H 17 Blood Pressure 158/86 H 158/86 H 99/50 L Blood Pressure Mean 110 110 66 Pulse Ox 96 98 100 Oxygen Delivery Method Room Air Room Air Room Air 03/23/24 11:00 03/23/24 11:31 03/23/24 12:00 Temperature 97.1 F L 97.2 F L Temperature Source Oral Temporal Pulse Rate 84 77 Respiratory Rate 15 19 H Blood Pressure 78/44 L 89/40 L 97/48 L Blood Pressure Mean 55 56 64 Pulse Ox 99 99 Oxygen Delivery Method Room Air Room Air 03/23/24 12:48 03/23/24 12:48 Temperature Temperature Source Pulse Rate 71 Respiratory Rate 18 Blood Pressure 102/49 L 111/65 Blood Pressure Mean 66 80 Pulse Ox 98 Oxygen Delivery Method Weight Weight: 97.4 kg Body Mass Index (BMI) 33.6 Physical Exam Narrative GENERAL: cooperative HEENT: Atraumatic; normocephalic EYES; Anicteric, Normal Conjunctiva NECK; supple, normal thyroid, RESPIRATORY: Diminished to auscultation CARDIOVASCULAR: Regular S1 S2, GI: soft, normoactive bowel sounds, : No Renal angle tenderness; EXTREMITIES: No edema, no clubbing, MUSCULOSKELETAL: no muscle wasting NEURO: Awake; no lateralizing signs. SKIN: No Rash PSYCH; Flat affect Results Lab / Micro Data 03/23/24 10:00 03/23/24 10:00 Labs: Laboratory Results - last 24 hr 03/23/24 10:00: WBC 9.0, RBC 3.01 L, Hgb 8.8 L, Hct 27.4 L, MCV 91.0, MCH 29.2, MCHC 32.1, RDW Std Deviation 48.3 H, RDW Coeff of [place] 14.6, Plt Count 402, MPV 8.9, Immature Gran % (Auto) 1.100 H, Neut % (Auto) 71.8 H, Lymph % (Auto) 10.3 L, [place] % (Auto) 12.3 H, Eos % (Auto) 3.7, Baso % (Auto) 0.8, Absolute Neuts (auto) 6.5, Absolute Lymphs (auto) 0.93, Nucleated RBC % 0, PT 13.8, INR 1.1, APTT 34.2, Sodium 136, Potassium 4.5, Chloride 101, Carbon Dioxide 28.0, Anion Gap 7, BUN 63 H, Creatinine 2.45 H, Estim Creat Clear Calc 28.52, Est GFR (MDRD) Af Amer 33 L, Est GFR (MDRD) Non-Af 27 L, BUN/Creatinine Ratio 25.7 H, Glucose 221 H, Calcium 8.0 L, Total Bilirubin 0.30, Direct Bilirubin 0.20, AST 38 H, ALT 75 H, Alkaline Phosphatase 506 H, Troponin I High Sens 31, Total Protein 6.1 L, Albumin 1.8 L, Globulin 4.3 H, Lipase < 10 L 03/23/24 11:20: Urine Color Yellow, Urine Clarity Turbid, Urine pH 7.0, Ur Specific [place] 1.010, Urine Protein 100 H, Urine Glucose (UA) Normal, Urine Ketones Negative, Urine Occult Blood 250 H, Urine Nitrite Negative, Urine Bilirubin Negative, Urine Urobilinogen Normal, Ur Leukocyte Esterase 500 H, Urine RBC 0-5 SEEN, Urine WBC 50-100 SEEN, Ur Squamous Epith Cells 0 SEEN, Urine Bacteria 2+, Urine Mucus 0 SEEN Imaging Radiology Impression Brain CT 03/23/24 09:51 IMPRESSION: Chronic involutional changes of the brain. Electronically Signed: Beau Elizalde MD at 10:26 EDT , Chest X-Ray 03/23/24 09:51 IMPRESSION: Elevation of the right hemidiaphragm with findings suggestive of mild linear atelectasis at the right lung base. Electronically Signed: Beau Elizalde MD at 11:02 EDT , Abdomen/Pelvis CT 03/23/24 10:50 IMPRESSION: Stable mild linear atelectasis and/or scarring at the right lung base. Mild bilateral hydronephrosis and hydroureter down to the urinary bladder where there is evidence of a thickened urinary bladder wall. A Mcmahon catheter is seen within the bladder. Mild residual changes seen in the right groin and right scrotal region. Electronically Signed: Beau Elizalde MD at 11:46 EDT , Assessment & Plan Assessment/Plan (1) CRISTY (acute kidney injury): (2) SVT (supraventricular tachycardia): (3) UTI (urinary tract infection): PLAN: Plan Patient is a 78-year-old gentleman admitted with altered mental status 1. Acute metabolic encephalopathy ? Secondary to combination of acute cystitis, transient hypotension from SVT. Patient was apparently back to his baseline at the time of admission admitted to a monitored bed for subsequent management 2. Paroxysmal SVT ? Patient is on a monitored bed echo ordered for subsequent eval also ordered D-dimer 3. Acute cystitis -secondary to presence of an indwelling Mcmahon catheter patient was started on ceftriaxone cultures sent Acute kidney injury ? Patient started on IV fluid resuscitation. Imaging studies obtained on admission demonstrated mild bilateral hydronephrosis and hydroureter down to the urinary bladder with evidence of thickened urinary bladder wall 4. Diabetes mellitus type II -patient's oral hypoglycemics held. Placed on long acting insulin, Accu-Cheks a.c. and at bedtime and covered with sliding scale insulin 5. Essential hypertension ? Patient home meds held given his relatively low blood pressure 6. BPH with lower urinary obstructive symptoms - Patient treated with tamsulosin 7. Dyslipidemia -Patient is on statin therapy, continued at home dose 8. Anemia - Secondary to chronic disorder monitoring H&H and transfuse if patient becomes symptomatic or hemoglobin falls below 7 9. DVT prophylaxis ? SC heparin Time spent in the patient's overall evaluation,decision-making process, review of diagnostic data, adjustment of management, discussion with other providers, nursing nursing and ancillary staff involved in patient's care documentation, 76 minutes Advance planning; did discuss with the patient and family regarding advanced directives as well as CODE STATUS. Did explain the various scenarios involved ( FULL CODE, DNR CCA, DNR CCA with no intubation, and DNR CC and what each meant) patient elected remain full code with CPR and intubation if needed. Order was placed. Time spent on [id number] minutes. Charges/Coding Multi Select Codes Visit Charges Visit Charges: 09699 [address] [facility] [address] Procedures Procedures: 35187 Advncd Care Plan 30 Min
[2024-03-23] MEDS: 0.9% Normal Saline (1000mL) 1,000 ML 150 ML IV ×2 (15:02→23:08)
[2024-03-23] MEDS: Ceftriaxone 1 GM/50 ML BAG IV (15:34)
[2024-03-23 17:30] LABS: Bedside Glucose 216 mg/dL (74-106)
[2024-03-23] MEDS: Insulin Glargine-YFGN 100 UNIT/ML Pen 10 UNIT SC (17:33)
[2024-03-23] MEDS: Insulin Lispro 100 UNIT/ML INSULN.PEN SC ×2 (17:34→20:48)
[2024-03-23] MEDS: MELATONIN 10 MG TABLET 5 MG PO (20:49)
[2024-03-23] MEDS: Atorvastatin Calcium 40 MG Tablet PO (20:49)
[2024-03-23] MEDS: Tamsulosin HCl 0.4 MG Capsule PO (20:50)
[2024-03-23] MEDS: Heparin Injection (Vial) 5,000 UNIT/ML VIAL 5000 UNIT SC (20:50)
[2024-03-23 22:50] LABS: Bedside Glucose 284 mg/dL (74-106)
[2024-03-24 02:00] VITALS: BP 145/65; PULSE 76; RESP 17; TEMP 36.5; O2SAT 99
[2024-03-24] MEDS: Acetaminophen 325 MG Tablet 650 MG PO ×2 (02:12→22:04)
[2024-03-24 03:51] VITALS: BMI 34.0
[2024-03-24] MEDS: 0.9% Normal Saline (1000mL) 1,000 ML 150 ML IV ×3 (05:12→17:57)
[2024-03-24 06:51] LABS: Bedside Glucose 135 mg/dL (74-106)
[2024-03-24 07:54] LABS: Absolute Lymphocyte Count 1.29 X10^3/uL (0.83-4.51); Absolute Neutrophil Count 5.8 X10^3/uL (2.0-7.7); Basophil# 0.06 X10^3/uL; Basophil% 0.7 % (0-1); Eosinophil# 0.41 X10^3/uL; Eosinophils% 4.8 % (0-5); Hematocrit 25.2 % (40-54); Lymphocyte # 1.29 X10^3/ul (0.83-4.51); Lymphocyte % 15.2 % (19-41); Mean Corp Hgb Conc 31.7 g/dL (32-36); Mean Corpuscular Hgb 28.9 pg (27.0-32.0); Mean Platelet Vol. 8.5 fl (6.2-12.0); Monocyte# 0.78 X10^3/uL; Monocyte% 9.2 % (0-10); NRBC Flagged by Analyzer 0 % (0-5); Neutrophil # 5.84 X10^3/uL (2.7-7.7); Neutrophil % 68.8 % (47-70); Platelet Count 353 K/mm3 (150-450); RBC Distribution Width CV 14.6 % (11.6-14.6); RBC Distribution Width SD 48.5 fl (35.1-43.9); Red Blood Count 2.77 M/mm3 (4.6-6.2); White Blood Count 8.5 K/mm3 (4.4-11.0)
[2024-03-24 08:16] LABS: Anion Gap 3 (5-15); BUN 51 mg/dL (7-18); BUN/Creat Ratio 31.9 RATIO (10-20); Calcium,Total 7.7 mg/dL (8.5-10.1); Chloride 109 mmol/L (98-107); EST Glomerular Filtration Rate 45 mL/min (>60); Est Glom Filt Rate - Afr Amer 54 mL/min (>60); Glucose 133 mg/dL (74-106); Phosphorus 3.8 mg/dL (2.5-4.9); Potassium 4.8 mmol/L (3.5-5.1); Sodium Level 139 mmol/L (136-145)
[2024-03-24 09:02] VITALS: BP 149/80; PULSE 85; RESP 15; TEMP 36.7; O2SAT 99
[2024-03-24] MEDS: Finasteride 5 MG Tablet PO (09:14)
[2024-03-24] MEDS: Ascorbic Acid 500 MG Tablet 1000 MG PO (09:14)
[2024-03-24] MEDS: Tamsulosin HCl 0.4 MG Capsule PO ×2 (09:14→21:58)
[2024-03-24] MEDS: Heparin Injection (Vial) 5,000 UNIT/ML VIAL 5000 UNIT SC ×2 (09:15→21:58)
[2024-03-24] MEDS: Insulin Glargine-YFGN 100 UNIT/ML Pen 10 UNIT SC (09:15)
--- NOTE | 2024-03-24 09:33 | PCM.PN.HOSP ---
Reason for Visit Reason for Visit: Diagnoses Supraventricular tachycardia, unspecified (03/23/24) Acute kidney failure, unspecified (03/23/24) Urinary tract infection, site not specified (03/23/24) Subjective Subjective Patient is a 78-year-old gentleman admitted with altered mental status and assessment of acute metabolic encephalopathy secondary to acute kidney injury as well as cystitis made admitted to a monitored nursing floor for further management Objective Data Objective Data Vital Signs: Vital Signs Temp Pulse Resp BP Pulse Ox O2 Del Method 98.1 F 85 15 149/80 H 99 Room Air 03/24/24 09:02 03/24/24 09:02 03/24/24 09:02 03/24/24 09:02 03/24/24 09:02 03/24/24 09:02 Oxygen Delivery Method Room Air Weight: 98.4 kg Body Mass Index (BMI) 34.0 Intake & Output: Intake and Output for Last 24 Hours 03/22/24 03/23/24 03/24/24 23:59 23:59 23:59 Intake Total 3500 / 3620 1030 / 1030 Output Total 850 / 1350 1500 / 1500 Balance 2650 / 2270 -470 / -470 Lab / Micro Data 03/24/24 07:25 03/24/24 07:25 Labs: Laboratory Results - last 24 hr 03/23/24 10:00: WBC 9.0, RBC 3.01 L, Hgb 8.8 L, Hct 27.4 L, MCV 91.0, MCH 29.2, MCHC 32.1, RDW Std Deviation 48.3 H, RDW Coeff of [place] 14.6, Plt Count 402, MPV 8.9, Immature Gran % (Auto) 1.100 H, Neut % (Auto) 71.8 H, Lymph % (Auto) 10.3 L, [place] % (Auto) 12.3 H, Eos % (Auto) 3.7, Baso % (Auto) 0.8, Absolute Neuts (auto) 6.5, Absolute Lymphs (auto) 0.93, Nucleated RBC % 0, PT 13.8, INR 1.1, APTT 34.2, Sodium 136, Potassium 4.5, Chloride 101, Carbon Dioxide 28.0, Anion Gap 7, BUN 63 H, Creatinine 2.45 H, Estim Creat Clear Calc 28.52, Est GFR (MDRD) Af Amer 33 L, Est GFR (MDRD) Non-Af 27 L, BUN/Creatinine Ratio 25.7 H, Glucose 221 H, Calcium 8.0 L, Total Bilirubin 0.30, Direct Bilirubin 0.20, AST 38 H, ALT 75 H, Alkaline Phosphatase 506 H, Troponin I High Sens 31, Total Protein 6.1 L, Albumin 1.8 L, Globulin 4.3 H, Lipase < 10 L 03/23/24 11:20: Urine Color Yellow, Urine Clarity Turbid, Urine pH 7.0, Ur Specific [place] 1.010, Urine Protein 100 H, Urine Glucose (UA) Normal, Urine Ketones Negative, Urine Occult Blood 250 H, Urine Nitrite Negative, Urine Bilirubin Negative, Urine Urobilinogen Normal, Ur Leukocyte Esterase 500 H, Urine RBC 0-5 SEEN, Urine WBC 50-100 SEEN, Ur Squamous Epith Cells 0 SEEN, Urine Bacteria 2+, Urine Mucus 0 SEEN 03/23/24 16:58: POC Glucose 216 H 03/23/24 20:47: POC Glucose 284 H 03/24/24 06:12: POC Glucose 135 H 03/24/24 07:25: WBC 8.5, RBC 2.77 L, Hgb 8.0 L, Hct 25.2 L, MCV 91.0, MCH 28.9, MCHC 31.7 L, RDW Std Deviation 48.5 H, RDW Coeff of [place] 14.6, Plt Count 353, MPV 8.5, Immature Gran % (Auto) 1.300 H, Neut % (Auto) 68.8, Lymph % (Auto) 15.2 L, [place] % (Auto) 9.2, Eos % (Auto) 4.8, Baso % (Auto) 0.7, Absolute Neuts (auto) 5.8, Absolute Lymphs (auto) 1.29, Nucleated RBC % 0, Sodium 139, Potassium 4.8, Chloride 109 H, Carbon Dioxide 27.0, Anion Gap 3 L, BUN 51 H, Creatinine 1.60 H, Estim Creat Clear Calc 43.90, Est GFR (MDRD) Af Amer 54 L, Est GFR (MDRD) Non-Af 45 L, BUN/Creatinine Ratio 31.9 H, Glucose 133 H, Calcium 7.7 L, Phosphorus 3.8, Magnesium 2.0 Radiography Diagnostic Testing: Radiology Impression Brain CT 03/23/24 09:51 IMPRESSION: Chronic involutional changes of the brain. Electronically Signed: Beau Elizalde MD at 10:26 EDT , Chest X-Ray 03/23/24 09:51 IMPRESSION: Elevation of the right hemidiaphragm with findings suggestive of mild linear atelectasis at the right lung base. Electronically Signed: Beau Elizalde MD at 11:02 EDT , Abdomen/Pelvis CT 03/23/24 10:50 IMPRESSION: Stable mild linear atelectasis and/or scarring at the right lung base. Mild bilateral hydronephrosis and hydroureter down to the urinary bladder where there is evidence of a thickened urinary bladder wall. A Mcmahon catheter is seen within the bladder. Mild residual changes seen in the right groin and right scrotal region. Electronically Signed: Beau Elizalde MD at 11:46 EDT , Physical Exam Narrative GENERAL: cooperative HEENT: Atraumatic; normocephalic EYES; Anicteric, Normal Conjunctiva NECK; supple, normal thyroid, RESPIRATORY: Diminished to auscultation CARDIOVASCULAR: Regular S1 S2, GI: soft, normoactive bowel sounds, : No Renal angle tenderness; EXTREMITIES: No edema, no clubbing, MUSCULOSKELETAL: no muscle wasting NEURO: Awake; no lateralizing signs. SKIN: No Rash PSYCH; Flat affect Assessment & Plan Assessment/Plan (1) CRISTY (acute kidney injury): (2) SVT (supraventricular tachycardia): (3) UTI (urinary tract infection): PLAN: Plan Patient is a 78-year-old gentleman admitted with altered mental status 1. Acute metabolic encephalopathy ? Secondary to combination of acute cystitis, transient hypotension from SVT. Patient was apparently back to his baseline at the time of admission admitted to a monitored bed for subsequent management ? 03/24/2024; level of sensorium improving 2. Paroxysmal SVT ? Patient is on a monitored bed echo ordered for subsequent eval also ordered D-dimer ? 03/24/2024; ordered bilateral venous duplex and VQ scan given patient elevated D-dimer 3. Acute cystitis -secondary to presence of an indwelling Mcmahon catheter patient was started on ceftriaxone cultures sent ? 03/24/2024 patient remains on ceftriaxone, awaiting results of urine cultures 4. Acute kidney injury ? Patient started on IV fluid resuscitation. Imaging studies obtained on admission demonstrated mild bilateral hydronephrosis and hydroureter down to the urinary bladder with evidence of thickened urinary bladder wall ? 03/24/2024; creatinine on admission was 2.45, down to 1.60 5. Diabetes mellitus type II -patient's oral hypoglycemics held. Placed on long acting insulin, Accu-Cheks a.c. and at bedtime and covered with sliding scale insulin 6. BPH with lower urinary obstructive symptoms - Patient treated with tamsulosin 7. Dyslipidemia -Patient is on statin therapy, continued at home dose 8. Anemia - Secondary to chronic disorder monitoring H&H and transfuse if patient becomes symptomatic or hemoglobin falls below 7 9. Essential hypertension ? Patient home meds held given his relatively low blood pressure 10. DVT prophylaxis ? SC heparin Time spent in the patient's overall evaluation,decision-making process, review of diagnostic data, adjustment of management, discussion with other providers, nursing nursing and ancillary staff involved in patient's care documentation, 50 minutes Charges/Coding Visit Charges Inpatient E&M: 26830 Subs Hosp L3
--- NOTE | 2024-03-24 09:34 | NM_ITS ---
CLINICAL: Male, 78 years old. Elevated D-dimer,Multiple falls, -- patient denies shortness of breath or chest pain NUCLEAR VENTILATION/PERFUSION - LUNG TECHNIQUE: The patient was administered 5.3 mCi of Tc MAA followed by a perfusion lung scan. The patient was administered 50 mCi of DTPA followed by a ventilation lung scan. Comparison made to prior chest radiograph dated . COMPARISON STUDIES : NM - None. CR - comparison is made with prior chest radiograph dated March 23, 2024. CT - Not available for review at this time. MR - Not available for review at this time. FINDINGS: The pulmonary perfusion study demonstrates uniform perfusion throughout both lung mario. There are no demonstrated segmental or subsegmental perfusion defects The ventilation study demonstrates mild degree of central clumping of the radiopharmaceutical suggestive of airway disease.. There are no segmental or subsegmental ventilation abnormalities. NM/Lung Scan Vent/Perf IMPRESSION: Essentially normal 99m Tc MAA pulmonary perfusion Tc DTPA aerosol ventilation imaging survey, according to revised PIOPED interpretive criteria. Findings suggestive of airway disease. Electronically Signed: Beau Elizalde MD at 10:54 EDT ,
--- NOTE | 2024-03-24 09:35 | VDLE_ITS ---
Reason For Study: Elevated D-dimer RIGHT LEFT GSV is normal. GSV is normal. FV is compressible, spontaneous, phasic, CFV is compressible, spontaneous, phasic, competent and demonstrates normal competent, and demonstrates normal augmentation. augmentation. POP V is compressible, spontaneous, phasic, FV is compressible, spontaneous, phasic, competent and demonstrates normal competent and demonstrates normal augmentation. augmentation. T/P Trunk is compressible. POP V is compressible, spontaneous, phasic, PTV is compressible. competent and demonstrates normal RT PerV is compressible. augmentation. CFV not visualized due to bandages. T/P Trunk is compressible. Procedure PTV is compressible. This is a venous duplex using B-mode, color LT PerV is compressible. flow and spectral Doppler. Exam performed portable in patient room. The study was technically difficult. A preliminary report was called and/or faxed to [facility]. VL/Venous Duplex US - [place] Extrem Interpretation Summary Deep veins of the bilateral lower extremities are patent and compressible segme ntally. There is no evidence of bilateral lower extremity deep vein thrombosis. The bilateral great saphenous veins appear patent and compressible segmentally. Limited study on right Ordering Physician: Rafi Napoles Referring Physician: Purvi Gold Performed By: Jamee Drew RVT and Student
--- NOTE | 2024-03-24 09:40 | CASEMGMT ---
Per admission questions patient does not have a Healthcare Power of Stage Builder or Healthcare Living Will and is not interested in documents. Paty Valentin VEHICLE DISMANTLER CONSUMER STUDIES PROFESSOR
--- NOTE | 2024-03-24 10:20 | WOUNDNOTE ---
wound photo: right groin
--- NOTE | 2024-03-24 10:21 | WOUNDNOTE ---
wound photo: petr
[2024-03-24] MEDS: Ceftriaxone 1 GM/50 ML BAG IV (11:42)
[2024-03-24] MEDS: Insulin Lispro 100 UNIT/ML INSULN.PEN SC ×3 (11:48→21:58)
[2024-03-24 12:55] LABS: Bedside Glucose 156 mg/dL (74-106)
--- NOTE | 2024-03-24 14:35 | CASEMGMT ---
SW went to patient's room, but he was sleeping. BENJIE then called patient's Henny and confirmed the plan is for patient to return to [facility] at d/c. Plan: d/c back to [facility]. Paty VILLALPANDO
[2024-03-24 17:45] VITALS: BP 135/67; PULSE 89; RESP 14; TEMP 36.6; O2SAT 99
[2024-03-24 18:48] LABS: Bedside Glucose 152 mg/dL (74-106)
[2024-03-24 20:00] VITALS: BP 156/70; PULSE 88; RESP 18; TEMP 37; O2SAT 99
[2024-03-24] MEDS: MELATONIN 10 MG TABLET 5 MG PO (21:58)
[2024-03-24] MEDS: Atorvastatin Calcium 40 MG Tablet PO (21:59)
[2024-03-24 22:35] LABS: Bedside Glucose 191 mg/dL (74-106)
[2024-03-24 23:00] VITALS: BP 153/73; PULSE 76; RESP 16; TEMP 37.1; O2SAT 96
[2024-03-25] MEDS: 0.9% Normal Saline (1000mL) 1,000 ML 150 ML IV ×2 (00:48→09:30)
[2024-03-25 02:00] VITALS: BP 153/73; PULSE 76; RESP 18; TEMP 36.6; O2SAT 96
[2024-03-25 04:17] VITALS: BMI 35.5
[2024-03-25 05:00] VITALS: BP 146/76; PULSE 78; RESP 17; TEMP 37; O2SAT 98
[2024-03-25 05:44] LABS: Absolute Lymphocyte Count 1.28 X10^3/uL (0.83-4.51); Absolute Neutrophil Count 5.9 X10^3/uL (2.0-7.7); Basophil# 0.08 X10^3/uL; Basophil% 0.9 % (0-1); Eosinophil# 0.49 X10^3/uL; Eosinophils% 5.5 % (0-5); Hematocrit 25.3 % (40-54); Lymphocyte # 1.28 X10^3/ul (0.83-4.51); Lymphocyte % 14.5 % (19-41); Mean Corp Hgb Conc 31.6 g/dL (32-36); Mean Corpuscular Volume 91.7 fL (80-94); Mean Platelet Vol. 8.5 fl (6.2-12.0); Monocyte# 0.89 X10^3/uL; Monocyte% 10.1 % (0-10); NRBC Flagged by Analyzer 0 % (0-5); Neutrophil # 5.89 X10^3/uL (2.7-7.7); Neutrophil % 66.5 % (47-70); Platelet Count 353 K/mm3 (150-450); RBC Distribution Width CV 14.6 % (11.6-14.6); RBC Distribution Width SD 48.7 fl (35.1-43.9); Red Blood Count 2.76 M/mm3 (4.6-6.2); White Blood Count 8.9 K/mm3 (4.4-11.0)
[2024-03-25 06:48] LABS: Bedside Glucose 119 mg/dL (74-106)
[2024-03-25 06:48] LABS: Anion Gap 3 (5-15); BUN 35 mg/dL (7-18); BUN/Creat Ratio 30.4 RATIO (10-20); Calcium,Total 7.7 mg/dL (8.5-10.1); Chloride 113 mmol/L (98-107); Creatinine, Serum 1.15 mg/dL (0.70-1.30); EST Glomerular Filtration Rate 66 mL/min (>60); Est Glom Filt Rate - Afr Amer 80 mL/min (>60); Estimated Creatinine Clearance 62.47 ml/min; Glucose 133 mg/dL (74-106); Potassium 4.9 mmol/L (3.5-5.1); Sodium Level 142 mmol/L (136-145)
--- NOTE | 2024-03-25 08:16 | PCM.PN.HOSP ---
Reason for Visit Reason for Visit: Diagnoses Supraventricular tachycardia, unspecified (03/23/24) Acute kidney failure, unspecified (03/23/24) Urinary tract infection, site not specified (03/23/24) Objective Data Objective Data Vital Signs: Vital Signs Temp Pulse Resp BP Pulse Ox O2 Del Method 98.6 F 78 17 146/76 H 98 Room Air 03/25/24 05:00 03/25/24 05:00 03/25/24 05:00 03/25/24 05:00 03/25/24 05:00 03/25/24 07:32 Oxygen Delivery Method Room Air Weight: 102.9 kg Body Mass Index (BMI) 35.5 Intake & Output: Intake and Output for Last 24 Hours 03/23/24 03/24/24 03/25/24 23:59 23:59 23:59 Intake Total 3500 / 3620 3667.5 / 3787.5 1120 / 1120 Output Total 850 / 1350 1850 / 2300 1750 / 1750 Balance 2650 / 2270 1817.5 / 1487.5 -630 / -630 Lab / Micro Data 03/25/24 05:16 03/25/24 05:16 Labs: Laboratory Results - last 24 hr 03/24/24 07:25: Sodium 139, Potassium 4.8, Chloride 109 H, Carbon Dioxide 27.0, Anion Gap 3 L, BUN 51 H, Creatinine 1.60 H, Estim Creat Clear Calc 43.90, Est GFR (MDRD) Af Amer 54 L, Est GFR (MDRD) Non-Af 45 L, BUN/Creatinine Ratio 31.9 H, Glucose 133 H, Calcium 7.7 L, Phosphorus 3.8, Magnesium 2.0 03/24/24 11:47: POC Glucose 156 H 03/24/24 17:43: POC Glucose 152 H 03/24/24 21:56: POC Glucose 191 H 03/25/24 05:16: WBC 8.9, RBC 2.76 L, Hgb 8.0 L, Hct 25.3 L, MCV 91.7, MCH 29.0, MCHC 31.6 L, RDW Std Deviation 48.7 H, RDW Coeff of [place] 14.6, Plt Count 353, MPV 8.5, Immature Gran % (Auto) 2.500 H, Neut % (Auto) 66.5, Lymph % (Auto) 14.5 L, [place] % (Auto) 10.1 H, Eos % (Auto) 5.5 H, Baso % (Auto) 0.9, Absolute Neuts (auto) 5.9, Absolute Lymphs (auto) 1.28, Nucleated RBC % 0, Sodium 142, Potassium 4.9, Chloride 113 H, Carbon Dioxide 26.0, Anion Gap 3 L, BUN 35 H, Creatinine 1.15, Estim Creat Clear Calc 62.47, Est GFR (MDRD) Af Amer 80, Est GFR (MDRD) Non-Af 66, BUN/Creatinine Ratio 30.4 H, Glucose 133 H, Calcium 7.7 L 03/25/24 06:31: POC Glucose 119 H Micro: Microbiology 03/23/24 11:20 Urine Catheter - Mcmahon Urine Culture - Preliminary Gram negative edilson Radiography Diagnostic Testing: Radiology Impression Lung Scan-VQ NM 03/24/24 09:34 IMPRESSION: Essentially normal 99m Tc MAA pulmonary perfusion Tc DTPA aerosol ventilation imaging survey, according to revised PIOPED interpretive criteria. Findings suggestive of airway disease. Electronically Signed: Beau Elizalde MD at 10:54 EDT , Venous Doppler Study 03/24/24 09:35 Interpretation Summary Deep veins of the bilateral lower extremities are patent and compressible segmentally. There is no evidence of bilateral lower extremity deep vein thrombosis. The bilateral great saphenous veins appear patent and compressible segmentally. Limited study on right Ordering Physician: Rafi Napoles Referring Physician: Purvi Gold Performed By: Jamee Drew RVT and Student Physical Exam Narrative GENERAL: cooperative HEENT: Atraumatic; normocephalic EYES; Anicteric, Normal Conjunctiva NECK; supple, normal thyroid, RESPIRATORY: Diminished to auscultation CARDIOVASCULAR: Regular S1 S2, GI: soft, normoactive bowel sounds, : No Renal angle tenderness; EXTREMITIES: No edema, no clubbing, MUSCULOSKELETAL: no muscle wasting NEURO: Awake; no lateralizing signs. SKIN: No Rash PSYCH; Flat affect Assessment & Plan Assessment/Plan (1) CRISTY (acute kidney injury): (2) SVT (supraventricular tachycardia): (3) UTI (urinary tract infection): PLAN: Plan Patient is a 78-year-old gentleman admitted with altered mental status 1. Acute metabolic encephalopathy ? Secondary to combination of acute cystitis, transient hypotension from SVT. Patient was apparently back to his baseline at the time of admission admitted to a monitored bed for subsequent management ? 03/24/2024; level of sensorium improving 2. Paroxysmal SVT ? Patient is on a monitored bed echo ordered for subsequent eval also ordered D-dimer ? 03/24/2024; ordered bilateral venous duplex and VQ scan given patient elevated D-dimer 3. Acute cystitis -secondary to presence of an indwelling Mcmahon catheter patient was started on ceftriaxone cultures sent ? 03/24/2024 patient remains on ceftriaxone, awaiting results of urine cultures 4. Acute kidney injury ? Patient started on IV fluid resuscitation. Imaging studies obtained on admission demonstrated mild bilateral hydronephrosis and hydroureter down to the urinary bladder with evidence of thickened urinary bladder wall ? 03/24/2024; creatinine on admission was 2.45, down to 1.60 5. Diabetes mellitus type II -patient's oral hypoglycemics held. Placed on long acting insulin, Accu-Cheks a.c. and at bedtime and covered with sliding scale insulin 6. BPH with lower urinary obstructive symptoms - Patient treated with tamsulosin 7. Dyslipidemia -Patient is on statin therapy, continued at home dose 8. Anemia - Secondary to chronic disorder monitoring H&H and transfuse if patient becomes symptomatic or hemoglobin falls below 7 9. Essential hypertension ? Patient home meds held given his relatively low blood pressure 10. DVT prophylaxis ? SC heparin Time spent in the patient's overall evaluation,decision-making process, review of diagnostic data, adjustment of management, discussion with other providers, nursing nursing and ancillary staff involved in patient's care documentation, 50 minutes
[2024-03-25 09:29] VITALS: BP 165/75; PULSE 86; RESP 15; TEMP 36.7; O2SAT 98
[2024-03-25] MEDS: Tamsulosin HCl 0.4 MG Capsule PO (09:31)
[2024-03-25] MEDS: Ascorbic Acid 500 MG Tablet 1000 MG PO (09:31)
[2024-03-25] MEDS: Finasteride 5 MG Tablet PO (09:31)
[2024-03-25] MEDS: Heparin Injection (Vial) 5,000 UNIT/ML VIAL 5000 UNIT SC (09:32)
[2024-03-25] MEDS: Insulin Glargine-YFGN 100 UNIT/ML Pen 10 UNIT SC (09:32)
[2024-03-25] MEDS: Ceftriaxone 1 GM/50 ML BAG IV (09:41)
--- NOTE | 2024-03-25 09:59 | CASEMGMT ---
Discharge Planning Updates sent to [facility] via [employer]. Requested wknd phone/fax. Kavitha Cabrera DC Planning Asst.
--- NOTE | 2024-03-25 11:08 | DS.PCM_ITS ---
Providers Date of Admission: 03/23/24 Date of Discharge: 03/25/24 Primary Care Physician: Dr. 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 Acute metabolic encephalopathy ? Secondary to combination of acute cystitis, transient hypotension from SVT. Patient was apparently back to his baseline at the time of admission admitted to a monitored bed for subsequent management ? 03/24/2024; level of sensorium improving ? 03/25/2024; resolved 2. Paroxysmal SVT ? Patient is on a monitored bed echo ordered for subsequent eval also ordered D- dimer ? 03/24/2024; ordered bilateral venous duplex and VQ scan given patient elevated D-dimer 3. Acute cystitis with Proteus mirabilis -secondary to presence of an indwelling Mcmahon catheter patient was started on ceftriaxone cultures sent ? 03/24/2024 patient remains on ceftriaxone, awaiting results of urine cultures ? 03/25/2024; patient was discharged on ciprofloxacin to 50 mg p.o. twice daily for 7 4. Acute kidney injury ? Patient started on IV fluid resuscitation. Imaging studies obtained on admission demonstrated mild bilateral hydronephrosis and hydroureter down to the urinary bladder with evidence of thickened urinary bladder wall ? 03/24/2024; creatinine on admission was 2.45, down to 1.60 ? 03/25/2024; acute kidney injury resolved lisinopril and meloxicam with discontinued on discharge 5. Diabetes mellitus type II -patient's oral hypoglycemics held. Placed on long acting insulin, Accu-Cheks a.c. and at bedtime and covered with sliding scale insulin 6. BPH with lower urinary obstructive symptoms - Patient treated with tamsulosin 7. Dyslipidemia -Patient is on statin therapy, continued at home dose 8. Anemia - Secondary to chronic disorder monitoring H&H and transfuse if patient becomes symptomatic or hemoglobin falls below 7 9. Essential hypertension ? Patient home meds held given his relatively low blood pressure 10. DVT prophylaxis ? SC heparin Time spent in the patient's overall evaluation,decision-making process, review of diagnostic data, adjustment of management, discussion with other providers, nursing nursing and ancillary staff involved in patient's care documentation, 35 minutes Medications at Discharge Home Medications ascorbic acid (vitamin C) 1,000 mg tablet 1,000 mg PO DAILY supplement 11/09/19 acetaminophen 325 mg tablet 650 mg PO Q4H PRN Pain 1-5 Or Fever >100.7 12/08/23 tamsulosin 0.4 mg capsule 0.4 mg PO BID prostate health 12/08/23 acetaminophen 650 mg rectal suppository 650 mg MD Q4H PRN pain 03/23/24 aluminum-magnesium hydroxide 200 mg-200 mg/5 mL oral suspension 30 ml PO Q4H PRN GI DISTRESS 03/23/24 atorvastatin 40 mg tablet 40 mg PO QHS CHOLESTEROL 03/23/24 bisacodyl 10 mg rectal suppository 10 mg MD DAILY PRN constipation 03/23/24 buspirone 5 mg tablet 5 mg PO BID anxiety 03/23/24 cyclobenzaprine 10 mg tablet 10 mg PO Q8H PRN muscle spasm 03/23/24 famotidine 20 mg tablet 20 mg PO BID 03/23/24 finasteride 5 mg tablet 5 mg PO DAILY 03/23/24 guaifenesin 100 mg/5 mL oral liquid (Adult Tussin Chest Congestion) 200 mg PO Q4H PRN congestion 03/23/24 insulin glargine 100 unit/mL (3 mL) subcutaneous pen (Lantus Solostar U-100 Insulin) 10 unit subcut DAILY diabetes 03/23/24 insulin lispro 100 unit/mL subcutaneous pen (Humalog KwikPen (U-100) Insulin) 1 sliding scale dose subcut 4X/DAY diabetes 03/23/24 melatonin 5 mg tablet 5 mg PO QHS sleep 03/23/24 menthol 0.44 %-zinc oxide 20.6 % topical ointment (Calmoseptine) 1 applic topical DAILY 03/23/24 simethicone 80 mg chewable tablet 80 mg PO BID 03/23/24 sodium phosphates 19 gram-7 gram/118 mL enema (Enema) 118 ml MD DAILY PRN constipation 03/23/24 trazodone 50 mg tablet 25 mg PO QHS sleep 03/23/24 ciprofloxacin HCl 250 mg tablet (Cipro) 250 mg PO BID #14 tabs 03/25/24 Physical Exam Narrative GENERAL: cooperative HEENT: Atraumatic; normocephalic EYES; Anicteric, Normal Conjunctiva NECK; supple, normal thyroid, RESPIRATORY: Diminished to auscultation CARDIOVASCULAR: Regular S1 S2, GI: soft, normoactive bowel sounds, : No Renal angle tenderness; EXTREMITIES: No edema, no clubbing, MUSCULOSKELETAL: no muscle wasting NEURO: Awake; no lateralizing signs. SKIN: No Rash PSYCH; Flat affect Weight / BMI Weight Weight: 102.9 kg Body Mass Index (BMI) 35.5 ABG / Lab / Microbiology Data 03/25/24 05:16 03/25/24 05:16 Laboratory: Laboratory Results - last 24 hr 03/24/24 11:47: POC Glucose 156 H 03/24/24 17:43: POC Glucose 152 H 03/24/24 21:56: POC Glucose 191 H 03/25/24 05:16: WBC 8.9, RBC 2.76 L, Hgb 8.0 L, Hct 25.3 L, MCV 91.7, MCH 29.0, MCHC 31.6 L, RDW Std Deviation 48.7 H, RDW Coeff of [place] 14.6, Plt Count 353, MPV 8.5, Immature Gran % (Auto) 2.500 H, Neut % (Auto) 66.5, Lymph % (Auto) 14.5 L, [place] % (Auto) 10.1 H, Eos % (Auto) 5.5 H, Baso % (Auto) 0.9, Absolute Neuts (auto) 5.9, Absolute Lymphs (auto) 1.28, Nucleated RBC % 0, Sodium 142, Potassium 4.9, Chloride 113 H, Carbon Dioxide 26.0, Anion Gap 3 L, BUN 35 H, Creatinine 1.15, Estim Creat Clear Calc 62.47, Est GFR (MDRD) Af Amer 80, Est GFR (MDRD) Non-Af 66, BUN/Creatinine Ratio 30.4 H, Glucose 133 H, Calcium 7.7 L 03/25/24 06:31: POC Glucose 119 H Microbiology: Microbiology 03/23/24 11:20 Urine Catheter - Mcmahon Urine Culture - Final Proteus mirabilis 03/23/24 11:52 Blood Culture (Wb) - Venous Blood Culture - Preliminary No growth in 48 hours. Radiography Diagnostic Testing: Radiology Impression Venous Doppler Study 03/24/24 09:35 Interpretation Summary Deep veins of the bilateral lower extremities are patent and compressible segmentally. There is no evidence of bilateral lower extremity deep vein thrombosis. The bilateral great saphenous veins appear patent and compressible segmentally. Limited study on right Ordering Physician: Rafi Napoles Referring Physician: Purvi Gold Performed By: Jamee Drew RVT and Student D/C Instructions Discharge Diet: 2000 Calorie Control Diet Discharge Activity: Return to Normal Activity Call your doctor if you observe: Fever of 101 or Higher, Shortness of breath, Fainting spells and Chest pain Meaningful Use Info Meaningful Use Meaningful Use Diagnoses (Choose all that apply): None applicable Ischemic Stroke Statin Dosing Therapy Reference: STATIN DOSE THERAPY REFERENCE: * Patients > 75 years receive moderate or high dose statin therapy. * Patients 75 years or YOUNGER should receive HIGH intensity statin dose unless contraindicated. You will be required to document reason for non-treatment if statin daily dose does not meet guidelines. HIGH DOSE STATIN THERAPY DAILY Atorvastatin > than or = to 40 mg Rosuvastatin > than or = to 20 mg Amlodipine + Atorvastatin > than or = to 2.5/40 mg Ezetimibe + Simvastatin 10/80 mg Simvastatin 80mg Discharge Plan Admission Admit Date/Time: 03/23/24 12:48 Attending Provider: Rafi Napoles Primary Care Provider: Bibi Del Cid Discharge Orders/Prescriptions Prescriptions: New ciprofloxacin HCl [Cipro] 250 mg tablet 250 mg PO BID Qty: 14 0RF Continued ascorbic acid (vitamin C) 1,000 MG tablet 1,000 mg PO DAILY tamsulosin 0.4 mg capsule 0.4 mg PO BID acetaminophen 325 mg Tablet 650 mg PO Q4H PRN (Reason: Pain 1-5 Or Fever >100.7) acetaminophen 650 mg suppository 650 mg MD Q4H PRN (Reason: pain) aluminum-magnesium hydroxide 200-200 mg/5 mL suspension 30 ml PO Q4H PRN (Reason: GI DISTRESS) atorvastatin 40 mg tablet 40 mg PO QHS bisacodyl 10 mg suppository 10 mg MD DAILY PRN (Reason: constipation) Rx Instructions: ISE IF MOM IS INEFFECTIVE. NOTIFY PHYSICIAN IF NO BM IN 4 DAYS buspirone 5 mg tablet 5 mg PO BID menthol-zinc oxide [Calmoseptine] 0.44-20.6 % ointment 1 applic topical DAILY Rx Instructions: APLLY TO AKIL WOUND EVERY SHIFT. cyclobenzaprine 10 mg tablet 10 mg PO Q8H PRN (Reason: muscle spasm) famotidine 20 mg tablet 20 mg PO BID finasteride 5 mg tablet 5 mg PO DAILY Enema 19-7 gram/118 mL enema 118 ml MD DAILY PRN (Reason: constipation) Rx Instructions: USE IF DULCOLAX IS INEFFECTIVE. CALL PHYSICIAN IF NO BM IN 4 DAYS guaifenesin [Adult Tussin Chest Congestion] 100 mg/5 mL liquid 200 mg PO Q4H PRN (Reason: congestion) insulin lispro [Humalog KwikPen Insulin] 100 unit/mL insulin pen 1 sliding scale dose subcut 4X/DAY Protocol: 6. Sliding Scale Insulin Custom Condition: mg/dl range Dose/Route: Number of Units Condition: 180-200 Dose/Route: 2 Condition: 201-250 Dose/Route: 3 Condition: 251-300 Dose/Route: 4 Condition: 301-350 Dose/Route: 5 Condition: 351-400 Dose/Route: 6 Condition: 401-450 Dose/Route: 7 Condition: 451+ Dose/Route: CALL MD Protocol Text: Custom Sliding Scale TAKE 4 UNITS PLUS SLIDING SCALE BEFORE MEALS AND AT BEDTIME Rx Instructions: TAKE 4 UNITS PLUS SLIDING SCALE BEFORE MEALS AND AT BEDTIME. insulin glargine [Lantus Solostar U-100 Insulin] 100 unit/mL (3 mL) insulin pen 10 unit subcut DAILY melatonin 5 mg tablet 5 mg PO QHS simethicone 80 mg tablet,chewable 80 mg PO BID Rx Instructions: after meals trazodone 50 mg tablet 25 mg PO QHS Discontinued lisinopril 10 MG tablet 10 mg PO DAILY meloxicam 15 mg tablet 15 mg PO QHS Referrals / Follow Up: Bibi Del Cid MD [Primary Care Provider] - Within 1 Week Disposition Disposition (needs filled in before D/C Order can be placed): Residential Facility Charges/Coding Visit Charges Inpatient E&M: 24114 Disch Hosp >30min
--- NOTE | 2024-03-25 11:20 | PCM.TXEXTCAR ---
Diet Diet Order/Speech Therapy: 03/23/24 14:08 Diet: Cardiac: Calorie-Controlled Food consistency:: Regular Liquid Consistency:: Regular/Thin How many daily calories?: 2000 calorie Wound(s) Right groin: Wound Type: healing surgical wound s/p necrotizing infection Dressing Change: Aquacel Extra coccyx: Wound Type: cluster of small pressure injuries Dressing Change: foam dressing Therapies Physical Therapy: Eval and Treat Occupational Therapy: Eval and Treat Problem/Diagnosis (1) CRISTY (acute kidney injury): Status: Acute Code(s): N17.9 - Acute kidney failure, unspecified (2) SVT (supraventricular tachycardia): Status: Acute Code(s): I47.10 - Supraventricular tachycardia, unspecified (3) UTI (urinary tract infection): Status: Acute Code(s): N39.0 - Urinary tract infection, site not specified Plan Patient is a 78-year-old gentleman admitted with altered mental status 1. Acute metabolic encephalopathy ? Secondary to combination of acute cystitis, transient hypotension from SVT. Patient was apparently back to his baseline at the time of admission admitted to a monitored bed for subsequent management ? 03/24/2024; level of sensorium improving ? 03/25/2024; resolved 2. Paroxysmal SVT ? Patient is on a monitored bed echo ordered for subsequent eval also ordered D-dimer ? 03/24/2024; ordered bilateral venous duplex and VQ scan given patient elevated D-dimer 3. Acute cystitis with Proteus mirabilis -secondary to presence of an indwelling Mcmahon catheter patient was started on ceftriaxone cultures sent ? 03/24/2024 patient remains on ceftriaxone, awaiting results of urine cultures ? 03/25/2024; patient was discharged on ciprofloxacin to 50 mg p.o. twice daily for 7 4. Acute kidney injury ? Patient started on IV fluid resuscitation. Imaging studies obtained on admission demonstrated mild bilateral hydronephrosis and hydroureter down to the urinary bladder with evidence of thickened urinary bladder wall ? 03/24/2024; creatinine on admission was 2.45, down to 1.60 ? 03/25/2024; acute kidney injury resolved lisinopril and meloxicam with discontinued on discharge 5. Diabetes mellitus type II -patient's oral hypoglycemics held. Placed on long acting insulin, Accu-Cheks a.c. and at bedtime and covered with sliding scale insulin 6. BPH with lower urinary obstructive symptoms - Patient treated with tamsulosin 7. Dyslipidemia -Patient is on statin therapy, continued at home dose 8. Anemia - Secondary to chronic disorder monitoring H&H and transfuse if patient becomes symptomatic or hemoglobin falls below 7 9. Essential hypertension ? Patient home meds held given his relatively low blood pressure 10. DVT prophylaxis ? SC heparin Time spent in the patient's overall evaluation,decision-making process, review of diagnostic data, adjustment of management, discussion with other providers, nursing nursing and ancillary staff involved in patient's care documentation, 35 minutes Allergies/Procedures Done in Hospital Allergies No Known Allergies Allergy (Verified 12/08/23 07:58) Type of Care/Length of Stay Estimated LOS: Convalescent Care Less Than 30 days Type of Care Needed: Skilled Rehab Potential: Good Prognosis: Good Additional Orders/Day of Discharge Day of Discharge: 03/25/24 Discharge Plan Admission Admit Date/Time: 03/23/24 12:48 Attending Provider: Rafi Napoles Primary Care Provider: Bibi Del Cid Discharge Orders/Prescriptions Prescriptions: New ciprofloxacin HCl [Cipro] 250 mg tablet 250 mg PO BID Qty: 14 0RF Continued ascorbic acid (vitamin C) 1,000 MG tablet 1,000 mg PO DAILY tamsulosin 0.4 mg capsule 0.4 mg PO BID acetaminophen 325 mg Tablet 650 mg PO Q4H PRN (Reason: Pain 1-5 Or Fever >100.7) acetaminophen 650 mg suppository 650 mg SC Q4H PRN (Reason: pain) aluminum-magnesium hydroxide 200-200 mg/5 mL suspension 30 ml PO Q4H PRN (Reason: GI DISTRESS) atorvastatin 40 mg tablet 40 mg PO QHS bisacodyl 10 mg suppository 10 mg SC DAILY PRN (Reason: constipation) Rx Instructions: ISE IF MOM IS INEFFECTIVE. NOTIFY PHYSICIAN IF NO BM IN 4 DAYS buspirone 5 mg tablet 5 mg PO BID menthol-zinc oxide [Calmoseptine] 0.44-20.6 % ointment 1 applic topical DAILY Rx Instructions: APLLY TO AKIL WOUND EVERY SHIFT. cyclobenzaprine 10 mg tablet 10 mg PO Q8H PRN (Reason: muscle spasm) famotidine 20 mg tablet 20 mg PO BID finasteride 5 mg tablet 5 mg PO DAILY Enema 19-7 gram/118 mL enema 118 ml SC DAILY PRN (Reason: constipation) Rx Instructions: USE IF DULCOLAX IS INEFFECTIVE. CALL PHYSICIAN IF NO BM IN 4 DAYS guaifenesin [Adult Tussin Chest Congestion] 100 mg/5 mL liquid 200 mg PO Q4H PRN (Reason: congestion) insulin lispro [Humalog KwikPen Insulin] 100 unit/mL insulin pen 1 sliding scale dose subcut 4X/DAY Protocol: 6. Sliding Scale Insulin Custom Condition: mg/dl range Dose/Route: Number of Units Condition: 180-200 Dose/Route: 2 Condition: 201-250 Dose/Route: 3 Condition: 251-300 Dose/Route: 4 Condition: 301-350 Dose/Route: 5 Condition: 351-400 Dose/Route: 6 Condition: 401-450 Dose/Route: 7 Condition: 451+ Dose/Route: CALL MD Protocol Text: Custom Sliding Scale TAKE 4 UNITS PLUS SLIDING SCALE BEFORE MEALS AND AT BEDTIME Rx Instructions: TAKE 4 UNITS PLUS SLIDING SCALE BEFORE MEALS AND AT BEDTIME. insulin glargine [Lantus Solostar U-100 Insulin] 100 unit/mL (3 mL) insulin pen 10 unit subcut DAILY melatonin 5 mg tablet 5 mg PO QHS simethicone 80 mg tablet,chewable 80 mg PO BID Rx Instructions: after meals trazodone 50 mg tablet 25 mg PO QHS Discontinued lisinopril 10 MG tablet 10 mg PO DAILY meloxicam 15 mg tablet 15 mg PO QHS Referrals / Follow Up: Bibi Del Cid MD [Primary Care Provider] - Within 1 Week Disposition Disposition (needs filled in before D/C Order can be placed): Care Home Facility
--- NOTE | 2024-03-25 11:44 | PHA.DC.MR.R ---
Pharmacy [place] Med Reconciliation Pharmacy Service has performed discharge medication reconciliation for this patient upon transfer to [facility]. The patient's discharge medication list was reviewed for discrepancies and discrepancies were resolved. Medications at Discharge Home Medications ascorbic acid (vitamin C) 1,000 mg tablet 1,000 mg PO DAILY supplement 11/09/19 acetaminophen 325 mg tablet 650 mg PO Q4H PRN Pain 1-5 Or Fever >100.7 12/08/23 tamsulosin 0.4 mg capsule 0.4 mg PO BID prostate health 12/08/23 acetaminophen 650 mg rectal suppository 650 mg [place] Q4H PRN pain 03/23/24 aluminum-magnesium hydroxide 200 mg-200 mg/5 mL oral suspension 30 ml PO Q4H PRN GI DISTRESS 03/23/24 atorvastatin 40 mg tablet 40 mg PO QHS CHOLESTEROL 03/23/24 bisacodyl 10 mg rectal suppository 10 mg [place] DAILY PRN constipation 03/23/24 buspirone 5 mg tablet 5 mg PO BID anxiety 03/23/24 cyclobenzaprine 10 mg tablet 10 mg PO Q8H PRN muscle spasm 03/23/24 famotidine 20 mg tablet 20 mg PO BID 03/23/24 finasteride 5 mg tablet 5 mg PO DAILY 03/23/24 guaifenesin 100 mg/5 mL oral liquid (Adult Tussin Chest Congestion) 200 mg PO Q4H PRN congestion 03/23/24 insulin glargine 100 unit/mL (3 mL) subcutaneous pen (Lantus Solostar U-100 Insulin) 10 unit subcut DAILY diabetes 03/23/24 insulin lispro 100 unit/mL subcutaneous pen (Humalog KwikPen (U-100) Insulin) 1 sliding scale dose subcut 4X/DAY diabetes 03/23/24 melatonin 5 mg tablet 5 mg PO QHS sleep 03/23/24 menthol 0.44 %-zinc oxide 20.6 % topical ointment (Calmoseptine) 1 applic topical DAILY 03/23/24 simethicone 80 mg chewable tablet 80 mg PO BID 03/23/24 sodium phosphates 19 gram-7 gram/118 mL enema (Enema) 118 ml [place] DAILY PRN constipation 03/23/24 trazodone 50 mg tablet 25 mg PO QHS sleep 03/23/24 ciprofloxacin HCl 250 mg tablet (Cipro) 250 mg PO BID #14 tabs 03/25/24
--- NOTE | 2024-03-25 12:07 | CASEMGMT ---
Discharge Planning Discharge orders, signed med list, and transport time sent to [facility] via [facility]. Physicians will transport patient by cot at 1:30p. Nursing, SW, patient, and his updated. Kavitha Cabrera DC Planning Asst.
[2024-03-25 12:08] LABS: Bedside Glucose 194 mg/dL (74-106)
[2024-03-25 13:23] VITALS: BP 177/77; PULSE 81; RESP 15; TEMP 36.6; O2SAT 98
[2024-03-25] MEDS: Insulin Lispro 100 UNIT/ML INSULN.PEN SC (13:27)
--- NOTE | 2024-03-25 13:44 | NURSING ---
reportcalled to junaid at [facility] patient is on lisinopril at [facility] will give dose now
[2024-03-25] MEDS: amLODIPine 10 MG Tablet PO (13:54)
== END 2024-03-25 14:18 | disposition skilled nursing facility (03) | DRG 698 ==
LOC: ED 13:09 → PCU 13:35
PROVIDERS: Admitting Provider Internal Medicine; Emergency Provider Emergency Medicine; PCP Internal Medicine; Visit Provider Internal Medicine
DX: T83.511A Infection and inflammatory reaction due to indwelling urethral catheter, initial encounter (principal); G93.41 Metabolic encephalopathy; I47.10 Supraventricular tachycardia, unspecified; N13.6 Pyonephrosis; N17.9 Acute kidney failure, unspecified; N13.8 Other obstructive and reflux uropathy; L89.159 Pressure ulcer of sacral region, unspecified stage; D63.8 Anemia in other chronic diseases classified elsewhere; I95.9 Hypotension, unspecified; E11.9 Type 2 diabetes mellitus without complications; I10 Essential (primary) hypertension; E78.00 Pure hypercholesterolemia, unspecified; Z79.4 Long term (current) use of insulin; M16.12 Unilateral primary osteoarthritis, left hip; B96.4 Proteus (mirabilis) (morganii) as the cause of diseases classified elsewhere; Y73.8 Miscellaneous gastroenterology and urology devices associated with adverse incidents, not elsewhere classified; N40.1 Benign prostatic hyperplasia with lower urinary tract symptoms; H54.8 Legal blindness, as defined in USA; Z79.899 Other long term (current) drug therapy; Z87.891 Personal history of nicotine dependence
CPT/HCPCS: 36415; 70450; 71045; 74176; 78582; 80048; 80076; 81001; 82962; 83690; 83735; 84100; 84484; 85025; 85610; 85730; 87040; 87077; 87086; 87088; 87186; 93005; 93970; 94668; 99285; A9540; A9567; J7030; A4216; J0744

== ENCOUNTER 2024-04-01 14:58 | Inpatient (IN) | payer MEDICARE, OTHER, SELFPAY ==
[2024-04-01] VITALS (13 sets, daily range): BP systolic 76–120; BP diastolic 30–56; PULSE 54–107; RESP 14–18; TEMP 36.6–37; O2SAT 96–100; BMI 34.9; BMI 33.9
--- NOTE | 2024-04-01 15:10 | EX.ED.DYSGE1 ---
HPI History of Present Illness Chief Complaint: Abn Labs [facility] Medical History Decubitus ulcer of coccygeal region, stage 3 Non-healing surgical wound of right groin Unilateral primary osteoarthritis, left hip Contusion of hip, left Fall High cholesterol Enlarged prostate Diabetes Legally blind Home Medications ?Medication ?Instructions ?Recorded ?Last Taken ?Type ascorbic acid (vitamin C) 1,000 mg 1,000 mg PO DAILY supplement 11/09/19 04/01/24 History tablet acetaminophen 325 mg tablet 650 mg PO Q4H PRN Pain 1-5 Or 12/08/23 12/07/23 History Fever >100.7 tamsulosin 0.4 mg capsule 0.4 mg PO BID prostate health 12/08/23 04/01/24 History acetaminophen 650 mg rectal 650 mg NM Q4H PRN pain 03/23/24 03/31/24 History suppository aluminum-magnesium hydroxide 200 30 ml PO Q4H PRN GI DISTRESS 03/23/24 Unknown History mg-200 mg/5 mL oral suspension atorvastatin 40 mg tablet 40 mg PO QHS CHOLESTEROL 03/23/24 03/31/24 History bisacodyl 10 mg rectal suppository 10 mg NM DAILY PRN constipation 03/23/24 Unknown History buspirone 5 mg tablet 5 mg PO BID anxiety 03/23/24 04/01/24 History cyclobenzaprine 10 mg tablet 10 mg PO Q8H PRN muscle spasm 03/23/24 03/31/24 History famotidine 20 mg tablet 20 mg PO BID 03/23/24 04/01/24 History finasteride 5 mg tablet 5 mg PO DAILY 03/23/24 04/01/24 History guaifenesin 100 mg/5 mL oral 200 mg PO Q4H PRN congestion 03/23/24 Unknown History liquid (Adult Tussin Chest Congestion) insulin glargine 100 unit/mL (3 10 unit subcut DAILY diabetes 03/23/24 04/01/24 History mL) subcutaneous pen (Lantus Solostar U-100 Insulin) insulin lispro 100 unit/mL 1 sliding scale dose subcut 4X/DAY 03/23/24 04/01/24 History subcutaneous pen (Humalog KwikPen diabetes (U-100) Insulin) melatonin 5 mg tablet 5 mg PO QHS sleep 03/23/24 03/31/24 History menthol 0.44 %-zinc oxide 20.6 % 1 applic topical DAILY 03/23/24 03/31/24 History topical ointment (Calmoseptine) simethicone 80 mg chewable tablet 80 mg PO BID 03/23/24 04/01/24 History sodium phosphates 19 gram-7 118 ml NM DAILY PRN constipation 03/23/24 Unknown History gram/118 mL enema (Enema) trazodone 50 mg tablet 50 mg PO QHS sleep 03/23/24 03/31/24 History amlodipine 10 mg tablet 10 mg PO DAILY #0 tabs 03/25/24 04/01/24 Rx Lactobacillus rhamnosus GG 10 1 cap PO BID 04/01/24 04/01/24 History billion cell capsule (Culturelle) multivitamin (Daily Multi-Vitamin 1 tab PO DAILY 04/01/24 04/01/24 History tablet) Allergy/AdvReac Type Severity Reaction Status Date / Time No Known Allergies Allergy Verified 04/01/24 15:06 Family History Other Cancer Heart disease Surgical History Status post tonsillectomy Social History Smoking Status: Former smoker EXAM Physical Exam Const Vital Signs: 04/01/24 15:00 04/01/24 15:06 04/01/24 15:08 Temperature 98.5 F Temperature Source Oral Pulse Rate 107 H 105 H Respiratory Rate 18 18 Respiratory Pattern Normal Blood Pressure 101/45 L 101/45 L Blood Pressure Mean 63 63 Pulse Ox 96 96 Oxygen Delivery Method Room Air Room Air 04/01/24 16:05 04/01/24 17:00 04/01/24 18:00 Temperature 98.6 F 98.4 F 97.8 F Temperature Source Oral Oral Temporal Pulse Rate 54 L 98 99 Respiratory Rate 16 16 14 Respiratory Pattern Blood Pressure 120/54 L 109/52 L 96/48 L Blood Pressure Mean 76 71 64 Pulse Ox 97 98 97 Oxygen Delivery Method Room Air Room Air MDM MDM MDM Narrative Medical decision making narrative: HISTORY OF PRESENT ILLNESS: 78-year-old male presents with concern for abnormal labs, C. difficile and right groin abnormality. He states he is feeling tired and diffusely weak. Denies focal weakness. Denies chest pain or shortness of breath. Notes abdominal pain. 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 Denies any vomiting. Notes loose to well-formed stools over last day and 1 episode of diarrhea. Notes he is currently being evaluated for C. difficile REVIEW OF SYSTEMS: Pertinent positives: Diarrhea, abdominal pain, groin gangrene Pertinent negatives: Chest pain, shortness of breath, headache PHYSICAL EXAM: Nursing triage notes reviewed, Vital signs reviewed Constitutional: please see mdm HENT: MMM Eyes: Pupils equal round and reactive to light, Extraocular muscles intact Neck: No stridor, no JVD, full neck ROM Lungs: Clear to auscultation, No wheezing or rales. No increased work of breathing, no conversational dyspnea, no accessory muscle use, no nasal flaring. No respiratory distress noted Heart: Fast rate and rhythm, No murmurs, No rubs and No gallops, 2+ distal pulses (radial, femoral, posterior tibial) in all extremities Abdomen: Soft, there is no tenderness, rigidity, rebound or guarding, no obvious peritoneal signs, no palpable pulsatile abdominal masses, no auscultated abdominal bruit : No CVAT, Mcmahon catheter in place, noted scrotal edema, along the right groin there is an area of fluctuance, induration with purulent drainage, there is no crepitus noted Extremities: No edema Neuro: No focal neurological deficits, cranial nerves II through XII intact, 5/5 strength in all extremities. Intact sensation to light touch in all extremities, 2+ reflexes bilateral patella tendons. Normal gait. No ataxia. Skin: No rash or lesions noted, pale MEDICAL DECISION MAKING: Chief Complaint: Abnormal labs External records reviewed: Reviewed prior ED visit. Reviewed prior labs. Patient is admitted that time. Noted creatinine at that time was 2.45 Factors affecting care: Type 2 diabetes, hypertension, SVT, hyperlipidemia, Social determinants of health: intermediate patient History obtained from others: EMS Consults: none [facility] Narrative: Patient was initially tachycardic rate of 105, hide soft blood pressures otherwise afebrile and nontoxic-appearing. Exam with erythema, purulent discharge in the right groin. No scrotal swelling. No obvious crepitus bullae or pain on forced exam in the groin. I considered the following differential diagnosis: Hien's gangrene, intra-abdominal abscess, pelvic abscess, acute surgical pathology abdomen, electrolyte disturbance, dehydration, anemia, ACS, arrhythmia, pneumonia I obtained a broad lab and imaging workup to further elucidate etiology of the patient's complaint Initially resuscitated the patient with IV fluids. ALL IMAGES (IF OBTAINED) HAVE BEEN PERSONALLY REVIEWED AND INTERPRETED BY MYSELF. CBC shows marked leukocytosis which is elevated with patient's baseline consistent with endorgan hypoperfusion, there is severe anemia as well as essentially at the patient's baseline 7.7, there is no thrombocytopenia BMP with hyponatremia, hypokalemia suggestive of dehydration, there is no evidence of metabolic acidosis or anion gap to suggest endorgan hypoperfusion, there is CRISTY on CKD with creatinine 3.1 whereas his baseline is 2.45 Lactate is wnl indicating no end-organ hypoperfusion and/or hypoxia. Patient has no elevation liver enzymes however he does have an elevated alkaline phosphatase High-sensitivity troponin is negative, no evidence of myocardial ischemia Urinalysis consistent with inflammation and possibly infection (however this was a sample taken from a chronically catheterized patient so results should be interpreted with caution) CT scan abdomen pelvis shows no evidence of obvious pelvic abscess, no obvious Hien's gangrene Testicle ultrasound shows no obvious evidence of scrotal abscess The synthesis of the patient's history, physical exam, labs images severe dehydration as evidenced by hyponatremia, hypokalemia as well as acute kidney injury. There is no signs of septic shock with a negative lactate there are signs of severe systemic inflammation with elevated white blood cell count of 31,000. Patient given broad-spectrum antibiotics. There is no evidence of acute surgical process in the groin or abdomen. Discussed the case with Dr. Banda who agreed to admit the patient to the PCU. Will have a culture obtained from the patient's groin discharge. The patient and/or family, caregivers express understanding. The patient and/or family, caregivers agrees with the plan. Shared decision making: I will have a discussion with the patient and or visitors regarding risk/benefits of further testing or admission. They will be made aware of of the risk/benefits inherent in this decision they will be given the opportunity to voice understanding. Total critical care time today provided was at least 0 minutes. This excludes separately billable procedures. Critical care time (if documented) is secondary to the patient having high probability of clinically significant/life threatening deterioration in the patient's condition which required my urgent intervention. Impression: 1. Diffuse weakness 2. Dehydration 3. Hypokalemia 4. Hyponatremia 5. Leukocytosis 6. Groin cellulitis Dispo: Admit to PCU This note was generated with [employer] dictation software. It may contain incorrect words, spelling, and punctuation that were not noted in review of the chart prior to signing. Lab Data Labs: Laboratory Results - last 24 hr 04/01/24 04/01/24 04/01/24 15:10 15:25 16:20 WBC 31.9 H* RBC 2.62 L Hgb 7.7 L Hct 23.4 L MCV 89.3 MCH 29.4 MCHC 32.9 RDW Std Deviation 49.1 H RDW Coeff of [place] 15.0 H Plt Count 350 MPV 9.3 Neut % (Auto) Not Reportable Absolute Neuts (auto) 29.0 H Absolute Lymphs (auto) 0.64 L Total Counted 100 Neutrophils % (Manual) 88 H Band Neutrophils % 3 Lymphocytes % (Manual) 2 L Monocytes % (Manual) 5 Eosinophils % (Manual) 2 Diff Path Review May foll Platelet Estimate ADEQUATE RBC Morphology NORM C+C Sodium 130 L Potassium 3.2 L Chloride 100 Carbon Dioxide 21.0 Anion Gap 9 BUN 45 H Creatinine 3.10 H Estim Creat Clear Calc 22.96 Est GFR (MDRD) Af Amer 25 L Est GFR (MDRD) Non-Af 21 L BUN/Creatinine Ratio 14.5 Glucose 155 H Lactic Acid 1.8 Calcium 6.8 L Total Bilirubin 0.30 AST 17 ALT 26 Alkaline Phosphatase 395 H Troponin I High Sens 17 Total Protein 5.3 L Albumin 1.5 L Globulin 3.8 Albumin/Globulin Ratio 0.4 L Urine Color Yellow Urine Clarity Cloudy Urine pH 6.0 Ur Specific [place] 1.010 Urine Protein 30 H Urine Glucose (UA) Normal Urine Ketones Negative Urine Occult Blood 50 H Urine Nitrite Negative Urine Bilirubin Negative Urine Urobilinogen Normal Ur Leukocyte Esterase 500 H Urine RBC 0-5 SEEN Urine WBC >100 SEEN Ur Squamous Epith Cells 0 SEEN Urine Bacteria 2+ Urine Mucus 0 SEEN Urine Yeast 1+ Radiography Diagnostic Testing: Clinical Impression(s) from Imaging Studies Abdomen/Pelvis CT 04/01/24 15:21 IMPRESSION: 1. Bilateral hydronephrosis and hydroureter probably related to bladder wall thickening. 2. Probable nonspecific colitis has developed since the prior exam especially in the rectosigmoid. Recommend colonoscopy. Electronically Signed: Brett Jamison MD at 16:49 EDT , ADDENDUM: 04/01/24 1723 IMPRESSION: undefined Chest X-Ray 04/01/24 16:06 IMPRESSION: No definite acute or significant abnormality seen. Electronically Signed: Brett Jamison MD at 16:31 EDT , Discharge Plan Triage Chief Complaint: Abn Labs ED Provider: Jack Chaudhary Dx/Rx/DC Orders Prescriptions: No Action ascorbic acid (vitamin C) 1,000 MG tablet 1,000 mg PO DAILY multivitamin [Daily Multi-Vitamin] Tablet 1 tab PO DAILY Culturelle 10 billion cell capsule 1 cap PO BID tamsulosin 0.4 mg capsule 0.4 mg PO BID acetaminophen 325 mg Tablet 650 mg PO Q4H PRN (Reason: Pain 1-5 Or Fever >100.7) acetaminophen 650 mg suppository 650 mg NM Q4H PRN (Reason: pain) aluminum-magnesium hydroxide 200-200 mg/5 mL suspension 30 ml PO Q4H PRN (Reason: GI DISTRESS) atorvastatin 40 mg tablet 40 mg PO QHS bisacodyl 10 mg suppository 10 mg NM DAILY PRN (Reason: constipation) Rx Instructions: ISE IF MOM IS INEFFECTIVE. NOTIFY PHYSICIAN IF NO BM IN 4 DAYS buspirone 5 mg tablet 5 mg PO BID menthol-zinc oxide [Calmoseptine] 0.44-20.6 % ointment 1 applic topical DAILY Rx Instructions: APLLY TO AKIL WOUND EVERY SHIFT. cyclobenzaprine 10 mg tablet 10 mg PO Q8H PRN (Reason: muscle spasm) famotidine 20 mg tablet 20 mg PO BID finasteride 5 mg tablet 5 mg PO DAILY Enema 19-7 gram/118 mL enema 118 ml NM DAILY PRN (Reason: constipation) Rx Instructions: USE IF DULCOLAX IS INEFFECTIVE. CALL PHYSICIAN IF NO BM IN 4 DAYS guaifenesin [Adult Tussin Chest Congestion] 100 mg/5 mL liquid 200 mg PO Q4H PRN (Reason: congestion) insulin lispro [Humalog KwikPen Insulin] 100 unit/mL insulin pen 1 sliding scale dose subcut 4X/DAY Protocol: 6. Sliding Scale Insulin Custom Condition: mg/dl range Dose/Route: Number of Units Condition: 180-200 Dose/Route: 2 Condition: 201-250 Dose/Route: 3 Condition: 251-300 Dose/Route: 4 Condition: 301-350 Dose/Route: 5 Condition: 351-400 Dose/Route: 6 Condition: 401-450 Dose/Route: 7 Condition: 451+ Dose/Route: CALL MD Protocol Text: Custom Sliding Scale TAKE 4 UNITS PLUS SLIDING SCALE BEFORE MEALS AND AT BEDTIME Rx Instructions: TAKE 4 UNITS PLUS SLIDING SCALE BEFORE MEALS AND AT BEDTIME. insulin glargine [Lantus Solostar U-100 Insulin] 100 unit/mL (3 mL) insulin pen 10 unit subcut DAILY melatonin 5 mg tablet 5 mg PO QHS simethicone 80 mg tablet,chewable 80 mg PO BID Rx Instructions: after meals trazodone 50 mg tablet 50 mg PO QHS amlodipine 10 mg Tablet 10 mg PO DAILY Qty: 0 0RF Primary Care Provider: Bibi Del Cid Referrals: Bibi Del Cid MD [Primary Care Provider] - Print Language: Setswana
--- NOTE | 2024-04-01 15:21 | CT_ITS ---
ABDOMEN AND PELVIS WITHOUT INTRAVENOUS CONTRAST CLINICAL INDICATION: Right lower groin erythema, concern for pelvic ab TECHNIQUE: Helically acquired images were obtained of the abdomen and pelvis without intravenous contrast. This CT exam was performed using one or more of the following dose reduction techniques: automated exposure control, adjustment of the mA and/or kV according to patient size, and/or use of iterative reconstruction technique. RADIATION DOSE: CTDIvol = 12.26 mGy, DLP = 1320.12 mGy-cm COMPARISON: 03/23/2024 FINDINGS: LOWER THORAX: Scarring or subsegmental atelectasis in both posterior lung bases. No cardiomegaly. No significant pericardial effusion. ABDOMEN: LIVER: Unremarkable. Homogeneous. GALLBLADDER AND BILE DUCTS: Unremarkable. No calcified gallstones. No gallbladder distention or wall edema. No intra- or extrahepatic biliary ductal dilation. PANCREAS: Atrophy of the pancreas. No focal cystic mass. SPLEEN: Unremarkable. Normal size without focal cystic or solid mass. ADRENALS: Unremarkable. No nodules. KIDNEYS AND URETERS: Again seen is moderate bilateral hydronephrosis and hydroureter, worsening on the left, with no stones seen. Normal renal size and position. STOMACH AND BOWEL: Evaluation of the GI tract is limited by absence of oral contrast. Cannot exclude stomach wall thickening. No dilated loops of bowel or evidence for obstruction. Cannot exclude segmental thickening of the deras of the small bowel. Since prior exam, thickening of the wall of the large bowel--especially the rectosigmoid consistent with nonspecific colitis. Colonoscopy recommended. Moderate diffuse fecal retention. Appendix within normal limits. PELVIS: APPENDIX: No evidence of acute appendicitis. BLADDER: There is a Mcmahon catheter emptying the bladder. There is probable bladder wall thickening. REPRODUCTIVE: Unremarkable as visualized. No mass. ABDOMEN and PELVIS: INTRAPERITONEAL SPACE: Unremarkable. No ascites or other fluid collection. No free air. BONES/JOINTS: Diffuse degenerative changes throughout the spine. No suspicious lytic or blastic abnormality. SOFT TISSUES: Unremarkable. No discrete abdominal or pelvic wall hernia. VASCULATURE: Findings calcified plaque of the aorta with no aneurysm. LYMPH NODES: Unremarkable. No enlarged lymph nodes. CT/Abdomen/Pelvis without Cont IMPRESSION: 1. Bilateral hydronephrosis and hydroureter probably related to bladder wall thickening. 2. Probable nonspecific colitis has developed since the prior exam especially in the rectosigmoid. Recommend colonoscopy. Electronically Signed: Brett Jamison MD at 16:49 EDT ,
--- NOTE | 2024-04-01 15:21 | EKG12_ITS ---
Test Reason : RO CDIFF Blood Pressure : / mmHG Vent. Rate : 103 BPM Atrial Rate : 103 BPM P-R Int : 118 ms QRS Dur : 104 ms QT Int : 358 ms P-R-T Axes : 000 -24 -31 degrees QTc Int : 468 ms Sinus tachycardia with Premature atrial complexes Incomplete right bundle branch block Nonspecific T wave abnormality Abnormal ECG Confirmed by Yasmani Madrid ([id number]), editorial clerk LADI PALMA ([id number]) on 04/04/2024 2:09:07 PM Referred By: Stella Banda Confirmed By:Yasmani Madrid
--- NOTE | 2024-04-01 15:24 | US_ITS ---
STUDY: SCROTUM ULTRASOUND REASON FOR EXAM: Male, 78 years old. scrotal swelling TECHNIQUE: Ultrasound evaluation of the scrotum was performed with color Doppler and static kaminski-scale imaging. COMPARISON: None. FINDINGS: RIGHT TESTICLE INTRATESTICULAR: There is a normal size of the right testicle. The right testicle measures 2.5 x 2.0 x 1.9 cm. There is a homogenous echotexture. There is normal arterial and normal venous vascularity. There is no demonstrated right testicular mass or cyst. Adjacent to the lateral aspect of the testes, there is a 3 cm focal hyperechoic structure which appears to be a lipoma, also seen on CT scan of the same day. EXTRATESTICULAR: The epididymis is normal in size. The epididymis head measures 1.3 x 1.1 x 1.2 cm. There is normal vascularity of the epididymis. There is no demonstrated epididymal cystic structure. There is no demonstrated hydrocele. There is no demonstrated varicocele. There is no demonstrated extratesticular mass or cyst. LEFT TESTICLE INTRATESTICULAR: There is a normal size of the left testicle. The left testicle measures 2.6 x 2.3 x 2.2 cm. There is a homogenous echotexture. There is normal arterial and normal venous vascularity. There is no demonstrated left testicular mass or cyst. EXTRATESTICULAR: The epididymis is normal in size. The epididymis head measures 0.9 cm. There is normal vascularity of the epididymis. There is no demonstrated epididymal cystic structure. There is a small hydrocele. There is no demonstrated varicocele. There is no demonstrated extratesticular mass or cyst. There is diffuse scrotal wall thickening consistent with edema. US/Testicular with Arterial Flow IMPRESSION: Normal bilateral testicles. 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 Diffuse thickening of the scrotal wall. Electronically Signed: Brett Jamison MD at 19:29 EDT ,
[2024-04-01] MEDS: 0.9% Normal Saline (1000mL) 1,000 ML 1000 ML IV (15:33)
[2024-04-01 15:36] LABS: Hematocrit 23.4 % (40-54); Hemoglobin 7.7 g/dL (13.0-16.5); Mean Corp Hgb Conc 32.9 g/dL (32-36); Mean Corpuscular Hgb 29.4 pg (27.0-32.0); Mean Corpuscular Volume 89.3 fL (80-94); Mean Platelet Vol. 9.3 fl (6.2-12.0); POSITIVE COUNT YES; POSITIVE DIFFERENTIAL YES; POSITIVE MORPHOLOGY YES; Platelet Count 350 K/mm3 (150-450); RBC Distribution Width SD 49.1 fl (35.1-43.9); Red Blood Count 2.62 M/mm3 (4.6-6.2)
[2024-04-01 15:52] LABS: Differential Indicated MANUAL DIFF
[2024-04-01 15:53] LABS: ALB/GLOB Ratio 0.4 RATIO (0.9-2.4); AST(SGOT) 17 U/L (15-37); Alanine Aminotransfer ALT/SGPT 26 U/L (16-61); Albumin, Serum 1.5 g/dL (3.2-5.0); Alkaline Phosphatase 395 U/L (45-117); Anion Gap 9 (5-15); BUN 45 mg/dL (7-18); BUN/Creat Ratio 14.5 RATIO (10-20); Calcium,Total 6.8 mg/dL (8.5-10.1); Chloride 100 mmol/L (98-107); EST Glomerular Filtration Rate 21 mL/min (>60); Est Glom Filt Rate - Afr Amer 25 mL/min (>60); Estimated Creatinine Clearance 22.96 ml/min; Globulin 3.8 g/dL (2.2-4.2); Glucose 155 mg/dL (74-106); Potassium 3.2 mmol/L (3.5-5.1); Protein, Total 5.3 g/dL (6.4-8.2); Sodium Level 130 mmol/L (136-145); Troponin-I HS 17 pg/mL (3.0-78.0)
[2024-04-01 15:57] LABS: White Blood Count 31.9 K/mm3 (4.4-11.0)
[2024-04-01 16:06] LABS: Lactic Acid 1.8 mmol/L (0.4-1.9)
--- NOTE | 2024-04-01 16:06 | RAD_ITS ---
STUDY: X-RAY CHEST REASON FOR EXAM: Male, 78 years old. Weakness TECHNIQUE: Single AP portable view of the chest. COMPARISON: 03/23/2024. FINDINGS: The lungs are clear and expanded. Elevated right diaphragm, stable. There is no demonstrated pleural abnormality. Normal size heart. Normal mediastinum and radha. Normal visualized pulmonary arteries. Normal visualized aortic arch and descending thoracic aorta. Normal visualized thoracic spine. Normal visualized ribs, clavicles, and shoulders. There is stable appearance of distended bowel in the upper abdomen. RAD/Chest 1 View (Portable) IMPRESSION: No definite acute or significant abnormality seen. Electronically Signed: Brett Jamison MD at 16:31 EDT ,
[2024-04-01 16:16] LABS: Eosinophil 2 % (0-5); Lymphocyte 2 % (19-41); Monocyte 5 % (0-10); Neutrophil-Band 3 % (0-5); Neutrophil-Segmented 88 % (47-70); Platelet Estimate ADEQUATE (ADEQ); Red Cell Morphology NORM C+C NORMAL (NORM C&C); Total Cells Counted 100 (MANUAL DIFF)
[2024-04-01 16:17] LABS: Absolute Lymphocyte Count 0.64 X10^3/uL (0.83-4.51)
[2024-04-01 16:26] LABS: Mucous, Urine 0 SEEN /hpf (<or=2+); Squamous Epithelial Cells - UA 0 SEEN /hpf (0-5)
[2024-04-01] MEDS: Piperacil/Tazobactam 3.375 GM in 0.9% Normal Saline (50mL MB+) 50 ML IV ×2 (16:27→22:33)
[2024-04-01 16:28] LABS: Color, Urine Yellow (Yellow); Glucose, Dipstick Normal (Normal); Ketone-Dipstick Negative (Negative); Leukocyte Esterase-Dipstick 500 /ul (Negative); Nitrite-Dipstick Negative (Negative); Occult Blood-Urine 50 /ul (Negative); Protein-Dipstick 30 mg/dl (Negative); Urine Bilirubin Dipstick Negative (Negative); Urine Clarity Cloudy (Clear); Urine Urobilinogen Normal (Normal)
[2024-04-01 16:34] LABS: White Blood Cells >100 SEEN /hpf (0-5)
[2024-04-01 16:35] LABS: Bacteria 2+ /hpf (None Seen); Red Blood Cells-Urine 0-5 SEEN /hpf (0-5); Yeast-Urine 1+ /hpf (None Seen)
[2024-04-01] MEDS: Vancomycin HCl 1,500 MG in 0.9% Normal Saline (500mL Bag) 500 ML 250 MG IV (17:05)
--- NOTE | 2024-04-01 18:56 | HP.PCM.HOS_ITS ---
HPI - General General Date of Admission: 04/01/24 Date of Service: 04/01/24 Chief Complaint: Abnormal labs HPI Narrative WILLIAM PLUMMER, is a 78-year-old male history of BPH, diabetes, anxiety, hypertension presented to [facility] ED 04/01/2024 feeling tired and diffusely weak. Has chronic pelvic wound and loose stools over the past several days. He was recently admitted to the hospital 03/23 through 03/25 with CRISTY and acute cystitis, he was treated with fluids and discharged to SNF on ciprofloxacin. Patient did have labs drawn yesterday which showed white blood cell count of 31, hemoglobin 7.3 and had labs drawn again this morning with creatinine 2.87 up from 1.55 on 03/29. Patient presented to the ED and had persistently elevated white count, sodium of 130 with potassium of 3.2 and a BUN of 45 with creatinine of 3.10. CT abdomen/pelvis obtained which showed bilateral hydroureter and hydronephrosis and bladder wall thickening, also changes likely consistent with colitis with colonoscopy recommended. Patient's blood pressures somewhat soft in the ED but did overall improved with fluids. Given patient's infection of unclear source and CRISTY hospitalist contacted for admission. Patient evaluated bedside and is a fairly poor historian. Knows he was sent here for an elevated white blood cell count and eventually did say has had some right-sided abdominal discomfort intermittently, initially reported he did previously had some constipation but then said today he thinks he did have diarrhea. No fevers noted, no chest pain or shortness of breath. Patient has no other focal complaints. Does have Parada catheter has had this in since November per patient but has previously had it changed. [facility] Medical History Decubitus ulcer of coccygeal region, stage 3 Non-healing surgical wound of right groin Unilateral primary osteoarthritis, left hip Contusion of hip, left Fall High cholesterol Enlarged prostate Diabetes Legally blind Home Medications ?Medication ?Instructions ?Recorded ?Last Taken ?Type ascorbic acid (vitamin C) 1,000 mg 1,000 mg PO DAILY supplement 11/09/19 04/01/24 History tablet acetaminophen 325 mg tablet 650 mg PO Q4H PRN Pain 1-5 Or 12/08/23 12/07/23 History Fever >100.7 tamsulosin 0.4 mg capsule 0.4 mg PO BID prostate health 12/08/23 04/01/24 History acetaminophen 650 mg rectal 650 mg AK Q4H PRN pain 03/23/24 03/31/24 History suppository aluminum-magnesium hydroxide 200 30 ml PO Q4H PRN GI DISTRESS 03/23/24 Unknown History mg-200 mg/5 mL oral suspension atorvastatin 40 mg tablet 40 mg PO QHS CHOLESTEROL 03/23/24 03/31/24 History bisacodyl 10 mg rectal suppository 10 mg AK DAILY PRN constipation 03/23/24 Unknown History buspirone 5 mg tablet 5 mg PO BID anxiety 03/23/24 04/01/24 History cyclobenzaprine 10 mg tablet 10 mg PO Q8H PRN muscle spasm 03/23/24 03/31/24 History famotidine 20 mg tablet 20 mg PO BID 03/23/24 04/01/24 History finasteride 5 mg tablet 5 mg PO DAILY 03/23/24 04/01/24 History guaifenesin 100 mg/5 mL oral 200 mg PO Q4H PRN congestion 03/23/24 Unknown History liquid (Adult Tussin Chest Congestion) insulin glargine 100 unit/mL (3 10 unit subcut DAILY diabetes 03/23/24 04/01/24 History mL) subcutaneous pen (Lantus Solostar U-100 Insulin) insulin lispro 100 unit/mL 1 sliding scale dose subcut 4X/DAY 03/23/24 04/01/24 History subcutaneous pen (Humalog KwikPen diabetes (U-100) Insulin) melatonin 5 mg tablet 5 mg PO QHS sleep 03/23/24 03/31/24 History menthol 0.44 %-zinc oxide 20.6 % 1 applic topical DAILY 03/23/24 03/31/24 History topical ointment (Calmoseptine) simethicone 80 mg chewable tablet 80 mg PO BID 03/23/24 04/01/24 History sodium phosphates 19 gram-7 118 ml AK DAILY PRN constipation 03/23/24 Unknown History gram/118 mL enema (Enema) trazodone 50 mg tablet 50 mg PO QHS sleep 03/23/24 03/31/24 History amlodipine 10 mg tablet 10 mg PO DAILY #0 tabs 03/25/24 04/01/24 Rx Lactobacillus rhamnosus GG 10 1 cap PO BID 04/01/24 04/01/24 History billion cell capsule (Culturelle) multivitamin (Daily Multi-Vitamin 1 tab PO DAILY 04/01/24 04/01/24 History tablet) Allergy/AdvReac Type Severity Reaction Status Date / Time No Known Allergies Allergy Verified 04/01/24 15:06 Family History Other Cancer Heart disease Surgical History Status post tonsillectomy Social History Smoking Status: Former smoker ROS ROS Narrative General: Denies fever/chills HENT: Denies headache, denies stuffy nose, denies sore throat EYES: Legally blind Resp: Denies cough, denies shortness of breath Cardiac: Denies chest pain GI: Some right-sided abdominal pain, possibly some diarrhea, denies nausea/vomiting : Chronic indwelling Parada Extremity: Denies swelling MSK: Weak and tired overall Neuro: Denies any numbness/tingling Heme: Denies any bleeding or bruising Skin: Right groin wound that is chronic Psychiatric: No specific complaints voiced Vital Signs Vital Signs Vital Signs: 04/01/24 15:00 04/01/24 15:06 04/01/24 15:08 Temperature 98.5 F Temperature Source Oral Pulse Rate 107 H 105 H Respiratory Rate 18 18 Respiratory Pattern Normal Blood Pressure 101/45 L 101/45 L Blood Pressure Mean 63 63 Pulse Ox 96 96 Oxygen Delivery Method Room Air Room Air 04/01/24 16:05 04/01/24 17:00 04/01/24 18:00 Temperature 98.6 F 98.4 F 97.8 F Temperature Source Oral Oral Temporal Pulse Rate 54 L 98 99 Respiratory Rate 16 16 14 Respiratory Pattern Blood Pressure 120/54 L 109/52 L 96/48 L Blood Pressure Mean 76 71 64 Pulse Ox 97 98 97 Oxygen Delivery Method Room Air Room Air 04/01/24 18:37 Temperature 98.4 F Temperature Source Pulse Rate 94 Respiratory Rate 16 Respiratory Pattern Blood Pressure 88/52 L Blood Pressure Mean 64 Pulse Ox 97 Oxygen Delivery Method Weight Weight: 101 kg Body Mass Index (BMI) 34.9 Physical Exam Narrative General: Alert, oriented HEENT: Atraumatic, normocephalic, dry mucous membranes Eyes: Anicteric, normal conjunctiva, unable to follow finger to check extraocular movements, patient chronically legally blind Neck: Supple Respiratory: Somewhat diminished at the bases, suspect in part due to habitus, normal respiratory effort Cardiovascular: Regular rate and rhythm GI: Protuberant, some tenderness on right side without rebound or guarding, large scrotum, also some purulent appearance around parada catheter Extremities: No significant pitting edema Musculoskeletal: Moving all extremities in bed Neuro: No overt focal neurological deficits Skin: Patient with raw area in right groin with gauze over it time of my exam Psych: Cooperative Results Lab / Micro Data 04/01/24 15:10 04/01/24 15:10 Labs: Laboratory Results - last 24 hr 04/01/24 15:10: WBC 31.9 H*, RBC 2.62 L, Hgb 7.7 L, Hct 23.4 L, MCV 89.3, MCH 29.4, MCHC 32.9, RDW Std Deviation 49.1 H, RDW Coeff of [place] 15.0 H, Plt Count 350, MPV 9.3, Neut % (Auto) Not Reportable, Absolute Neuts (auto) 29.0 H, A bsolute Lymphs (auto) 0.64 L, Total Counted 100, Neutrophils % (Manual) 88 H, Band Neutrophils % 3, Lymphocytes % (Manual) 2 L, Monocytes % (Manual) 5, Eosinophils % (Manual) 2, Diff Path Review December, Platelet Estimate ADEQUATE, RBC Morphology NORM C+C, Sodium 130 L, Potassium 3.2 L, Chloride 100, Carbon Dioxide 21.0, Anion Gap 9, BUN 45 H, Creatinine 3.10 H, Estim Creat Clear Calc 22.96, Est GFR (MDRD) Af Amer 25 L, Est GFR (MDRD) Non-Af 21 L, BUN/Creatinine Ratio 14.5, Glucose 155 H, Calcium 6.8 L, Total Bilirubin 0.30, AST 17, ALT 26, Alkaline Phosphatase 395 H, Troponin I High Sens 17, Total Protein 5.3 L, A lbumin 1.5 L, Globulin 3.8, Albumin/Globulin Ratio 0.4 L 04/01/24 15:25: Lactic Acid 1.8 04/01/24 16:20: Urine Color Yellow, Urine Clarity Cloudy, Urine pH 6.0, Ur Specific [place] 1.010, Urine Protein 30 H, Urine Glucose (UA) Normal, Urine Ketones Negative, Urine Occult Blood 50 H, Urine Nitrite Negative, Urine Bilirubin Negative, Urine Urobilinogen Normal, Ur Leukocyte Esterase 500 H, Urine RBC 0-5 SEEN, Urine WBC >100 SEEN, Ur Squamous Epith Cells 0 SEEN, Urine Bacteria 2+, Urine Mucus 0 SEEN, Urine Yeast 1+ Micro: Microbiology 04/01/24 15:45 Mucosa - Throat SARS-CoV-2, Influenza & RSV (PCR) - Final Imaging Radiology Impression Abdomen/Pelvis CT 04/01/24 15:21 IMPRESSION: 1. Bilateral hydronephrosis and hydroureter probably related to bladder wall thickening. 2. Probable nonspecific colitis has developed since the prior exam especially in the rectosigmoid. Recommend colonoscopy. Electronically Signed: Brett Jamison MD at 16:49 EDT , ADDENDUM: 04/01/24 1723 IMPRESSION: undefined Chest X-Ray 04/01/24 16:06 IMPRESSION: No definite acute or significant abnormality seen. Electronically Signed: Brett Jamison MD at 16:31 EDT , Assessment & Plan Assessment/Plan (1) CRISTY (acute kidney injury): (2) BPH (benign prostatic hyperplasia): QUALIFIERS: Lower urinary tract symptom detail: urinary frequency Lower urinary tract symptom presence: symptoms present Qualified Code(s): N40.1 - Benign prostatic hyperplasia with lower urinary tract symptoms; R35.0 - Frequency of micturition (3) Non-healing surgical wound of right groin: (4) Weakness: (5) Leukocytosis: (6) Type 2 diabetes mellitus: QUALIFIERS: Diabetes mellitus complication status: without complication Diabetes mellitus senior network administrator insulin use: without senior network administrator use Q ualified Code(s): E11.9 - Type 2 diabetes mellitus without complications (7) Legally blind: (8) Hypokalemia: (9) Essential hypertension: PLAN: Plan #Elevated white blood cell count, feeling generally unwell, concern for infection -White blood cell count 31 the patient afebrile, lactic acid within normal limits, BP somewhat soft but did improve with fluids, on my evaluation in the ED blood pressure 115 over 70s and patient appeared dry so suspect component of volume depletion, at this time do not think patient septic but blood cultures have been sent -Patient's possibly had some loose stools and abdominal pain, also had purulent material around Parada, and has chronic right groin wound with some drainage -CT abdomen pelvis obtained which did not show any fluid collection/concern for abscess or air but showed likely colitis and colonoscopy recommended -Stool studies including C. difficile especially given recent hospitalization and antibiotics -GI consult -UA suggestive of possible UTI though it was taken from Parada so unclear how reliable but did appear to have purulence around Parada so certainly possible that this is nidus of infection, urine cx ordered -Blood cultures -Right groin culture -Broad-spectrum antibiotics -IV fluids -CXR WNL, low suspicion for respiratory component # Kidney failure -Creatinine is 1.15 on 03/25/2024 -Up to 3.1 today -IV fluids -Parada catheter in place -Urine lytes -CT abdomen pelvis with bilateral hydroureter and hydronephrosis with bladder wall thickening -If this does not improve with fluids will consider nephrology consult #Type 2 diabetes mellitus -Glucose checks and sliding scale insulin -Glucose 155, will hold long-acting insulin at this time as well #Chronic BPH with obstruction -Parada catheter has been in place since November -Given tamsulosin can affect blood pressure and plan to leave Parada in place will hold tamsulosin at this time # 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
[2024-04-01] MEDS: 0.9% Normal Saline (1000mL) 1,000 ML 999 ML IV (18:59)
[2024-04-01] MEDS: Calcium Gluconate IV 2 GM in 0.9% Normal Saline (100mL Bag) 100 ML IV (20:03)
[2024-04-01] MEDS: Potassium Chloride Oral Tablet 20 MEQ 40 MEQ PO (20:29)
[2024-04-01] MEDS: 0.9% Normal Saline (1000mL) 1,000 ML 100 ML IV (21:00)
[2024-04-01] MEDS: Atorvastatin Calcium 40 MG Tablet PO (21:14)
[2024-04-01] MEDS: traZODone 50 MG Tablet PO (21:14)
[2024-04-01] MEDS: busPIRone 5 MG Tablet PO (21:14)
[2024-04-01] MEDS: Vancomycin IV 500 MG/100 ML BAG 100 MG IV (21:14)
[2024-04-01 21:21] LABS: Urea Nitrogen, Urine 294 mg/dL (NO RANGE EST.); Urine Sodium 24 mmol/L (Not Establ.)
[2024-04-01 21:33] LABS: Bedside Glucose 144 mg/dL (74-106)
--- NOTE | 2024-04-01 21:35 | PCM.RX.CS ---
Consult Antibiotic Management Pharmacy has been consulted to manage selected antibiotic: Vancomycin Type of Intervention Type of Consult: New start Labs Labs: Sodium 130 mmol/L (136-145) L 04/01/24 15:10 Potassium 3.2 mmol/L (3.5-5.1) L 04/01/24 15:10 Chloride 100 mmol/L (98-107) 04/01/24 15:10 Carbon Dioxide 21.0 mmol/L (21.0-32.0) 04/01/24 15:10 Anion Gap 9 (5-15) 04/01/24 15:10 BUN 45 mg/dL (7-18) H 04/01/24 15:10 Creatinine 3.10 mg/dL (0.70-1.30) H 04/01/24 15:10 Est GFR (MDRD) Af Amer 25 mL/min (>60) L 04/01/24 15:10 Est GFR (MDRD) Non-Af 21 mL/min (>60) L 04/01/24 15:10 BUN/Creatinine Ratio 14.5 RATIO (10-20) 04/01/24 15:10 Glucose 155 mg/dL (74-106) H 04/01/24 15:10 Microbiology Microbiology: Microbiology 04/01/24 15:45 Mucosa - Throat SARS-CoV-2, Influenza & RSV (PCR) - Final Dosing Weight Weight used for dosin.3 kg Estimated Creatinine Clearance Estimated Creatinine Clearance: 23 Goal Trough Goal Trough: 15-20 mcg/mL Pharmacy Plan for Drug Dosing Pharmacy Plan for Drug Dosing: Pharmacy Service will continue to monitor and adjust dosing as required. Follow-Up Labs Follow-Up Labs: Trough: Vancomycin Date/Time Labs Ordered Labs to be done on [date and time ordered]: 04/03/24 @2030
[2024-04-01 21:44] LABS: Osmolality, Urine 253 mOsm/KG
[2024-04-01 22:08] LABS: Urine Chloride 14 mmol/L (Not Establ.); Urine Potassium 20.2 mmol/L (Not Establ.)
--- NOTE | 2024-04-01 22:58 | NURSING ---
Christel from [facility] called at this time. Update provided by this RN.
[2024-04-02] VITALS (12 sets, daily range): BP systolic 91–116; BP diastolic 41–64; PULSE 85–97; RESP 13–24; TEMP 36.4–37.2; O2SAT 95–99
--- NOTE | 2024-04-02 00:01 | PCM.HOSP.N ---
Hospitalist Note Notified by nursing that the patient had a systolic blood pressure in the 80s. Went to evaluate the patient and he was awake and alert and sleeping. We rechecked his blood pressure from his left arm, which was given the low readings, over to his right arm and his blood pressure was 108/56. I evaluated the patient and under his pannus he has yeast. No overt clear-cut cellulitis. He has been having diarrhea but C. difficile is currently pending at this time. I did recommend nystatin under his pannus. With his blood pressure being stable at this time, no need to transfer to the intensive care unit and no need for pressor agents at this time.
[2024-04-02] MEDS: 0.9% Normal Saline (1000mL) 1,000 ML 999 ML IV (02:25)
[2024-04-02] MEDS: Vancomycin HCl 250 MG Capsule 500 MG PO ×4 (05:13→23:39)
[2024-04-02] MEDS: Piperacil/Tazobactam 3.375 GM in 0.9% Normal Saline (50mL MB+) 50 ML IV ×3 (05:13→21:31)
[2024-04-02] MEDS: Insulin Lispro 100 UNIT/ML INSULN.PEN SC ×4 (06:27→21:43)
[2024-04-02 06:48] LABS: Bedside Glucose 188 mg/dL (74-106)
[2024-04-02 06:53] LABS: Absolute Neutrophil Count 18.7 X10^3/uL (2.0-7.7); Basophil# 0.09 X10^3/uL; Basophil% 0.4 % (0-1); Eosinophil# 0.44 X10^3/uL; Eosinophils% 1.9 % (0-5); Hematocrit 22.9 % (40-54); Hemoglobin 7.4 g/dL (13.0-16.5); Lymphocyte % 3.4 % (19-41); Mean Corp Hgb Conc 32.3 g/dL (32-36); Mean Corpuscular Hgb 29.2 pg (27.0-32.0); Mean Corpuscular Volume 90.5 fL (80-94); Mean Platelet Vol. 9.3 fl (6.2-12.0); Monocyte# 1.64 X10^3/uL; Monocyte% 6.9 % (0-10); NRBC Flagged by Analyzer 0 % (0-5); Neutrophil # 18.69 X10^3/uL (2.7-7.7); Neutrophil % 79.1 % (47-70); POSITIVE COUNT YES; POSITIVE DIFFERENTIAL YES; POSITIVE MORPHOLOGY YES; Platelet Count 339 K/mm3 (150-450); RBC Distribution Width CV 14.8 % (11.6-14.6); RBC Distribution Width SD 48.8 fl (35.1-43.9); Red Blood Count 2.53 M/mm3 (4.6-6.2); White Blood Count 23.6 K/mm3 (4.4-11.0)
--- NOTE | 2024-04-02 07:10 | PCM.PN.HOSP ---
Reason for Visit Reason for Visit: Diagnoses Elevated white blood cell count, unspecified (04/01/24) Type 2 diabetes mellitus without complications (04/01/24) Hypokalemia (04/01/24) Legal blindness, as defined in [place] (04/01/24) Essential (primary) hypertension (04/01/24) Acute kidney failure, unspecified (04/01/24) Benign prostatic hyperplasia with lower urinary tract symptoms (04/01/24) Frequency of micturition (04/01/24) Weakness (04/01/24) Other complications of procedures, not elsewhere classified, initial encounter (04/01/24) Subjective Subjective Patient is a 78-year-old gentleman resident at an [facility] care facility who was brought to the emergency department with diarrhea with concern for possible C. difficile. Was found to have leukocytosis. C. difficile PCR came back positive Objective Data Objective Data Vital Signs: Vital Signs Temp Pulse Resp BP Pulse Ox O2 Del Method 97.6 F L 90 24 H 100/52 L 99 Room Air 04/02/24 05:00 04/02/24 05:00 04/02/24 05:00 04/02/24 05:00 04/02/24 05:00 04/02/24 05:00 Oxygen Delivery Method Room Air Weight: 98.3 kg Body Mass Index (BMI) 33.9 Intake & Output: Intake and Output for Last 24 Hours 03/31/24 04/01/24 04/02/24 23:59 23:59 23:59 Intake Total 2825 / 3225 2228.33 / 2228.33 Output Total 625 / 625 Balance 2825 / 3050 1603.33 / 1603.33 Lab / Micro Data 04/02/24 06:00 04/02/24 06:00 Labs: Laboratory Results - last 24 hr 04/01/24 15:10: WBC 31.9 H*, RBC 2.62 L, Hgb 7.7 L, Hct 23.4 L, MCV 89.3, MCH 29.4, MCHC 32.9, RDW Std Deviation 49.1 H, RDW Coeff of [place] 15.0 H, Plt Count 350, MPV 9.3, Neut % (Auto) Not Reportable, Absolute Neuts (auto) 29.0 H, Absolute Lymphs (auto) 0.64 L, Total Counted 100, Neutrophils % (Manual) 88 H, Band Neutrophils % 3, Lymphocytes % (Manual) 2 L, Monocytes % (Manual) 5, Eosinophils % (Manual) 2, Diff Path Review December, Platelet Estimate ADEQUATE, RBC Morphology NORM C+C, Sodium 130 L, Potassium 3.2 L, Chloride 100, Carbon Dioxide 21.0, Anion Gap 9, BUN 45 H, Creatinine 3.10 H, Estim Creat Clear Calc 22.96, Est GFR (MDRD) Af Amer 25 L, Est GFR (MDRD) Non-Af 21 L, BUN/Creatinine Ratio 14.5, Glucose 155 H, Calcium 6.8 L, Total Bilirubin 0.30, AST 17, ALT 26, Alkaline Phosphatase 395 H, Troponin I High Sens 17, Total Protein 5.3 L, Albumin 1.5 L, Globulin 3.8, Albumin/Globulin Ratio 0.4 L 04/01/24 15:25: Lactic Acid 1.8 04/01/24 16:20: Urine Color Yellow, Urine Clarity Cloudy, Urine pH 6.0, Ur Specific [place] 1.010, Urine Protein 30 H, Urine Glucose (UA) Normal, Urine Ketones Negative, Urine Occult Blood 50 H, Urine Nitrite Negative, Urine Bilirubin Negative, Urine Urobilinogen Normal, Ur Leukocyte Esterase 500 H, Urine RBC 0-5 SEEN, Urine WBC >100 SEEN, Ur Squamous Epith Cells 0 SEEN, Urine Bacteria 2+, Urine Mucus 0 SEEN, Urine Yeast 1+ 04/01/24 20:32: Urine Osmolality 253, Ur Random Sodium 24, Urine Creatinine 78.30, Urine Potassium 20.2, Urine Chloride 14, Urine Urea Nitrogen 294 04/01/24 21:13: POC Glucose 144 H 04/02/24 06:22: POC Glucose 188 H Micro: Microbiology 04/01/24 22:35 Stool Enteric Bacteriology - Final 04/01/24 22:35 Stool Clostridioides difficile (PCR) - Final 04/01/24 15:45 Mucosa - Throat SARS-CoV-2, Influenza & RSV (PCR) - Final Radiography Diagnostic Testing: Radiology Impression Abdomen/Pelvis CT 04/01/24 15:21 IMPRESSION: 1. Bilateral hydronephrosis and hydroureter probably related to bladder wall thickening. 2. Probable nonspecific colitis has developed since the prior exam especially in the rectosigmoid. Recommend colonoscopy. Electronically Signed: Brett Jamison MD at 16:49 EDT , ADDENDUM: 04/01/24 1723 IMPRESSION: undefined Testicular Ultrasound 04/01/24 15:24 IMPRESSION: Normal bilateral testicles. 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 Diffuse thickening of the scrotal wall. Electronically Signed: Brett Jamison MD at 19:29 EDT , Chest X-Ray 04/01/24 16:06 IMPRESSION: No definite acute or significant abnormality seen. Electronically Signed: Brett aJmison MD at 16:31 EDT , Physical Exam Narrative GENERAL: cooperative HEENT: Atraumatic; normocephalic EYES; Anicteric, Normal Conjunctiva NECK; supple, normal thyroid, RESPIRATORY: Diminished to auscultation CARDIOVASCULAR: Regular S1 S2, GI: soft, normoactive bowel sounds, : No Renal angle tenderness; Mcmahon catheter in place EXTREMITIES: No edema, no clubbing, MUSCULOSKELETAL: no muscle wasting NEURO: Awake; no lateralizing signs. SKIN: No Rash Skin: Patient with raw area in right groin with gauze over it time of my exam PSYCH; Flat affect Assessment & Plan Assessment/Plan (1) Leukocytosis: (2) Hypokalemia: PLAN: Plan Patient is a 78-year-old gentleman resident at an extended care facility who was brought to the emergency department with diarrhea with concern for possible C. difficile. Was found to have leukocytosis. C. difficile PCR came back positive 1. Acute C. difficile colitis ? Patient presented with diarrhea as well as significant leukocytosis PCR came back positive patient started on p.o. vancomycin 2. Suspected catheter associated complicated UTI ? Patient urinalysis was obtained from his Mcmahon catheter came back abnormal (?? Reliability questionable). Patient had bladder wall thickening on CT. Started on Zosyn cultures sent we will follow-up on urine results 3. Acute kidney injury ? Secondary to significant fluid losses from patient's diarrhea. Started on IV fluid with subsequent monitoring of electrolytes ordered. CT of the abdomen and pelvis demonstrated bilateral hydroureteral and hydronephrosis with bladder wall thickening. Patient started on IV fluid with daily monitoring with BMPs ordered 4. Paroxysmal SVT ? Patient is on a monitored bed 5. Diabetes mellitus type II -patient's oral hypoglycemics held. Placed on long acting insulin, Accu-Cheks a.c. and at bedtime and covered with sliding scale insulin 6. BPH with lower urinary obstructive symptoms - Patient treated with tamsulosin 7. Dyslipidemia -Patient is on statin therapy, continued at home dose 8. Anemia - Secondary to chronic disorder monitoring H&H and transfuse if patient becomes symptomatic or hemoglobin falls below 7 9. Essential hypertension ? Patient home meds held given his relatively low blood pressure 10. 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 Hypokalemia -Corrected per protocol, repeat BMP ordered for a.m. 12. Anxiety disorder ? Patient is on buspirone and trazodone continue 13. Intertrigo ? Patient started on nystatin 14. DVT prophylaxis -Subcu heparin Time spent in the patient's overall evaluation,decision-making process, review of diagnostic data, adjustment of management, discussion with other providers, nursing nursing and ancillary staff involved in patient's care documentation, 52 minutes Charges/Coding Visit Charges Inpatient E&M: 54435 [facility] L3
[2024-04-02 07:13] LABS: ALB/GLOB Ratio 0.4 RATIO (0.9-2.4); AST(SGOT) 26 U/L (15-37); Alanine Aminotransfer ALT/SGPT 28 U/L (16-61); Albumin, Serum 1.4 g/dL (3.2-5.0); Alkaline Phosphatase 476 U/L (45-117); Anion Gap 6 (5-15); BUN 43 mg/dL (7-18); BUN/Creat Ratio 17.6 RATIO (10-20); Calcium,Total 7.1 mg/dL (8.5-10.1); Chloride 107 mmol/L (98-107); Creatinine, Serum 2.45 mg/dL (0.70-1.30); EST Glomerular Filtration Rate 27 mL/min (>60); Est Glom Filt Rate - Afr Amer 33 mL/min (>60); Estimated Creatinine Clearance 28.65 ml/min; Globulin 3.4 g/dL (2.2-4.2); Glucose 186 mg/dL (74-106); Magnesium 1.7 mg/dL (1.6-2.6); Potassium 3.5 mmol/L (3.5-5.1); Protein, Total 4.8 g/dL (6.4-8.2); Sodium Level 132 mmol/L (136-145)
--- NOTE | 2024-04-02 08:03 | PCM.RX.CS ---
Consult Antibiotic Management Pharmacy has been consulted to manage selected antibiotic: Vancomycin Type of Intervention Type of Consult: Follow-up Labs Labs: Sodium 132 mmol/L (136-145) L 04/02/24 06:00 Potassium 3.5 mmol/L (3.5-5.1) 04/02/24 06:00 Chloride 107 mmol/L (98-107) 04/02/24 06:00 Carbon Dioxide 19.0 mmol/L (21.0-32.0) L 04/02/24 06:00 Anion Gap 6 (5-15) 04/02/24 06:00 BUN 43 mg/dL (7-18) H 04/02/24 06:00 Creatinine 2.45 mg/dL (0.70-1.30) H 04/02/24 06:00 Est GFR (MDRD) Af Amer 33 mL/min (>60) L 04/02/24 06:00 Est GFR (MDRD) Non-Af 27 mL/min (>60) L 04/02/24 06:00 BUN/Creatinine Ratio 17.6 RATIO (10-20) 04/02/24 06:00 Glucose 186 mg/dL (74-106) H 04/02/24 06:00 Microbiology Microbiology: Microbiology 04/01/24 22:35 Stool Enteric Bacteriology - Final 04/01/24 22:35 Stool Clostridioides difficile (PCR) - Final 04/01/24 15:45 Mucosa - Throat SARS-CoV-2, Influenza & RSV (PCR) - Final Goal Trough Goal Trough: 15-20 mcg/mL Pharmacy Plan for Drug Dosing Pharmacy Plan for Drug Dosing: DAILY ASSESSMENT Current Vancomycin Dose: 750mg IV Q24h Number of Doses Received: no scheduled doses yet, loading dose of 2g x1 Current Renal Function: 2.45 Renal Function Trend: improvement from yesterday (SCr 3.1 yesterday) Lab/Micro: cultures pending Any Change in Vanc Plan: Patient with improved renal function from yesterday. patient now qualifies for a dose regimen of 1000mg IV Q24h. Will cancel current dosing regimen and start new dosing. Trough will remain the same since pt has not gotten any scheduled doses yet. Pending Level: 04/03/24 @2030 Pharmacy Service will continue to monitor and adjust dosing as required.
--- NOTE | 2024-04-02 08:54 | CASEMGMT ---
Social Work Pt is here from [facility]. SW attempted to speak w/pt, he is sleeping soundly. SW called , message left. SW did send updates to [facility] via [employer], pt was just here and family agreeable at that time for pt to return to [facility]. SW will speak w/ to confirm plan should she return call today. CAREN Foss
[2024-04-02 09:17] LABS: Differential Indicated SCAN CRITERIA MET
--- NOTE | 2024-04-02 11:22 | CASEMGMT ---
Social Work SW received a message back from [facility] that pt is there skilled and can return when ready. SW will continue to follow. CAREN Foss
[2024-04-02] MEDS: 0.9% Saline Lock 10 ML Syringe IV ×2 (12:19→17:32)
[2024-04-02] MEDS: 0.9% Normal Saline (1000mL) 1,000 ML 100 ML IV (12:19)
[2024-04-02] MEDS: SimETHICONE 80 MG Chewable Tablet PO ×2 (12:20→17:30)
[2024-04-02] MEDS: busPIRone 5 MG Tablet PO ×2 (12:21→21:31)
[2024-04-02] MEDS: Famotidine 20 MG Tablet PO (12:21)
[2024-04-02] MEDS: Nystatin Powder 15gm Bottle 1 APPLIC TOPICAL ×2 (12:25→21:42)
[2024-04-02] MEDS: Menthol/Lanolin/Calamine/Znox 113 GM Tube 1 APPLIC TOPICAL ×4 (12:25→21:42)
[2024-04-02] MEDS: Acetaminophen 325 MG Tablet 650 MG PO (12:39)
[2024-04-02 12:52] LABS: Bedside Glucose 189 mg/dL (74-106)
[2024-04-02] MEDS: Glucerna Shake 120 ML LIQUID PO (17:29)
[2024-04-02 18:01] LABS: Bedside Glucose 194 mg/dL (74-106)
[2024-04-02] MEDS: Vancomycin IV 1,000 MG/200 ML BAG 200 MG IV (20:04)
[2024-04-02] MEDS: traZODone 50 MG Tablet PO (21:31)
[2024-04-02] MEDS: Atorvastatin Calcium 40 MG Tablet PO (21:31)
[2024-04-02 23:28] LABS: Bedside Glucose 271 mg/dL (74-106)
[2024-04-03 03:50] VITALS: BP 123/64; PULSE 90; RESP 18; TEMP 36.6; O2SAT 98
[2024-04-03 06:00] VITALS: BP 132/56; PULSE 95; RESP 18; TEMP 36.9; O2SAT 96; BMI 36.2
[2024-04-03] MEDS: Vancomycin HCl 250 MG Capsule 500 MG PO ×4 (06:01→23:27)
[2024-04-03] MEDS: Piperacil/Tazobactam 3.375 GM in 0.9% Normal Saline (50mL MB+) 50 ML IV ×3 (06:01→21:59)
[2024-04-03] MEDS: 0.9% Saline Lock 10 ML Syringe IV ×2 (06:04→22:15)
[2024-04-03] MEDS: 0.9% Normal Saline (250mL Bag) 250 ML 15 ML IV (06:04)
[2024-04-03] MEDS: Insulin Lispro 100 UNIT/ML INSULN.PEN SC ×4 (06:15→22:16)
[2024-04-03 06:28] LABS: Bedside Glucose 176 mg/dL (74-106)
--- NOTE | 2024-04-03 08:12 | PCM.PN.HOSP ---
Reason for Visit Reason for Visit: Diagnoses Elevated white blood cell count, unspecified (04/01/24) Type 2 diabetes mellitus without complications (04/01/24) Hypokalemia (04/01/24) Legal blindness, as defined in [place] (04/01/24) Essential (primary) hypertension (04/01/24) Acute kidney failure, unspecified (04/01/24) Benign prostatic hyperplasia with lower urinary tract symptoms (04/01/24) Frequency of micturition (04/01/24) Weakness (04/01/24) Other complications of procedures, not elsewhere classified, initial encounter (04/01/24) Objective Data Objective Data Vital Signs: Vital Signs Temp Pulse Resp BP Pulse Ox O2 Del Method 98.4 F 95 18 132/56 H 96 Room Air 04/03/24 06:00 04/03/24 06:00 04/03/24 06:00 04/03/24 06:00 04/03/24 06:00 04/03/24 06:00 Oxygen Delivery Method Room Air Weight: 104.9 kg Body Mass Index (BMI) 36.2 Intake & Output: Intake and Output for Last 24 Hours 04/01/24 04/02/24 04/03/24 23:59 23:59 23:59 Intake Total 2825 / 3225 4995.00 / 4995.00 252.25 / 252.25 Output Total 2775 / 2775 350 / 350 Balance 2825 / 3050 2220.00 / 2220.00 -97.75 / -97.75 Lab / Micro Data 04/03/24 08:28 04/03/24 08:28 Labs: Laboratory Results - last 24 hr 04/02/24 06:00: Diff Path Review December04/02/24 12:11: POC Glucose 189 H 04/02/24 17:12: POC Glucose 194 H 04/02/24 21:41: POC Glucose 271 H 04/03/24 06:09: POC Glucose 176 H Micro: Microbiology 04/01/24 18:47 Skin - Groin Gram Stain - Final 04/01/24 18:47 Skin - Groin Wound Culture - Preliminary ESBL Klebsiella pneumoniae pne Mixed Gram Positive Organisms 04/01/24 16:20 Urine Catheter - Mcmahon Urine Culture - Preliminary Yeast Like Organism 04/01/24 22:35 Stool Enteric Bacteriology - Final 04/01/24 22:35 Stool C. difficile GDH Antigen & Toxins - Final Toxigenic C. difficile 04/01/24 22:35 Stool Clostridioides difficile (PCR) - Final 04/01/24 15:45 Mucosa - Throat SARS-CoV-2, Influenza & RSV (PCR) - Final Physical Exam Narrative GENERAL: cooperative HEENT: Atraumatic; normocephalic EYES; Anicteric, Normal Conjunctiva NECK; supple, normal thyroid, RESPIRATORY: Diminished to auscultation CARDIOVASCULAR: Regular S1 S2, GI: soft, normoactive bowel sounds, : No Renal angle tenderness; Mcmahon catheter in place EXTREMITIES: No edema, no clubbing, MUSCULOSKELETAL: no muscle wasting NEURO: Awake; no lateralizing signs. SKIN: No Rash Skin: Patient with raw area in right groin with gauze over it time of my exam PSYCH; Flat affect Assessment & Plan Assessment/Plan (1) Leukocytosis: (2) Hypokalemia: PLAN: Plan Patient is a 78-year-old gentleman resident at an extended care facility who was brought to the emergency department with diarrhea with concern for possible C. difficile. Was found to have leukocytosis. C. difficile PCR came back positive 1. Acute C. difficile colitis ? Patient presented with diarrhea as well as significant leukocytosis PCR came back positive patient started on p.o. vancomycin 2. Suspected catheter associated complicated UTI ? Patient urinalysis was obtained from his Mcmahon catheter came back abnormal (?? Reliability questionable). Patient had bladder wall thickening on CT. Started on Zosyn cultures sent we will follow-up on urine results ? 04/03/2024; urine cultures pending 3. Acute kidney injury ? Secondary to significant fluid losses from patient's diarrhea. Started on IV fluid with subsequent monitoring of electrolytes ordered. CT of the abdomen and pelvis demonstrated bilateral hydroureteral and hydronephrosis with bladder wall thickening. Patient started on IV fluid with daily monitoring with BMPs ordered 4. Paroxysmal SVT ? Patient is on a monitored bed 5. Diabetes mellitus type II -patient's oral hypoglycemics held. Placed on long acting insulin, Accu-Cheks a.c. and at bedtime and covered with sliding scale insulin 6. BPH with lower urinary obstructive symptoms - Patient treated with tamsulosin 7. Dyslipidemia -Patient is on statin therapy, continued at home dose 8. Anemia - Secondary to chronic disorder monitoring H&H and transfuse if patient becomes symptomatic or hemoglobin falls below 7 9. Essential hypertension ? Patient home meds held given his relatively low blood pressure 10. 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 Wound cultures obtained coming back positive for ESBL Klebsiella pneumonia as well as Staph aureus and GPC Enterococcus. Consult placed to ID 11. Hypokalemia -Corrected per protocol, repeat BMP ordered for a.m. 12. Anxiety disorder ? Patient is on buspirone and trazodone continue 13. Intertrigo ? Patient started on nystatin 14. DVT prophylaxis -Subcu heparin Time spent in the patient's overall evaluation,decision-making process, review of diagnostic data, adjustment of management, discussion with other providers, nursing nursing and ancillary staff involved in patient's care documentation, 40 minutes Charges/Coding Visit Charges Inpatient E&M: 29912 Subs Hosp L2
[2024-04-03 08:43] LABS: Absolute Lymphocyte Count 0.95 X10^3/uL (0.83-4.51); Absolute Neutrophil Count 9.7 X10^3/uL (2.0-7.7); Basophil# 0.08 X10^3/uL; Basophil% 0.6 % (0-1); Eosinophil# 0.38 X10^3/uL; Hematocrit 23.5 % (40-54); Hemoglobin 7.6 g/dL (13.0-16.5); Lymphocyte # 0.95 X10^3/ul (0.83-4.51); Lymphocyte % 7.4 % (19-41); Mean Corp Hgb Conc 32.3 g/dL (32-36); Mean Corpuscular Hgb 28.7 pg (27.0-32.0); Mean Corpuscular Volume 88.7 fL (80-94); Mean Platelet Vol. 9.1 fl (6.2-12.0); Monocyte# 1.18 X10^3/uL; Monocyte% 9.2 % (0-10); NRBC Flagged by Analyzer 0 % (0-5); Neutrophil # 9.67 X10^3/uL (2.7-7.7); Neutrophil % 75.1 % (47-70); Platelet Count 322 K/mm3 (150-450); RBC Distribution Width CV 15.1 % (11.6-14.6); RBC Distribution Width SD 47.5 fl (35.1-43.9); Red Blood Count 2.65 M/mm3 (4.6-6.2); White Blood Count 12.9 K/mm3 (4.4-11.0)
[2024-04-03 08:51] LABS: Anion Gap 6 (5-15); BUN 33 mg/dL (7-18); BUN/Creat Ratio 18.5 RATIO (10-20); Chloride 110 mmol/L (98-107); Creatinine, Serum 1.78 mg/dL (0.70-1.30); EST Glomerular Filtration Rate 40 mL/min (>60); Est Glom Filt Rate - Afr Amer 48 mL/min (>60); Estimated Creatinine Clearance 40.76 ml/min; Glucose 168 mg/dL (74-106); Magnesium 1.7 mg/dL (1.6-2.6); Phosphorus 2.6 mg/dL (2.5-4.9); Potassium 3.3 mmol/L (3.5-5.1); Sodium Level 135 mmol/L (136-145)
[2024-04-03] MEDS: Famotidine 20 MG Tablet PO (09:49)
[2024-04-03] MEDS: busPIRone 5 MG Tablet PO ×2 (09:49→22:16)
[2024-04-03] MEDS: SimETHICONE 80 MG Chewable Tablet PO ×2 (09:49→17:09)
[2024-04-03] MEDS: Nystatin Powder 15gm Bottle 1 APPLIC TOPICAL ×2 (09:50→22:31)
[2024-04-03] MEDS: Menthol/Lanolin/Calamine/Znox 113 GM Tube 1 APPLIC TOPICAL ×4 (09:50→22:31)
[2024-04-03 10:15] VITALS: BP 125/45; PULSE 98; RESP 16; TEMP 36.6; O2SAT 98
[2024-04-03 11:41] LABS: Bedside Glucose 198 mg/dL (74-106)
[2024-04-03 16:52] LABS: Bedside Glucose 229 mg/dL (74-106)
[2024-04-03 17:17] VITALS: BP 130/44; PULSE 89; RESP 16; TEMP 36.5; O2SAT 97
[2024-04-03 21:05] LABS: Vancomycin, Trough Level 14.6 ug/mL (5.0-15.0)
--- NOTE | 2024-04-03 21:19 | PHA.PHARE_ITS ---
Consult Antibiotic Management Pharmacy has been consulted to manage selected antibiotic: Vancomycin Type of Intervention Type of Consult: Follow-up Labs Labs: Sodium 135 mmol/L (136-145) L 04/03/24 08:28 Potassium 3.3 mmol/L (3.5-5.1) L 04/03/24 08:28 Chloride 110 mmol/L (98-107) H 04/03/24 08:28 Carbon Dioxide 19.0 mmol/L (21.0-32.0) L 04/03/24 08:28 Anion Gap 6 (5-15) 04/03/24 08:28 BUN 33 mg/dL (7-18) H 04/03/24 08:28 Creatinine 1.78 mg/dL (0.70-1.30) H 04/03/24 08:28 Est GFR (MDRD) Af Amer 48 mL/min (>60) L 04/03/24 08:28 Est GFR (MDRD) Non-Af 40 mL/min (>60) L 04/03/24 08:28 BUN/Creatinine Ratio 18.5 RATIO (10-20) 04/03/24 08:28 Glucose 168 mg/dL (74-106) H 04/03/24 08:28 Vancomycin Trough 14.6 ug/mL (5.0-15.0) 04/03/24 20:40 Microbiology Microbiology: Microbiology 04/01/24 16:20 Urine Catheter - Mcmahon Urine Culture - Final Presumptive C albicans 04/01/24 18:47 Skin - Groin Gram Stain - Final 04/01/24 18:47 Skin - Groin Wound Culture - Preliminary ESBL Klebsiella pneumoniae pne Staphylococcus aureus GPC Poss Enterococcus sp 04/01/24 22:35 Stool Enteric Bacteriology - Final 04/01/24 22:35 Stool C. difficile GDH Antigen & Toxins - Final Toxigenic C. difficile 04/01/24 22:35 Stool Clostridioides difficile (PCR) - Final 04/01/24 15:45 Mucosa - Throat SARS-CoV-2, Influenza & RSV (PCR) - Final Dosing Weight Weight used for dosin.9 kg Estimated Creatinine Clearance Estimated Creatinine Clearance: 41 Goal Trough Goal Trough: 15-20 mcg/mL Pharmacy Plan for Drug Dosing Pharmacy Plan for Drug Dosing: Vancomycin trough level of 14.6 was just slightly below the target range of 15- 20. This was drawn 24.5hrs post-dose. Will continue dosing at 1000mg q24h, and will draw another trough level in two days. Pharmacy Service will continue to monitor and adjust dosing as required. Follow-Up Labs Follow-Up Labs: Trough: Vancomycin Date/Time Labs Ordered Labs to be done on [date and time ordered]: 02/04/24 @2030
[2024-04-03] MEDS: Vancomycin IV 1,000 MG/200 ML BAG 200 MG IV (21:59)
[2024-04-03] MEDS: Atorvastatin Calcium 40 MG Tablet PO (22:16)
[2024-04-03] MEDS: traZODone 50 MG Tablet PO (22:16)
[2024-04-03 22:34] VITALS: BP 127/75; PULSE 87; RESP 18; TEMP 36.7; O2SAT 96
[2024-04-03 23:04] LABS: Bedside Glucose 291 mg/dL (74-106)
[2024-04-04 03:39] VITALS: BP 124/53; PULSE 78; RESP 18; TEMP 36.7; O2SAT 96
[2024-04-04] MEDS: Acetaminophen 325 MG Tablet 650 MG PO ×2 (03:50→15:20)
[2024-04-04 05:58] LABS: Absolute Lymphocyte Count 1.23 X10^3/uL (0.83-4.51); Absolute Neutrophil Count 6.9 X10^3/uL (2.0-7.7); Basophil# 0.08 X10^3/uL; Basophil% 0.8 % (0-1); Eosinophil# 0.46 X10^3/uL; Eosinophils% 4.4 % (0-5); Hemoglobin 8.5 g/dL (13.0-16.5); Lymphocyte # 1.23 X10^3/ul (0.83-4.51); Lymphocyte % 11.9 % (19-41); Mean Corp Hgb Conc 32.7 g/dL (32-36); Mean Corpuscular Hgb 29.1 pg (27.0-32.0); Mean Platelet Vol. 8.8 fl (6.2-12.0); Monocyte# 1.29 X10^3/uL; Monocyte% 12.5 % (0-10); NRBC Flagged by Analyzer 0 % (0-5); Neutrophil # 6.92 X10^3/uL (2.7-7.7); Neutrophil % 66.8 % (47-70); Platelet Count 322 K/mm3 (150-450); RBC Distribution Width SD 49.2 fl (35.1-43.9); Red Blood Count 2.92 M/mm3 (4.6-6.2); White Blood Count 10.4 K/mm3 (4.4-11.0)
[2024-04-04 06:00] VITALS: BMI 36.6
[2024-04-04] MEDS: Piperacil/Tazobactam 3.375 GM in 0.9% Normal Saline (50mL MB+) 50 ML IV (06:08)
[2024-04-04] MEDS: Vancomycin HCl 250 MG Capsule 500 MG PO ×3 (06:09→18:13)
[2024-04-04] MEDS: Insulin Lispro 100 UNIT/ML INSULN.PEN SC ×4 (06:14→21:13)
[2024-04-04 06:28] LABS: Anion Gap 5 (5-15); BUN 30 mg/dL (7-18); BUN/Creat Ratio 21.4 RATIO (10-20); Calcium,Total 7.2 mg/dL (8.5-10.1); Chloride 111 mmol/L (98-107); EST Glomerular Filtration Rate 52 mL/min (>60); Est Glom Filt Rate - Afr Amer 63 mL/min (>60); Estimated Creatinine Clearance 52.13 ml/min; Glucose 195 mg/dL (74-106); Magnesium 1.5 mg/dL (1.6-2.6); Phosphorus 2.5 mg/dL (2.5-4.9); Potassium 3.5 mmol/L (3.5-5.1); Sodium Level 135 mmol/L (136-145)
[2024-04-04 06:34] LABS: Bedside Glucose 165 mg/dL (74-106)
--- NOTE | 2024-04-04 07:50 | PCM.PN.HOSP ---
Reason for Visit Reason for Visit: Diagnoses Elevated white blood cell count, unspecified (04/01/24) Type 2 diabetes mellitus without complications (04/01/24) Hypokalemia (04/01/24) [place] blindness, as defined in [place] (04/01/24) Essential (primary) hypertension (04/01/24) Acute kidney failure, unspecified (04/01/24) Benign prostatic hyperplasia with lower urinary tract symptoms (04/01/24) Frequency of micturition (04/01/24) Weakness (04/01/24) Other complications of procedures, not elsewhere classified, initial encounter (04/01/24) Subjective Subjective Per nursing staff patient continues to have loose bowel movement. Objective Data Objective Data Vital Signs: Vital Signs Temp Pulse Resp BP Pulse Ox O2 Del Method 98.0 F 78 18 124/53 H 96 Room Air 04/04/24 03:39 04/04/24 03:39 04/04/24 03:39 04/04/24 03:39 04/04/24 03:39 04/04/24 03:39 Oxygen Delivery Method Room Air Weight: 106.1 kg Body Mass Index (BMI) 36.6 Intake & Output: Intake and Output for Last 24 Hours 04/02/24 04/03/24 04/04/24 23:59 23:59 23:59 Intake Total 4995.00 / 4995.00 552.25 / 952.25 844.17 / 844.17 Output Total 2775 / 2775 1550 / 2350 1550 / 1550 Balance 2220.00 / 2220.00 -997.75 / -1397.75 -705.83 / -705.83 Lab / Micro Data 04/04/24 05:44 04/04/24 05:44 Labs: Laboratory Results - last 24 hr 04/03/24 08:28: WBC 12.9 H, RBC 2.65 L, Hgb 7.6 L, Hct 23.5 L, MCV 88.7, MCH 28.7, MCHC 32.3, RDW Std Deviation 47.5 H, RDW Coeff of [place] 15.1 H, Plt Count 322, MPV 9.1, Immature Gran % (Auto) 4.700 H, Neut % (Auto) 75.1 H, Lymph % (Auto) 7.4 L, Edwards % (Auto) 9.2, Eos % (Auto) 3.0, Baso % (Auto) 0.6, Absolute Neuts (auto) 9.7 H, Absolute Lymphs (auto) 0.95, Nucleated RBC % 0, Sodium 135 L, Potassium 3.3 L, Chloride 110 H, Carbon Dioxide 19.0 L, Anion Gap 6, BUN 33 H, Creatinine 1.78 H, Estim Creat Clear Calc 40.76, Est GFR (MDRD) Af Amer 48 L, Est GFR (MDRD) Non-Af 40 L, BUN/Creatinine Ratio 18.5, Glucose 168 H, Calcium 7.0 L, Phosphorus 2.6, Magnesium 1.7 04/03/24 11:17: POC Glucose 198 H 04/03/24 16:30: POC Glucose 229 H 04/03/24 20:40: Vancomycin Trough 14.6 04/03/24 22:13: POC Glucose 291 H 04/04/24 05:44: WBC 10.4, RBC 2.92 L, Hgb 8.5 L, Hct 26.0 L, MCV 89.0, MCH 29.1, MCHC 32.7, RDW Std Deviation 49.2 H, RDW Coeff of [place] 15.0 H, Plt Count 322, MPV 8.8, Immature Gran % (Auto) 3.600 H, Neut % (Auto) 66.8, Lymph % (Auto) 11.9 L, Edwards % (Auto) 12.5 H, Eos % (Auto) 4.4, Baso % (Auto) 0.8, Absolute Neuts (auto) 6.9, Absolute Lymphs (auto) 1.23, Nucleated RBC % 0, Sodium 135 L, Potassium 3.5, Chloride 111 H, Carbon Dioxide 19.0 L, Anion Gap 5, BUN 30 H, Creatinine 1.40 H, Estim Creat Clear Calc 52.13, Est GFR (MDRD) Af Amer 63, Est GFR (MDRD) Non-Af 52 L, BUN/Creatinine Ratio 21.4 H, Glucose 195 H, Calcium 7.2 L, Phosphorus 2.5, Magnesium 1.5 L 04/04/24 06:13: POC Glucose 165 H Micro: Microbiology 04/01/24 16:20 Urine Catheter - Mcmahon Urine Culture - Final Presumptive C albicans 04/01/24 18:47 Skin - Groin Gram Stain - Final 04/01/24 18:47 Skin - Groin Wound Culture - Preliminary ESBL Klebsiella pneumoniae pne Staphylococcus aureus GPC Poss Enterococcus sp 04/01/24 22:35 Stool Enteric Bacteriology - Final 04/01/24 22:35 Stool C. difficile GDH Antigen & Toxins - Final Toxigenic C. difficile 04/01/24 22:35 Stool Clostridioides difficile (PCR) - Final 04/01/24 15:45 Mucosa - Throat SARS-CoV-2, Influenza & RSV (PCR) - Final Physical Exam Narrative GENERAL: cooperative HEENT: Atraumatic; normocephalic EYES; Anicteric, Normal Conjunctiva NECK; supple, normal thyroid, RESPIRATORY: Diminished to auscultation CARDIOVASCULAR: Regular S1 S2, GI: soft, normoactive bowel sounds, : No Renal angle tenderness; Mcmahon catheter in place EXTREMITIES: No edema, no clubbing, MUSCULOSKELETAL: no muscle wasting NEURO: Awake; no lateralizing signs. SKIN: No Rash Skin: Patient with raw area in right groin with gauze over it time of my exam PSYCH; Flat affect Assessment & Plan Assessment/Plan (1) Leukocytosis: (2) Hypokalemia: PLAN: Plan Patient is a 78-year-old gentleman resident at an extended care facility who was brought to the emergency department with diarrhea with concern for possible C. difficile. Was found to have leukocytosis. C. difficile PCR came back positive 1. Acute C. difficile colitis ? Patient presented with diarrhea as well as significant leukocytosis PCR came back positive patient started on p.o. vancomycin ? 04/04/2024; patient remains on p.o. vancomycin 2. Suspected catheter associated complicated UTI ? Patient urinalysis was obtained from his Mcmahon catheter came back abnormal (?? Reliability questionable). Patient had bladder wall thickening on CT. Started on Zosyn cultures sent we will follow-up on urine results ? 04/03/2024; urine cultures pending 3. Acute kidney injury ? Secondary to significant fluid losses from patient's diarrhea. Started on IV fluid with subsequent monitoring of electrolytes ordered. CT of the abdomen and pelvis demonstrated bilateral hydroureteral and hydronephrosis with bladder wall thickening. Patient started on IV fluid with daily monitoring with BMPs ordered 4. Paroxysmal SVT ? Patient is on a monitored bed 5. Diabetes mellitus type II -patient's oral hypoglycemics held. Placed on long acting insulin, Accu-Cheks a.c. and at bedtime and covered with sliding scale insulin 6. BPH with lower urinary obstructive symptoms - Patient treated with tamsulosin 7. Dyslipidemia -Patient is on statin therapy, continued at home dose 8. Anemia - Secondary to chronic disorder monitoring H&H and transfuse if patient becomes symptomatic or hemoglobin falls below 7 9. Essential hypertension ? Patient home meds held given his relatively low blood pressure 10. Infected chronic decubitus coccygeal wound and chronic right groin wound -Wound care ? Wound cultures obtained coming back positive for ESBL Klebsiella pneumonia as well as Staph aureus and GPC Enterococcus. Consult placed to ID 11. Hypokalemia -Corrected per protocol, repeat BMP ordered for a.m. 12. Anxiety disorder ? Patient is on buspirone and trazodone continue 13. Intertrigo ? Patient started on nystatin 14. DVT prophylaxis -Subcu heparin Time spent in the patient's overall evaluation,decision-making process, review of diagnostic data, adjustment of management, discussion with other providers, nursing nursing and ancillary staff involved in patient's care documentation, 36 minutes Charges/Coding Visit Charges Inpatient E&M: 11350 Subs Hosp L2
[2024-04-04 09:30] VITALS: BP 134/54; PULSE 89; RESP 18; TEMP 36.7; O2SAT 100
[2024-04-04] MEDS: Nystatin Powder 15gm Bottle 1 APPLIC TOPICAL ×2 (09:39→21:12)
[2024-04-04] MEDS: Menthol/Lanolin/Calamine/Znox 113 GM Tube 1 APPLIC TOPICAL ×4 (09:39→21:12)
[2024-04-04] MEDS: Famotidine 20 MG Tablet PO (09:45)
[2024-04-04] MEDS: Magnesium Sulfate 2 GM in Dextrose 5%-Water (100mL Bag) 100 ML IV (09:45)
[2024-04-04] MEDS: busPIRone 5 MG Tablet PO ×2 (09:45→21:13)
[2024-04-04] MEDS: SimETHICONE 80 MG Chewable Tablet PO ×2 (09:45→18:13)
--- NOTE | 2024-04-04 10:24 | CON.PCM.ID_ITS ---
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 difficile diarrhea: PLAN: CRISTY improving. On po vanc for cdiff. Wound care to see. Wound cx with esbl klebs, staph aureus, and enterococcus. Will change vanc/zosyn to vanc/tyler. Will follow, thank you HPI Consult Data Date of Consult: 04/04/24 HPI Narrative Reason for Consultation: wound infection HPI Narrative: WILLIAM PLUMMER, is a 78 M legally blind, h/o DM, BPH, presented 04/01 from [facility] with weakness, diarrhea, concern for pelvic wound infection. Admitted here 03/23-03/25, discharged on cipro for uti. No abd pain, no fever. Still with some diarrhea. Reports overall wound has been improving at [facility]. Full ROS performed and neg except as noted above. [facility] Medical History Decubitus ulcer of coccygeal region, stage 3 Non-healing surgical wound of right groin Unilateral primary osteoarthritis, left hip Contusion of hip, left Fall High cholesterol Enlarged prostate Diabetes Legally blind Home Medications ?Medication ?Instructions ?Recorded ?Last Taken ?Type ascorbic acid (vitamin C) 1,000 mg 1,000 mg PO DAILY supplement 11/09/19 04/01/24 History tablet acetaminophen 325 mg tablet 650 mg PO Q4H PRN Pain 1-5 Or 12/08/23 12/07/23 History Fever >100.7 tamsulosin 0.4 mg capsule 0.4 mg PO BID prostate health 12/08/23 04/01/24 History acetaminophen 650 mg rectal 650 mg OR Q4H PRN pain 03/23/24 03/31/24 History suppository aluminum-magnesium hydroxide 200 30 ml PO Q4H PRN GI DISTRESS 03/23/24 Unknown History mg-200 mg/5 mL oral suspension atorvastatin 40 mg tablet 40 mg PO QHS CHOLESTEROL 03/23/24 03/31/24 History bisacodyl 10 mg rectal suppository 10 mg OR DAILY PRN constipation 03/23/24 Unknown History buspirone 5 mg tablet 5 mg PO BID anxiety 03/23/24 04/01/24 History cyclobenzaprine 10 mg tablet 10 mg PO Q8H PRN muscle spasm 03/23/24 03/31/24 History famotidine 20 mg tablet 20 mg PO BID 03/23/24 04/01/24 History finasteride 5 mg tablet 5 mg PO DAILY 03/23/24 04/01/24 History guaifenesin 100 mg/5 mL oral 200 mg PO Q4H PRN congestion 03/23/24 Unknown History liquid (Adult Tussin Chest Congestion) insulin glargine 100 unit/mL (3 10 unit subcut DAILY diabetes 03/23/24 04/01/24 History mL) subcutaneous pen (Lantus Solostar U-100 Insulin) insulin lispro 100 unit/mL 1 sliding scale dose subcut 4X/DAY 03/23/24 04/01/24 History subcutaneous pen (Humalog KwikPen diabetes (U-100) Insulin) melatonin 5 mg tablet 5 mg PO QHS sleep 03/23/24 03/31/24 History menthol 0.44 %-zinc oxide 20.6 % 1 applic topical DAILY 03/23/24 03/31/24 History topical ointment (Calmoseptine) simethicone 80 mg chewable tablet 80 mg PO BID 03/23/24 04/01/24 History sodium phosphates 19 gram-7 118 ml OR DAILY PRN constipation 03/23/24 Unknown History gram/118 mL enema (Enema) trazodone 50 mg tablet 50 mg PO QHS sleep 03/23/24 03/31/24 History amlodipine 10 mg tablet 10 mg PO DAILY #0 tabs 03/25/24 04/01/24 Rx Lactobacillus rhamnosus GG 10 1 cap PO BID 04/01/24 04/01/24 History billion cell capsule (Culturelle) multivitamin (Daily Multi-Vitamin 1 tab PO DAILY 04/01/24 04/01/24 History tablet) Allergy/AdvReac Type Severity Reaction Status Date / Time No Known Allergies Allergy Verified 04/01/24 15:06 Family History Other Cancer Heart disease Surgical History Status post tonsillectomy Social History Smoking Status: Former smoker Physical Exam Const alert, oriented x3 and no apparent distress General Appearance: cooperative HEENT normocephalic and head/scalp atraumatic Eyes EOMs intact bilaterally Neck supple and No nodes Resp normal air movement and clear to auscultation bilaterally Cardio regular rate and regular rhythm GI soft to palpation, non-tender and non-distended Extremity General Extremity: Negative for edema Skin Skin Narrative: unable to see wound, wound care to see today Neuro CN's II-XII intact bilaterally Lab / Micro Data Attestation: I reviewed the patient's lab results. 04/04/24 05:44 04/04/24 05:44 Labs: Laboratory Results - last 24 hr 04/03/24 11:17: POC Glucose 198 H 04/03/24 16:30: POC Glucose 229 H 04/03/24 20:40: Vancomycin Trough 14.6 04/03/24 22:13: POC Glucose 291 H 04/04/24 05:44: WBC 10.4, RBC 2.92 L, Hgb 8.5 L, Hct 26.0 L, MCV 89.0, MCH 29.1, MCHC 32.7, RDW Std Deviation 49.2 H, RDW Coeff of [place] 15.0 H, Plt Count 322, MPV 8.8, Immature Gran % (Auto) 3.600 H, Neut % (Auto) 66.8, Lymph % (Auto) 11.9 L, [place] % (Auto) 12.5 H, Eos % (Auto) 4.4, Baso % (Auto) 0.8, Absolute Neuts (auto) 6.9, Absolute Lymphs (auto) 1.23, Nucleated RBC % 0, Sodium 135 L, Potassium 3.5, Chloride 111 H, Carbon Dioxide 19.0 L, Anion Gap 5, BUN 30 H, Creatinine 1.40 H, Estim Creat Clear Calc 52.13, Est GFR (MDRD) Af Amer 63, Est GFR (MDRD) Non-Af 52 L, BUN/Creatinine Ratio 21.4 H, Glucose 195 H, Calcium 7.2 L, Phosphorus 2.5, Magnesium 1.5 L 04/04/24 06:13: POC Glucose 165 H Micro: Microbiology 04/01/24 16:18 Blood Culture (Wb) - Anticubital Left Blood Culture - Preliminary No growth in 48 hours. 04/01/24 16:20 Urine Catheter - Mcmahon Urine Culture - Final Presumptive C albicans 04/01/24 18:47 Skin - Groin Gram Stain - Final 04/01/24 18:47 Skin - Groin Wound Culture - Preliminary ESBL Klebsiella pneumoniae pne Staphylococcus aureus GPC Poss Enterococcus sp
--- NOTE | 2024-04-04 10:57 | CASEMGMT ---
Discharge Planning Updates sent to [facility] via [employer]. Kavitha Cabrera DC Planning Asst.
[2024-04-04 11:23] LABS: Bedside Glucose 216 mg/dL (74-106)
[2024-04-04] MEDS: Meropenem 1 GM in 0.9% Normal Saline (100mL MB+) 100 ML IV ×2 (13:30→23:00)
[2024-04-04 13:43] LABS: Pathologist Review Reviewed
[2024-04-04 13:44] LABS: Pathologist Review Reviewed
--- NOTE | 2024-04-04 14:30 | CASEMGMT ---
BENJIE called patient's and confirmed the plan is for patient to go back to [facility] at discharge. Plan: d/c back to [facility]. Paty VILLALPANDO
[2024-04-04 15:14] VITALS: BP 142/70; PULSE 81; RESP 18; TEMP 36.5; O2SAT 100
--- NOTE | 2024-04-04 16:09 | WOUNDNOTE ---
wound photo: right groin
[2024-04-04 17:05] LABS: Bedside Glucose 238 mg/dL (74-106)
[2024-04-04 20:53] VITALS: PULSE 80
[2024-04-04 21:04] VITALS: BP 138/74; PULSE 83; RESP 20; TEMP 36.5; O2SAT 99
[2024-04-04] MEDS: Vancomycin IV 1,000 MG/200 ML BAG 200 MG IV (21:12)
[2024-04-04] MEDS: Atorvastatin Calcium 40 MG Tablet PO (21:13)
[2024-04-04] MEDS: traZODone 50 MG Tablet PO (21:13)
[2024-04-04 21:42] LABS: Bedside Glucose 262 mg/dL (74-106)
[2024-04-04] MEDS: 0.9% Saline Lock 10 ML Syringe IV (23:07)
[2024-04-05] MEDS: Vancomycin HCl 250 MG Capsule 500 MG PO ×4 (00:09→17:50)
[2024-04-05 03:00] VITALS: BP 137/57; PULSE 78; RESP 14; TEMP 36.8; O2SAT 99
[2024-04-05 04:17] VITALS: BMI 36.6
[2024-04-05] MEDS: Meropenem 1 GM in 0.9% Normal Saline (100mL MB+) 100 ML IV ×3 (06:47→21:04)
[2024-04-05] MEDS: Insulin Lispro 100 UNIT/ML INSULN.PEN SC ×4 (06:47→21:19)
[2024-04-05 07:06] LABS: Absolute Lymphocyte Count 1.28 X10^3/uL (0.83-4.51); Absolute Neutrophil Count 8.4 X10^3/uL (2.0-7.7); Basophil# 0.09 X10^3/uL; Basophil% 0.8 % (0-1); Eosinophil# 0.57 X10^3/uL; Eosinophils% 4.9 % (0-5); Hematocrit 27.5 % (40-54); Lymphocyte # 1.28 X10^3/ul (0.83-4.51); Lymphocyte % 10.9 % (19-41); Mean Corp Hgb Conc 32.7 g/dL (32-36); Mean Corpuscular Hgb 29.4 pg (27.0-32.0); Mean Corpuscular Volume 89.9 fL (80-94); Monocyte# 1.07 X10^3/uL; Monocyte% 9.1 % (0-10); NRBC Flagged by Analyzer 0 % (0-5); Neutrophil # 8.38 X10^3/uL (2.7-7.7); Neutrophil % 71.7 % (47-70); Platelet Count 343 K/mm3 (150-450); RBC Distribution Width SD 49.1 fl (35.1-43.9); Red Blood Count 3.06 M/mm3 (4.6-6.2); White Blood Count 11.7 K/mm3 (4.4-11.0)
[2024-04-05 07:12] LABS: Bedside Glucose 176 mg/dL (74-106)
[2024-04-05 07:38] LABS: Anion Gap 4 (5-15); BUN 22 mg/dL (7-18); BUN/Creat Ratio 19.1 RATIO (10-20); Calcium,Total 7.4 mg/dL (8.5-10.1); Chloride 113 mmol/L (98-107); Creatinine, Serum 1.15 mg/dL (0.70-1.30); EST Glomerular Filtration Rate 66 mL/min (>60); Est Glom Filt Rate - Afr Amer 80 mL/min (>60); Glucose 218 mg/dL (74-106); Potassium 3.4 mmol/L (3.5-5.1); Sodium Level 139 mmol/L (136-145)
[2024-04-05 09:00] VITALS: BP 127/88; PULSE 90; RESP 16; TEMP 36.6; O2SAT 100
[2024-04-05] MEDS: Nystatin Powder 15gm Bottle 1 APPLIC TOPICAL ×2 (09:50→21:07)
[2024-04-05] MEDS: Potassium Chloride Oral Tablet 20 MEQ 40 MEQ PO (09:50)
[2024-04-05] MEDS: Menthol/Lanolin/Calamine/Znox 113 GM Tube 1 APPLIC TOPICAL ×4 (09:50→21:08)
[2024-04-05] MEDS: SimETHICONE 80 MG Chewable Tablet PO ×2 (09:50→17:50)
[2024-04-05] MEDS: busPIRone 5 MG Tablet PO (09:50)
[2024-04-05] MEDS: Famotidine 20 MG Tablet PO (09:50)
--- NOTE | 2024-04-05 10:55 | PCM.PN.ID ---
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 difficile diarrhea: PLAN: CRISTY improving. On po vanc for cdiff. Wound care following for R infected groin wound. Wound cx with esbl klebs, VRE, MRSA. Will change to linezolid/tyler. Will follow
[2024-04-05] MEDS: Linezolid 600 MG Tablet PO (12:03)
[2024-04-05] MEDS: Acetaminophen 325 MG Tablet 650 MG PO (12:14)
[2024-04-05 12:25] LABS: Bedside Glucose 241 mg/dL (74-106)
[2024-04-05 14:47] VITALS: BP 148/54; PULSE 89; RESP 16; TEMP 36.6; O2SAT 100
--- NOTE | 2024-04-05 14:52 | PN_ITS ---
Subjective Subjective Patient seen and examined. He was lying comfortably in bed. Patient is legally blind. He had no complaints. He actually told me he did not have diarrhea and expressed surprise that he had C. difficile. He is currently not having diarrhea. Review of systems otherwise negative. He has remained hemodynamically stable. Objective Data Objective Data Vital Signs: Vital Signs Temp Pulse Resp BP Pulse Ox O2 Del Method 97.8 F 89 16 148/54 H 100 Room Air 04/05/24 14:47 04/05/24 14:47 04/05/24 14:47 04/05/24 14:47 04/05/24 14:47 04/05/24 14:47 Oxygen Delivery Method Room Air Weight: 233 lb 7.512 oz Body Mass Index (BMI) 36.6 Intake & Output: Intake and Output for Last 24 Hours 04/03/24 04/04/24 04/05/24 23:59 23:59 23:59 Intake Total 552.25 / 952.25 1718.17 / 1718.17 840 / 840 Output Total 1550 / 2350 2875 / 3275 1350 / 1350 Balance -997.75 / -1397.75 -1156.83 / -1556.83 -510 / -510 Lab / Micro Data 04/05/24 06:31 04/05/24 06:31 Labs: Laboratory Results - last 24 hr 04/04/24 16:25: POC Glucose 238 H 04/04/24 21:07: POC Glucose 262 H 04/05/24 06:31: WBC 11.7 H, RBC 3.06 L, Hgb 9.0 L, Hct 27.5 L, MCV 89.9, MCH 29.4, MCHC 32.7, RDW Std Deviation 49.1 H, RDW Coeff of [place] 15.0 H, Plt Count 343, MPV 9.0, Immature Gran % (Auto) 2.600 H, Neut % (Auto) 71.7 H, Lymph % (Auto) 10.9 L, [place] % (Auto) 9.1, Eos % (Auto) 4.9, Baso % (Auto) 0.8, Absolute Neuts (auto) 8.4 H, Absolute Lymphs (auto) 1.28, Nucleated RBC % 0, Sodium 139, Potassium 3.4 L, Chloride 113 H, Carbon Dioxide 22.0, Anion Gap 4 L, BUN 22 H, Creatinine 1.15, Estim Creat Clear Calc 63.40, Est GFR (MDRD) Af Amer 80, Est GFR (MDRD) Non-Af 66, BUN/Creatinine Ratio 19.1, Glucose 218 H, Calcium 7.4 L 04/05/24 06:45: POC Glucose 176 H 04/05/24 12:06: POC Glucose 241 H Micro: Microbiology 04/01/24 18:47 Skin - Groin Gram Stain - Final 04/01/24 18:47 Skin - Groin Wound Culture - Final ESBL Klebsiella pneumoniae pne Meth. resistant Staph. aureus Vancomycin Resist. E. faecium Coag Negative Staph 04/01/24 16:18 Blood Culture (Wb) - Anticubital Left Blood Culture - Preliminary No growth in 48 hours. 04/01/24 16:20 Urine Catheter - Mcmahon Urine Culture - Final Presumptive C albicans 04/01/24 22:35 Stool Enteric Bacteriology - Final 04/01/24 22:35 Stool C. difficile GDH Antigen & Toxins - Final Toxigenic C. difficile 04/01/24 22:35 Stool Clostridioides difficile (PCR) - Final 04/01/24 15:45 Mucosa - Throat SARS-CoV-2, Influenza & RSV (PCR) - Final Physical Exam Const alert, oriented x3 and no apparent distress Constitutional Narrative: frail, legally blind General Appearance: cooperative HEENT normocephalic, head/scalp atraumatic, moist oral mucous membranes and oropharynx normal Eyes PERRL and EOMs intact bilaterally Neck no lymphadenopathy, supple and no JVD Lymph Lymphatic: no lymphadenopathy noted and no lymphedema noted Resp normal respiratory effort, normal air movement and clear to auscultation bilaterally Cardio regular rate, regular rhythm, S1 normal heart sound, S2 normal heart sound and no murmurs Peripheral Pulses: pulses 2+ throughout GI normal to inspection, nondistended, normoactive bowel sounds, soft to palpation, non-tender and non-distended Extremity normal capillary refill, no clubbing, cyanosis or edema and no calf tenderness General Extremity: no tenderness to palpation of joints or extremities Skin General Skin Exam: no breakdown and turgor normal Neuro CN's II-XII intact bilaterally, no focal motor deficits, no sensory deficits noted and deep tendon reflexes 2+ bilaterally Coordination / Balance: [id number] test normal Motor Exam: general weakness Psych thought process normal, cooperative and affect normal Appearance: appropriate Assessment & Plan Assessment/Plan (1) C. difficile diarrhea: (2) Decubitus ulcer of coccygeal region, stage 3: (3) Non-healing surgical wound of right groin: PLAN: Plan #Acute C diff colitis * Diarrhea is now improving. Currently on p.o. vancomycin. ID on board. * And contact precautions. #Catheter associated UTI * Currently on IV Zosyn. Now escalated to IV meropenem. ID on board. Urine cultures pending * #Hypokalemia: Potassium was 3.4. Replace and trend. #CRISTY: * CT of the abdomen and pelvis showed bilateral hydroureter and hydronephrosis with bladder wall thickening. * currently being hydrated with IVF * #Paroxysmal SVT: stable. #Type II diabetes mellitus: on lantus. ISS. Accuchecks ACHS #Hyperlipidemia: on statin #BPH with lower urinary obstructive symptoms: on flomax #Benign essential hypertension: #Infected chronic decubitus ulcer all of the Kocsis and right groin wound. * ID on board. Wound cultures were positive for ESBL Klebsiella as well as Staph aureus and GPC Enterococcus. * on linezolid and meropenem * #Hypokalemia: resove. #Anxiety disorder: on buspirone and trazodone DVT prophylaxis: heparin Charges/Coding Visit Charges Inpatient E&M: 07363 Subs Hosp L2
[2024-04-05 17:09] LABS: Bedside Glucose 261 mg/dL (74-106)
[2024-04-05 21:00] VITALS: BP 155/69; PULSE 101; RESP 18; TEMP 36.8; O2SAT 99
[2024-04-05] MEDS: Atorvastatin Calcium 40 MG Tablet PO (21:06)
[2024-04-05] MEDS: traZODone 50 MG Tablet PO (21:06)
[2024-04-06 00:54] LABS: Bedside Glucose 232 mg/dL (74-106)
[2024-04-06] MEDS: Linezolid 600 MG Tablet PO ×3 (01:56→20:23)
[2024-04-06] MEDS: Vancomycin HCl 250 MG Capsule 500 MG PO ×4 (01:56→20:23)
[2024-04-06] MEDS: busPIRone 5 MG Tablet PO ×3 (01:56→20:23)
[2024-04-06 06:00] VITALS: BP 115/57; PULSE 89; RESP 18; TEMP 36.7; O2SAT 97; BMI 36.3
[2024-04-06] MEDS: Meropenem 1 GM in 0.9% Normal Saline (100mL MB+) 100 ML IV ×3 (06:20→22:21)
[2024-04-06] MEDS: Insulin Lispro 100 UNIT/ML INSULN.PEN SC ×3 (06:21→22:25)
[2024-04-06 06:56] LABS: Bedside Glucose 152 mg/dL (74-106)
[2024-04-06 07:09] LABS: Absolute Neutrophil Count 5.9 X10^3/uL (2.0-7.7); Basophil# 0.05 X10^3/uL; Basophil% 0.6 % (0-1); Eosinophil# 0.58 X10^3/uL; Hematocrit 25.8 % (40-54); Hemoglobin 8.5 g/dL (13.0-16.5); Lymphocyte % 9.7 % (19-41); Mean Corp Hgb Conc 32.9 g/dL (32-36); Mean Corpuscular Hgb 29.2 pg (27.0-32.0); Mean Corpuscular Volume 88.7 fL (80-94); Mean Platelet Vol. 8.8 fl (6.2-12.0); Monocyte# 0.74 X10^3/uL; NRBC Flagged by Analyzer 0 % (0-5); Neutrophil # 5.85 X10^3/uL (2.7-7.7); Neutrophil % 70.9 % (47-70); Platelet Count 284 K/mm3 (150-450); RBC Distribution Width SD 48.3 fl (35.1-43.9); Red Blood Count 2.91 M/mm3 (4.6-6.2); White Blood Count 8.3 K/mm3 (4.4-11.0)
[2024-04-06 07:28] LABS: Anion Gap 4 (5-15); BUN 15 mg/dL (7-18); BUN/Creat Ratio 16.4 RATIO (10-20); Calcium,Total 7.1 mg/dL (8.5-10.1); Chloride 108 mmol/L (98-107); Creatinine, Serum 0.92 mg/dL (0.70-1.30); EST Glomerular Filtration Rate 86 mL/min (>60); Est Glom Filt Rate - Afr Amer 103 mL/min (>60); Estimated Creatinine Clearance 79.05 ml/min; Glucose 163 mg/dL (74-106); Potassium 3.7 mmol/L (3.5-5.1); Sodium Level 133 mmol/L (136-145)
[2024-04-06] MEDS: SimETHICONE 80 MG Chewable Tablet PO ×2 (09:29→20:26)
[2024-04-06] MEDS: Menthol/Lanolin/Calamine/Znox 113 GM Tube 1 APPLIC TOPICAL ×4 (09:29→22:26)
[2024-04-06] MEDS: Famotidine 20 MG Tablet PO (09:30)
[2024-04-06 09:35] VITALS: BP 141/76; PULSE 77; RESP 14; TEMP 36.7; O2SAT 99
[2024-04-06] MEDS: Nystatin Powder 15gm Bottle 1 APPLIC TOPICAL ×2 (09:40→20:23)
--- NOTE | 2024-04-06 10:28 | PN_ITS ---
Subjective Subjective Patient seen and examined. He has no complaints and had an uneventful night. He denies having any diarrhea. Review of systems otherwise negative. He has remained hemodynamically stable. Objective Data Objective Data Vital Signs: Vital Signs Temp Pulse Resp BP Pulse Ox O2 Del Method 98.0 F 77 14 141/76 H 99 Room Air 04/06/24 09:35 04/06/24 09:35 04/06/24 09:35 04/06/24 09:35 04/06/24 09:35 04/06/24 09:45 Oxygen Delivery Method Room Air Weight: 232 lb 5.875 oz Body Mass Index (BMI) 36.3 Intake & Output: Intake and Output for Last 24 Hours 04/04/24 04/05/24 04/06/24 23:59 23:59 23:59 Intake Total 1718.17 / 1718.17 1660 / 2680 1260 / 1260 Output Total 2875 / 3275 1350 / 2550 1200 / 1200 Balance -1156.83 / -1556.83 310 / 130 60 / 60 Lab / Micro Data 04/06/24 06:55 04/06/24 06:55 Labs: Laboratory Results - last 24 hr 04/05/24 12:06: POC Glucose 241 H 04/05/24 16:49: POC Glucose 261 H 04/05/24 21:18: POC Glucose 232 H 04/06/24 06:18: POC Glucose 152 H 04/06/24 06:55: WBC 8.3, RBC 2.91 L, Hgb 8.5 L, Hct 25.8 L, MCV 88.7, MCH 29.2, MCHC 32.9, RDW Std Deviation 48.3 H, RDW Coeff of [place] 15.0 H, Plt Count 284, MPV 8.8, Immature Gran % (Auto) 2.800 H, Neut % (Auto) 70.9 H, Lymph % (Auto) 9.7 L, [place] % (Auto) 9.0, Eos % (Auto) 7.0 H, Baso % (Auto) 0.6, Absolute Neuts (auto) 5.9, Absolute Lymphs (auto) 0.80 L, Nucleated RBC % 0, Sodium 133 L, Potassium 3.7, Chloride 108 H, Carbon Dioxide 21.0, Anion Gap 4 L, BUN 15, Creatinine 0.92, Estim Creat Clear Calc 79.05, Est GFR (MDRD) Af Amer 103, Est GFR (MDRD) Non-Af 86, BUN/Creatinine Ratio 16.4, Glucose 163 H, Calcium 7.1 L Micro: Microbiology 04/01/24 18:47 Skin - Groin Gram Stain - Final 04/01/24 18:47 Skin - Groin Wound Culture - Final ESBL Klebsiella pneumoniae pne Meth. resistant Staph. aureus Vancomycin Resist. E. faecium Coag Negative Staph 04/01/24 16:18 Blood Culture (Wb) - Anticubital Left Blood Culture - Preliminary No growth in 48 hours. 04/01/24 16:20 Urine Catheter - Mcmahon Urine Culture - Final Presumptive C albicans 04/01/24 22:35 Stool Enteric Bacteriology - Final 04/01/24 22:35 Stool C. difficile GDH Antigen & Toxins - Final Toxigenic C. difficile 04/01/24 22:35 Stool Clostridioides difficile (PCR) - Final 04/01/24 15:45 Mucosa - Throat SARS-CoV-2, Influenza & RSV (PCR) - Final Physical Exam Const alert, oriented x3 and no apparent distress Constitutional Narrative: frail, legally blind General Appearance: cooperative HEENT normocephalic, head/scalp atraumatic, moist oral mucous membranes and oropharynx normal Eyes PERRL and EOMs intact bilaterally Neck no lymphadenopathy, supple and no JVD Lymph Lymphatic: no lymphadenopathy noted and no lymphedema noted Resp normal respiratory effort, normal air movement and clear to auscultation bilaterally Cardio regular rate, regular rhythm, S1 normal heart sound, S2 normal heart sound and no murmurs Peripheral Pulses: pulses 2+ throughout GI normal to inspection, nondistended, normoactive bowel sounds, soft to palpation, non-tender and non-distended Extremity normal capillary refill, no clubbing, cyanosis or edema and no calf tenderness General Extremity: no tenderness to palpation of joints or extremities Skin General Skin Exam: no breakdown and turgor normal Neuro CN's II-XII intact bilaterally, no focal motor deficits, no sensory deficits noted and deep tendon reflexes 2+ bilaterally Coordination / Balance: [id number] test normal Motor Exam: general weakness Psych thought process normal, cooperative and affect normal Appearance: appropriate Assessment & Plan Assessment/Plan (1) C. difficile diarrhea: (2) Decubitus ulcer of coccygeal region, stage 3: (3) Non-healing surgical wound of right groin: PLAN: Plan #Acute C diff colitis * Diarrhea has largely resolved. Currently on p.o. vancomycin. ID on board. * in contact precautions. #Catheter associated UTI * Currently on linezolid and IV meropenem due to infected sacral decubitus ulcers. ID on board. Urine cultures pending * #Hypokalemia: resolved. K is 3.7 today #CRISTY: * CT of the abdomen and pelvis showed bilateral hydroureter and hydronephrosis with bladder wall thickening. * resolved. Cr is 0.92 today. * #Paroxysmal SVT: stable. #Type II diabetes mellitus: on lantus. ISS. Accuchecks ACHS #Hyperlipidemia: on statin #BPH with lower urinary obstructive symptoms: on flomax #Benign essential hypertension: #Infected chronic decubitus ulcer all of the Kocsis and right groin wound. * ID on board. Wound cultures were positive for ESBL Klebsiella as well as Staph aureus and GPC Enterococcus. * on linezolid and meropenem * #Hypokalemia: resove. #Anxiety disorder: on buspirone and trazodone DVT prophylaxis: heparin Charges/Coding Visit Charges Inpatient E&M: 20742 Subs Hosp L2
[2024-04-06 11:44] LABS: Bedside Glucose 184 mg/dL (74-106)
[2024-04-06 16:00] VITALS: BP 124/56; PULSE 86; RESP 16; TEMP 36.7; O2SAT 99
[2024-04-06 18:40] LABS: Bedside Glucose 227 mg/dL (74-106)
[2024-04-06] MEDS: traZODone 50 MG Tablet PO (20:23)
[2024-04-06] MEDS: Atorvastatin Calcium 40 MG Tablet PO (20:23)
[2024-04-06 20:33] VITALS: BP 132/61; PULSE 88; RESP 16; TEMP 36.6; O2SAT 99
[2024-04-06 22:45] LABS: Bedside Glucose 226 mg/dL (74-106)
[2024-04-07] MEDS: Vancomycin HCl 250 MG Capsule 500 MG PO ×3 (00:07→12:45)
[2024-04-07 03:10] VITALS: BP 126/58; PULSE 74; RESP 19; TEMP 37.3; O2SAT 96
[2024-04-07] MEDS: Meropenem 1 GM in 0.9% Normal Saline (100mL MB+) 100 ML IV (05:05)
[2024-04-07] MEDS: 0.9% Saline Lock 10 ML Syringe IV (05:05)
[2024-04-07 05:16] VITALS: BP 133/64; PULSE 78; RESP 18; TEMP 36.8; O2SAT 98
[2024-04-07 05:18] VITALS: BMI 36.3
[2024-04-07] MEDS: Insulin Lispro 100 UNIT/ML INSULN.PEN SC ×2 (06:32→12:47)
[2024-04-07 07:00] LABS: Bedside Glucose 159 mg/dL (74-106)
[2024-04-07 08:15] LABS: Absolute Lymphocyte Count 0.68 X10^3/uL (0.83-4.51); Absolute Neutrophil Count 6.2 X10^3/uL (2.0-7.7); Basophil# 0.06 X10^3/uL; Basophil% 0.7 % (0-1); Eosinophil# 0.79 X10^3/uL; Hematocrit 26.1 % (40-54); Hemoglobin 8.8 g/dL (13.0-16.5); Lymphocyte # 0.68 X10^3/ul (0.83-4.51); Lymphocyte % 7.8 % (19-41); Mean Corp Hgb Conc 33.7 g/dL (32-36); Mean Corpuscular Hgb 29.6 pg (27.0-32.0); Mean Corpuscular Volume 87.9 fL (80-94); Mean Platelet Vol. 8.5 fl (6.2-12.0); Monocyte# 0.69 X10^3/uL; Monocyte% 7.9 % (0-10); NRBC Flagged by Analyzer 0 % (0-5); Neutrophil # 6.16 X10^3/uL (2.7-7.7); Neutrophil % 70.5 % (47-70); Platelet Count 249 K/mm3 (150-450); RBC Distribution Width CV 15.2 % (11.6-14.6); RBC Distribution Width SD 48.6 fl (35.1-43.9); Red Blood Count 2.97 M/mm3 (4.6-6.2); White Blood Count 8.7 K/mm3 (4.4-11.0)
[2024-04-07 08:50] LABS: Anion Gap 3 (5-15); BUN 11 mg/dL (7-18); BUN/Creat Ratio 12.6 RATIO (10-20); Calcium,Total 7.1 mg/dL (8.5-10.1); Chloride 109 mmol/L (98-107); Creatinine, Serum 0.87 mg/dL (0.70-1.30); EST Glomerular Filtration Rate 90 mL/min (>60); Est Glom Filt Rate - Afr Amer 109 mL/min (>60); Estimated Creatinine Clearance 83.56 ml/min; Glucose 150 mg/dL (74-106); Potassium 3.8 mmol/L (3.5-5.1); Sodium Level 134 mmol/L (136-145)
--- NOTE | 2024-04-07 09:32 | CASEMGMT ---
Discharge Planning Updates sent to [facility] with note that pt may return today. Kavitha Cabrera DC Planning Asst.
--- NOTE | 2024-04-07 09:47 | CASEMGMT ---
SW received prescriptions for patient's antibiotics at discharge. SW updated physician. Paty VILLALPANDO
--- NOTE | 2024-04-07 10:08 | PCM.PN.ID ---
Physical Exam Narrative Feeling well, diarrhea improved, no fever Const alert and no apparent distress General Appearance: cooperative Resp normal air movement and clear to auscultation bilaterally Cardio regular rate and regular rhythm GI soft to palpation, non-tender and non-distended Skin Skin Narrative: no new rash ID ID: Route of nutrition/ use of supplements: [] Nutritional Intake: [] IV Site: [] Mcmahon Catheter: [] Assessment & Plan Assessment/Plan (1) Type 2 diabetes mellitus: QUALIFIERS: Diabetes mellitus chcf insulin use: without buttermaker helper use Diabetes mellitus complication status: without complication Qualified Code(s): E11.9 - Type 2 diabetes mellitus without complications (2) Non-healing surgical wound of right groin: (3) C. difficile diarrhea: PLAN: CRISTY improving. On po vanc for cdiff. Wound care following for R infected groin wound. Wound cx with esbl klebs, VRE, MRSA. On linezolid/tyler. Ok for discharge to [facility]CF with 5 more days po linezolid, IM ertapenem. 12 more days po vanc for cdiff. Will follow prn, wrote rx, d/w patient case manager
[2024-04-07 10:27] VITALS: BP 141/54; PULSE 71; RESP 16; TEMP 36.7; O2SAT 97
--- NOTE | 2024-04-07 10:30 | TREXTCAR_ITS ---
Diet Diet Order/Speech Therapy: 04/02/24 11:22 Diet: Cardiac: Calorie-Controlled Food consistency:: Regular Liquid Consistency:: Regular/Thin Dietary Modifications:: Consistent Carbohydrate Diet Comments: dist supervision How many daily calories?: 1999 calorie Routine Orders/Code Status Enema Type: Fleetz Enema Frequency: Daily PRN Suppository Frequency: Daily PRN O2 Frequency: PRN Keep PO Greater than or Equal to (%): 90 Wound(s) R groin: Wound Type: healing surgical wound Dressing Change: Aquacel Extra coccyx: Wound Type: Pressure Injury Therapies Weight Bearing: Weight bearing as tolerated Physical Therapy: Eval and Treat Occupational Therapy: Eval and Treat Problem/Diagnosis (1) Type 2 diabetes mellitus: Status: Acute Code(s): E11.9 - Type 2 diabetes mellitus without complications (2) Non-healing surgical wound of right groin: Status: Acute Code(s): T81.89XA - Other complications of procedures, not elsewhere classified, initial encounter (3) C. difficile diarrhea: Status: Acute Code(s): A04.72 - Enterocolitis due to Clostridium difficile, not specified as recurrent Plan #Acute C diff colitis * Diarrhea has largely resolved. Currently on p.o. vancomycin. ID on board. * in contact precautions. #Catheter associated UTI * Currently on linezolid and IV meropenem due to infected sacral decubitus ulcers. ID on board. Urine cultures pending * #Hypokalemia: resolved. K is 3.7 today #CRISTY: * CT of the abdomen and pelvis showed bilateral hydroureter and hydronephrosis with bladder wall thickening. * resolved. Cr is 0.92 today. * #Paroxysmal SVT: stable. #Type II diabetes mellitus: on lantus. ISS. Accuchecks ACHS #Hyperlipidemia: on statin #BPH with lower urinary obstructive symptoms: on flomax #Benign essential hypertension: #Infected chronic decubitus ulcer all of the Kocsis and right groin wound. * ID on board. Wound cultures were positive for ESBL Klebsiella as well as Staph aureus and GPC Enterococcus. * on linezolid and meropenem * #Hypokalemia: resove. #Anxiety disorder: on buspirone and trazodone DVT prophylaxis: heparin Allergies/Procedures Done in Hospital Allergies No Known Allergies Allergy (Verified 04/01/24 15:06) Procedures: None Type of Care/Length of Stay Estimated LOS: Convalescent Care Less Than 30 days Type of Care Needed: Skilled Rehab Potential: Fair Prognosis: Fair Additional Orders/Day of Discharge Day of Discharge: 04/07/24 Dietary and Speech Recommendations Dietitian Recommendations/Changes: Will adjust diet to 2000 calorie/consistent carbohydrate; cardiac. Will d/c 120 ml glucerna shake tid w/ medpass, pt refusing. Discharge Plan Admission Admit Date/Time: 04/01/24 18:57 Primary Reason for Your Visit: C Diff, KI, infected right groin wound Attending Provider: Tamiko Jordan Primary Care Provider: Bibi Del Cid Consulting Providers: Stella Banda; Michael Lee; Rafi Napoles Instructions Patient Instructions: C diff, Clostridium Difficile Infection Discharge Orders/Prescriptions Prescriptions: New linezolid 600 mg Tablet 600 mg PO BID 5 Days Qty: 10 0RF vancomycin [Vancocin] 125 mg capsule 125 mg PO Q6H 12 Days Qty: 48 0RF ertapenem 1 gram recon soln 1 g IM DAILY 5 Days Qty: 5 0RF Rx Instructions: 5 day course for ESBL infection. Reconstitute with lidocaine. Continued ascorbic acid (vitamin C) 1,000 MG tablet 1,000 mg PO DAILY multivitamin [Daily Multi-Vitamin] Tablet 1 tab PO DAILY Culturelle 10 billion cell capsule 1 cap PO BID tamsulosin 0.4 mg capsule 0.4 mg PO BID acetaminophen 325 mg Tablet 650 mg PO Q4H PRN (Reason: Pain 1-5 Or Fever >100.7) acetaminophen 650 mg suppository 650 mg NE Q4H PRN (Reason: pain) aluminum-magnesium hydroxide 200-200 mg/5 mL suspension 30 ml PO Q4H PRN (Reason: GI DISTRESS) atorvastatin 40 mg tablet 40 mg PO QHS bisacodyl 10 mg suppository 10 mg NE DAILY PRN (Reason: constipation) Rx Instructions: ISE IF MOM IS INEFFECTIVE. NOTIFY PHYSICIAN IF NO BM IN 4 DAYS buspirone 5 mg tablet 5 mg PO BID menthol-zinc oxide [Calmoseptine] 0.44-20.6 % ointment 1 applic topical DAILY Rx Instructions: APLLY TO AKIL WOUND EVERY SHIFT. famotidine 20 mg tablet 20 mg PO BID finasteride 5 mg tablet 5 mg PO DAILY Enema 19-7 gram/118 mL enema 118 ml NE DAILY PRN (Reason: constipation) Rx Instructions: USE IF DULCOLAX IS INEFFECTIVE. CALL PHYSICIAN IF NO BM IN 4 DAYS guaifenesin [Adult Tussin Chest Congestion] 100 mg/5 mL liquid 200 mg PO Q4H PRN (Reason: congestion) insulin lispro [Humalog KwikPen Insulin] 100 unit/mL insulin pen 1 sliding scale dose subcut 4X/DAY Protocol: 6. Sliding Scale Insulin Custom Condition: mg/dl range Dose/Route: Number of Units Condition: 180-200 Dose/Route: 2 Condition: 201-250 Dose/Route: 3 Condition: 251-300 Dose/Route: 4 Condition: 301-350 Dose/Route: 5 Condition: 351-400 Dose/Route: 6 Condition: 401-450 Dose/Route: 7 Condition: 451+ Dose/Route: CALL MD Protocol Text: Custom Sliding Scale TAKE 4 UNITS PLUS SLIDING SCALE BEFORE MEALS AND AT BEDTIME Rx Instructions: TAKE 4 UNITS PLUS SLIDING SCALE BEFORE MEALS AND AT BEDTIME. insulin glargine [Lantus Solostar U-100 Insulin] 100 unit/mL (3 mL) insulin pen 10 unit subcut DAILY melatonin 5 mg tablet 5 mg PO QHS simethicone 80 mg tablet,chewable 80 mg PO BID Rx Instructions: after meals trazodone 50 mg tablet 50 mg PO QHS amlodipine 10 mg Tablet 10 mg PO DAILY Qty: 0 0RF Held cyclobenzaprine 10 mg tablet 10 mg PO Q8H PRN (Reason: muscle spasm) Hold Instructions: Resume on 04/13/24. Referrals / Follow Up: Bibi Del Cid MD [Primary Care Provider] - Within 1 Week Michael Lee MD [Med Staff - Active Staff] - Within 2 Weeks Disposition Disposition (needs filled in before D/C Order can be placed): [facility] Facility (1) Type 2 diabetes mellitus Qualifiers: Diabetes mellitus meterman insulin use: without skilled nursing use Diabetes mellitus complication status: without complication Qualified Code(s): E11.9 - Type 2 diabetes mellitus without complications
--- NOTE | 2024-04-07 10:32 | DS.PCM_ITS ---
Providers Date of Admission: 04/01/24 Date of Discharge: 04/07/24 Primary Care Physician: Dr. Bibi Del Cid MD Consultations 04/01/24 19:46 Consult: Gastroenterology Routine Consulting Provider: [facility] Reason for Consult: Colitis on CT and reccommended possible colonoscopy EMERGENT Consult: No Notified: Yes Date Notified: 04/02/24 Time Notified: 06:47 Method of Notification: Text Consult: Onc/Wound/inside outside sales representative Routine Comment: Reason for Consult:: Right groin wound 04/03/24 11:36 Consult: Infectious Disease Routine Consulting Provider: Michael Lee Reason for Consult: Polymicrobial wound infection EMERGENT Consult: No Notified: Yes Date Notified: 04/04/24 Time Notified: 06:46 Method of Notification: Text Reason For Visit: CRISTY, DEHYDRATION, INFXN Diagnosis Discharge Diagnosis (1) Type 2 diabetes mellitus: Status: Acute Code(s): E11.9 - Type 2 diabetes mellitus without complications Qualifiers: Diabetes mellitus complication status: without complication Diabetes mellitus intermodal truck driver insulin use: without intermodal truck driver use Qualified Code(s): E11.9 - Type 2 diabetes mellitus without complications (2) Non-healing surgical wound of right groin: Status: Acute Code(s): T81.89XA - Other complications of procedures, not elsewhere classified, initial encounter (3) C. difficile diarrhea: Status: Acute Code(s): A04.72 - Enterocolitis due to Clostridium difficile, not specified as recurrent Plan #Acute C diff colitis * Diarrhea has largely resolved. Currently on p.o. vancomycin. ID on board. * in contact precautions. #Catheter associated UTI * Currently on linezolid and IV meropenem due to infected sacral decubitus ulcers. ID on board. Urine cultures pending * #Hypokalemia: resolved. K is 3.7 today #CRISTY: * CT of the abdomen and pelvis showed bilateral hydroureter and hydronephrosis with bladder wall thickening. * resolved. Cr is 0.92 today. * #Paroxysmal SVT: stable. #Type II diabetes mellitus: on lantus. ISS. Accuchecks ACHS #Hyperlipidemia: on statin #BPH with lower urinary obstructive symptoms: on flomax #Benign essential hypertension: #Infected chronic decubitus ulcer all of the [place] and right groin wound. * ID on board. Wound cultures were positive for ESBL Klebsiella as well as Staph aureus and GPC Enterococcus. * on linezolid and meropenem * #Hypokalemia: resove. #Anxiety disorder: on buspirone and trazodone DVT prophylaxis: heparin Medications at Discharge Home Medications ascorbic acid (vitamin C) 1,000 mg tablet 1,000 mg PO DAILY supplement 11/09/19 acetaminophen 325 mg tablet 650 mg PO Q4H PRN Pain 1-5 Or Fever >100.7 12/08/23 tamsulosin 0.4 mg capsule 0.4 mg PO BID prostate health 12/08/23 acetaminophen 650 mg rectal suppository 650 mg IA Q4H PRN pain 03/23/24 aluminum-magnesium hydroxide 200 mg-200 mg/5 mL oral suspension 30 ml PO Q4H PRN GI DISTRESS 03/23/24 atorvastatin 40 mg tablet 40 mg PO QHS CHOLESTEROL 03/23/24 bisacodyl 10 mg rectal suppository 10 mg IA DAILY PRN constipation 03/23/24 buspirone 5 mg tablet 5 mg PO BID anxiety 03/23/24 cyclobenzaprine 10 mg tablet 10 mg PO Q8H PRN muscle spasm 03/23/24 famotidine 20 mg tablet 20 mg PO BID reflux 03/23/24 finasteride 5 mg tablet 5 mg PO DAILY prostate 03/23/24 guaifenesin 100 mg/5 mL oral liquid (Adult Tussin Chest Congestion) 200 mg PO Q4H PRN congestion 03/23/24 insulin glargine 100 unit/mL (3 mL) subcutaneous pen (Lantus Solostar U-100 Insulin) 10 unit subcut DAILY diabetes 03/23/24 insulin lispro 100 unit/mL subcutaneous pen (Humalog KwikPen (U-100) Insulin) 1 sliding scale dose subcut 4X/DAY diabetes 03/23/24 melatonin 5 mg tablet 5 mg PO QHS sleep 03/23/24 menthol 0.44 %-zinc oxide 20.6 % topical ointment (Calmoseptine) 1 applic topical DAILY 03/23/24 simethicone 80 mg chewable tablet 80 mg PO BID gas 03/23/24 sodium phosphates 19 gram-7 gram/118 mL enema (Enema) 118 ml IA DAILY PRN constipation 03/23/24 trazodone 50 mg tablet 50 mg PO QHS sleep 03/23/24 amlodipine 10 mg tablet 10 mg PO DAILY blood pressure #0 tabs 03/25/24 Lactobacillus rhamnosus GG 10 billion cell capsule (Culturelle) 1 cap PO BID supplement 04/01/24 multivitamin (Daily Multi-Vitamin tablet) 1 tab PO DAILY vitamin 04/01/24 ertapenem 1 gram solution for injection 1 g IM DAILY 5 days #5 ea 04/07/24 linezolid 600 mg tablet 600 mg PO BID 5 days #10 tabs 04/07/24 vancomycin 125 mg capsule (Vancocin) 125 mg PO Q6H 12 days #48 caps 04/07/24 Hospital Course Operations None Procedures None Summary of Care Provided Minutes Spent on Discharge: 55 Hospital Course: Patient is a 78-year-old male with an extensive past medical history as outlined who is also legally blind was admitted through the ED on 04/01/2024 with complaint of generalized weakness and tiredness. He had had loose stools for several days and also had a chronic pelvic wound. He had been admitted to the hospital from 03 23 through 03 25 and managed for CRISTY and acute cystitis. [facility] p.o. ciprofloxacin. However he had labs done in his [facility] the day before admission which showed that his white cell count was elevated at 31 and hemoglobin was down at 7.3 and his creatinine was also at 2.87, up from 1.55 on the day of discharge just 2 days prior. He was therefore brought into the ED and creatinine had even gone up to 3.1. Labs done in the ED. White cell counts were also elevated. CT of the abdomen and pelvis that showed bilateral hydroureter and hydronephrosis with bladder wall thickening and changes consistent with colitis. Patient had a Mcmahon catheter in situ since November 2023 but said he had previously been changed successfully. He was admitted and managed for acute kidney injury which was thought to be postrenal in light of the hydronephrosis and bilateral hydroureter from CT abdomen and pelvis. He was also managed for catheter associated UTI and started on IV antibiotics which were escalated to IV meropenem subsequently in light of the chronic pelvic wound. ID was consulted. His creatinine improved and trended downwards. Antibiotics were escalated to IV vancomycin and meropenem. He did test positive for C. difficile and so was started on p.o. vancomycin. Patient's diarrhea subsequently resolved and his white cell count trended downwards. Creatinine also normalized and trended up to 0.87. Wound cultures of the chronic pelvic wound grew ESBL Klebsiella pneumoniae, MRSA and vancomycin- resistant efficacious as well as coagulase-negative staph. He was [facility] on 04/07/2024. I did give a prescription for p.o. vancomycin for 12 more days as well as p.o. linezolid and IM ertapenem for 5 days. He is follow-up with his primary care doctor and to follow-up with infectious disease within 1 to 2 weeks. Patient was seen and examined prior to discharge. He had no active complaints and had an uneventful night. Review of systems otherwise negative. Labs and vitals reviewed. Home medication reviewed and reconciled. Physical Exam Const alert, oriented x3 and no apparent distress Constitutional Narrative: frail, legally blind General Appearance: cooperative and comfortable HEENT normocephalic, head/scalp atraumatic, hearing grossly normal bilaterally, moist oral mucous membranes and oropharynx normal Mouth: oral and palatal mucosa normal Eyes PERRL and EOMs intact bilaterally Neck no lymphadenopathy, supple and no JVD Lymph Lymphatic: no lymphadenopathy noted and no lymphedema noted Resp normal respiratory effort, normal air movement and clear to auscultation bilaterally Cardio regular rate, regular rhythm, S1 normal heart sound, S2 normal heart sound and no murmurs Peripheral Pulses: pulses 2+ throughout GI normal to inspection, nondistended, normoactive bowel sounds, soft to palpation, non-tender and non-distended Extremity normal capillary refill, no clubbing, cyanosis or edema and no calf tenderness General Extremity: no tenderness to palpation of joints or extremities Skin General Skin Exam: no breakdown and turgor normal Neuro CN's II-XII intact bilaterally, no focal motor deficits, no sensory deficits noted and deep tendon reflexes 2+ bilaterally Coordination / Balance: athcve-mo-somd test normal Motor Exam: general weakness Psych thought process normal, cooperative and affect normal Appearance: appropriate Weight / BMI Weight Weight: 232 lb 2.348 oz Body Mass Index (BMI) 36.3 ABG / Lab / Microbiology Data 04/07/24 08:09 04/07/24 08:09 Laboratory: Laboratory Results - last 24 hr 04/06/24 11:21: POC Glucose 184 H 08/07/24 15:54: POC Glucose 227 H 04/06/24 22:24: POC Glucose 226 H 04/07/24 06:30: POC Glucose 159 H 04/07/24 08:09: WBC 8.7, RBC 2.97 L, Hgb 8.8 L, Hct 26.1 L, MCV 87.9, MCH 29.6, MCHC 33.7, RDW Std Deviation 48.6 H, RDW Coeff of [place] 15.2 H, Plt Count 249, MPV 8.5, Immature Gran % (Auto) 4.100 H, Neut % (Auto) 70.5 H, Lymph % (Auto) 7.8 L, [place] % (Auto) 7.9, Eos % (Auto) 9.0 H, Baso % (Auto) 0.7, Absolute Neuts (auto) 6.2, Absolute Lymphs (auto) 0.68 L, Nucleated RBC % 0, Sodium 134 L, Potassium 3.8, Chloride 109 H, Carbon Dioxide 22.0, Anion Gap 3 L, BUN 11, Creatinine 0.87, Estim Creat Clear Calc 83.56, Est GFR (MDRD) Af Amer 109, Est GFR (MDRD) Non-Af 90, BUN/Creatinine Ratio 12.6, Glucose 150 H, Calcium 7.1 L Microbiology: Microbiology 04/01/24 16:18 Blood Culture (Wb) - Anticubital Left Blood Culture - Final No growth in 5 days. 04/01/24 18:47 Skin - Groin Gram Stain - Final 04/01/24 18:47 Skin - Groin Wound Culture - Final ESBL Klebsiella pneumoniae pne Meth. resistant Staph. aureus Vancomycin Resist. E. faecium Coag Negative Staph 04/01/24 16:20 Urine Catheter - Mcmahon Urine Culture - Final Presumptive C albicans 04/01/24 22:35 Stool Enteric Bacteriology - Final 04/01/24 22:35 Stool C. difficile GDH Antigen & Toxins - Final Toxigenic C. difficile 04/01/24 22:35 Stool Clostridioides difficile (PCR) - Final 04/01/24 15:45 Mucosa - Throat SARS-CoV-2, Influenza & RSV (PCR) - Final D/C Instructions Discharge Diet: Low fat / Low cholesterol Discharge Activity: Return to Normal Activity Weight Bearing Status: Weight bearing as tolerated Call your doctor if you observe: Fever of 101 or Higher, Shortness of breath, Dizziness, Swelling in the ankles and Chest pain Meaningful Use Info Meaningful Use Meaningful Use Diagnoses (Choose all that apply): None applicable Ischemic Stroke Statin Dosing Therapy Reference: STATIN DOSE THERAPY REFERENCE: * Patients > 75 years receive moderate or high dose statin therapy. * Patients 75 years or YOUNGER should receive HIGH intensity statin dose unless contraindicated. You will be required to document reason for non-treatment if statin daily dose does not meet guidelines. HIGH DOSE STATIN THERAPY DAILY Atorvastatin > than or = to 40 mg Rosuvastatin > than or = to 20 mg Amlodipine + Atorvastatin > than or = to 2.5/40 mg Ezetimibe + Simvastatin 10/80 mg Simvastatin 80mg Discharge Plan Admission Admit Date/Time: 04/01/24 18:57 Primary Reason for Your Visit: C Diff, KI, infected right groin wound Attending Provider: Tamiko Jordan Primary Care Provider: Bibi Del Cid Consulting Providers: Stella Banda; Michael Lee; Rafi Napoles Instructions Patient Instructions: C diff, Clostridium Difficile Infection Discharge Orders/Prescriptions Prescriptions: New linezolid 600 mg Tablet 600 mg PO BID 5 Days Qty: 10 0RF vancomycin [Vancocin] 125 mg capsule 125 mg PO Q6H 12 Days Qty: 48 0RF ertapenem 1 gram recon soln 1 g IM DAILY 5 Days Qty: 5 0RF Rx Instructions: 5 day course for ESBL infection. Reconstitute with lidocaine. Continued ascorbic acid (vitamin C) 1,000 MG tablet 1,000 mg PO DAILY multivitamin [Daily Multi-Vitamin] Tablet 1 tab PO DAILY Culturelle 10 billion cell capsule 1 cap PO BID tamsulosin 0.4 mg capsule 0.4 mg PO BID acetaminophen 325 mg Tablet 650 mg PO Q4H PRN (Reason: Pain 1-5 Or Fever >100.7) acetaminophen 650 mg suppository 650 mg IA Q4H PRN (Reason: pain) aluminum-magnesium hydroxide 200-200 mg/5 mL suspension 30 ml PO Q4H PRN (Reason: GI DISTRESS) atorvastatin 40 mg tablet 40 mg PO QHS bisacodyl 10 mg suppository 10 mg IA DAILY PRN (Reason: constipation) Rx Instructions: ISE IF MOM IS INEFFECTIVE. NOTIFY PHYSICIAN IF NO BM IN 4 DAYS buspirone 5 mg tablet 5 mg PO BID menthol-zinc oxide [Calmoseptine] 0.44-20.6 % ointment 1 applic topical DAILY Rx Instructions: APLLY TO AKIL WOUND EVERY SHIFT. famotidine 20 mg tablet 20 mg PO BID finasteride 5 mg tablet 5 mg PO DAILY Enema 19-7 gram/118 mL enema 118 ml IA DAILY PRN (Reason: constipation) Rx Instructions: USE IF DULCOLAX IS INEFFECTIVE. CALL PHYSICIAN IF NO BM IN 4 DAYS guaifenesin [Adult Tussin Chest Congestion] 100 mg/5 mL liquid 200 mg PO Q4H PRN (Reason: congestion) insulin lispro [Humalog KwikPen Insulin] 100 unit/mL insulin pen 1 sliding scale dose subcut 4X/DAY Protocol: 6. Sliding Scale Insulin Custom Condition: mg/dl range Dose/Route: Number of Units Condition: 180-200 Dose/Route: 2 Condition: 201-250 Dose/Route: 3 Condition: 251-300 Dose/Route: 4 Condition: 301-350 Dose/Route: 5 Condition: 351-400 Dose/Route: 6 Condition: 401-450 Dose/Route: 7 Condition: 451+ Dose/Route: CALL MD Protocol Text: Custom Sliding Scale TAKE 4 UNITS PLUS SLIDING SCALE BEFORE MEALS AND AT BEDTIME Rx Instructions: TAKE 4 UNITS PLUS SLIDING SCALE BEFORE MEALS AND AT BEDTIME. insulin glargine [Lantus Solostar U-100 Insulin] 100 unit/mL (3 mL) insulin pen 10 unit subcut DAILY melatonin 5 mg tablet 5 mg PO QHS simethicone 80 mg tablet,chewable 80 mg PO BID Rx Instructions: after meals trazodone 50 mg tablet 50 mg PO QHS amlodipine 10 mg Tablet 10 mg PO DAILY Qty: 0 0RF Held cyclobenzaprine 10 mg tablet 10 mg PO Q8H PRN (Reason: muscle spasm) Hold Instructions: Resume on 04/13/24. Referrals / Follow Up: Bibi Del Cid MD [Primary Care Provider] - Within 1 Week Michael Lee MD [Med Staff - Active Staff] - Within 2 Weeks Disposition Disposition (needs filled in before D/C Order can be placed): Senior Living Facility Charges/Coding Visit Charges Inpatient E&M: 03654 Disch Hosp >30min
[2024-04-07] MEDS: Linezolid 600 MG Tablet PO (10:35)
[2024-04-07] MEDS: busPIRone 5 MG Tablet PO (10:36)
[2024-04-07] MEDS: SimETHICONE 80 MG Chewable Tablet PO (10:36)
[2024-04-07] MEDS: Famotidine 20 MG Tablet PO (10:36)
[2024-04-07] MEDS: Menthol/Lanolin/Calamine/Znox 113 GM Tube 1 APPLIC TOPICAL (10:36)
[2024-04-07] MEDS: Nystatin Powder 15gm Bottle 1 APPLIC TOPICAL (10:36)
[2024-04-07] MEDS: Ertapenem Sod 1 GM in 0.9% Normal Saline (50mL MB+) 50 ML IV (10:47)
--- NOTE | 2024-04-07 11:15 | PHA.DC.MR.R ---
Pharmacy [place] Med Reconciliation Pharmacy Service has performed discharge medication reconciliation for this patient. The patient's discharge medication list was reviewed for discrepancies and discrepancies were resolved. Medications at Discharge Home Medications ascorbic acid (vitamin C) 1,000 mg tablet 1,000 mg PO DAILY supplement 11/09/19 acetaminophen 325 mg tablet 650 mg PO Q4H PRN Pain 1-5 Or Fever >100.7 12/08/23 tamsulosin 0.4 mg capsule 0.4 mg PO BID prostate health 12/08/23 acetaminophen 650 mg rectal suppository 650 mg WA Q4H PRN pain 03/23/24 aluminum-magnesium hydroxide 200 mg-200 mg/5 mL oral suspension 30 ml PO Q4H PRN GI DISTRESS 03/23/24 atorvastatin 40 mg tablet 40 mg PO QHS CHOLESTEROL 03/23/24 bisacodyl 10 mg rectal suppository 10 mg WA DAILY PRN constipation 03/23/24 buspirone 5 mg tablet 5 mg PO BID anxiety 03/23/24 cyclobenzaprine 10 mg tablet 10 mg PO Q8H PRN muscle spasm 03/23/24 famotidine 20 mg tablet 20 mg PO BID reflux 03/23/24 finasteride 5 mg tablet 5 mg PO DAILY prostate 03/23/24 guaifenesin 100 mg/5 mL oral liquid (Adult Tussin Chest Congestion) 200 mg PO Q4H PRN congestion 03/23/24 insulin glargine 100 unit/mL (3 mL) subcutaneous pen (Lantus Solostar U-100 Insulin) 10 unit subcut DAILY diabetes 03/23/24 insulin lispro 100 unit/mL subcutaneous pen (Humalog KwikPen (U-100) Insulin) 1 sliding scale dose subcut 4X/DAY diabetes 03/23/24 melatonin 5 mg tablet 5 mg PO QHS sleep 03/23/24 menthol 0.44 %-zinc oxide 20.6 % topical ointment (Calmoseptine) 1 applic topical DAILY 03/23/24 simethicone 80 mg chewable tablet 80 mg PO BID gas 03/23/24 sodium phosphates 19 gram-7 gram/118 mL enema (Enema) 118 ml WA DAILY PRN constipation 03/23/24 trazodone 50 mg tablet 50 mg PO QHS sleep 03/23/24 amlodipine 10 mg tablet 10 mg PO DAILY blood pressure #0 tabs 03/25/24 Lactobacillus rhamnosus GG 10 billion cell capsule (Culturelle) 1 cap PO BID supplement 04/01/24 multivitamin (Daily Multi-Vitamin tablet) 1 tab PO DAILY vitamin 04/01/24 ertapenem 1 gram solution for injection 1 g IM DAILY 5 days #5 ea 04/07/24 linezolid 600 mg tablet 600 mg PO BID 5 days #10 tabs 04/07/24 vancomycin 125 mg capsule (Vancocin) 125 mg PO Q6H 12 days #48 caps 04/07/24
--- NOTE | 2024-04-07 11:31 | CASEMGMT ---
SW sent the prescriptions for patient's antibiotics to [facility] via [facility]. SW asked that they notify if there are any problems with this scripts. Paty VILLALPANDO
[2024-04-07 12:06] LABS: Bedside Glucose 199 mg/dL (74-106)
--- NOTE | 2024-04-07 12:25 | CASEMGMT ---
Discharge Planning Discharge orders, signed med list, and transport time sent to [facility] via [facility]. Physicians will transport patient by wheelchair at 2p. Nursing, SW, patient, and his updated. Kavitha Cabrera DC Planning Asst.
== END 2024-04-07 14:26 | disposition skilled nursing facility (03) | DRG 371 ==
LOC: ED 15:46 → PCU 04-02 01:33
PROVIDERS: Internal Medicine; Admitting Provider Internal Medicine; Emergency Provider Emergency Medicine; PCP Internal Medicine; Referring Provider Internal Medicine; Visit Provider Student in an Organized Health Care Education/Training Program
DX: A04.72 Enterocolitis due to Clostridium difficile, not specified as recurrent (principal); L89.153 Pressure ulcer of sacral region, stage 3; L03.314 Cellulitis of groin; E87.1 Hypo-osmolality and hyponatremia; I47.10 Supraventricular tachycardia, unspecified; N13.30 Unspecified hydronephrosis; N17.9 Acute kidney failure, unspecified; T83.511A Infection and inflammatory reaction due to indwelling urethral catheter, initial encounter; N13.4 Hydroureter; N13.8 Other obstructive and reflux uropathy; N39.0 Urinary tract infection, site not specified; E11.8 Type 2 diabetes mellitus with unspecified complications; B95.2 Enterococcus as the cause of diseases classified elsewhere; T81.89XA Other complications of procedures, not elsewhere classified, initial encounter; I10 Essential (primary) hypertension; E86.0 Dehydration; E78.5 Hyperlipidemia, unspecified; E87.6 Hypokalemia; F41.9 Anxiety disorder, unspecified; B96.1 Klebsiella pneumoniae [K. pneumoniae] as the cause of diseases classified elsewhere; N40.1 Benign prostatic hyperplasia with lower urinary tract symptoms; Z87.891 Personal history of nicotine dependence; H54.8 Legal blindness, as defined in USA; B95.62 Methicillin resistant Staphylococcus aureus infection as the cause of diseases classified elsewhere; B95.7 Other staphylococcus as the cause of diseases classified elsewhere
CPT/HCPCS: 36415; 71045; 74176; 76870; 80048; 80053; 80202; 81001; 82436; 82570; 82962; 83605; 83735; 83935; 84100; 84133; 84300; 84484; 84540; 85025; 87040; 87070; 87077; 87086; 87088; 87186; 87205; 87493; 87506; 87631; 93005; 93976; 97110; 97162; 97166; 97530; 97802; 99285; J2185; J7030; J7040; J7050; A4216; J0612

== ENCOUNTER 2024-04-20 08:04 | Emergency (ER) | payer MEDICARE, OTHER, SELFPAY ==
[2024-04-20] VITALS (8 sets, daily range): BP systolic 111–151; BP diastolic 63–122; PULSE 92–116; RESP 16–25; TEMP 36.6–36.7; O2SAT 96–98; BMI 34.8
--- NOTE | 2024-04-20 08:35 | RAD_ITS ---
STUDY: X-RAY CHEST REASON FOR EXAM: Male, 78 years old. ams TECHNIQUE: Single AP portable view of the chest. COMPARISON: Comparison is made with prior study April 01, 2024. FINDINGS: EKG electrodes are seen. Stable elevation of the right hemidiaphragm. Stable increased linear markings in the right midlung suggestive of scarring. There is no demonstrated pleural abnormality. Normal size heart. Normal mediastinum and radha. Normal visualized pulmonary arteries. Normal visualized aortic arch and descending thoracic aorta. Normal visualized thoracic spine. Normal visualized ribs, clavicles, and shoulders. There is no demonstrated abnormality of the visualized soft tissue structures of the upper abdomen. RAD/Chest 1 View (Portable) IMPRESSION: Stable examination. No acute abnormality is seen. Electronically Signed: Beau Elizalde MD at 9:12 EDT ,
--- NOTE | 2024-04-20 08:35 | CT_ITS ---
STUDY: CT BRAIN WITHOUT CONTRAST REASON FOR EXAM: Male, 78 years old. ams RADIATION DOSAGE (If Supplied By Facility): CTDIvol = ( 44.99 ) mGy, DLP = ( 897.35 ) mGycm TECHNIQUE: Transaxial CT imaging of the brain was performed without administration of intravenous contrast material. Individualized dose optimization techniques were used for this CT. COMPARISON: No relevant priors. FINDINGS: Normal soft tissue structures. Normal calvarium. There is mild cerebral atrophy with widening of the extra-axial spaces and ventricular dilatation. There are areas of decreased attenuation within the white matter tracts of the supratentorial brain, consistent with microvascular disease changes. Normal basal ganglia and thalami. Normal brainstem. Normal cerebellum. There is no intracranial hemorrhage. There are no findings of an acute ischemic infarction. Atherosclerotic calcification of the cavernous portions of the internal carotid arteries bilaterally. Normal visualized paranasal sinuses. CT/Brain/Head without Contrast IMPRESSION: Chronic involutional changes of the brain. Electronically Signed: Beau Elizalde MD at 11:18 EDT ,
--- NOTE | 2024-04-20 08:37 | EKG12_ITS ---
Test Reason : ALT LOC Blood Pressure : / mmHG Vent. Rate : 112 BPM Atrial Rate : 112 BPM P-R Int : 122 ms QRS Dur : 086 ms QT Int : 326 ms P-R-T Axes : 061 048 055 degrees QTc Int : 444 ms Sinus tachycardia Otherwise normal ECG Confirmed by LEONARDO CASTILLO, DENNISE ([id number]), design editor LADI PALMA ([id number]) on 04/22/2024 6:42:24 AM Referred By: Confirmed By:CHARIS PATTERSON MD
--- NOTE | 2024-04-20 08:41 | EX.ED.DYSGE1 ---
HPI History of Present Illness Chief Complaint: Mental Status Change Informant: patient, EMS and SNF Narrative Narrative: 78-year-old male presenting to the emergency room with altered mental status. Patient recent admissions for UTI CRISTY and C. difficile as well as sacral wound and inguinal cellulitis. Reportedly the patient at baseline is ANO x 4 and was today noted by SNF to be ANO x 1. SNF reports that he is on oral vancomycin but I do not see it on the MAR that was sent with him. The patient is alert knows name birthdate and place upon arrival. No reported recent fevers. He has a chronic indwelling Mcmahon catheter. Urine culture on 04/01 showed Lashaun albicans. Urine culture 03/23 showed Proteus, PFSH PFSH Medical History C. difficile diarrhea Leukocytosis Hypokalemia BPH (benign prostatic hyperplasia) Type 2 diabetes mellitus Essential hypertension Weakness Decubitus ulcer of coccygeal region, stage 3 Non-healing surgical wound of right groin Unilateral primary osteoarthritis, left hip Contusion of hip, left Fall High cholesterol Enlarged prostate Diabetes Legally blind Home Medications ?Medication ?Instructions ?Recorded ?Last Taken ?Type ascorbic acid (vitamin C) 1,000 mg 1,000 mg PO DAILY supplement 11/09/19 04/01/24 History tablet acetaminophen 325 mg tablet 650 mg PO Q4H PRN Pain 1-5 Or 12/08/23 12/07/23 History Fever >100.7 tamsulosin 0.4 mg capsule 0.4 mg PO BID prostate health 12/08/23 04/01/24 History acetaminophen 650 mg rectal 650 mg [place] Q4H PRN pain 03/23/24 03/31/24 History suppository aluminum-magnesium hydroxide 200 30 ml PO Q4H PRN GI DISTRESS 03/23/24 Unknown History mg-200 mg/5 mL oral suspension atorvastatin 40 mg tablet 40 mg PO QHS CHOLESTEROL 03/23/24 03/31/24 History bisacodyl 10 mg rectal suppository 10 mg [place] DAILY PRN constipation 03/23/24 Unknown History buspirone 5 mg tablet 5 mg PO BID anxiety 03/23/24 04/01/24 History cyclobenzaprine 10 mg tablet 10 mg PO Q8H PRN muscle spasm 03/23/24 03/31/24 History famotidine 20 mg tablet 20 mg PO BID reflux 03/23/24 04/01/24 History finasteride 5 mg tablet 5 mg PO DAILY prostate 03/23/24 04/01/24 History guaifenesin 100 mg/5 mL oral 200 mg PO Q4H PRN congestion 03/23/24 Unknown History liquid (Adult Tussin Chest Congestion) insulin glargine 100 unit/mL (3 10 unit subcut DAILY diabetes 03/23/24 04/01/24 History mL) subcutaneous pen (Lantus Solostar U-100 Insulin) insulin lispro 100 unit/mL 1 sliding scale dose subcut 4X/DAY 03/23/24 04/01/24 History subcutaneous pen (Humalog KwikPen diabetes (U-100) Insulin) melatonin 5 mg tablet 5 mg PO QHS sleep 03/23/24 03/31/24 History menthol 0.44 %-zinc oxide 20.6 % 1 applic topical DAILY 03/23/24 03/31/24 History topical ointment (Calmoseptine) simethicone 80 mg chewable tablet 80 mg PO BID gas 03/23/24 04/01/24 History sodium phosphates 19 gram-7 118 ml [place] DAILY PRN constipation 03/23/24 Unknown History gram/118 mL enema (Enema) trazodone 50 mg tablet 50 mg PO QHS sleep 03/23/24 03/31/24 History amlodipine 10 mg tablet 10 mg PO DAILY blood pressure #0 03/25/24 04/01/24 Rx tabs Lactobacillus rhamnosus GG 10 1 cap PO BID supplement 04/01/24 04/01/24 History billion cell capsule (Culturelle) multivitamin (Daily Multi-Vitamin 1 tab PO DAILY vitamin 04/01/24 04/01/24 History tablet) ertapenem 1 gram solution for 1 g IM DAILY 5 days #5 ea 04/07/24 Unknown Rx injection linezolid 600 mg tablet 600 mg PO BID 5 days #10 tabs 04/07/24 Unknown Rx vancomycin 125 mg capsule 125 mg PO Q6H 12 days #48 caps 04/07/24 Unknown Rx (Vancocin) Allergy/AdvReac Type Severity Reaction Status Date / Time No Known Allergies Allergy Verified 04/01/24 15:06 Family History Other Cancer Heart disease Surgical History Status post tonsillectomy Social History Smoking Status: Former smoker ROS ROS ED Constitutional Constitutional ED: Denies chills, fever(s) or weight loss Eyes Eyes: Denies change in vision or diplopia ENT ENT ED: Denies ear pain, rhinorrhea or sore throat Cardiovascular Cardiovascular: Denies chest pain, orthopnea, palpitations or racing heartbeat Respiratory/Chest Respiratory/Chest: Denies cough, dyspnea or orthopnea Gastrointestinal Gastrointestinal: Reports diarrhea; Denies abdominal pain, nausea or vomiting Genitourinary Genitourinary ED: Reports other Details: Chronic indwelling Mcmahon ; Denies dysuria, hematuria or urinary frequency Musculoskeletal Musculoskeletal: Reports other Details: Reported inguinal and coccygeal discomfort but not pain ; Denies arthralgias or myalgias Integumentary Reports rash; Denies abscess Neurologic Neurologic: Reports other Details: Reported AMS ; Denies headache(s) or weakness Psychiatric Psychiatric: Denies anxiety, depression, suicidal ideation or suicidal thoughts Endocrine Endocrinology: Denies polydipsia, polyphagia or polyuria Allergic/Immunologic Allergic/Immunologic ED: Denies mouth swelling, tongue swelling or urticaria EXAM Physical Exam Const Vital Signs: 04/20/24 08:10 04/20/24 08:15 04/20/24 09:14 Temperature 98 F 98 F 98.0 F Temperature Source Oral Oral Temporal Pulse Rate 103 H 103 H 107 H Respiratory Rate 18 18 18 Blood Pressure 151/116 H 151/116 H 137/122 H Blood Pressure Mean 127 127 127 Pulse Ox 98 98 96 Oxygen Delivery Method Room Air Room Air Room Air 04/20/24 10:00 04/20/24 10:04 04/20/24 11:00 Temperature 97.8 F 97.8 F Temperature Source Temporal Temporal Pulse Rate 109 H 116 H 92 Respiratory Rate 20 H 19 H 25 H Blood Pressure 111/91 H 111/91 H 126/99 H Blood Pressure Mean 97 97 108 Pulse Ox 96 96 96 Oxygen Delivery Method Room Air Room Air Room Air Positive well nourished, well developed and obese General Appearance ED: well developed Nutritional Appearance: obese HEENT Reports normocephalic, head/scalp atraumatic and moist mucous membranes Eyes PERRL and EOMs intact bilaterally Neck no lymphadenopathy, supple and no JVD Resp normal respiratory effort and clear to auscultation bilaterally Cardio regular rate, regular rhythm and no murmurs Rate: tachycardic GI normal to inspection, nondistended, normoactive bowel sounds and non-tender Palpation: soft Narrative: Indwelling Mcmahon catheter Back/Spine no CVA tenderness and normal ROM Extremity normal to inspection General Extremety ED: Negative for edema General Extremity: Negative for edema Neuro CN's II-XII intact bilaterally Sensorium / Orientation: alert and orientation impaired Motor Exam: strength 5/5 throughout Psych Psych Narrative: Patient requires redirection with basic movements like letting go of the bed so we can roll him Mood & Affect: Negative for depressed or tearful Skin Skin Narrative: There is a sacral wound with dressing on it. There is no evidence of cellulitis. There is some skin thickening and redness of the skin in the sacral coccygeal region extending into the perineum and inguinal regions. I do not appreciate any fluctuance or significant induration. There is medical ointment applied to the area MDM MDM MDM Narrative Medical decision making narrative: Differential diagnosis includes stroke sepsis metabolic derangements dehydration UTI pneumonia My count 8.2 hemoglobin 8.5 (chronic anemia) platelet count of 192. Coags are normal. BMP shows a creatinine 0.95 CO2 29 anion gap 4 liver enzymes showed chronically elevated alkaline phosphatase 458 lipase negative troponin 25 urinalysis 25-50 white cells 25-50 red cells 1+ bacteria. As mentioned above his last urine culture grew out Lashaun before that Proteus and he has had recent antibiotics with C. difficile colitis. I am hesitant to place him on a antibiotic for this urine given that the last time he had a culture was used. I worry about the recurrence of C. difficile and treating with an antibiotic. He has no fever no white count. So if there would be a UTI does not seem that symptomatic from it other the potential for altered mental status which not really picking up on right now. He continues to be alert knows his name his date of where he is at. He has been monitored with no hypotension no fever no hypoxia. History & Record Review Discussion w/independent historian: Patient Additional record(s) reviewed:: Prior inpatient record, Prior ED visit and Prior labs Lab Data Attestation: I reviewed the patient's lab results. Labs: Laboratory Results - last 24 hr 04/20/24 04/20/24 08:17 08:43 WBC 8.2 RBC 2.91 L Hgb 8.5 L Hct 26.1 L MCV 89.7 MCH 29.2 MCHC 32.6 RDW Std Deviation 49.5 H RDW Coeff of [place] 15.6 H Plt Count 192 MPV 9.4 Immature Gran % (Auto) 0.600 Neut % (Auto) 68.9 Lymph % (Auto) 14.7 L [place] % (Auto) 9.8 Eos % (Auto) 4.9 Baso % (Auto) 1.1 H Absolute Neuts (auto) 5.7 Absolute Lymphs (auto) 1.20 Nucleated RBC % 0 PT 14.5 INR 1.1 APTT 30.0 Sodium 141 Potassium 4.1 Chloride 108 H Carbon Dioxide 29.0 Anion Gap 4 L BUN 17 Creatinine 0.95 Estim Creat Clear Calc 74.87 Est GFR (MDRD) Af Amer 99 Est GFR (MDRD) Non-Af 82 BUN/Creatinine Ratio 18.0 Glucose 140 H Lactic Acid 1.1 Calcium 8.4 L Total Bilirubin 0.80 Direct Bilirubin 0.34 H AST 22 ALT 36 Alkaline Phosphatase 458 H Troponin I High Sens 25 Total Protein 5.9 L Albumin 2.1 L Globulin 3.8 Lipase < 10 L Urine Color Yellow Urine Clarity Sl. Cloudy Urine pH 7.0 Ur Specific [place] 1.010 Urine Protein 30 H Urine Glucose (UA) Normal Urine Ketones 15 H Urine Occult Blood 250 H Urine Nitrite Negative Urine Bilirubin Negative Urine Urobilinogen Normal Ur Leukocyte Esterase 500 H Urine RBC 25-50 SEEN Urine WBC 25-50 SEEN Ur Squamous Epith Cells 0 SEEN Urine Bacteria 1+ Urine Mucus 0 SEEN Urine Yeast 1+ Radiography Diagnostic Testing: Clinical Impression(s) from Imaging Studies Brain CT 04/20/24 08:35 IMPRESSION: Chronic involutional changes of the brain. Electronically Signed: Beau Elizalde MD at 11:18 EDT , Chest X-Ray 04/20/24 08:35 IMPRESSION: Stable examination. No acute abnormality is seen. Electronically Signed: Beau Elizalde MD at 9:12 EDT , EKG Initial EKG: Attestation: I personally reviewed and interpreted this EKG as follows: Comments: Sinus tachycardia ventricular rate of 112 bpm Discharge Plan Triage Chief Complaint: Mental Status Change ED Provider: John Greer Dx/Rx/DC Orders Clinical Impression: AMS (altered mental status), Hypertension, Diabetes mellitus Instructions: ED ALOC Prescriptions: No Action ascorbic acid (vitamin C) 1,000 MG tablet 1,000 mg PO DAILY multivitamin [Daily Multi-Vitamin] Tablet 1 tab PO DAILY Culturelle 10 billion cell capsule 1 cap PO BID linezolid 600 mg Tablet 600 mg PO BID 5 Days Qty: 10 0RF vancomycin [Vancocin] 125 mg capsule 125 mg PO Q6H 12 Days Qty: 48 0RF ertapenem 1 gram recon soln 1 g IM DAILY 5 Days Qty: 5 0RF Rx Instructions: 5 day course for ESBL infection. Reconstitute with lidocaine. tamsulosin 0.4 mg capsule 0.4 mg PO BID acetaminophen 325 mg Tablet 650 mg PO Q4H PRN (Reason: Pain 1-5 Or Fever >100.7) acetaminophen 650 mg suppository 650 mg KY Q4H PRN (Reason: pain) aluminum-magnesium hydroxide 200-200 mg/5 mL suspension 30 ml PO Q4H PRN (Reason: GI DISTRESS) atorvastatin 40 mg tablet 40 mg PO QHS bisacodyl 10 mg suppository 10 mg [place] DAILY PRN (Reason: constipation) Rx Instructions: ISE IF MOM IS INEFFECTIVE. NOTIFY PHYSICIAN IF NO BM IN 4 DAYS buspirone 5 mg tablet 5 mg PO BID menthol-zinc oxide [Calmoseptine] 0.44-20.6 % ointment 1 applic topical DAILY Rx Instructions: APLLY TO AKIL WOUND EVERY SHIFT. cyclobenzaprine 10 mg tablet 10 mg PO Q8H PRN (Reason: muscle spasm) famotidine 20 mg tablet 20 mg PO BID finasteride 5 mg tablet 5 mg PO DAILY Enema 19-7 gram/118 mL enema 118 ml [place] DAILY PRN (Reason: constipation) Rx Instructions: USE IF DULCOLAX IS INEFFECTIVE. CALL PHYSICIAN IF NO BM IN 4 DAYS guaifenesin [Adult Tussin Chest Congestion] 100 mg/5 mL liquid 200 mg PO Q4H PRN (Reason: congestion) insulin lispro [Humalog KwikPen Insulin] 100 unit/mL insulin pen 1 sliding scale dose subcut 4X/DAY Protocol: 6. Sliding Scale Insulin Custom Condition: mg/dl range Dose/Route: Number of Units Condition: 180-200 Dose/Route: 2 Condition: 201-250 Dose/Route: 3 Condition: 251-300 Dose/Route: 4 Condition: 301-350 Dose/Route: 5 Condition: 351-400 Dose/Route: 6 Condition: 401-450 Dose/Route: 7 Condition: 451+ Dose/Route: CALL MD Protocol Text: Custom Sliding Scale TAKE 4 UNITS PLUS SLIDING SCALE BEFORE MEALS AND AT BEDTIME Rx Instructions: TAKE 4 UNITS PLUS SLIDING SCALE BEFORE MEALS AND AT BEDTIME. insulin glargine [Lantus Solostar U-100 Insulin] 100 unit/mL (3 mL) insulin pen 10 unit subcut DAILY melatonin 5 mg tablet 5 mg PO QHS simethicone 80 mg tablet,chewable 80 mg PO BID Rx Instructions: after meals trazodone 50 mg tablet 50 mg PO QHS amlodipine 10 mg Tablet 10 mg PO DAILY Qty: 0 0RF Primary Care Provider: Bibi Del Cid Referrals: Bibi Del Cid MD [Primary Care Provider] - Print Language: Yi Disposition Disposition: Acute Care Hospital Discharge Location: [facility]
[2024-04-20] MEDS: 0.9% Normal Saline (1000mL) 1,000 ML 1000 ML IV (08:46)
[2024-04-20 08:49] LABS: Absolute Neutrophil Count 5.7 X10^3/uL (2.0-7.7); Basophil# 0.09 X10^3/uL; Basophil% 1.1 % (0-1); Eosinophils% 4.9 % (0-5); Hematocrit 26.1 % (40-54); Hemoglobin 8.5 g/dL (13.0-16.5); Lymphocyte % 14.7 % (19-41); Mean Corp Hgb Conc 32.6 g/dL (32-36); Mean Corpuscular Hgb 29.2 pg (27.0-32.0); Mean Corpuscular Volume 89.7 fL (80-94); Mean Platelet Vol. 9.4 fl (6.2-12.0); Monocyte% 9.8 % (0-10); NRBC Flagged by Analyzer 0 % (0-5); Neutrophil # 5.65 X10^3/uL (2.7-7.7); Neutrophil % 68.9 % (47-70); Platelet Count 192 K/mm3 (150-450); RBC Distribution Width CV 15.6 % (11.6-14.6); RBC Distribution Width SD 49.5 fl (35.1-43.9); Red Blood Count 2.91 M/mm3 (4.6-6.2); White Blood Count 8.2 K/mm3 (4.4-11.0)
[2024-04-20 08:54] LABS: Mucous, Urine 0 SEEN /hpf (<or=2+); Squamous Epithelial Cells - UA 0 SEEN /hpf (0-5)
[2024-04-20 09:00] LABS: Color, Urine Yellow (Yellow); Glucose, Dipstick Normal (Normal); Ketone-Dipstick 15 mg/dl (Negative); Leukocyte Esterase-Dipstick 500 /ul (Negative); Nitrite-Dipstick Negative (Negative); Occult Blood-Urine 250 /ul (Negative); Protein-Dipstick 30 mg/dl (Negative); Urine Bilirubin Dipstick Negative (Negative); Urine Clarity Sl. Cloudy (Clear); Urine Urobilinogen Normal (Normal)
[2024-04-20 09:00] LABS: Lactic Acid 1.1 mmol/L (0.4-1.9)
[2024-04-20 09:03] LABS: International Normalized Ratio 1.1; Prothrombin Time (Protime)PT. 14.5 SECONDS (11.7-14.9)
[2024-04-20 09:07] LABS: Bacteria 1+ /hpf (None Seen); Red Blood Cells-Urine 25-50 SEEN /hpf (0-5); White Blood Cells 25-50 SEEN /hpf (0-5)
[2024-04-20 09:07] LABS: AST(SGOT) 22 U/L (15-37); Alanine Aminotransfer ALT/SGPT 36 U/L (16-61); Albumin, Serum 2.1 g/dL (3.2-5.0); Alkaline Phosphatase 458 U/L (45-117); Anion Gap 4 (5-15); BUN 17 mg/dL (7-18); Bilirubin, Direct 0.34 mg/dL (0.00-0.30); Calcium,Total 8.4 mg/dL (8.5-10.1); Chloride 108 mmol/L (98-107); Creatinine, Serum 0.95 mg/dL (0.70-1.30); EST Glomerular Filtration Rate 82 mL/min (>60); Est Glom Filt Rate - Afr Amer 99 mL/min (>60); Estimated Creatinine Clearance 74.87 ml/min; Globulin 3.8 g/dL (2.2-4.2); Glucose 140 mg/dL (74-106); Lipase < 10 U/L (13-75); Potassium 4.1 mmol/L (3.5-5.1); Protein, Total 5.9 g/dL (6.4-8.2); Sodium Level 141 mmol/L (136-145); Troponin-I HS 25 pg/mL (3.0-78.0)
[2024-04-20 09:08] LABS: Yeast-Urine 1+ /hpf (None Seen)
--- NOTE | 2024-04-20 13:30 | NURSING ---
REPORT CALLED TO [facility] AT 1330 BY THIS RN
== END 2024-04-20 14:02 ==
PROVIDERS: Emergency Provider Emergency Medicine; PCP Internal Medicine; Visit Provider Emergency Medicine
DX: R41.82 Altered mental status, unspecified (principal); E11.9 Type 2 diabetes mellitus without complications; Z79.4 Long term (current) use of insulin; I10 Essential (primary) hypertension; E78.00 Pure hypercholesterolemia, unspecified; E66.9 Obesity, unspecified; H54.8 Legal blindness, as defined in USA; Z68.34 Body mass index [BMI] 34.0-34.9, adult; Z79.899 Other long term (current) drug therapy; Z87.891 Personal history of nicotine dependence
CPT/HCPCS: 70450; 71045; 80048; 80076; 81001; 83605; 83690; 84484; 85025; 85610; 85730; 87086; 87088; 93005; 96360; 96361; 99284; J7030; A4216